=== PATIENT | female | born 1975 | race Caucasian/White ===

== ENCOUNTER 2018-05-12 12:22 | Day surgery (SDC) | payer MEDICAID ==
[~2018-05-12] VITALS: Ht 160 cm; Wt 83.5 kg
[~2018-05-12 12:22] MED LIST: ACHD5005 PO; ACYC800T; ACYC800T57; ALBU17AE23 IH; ALPR.25T PO; ALPR.5T; ALPR.5T PO; ALPR1T PO; AMIT25TA9 PO; AMX500CRX PO; ARPZ10T PO; CPR500T PO; DIAZ2TAB2 PO; DIAZ5TAB3 PO; DOXE10CA PO; Depakote; ERGO400C PO; ESCI20TA2 PO; HYDR-34 PO; HYDR1TAB PO; Haldol; LIPA1CAP21 PO; METH4TAB PO; METO-354 PO; METR500T PO; NAPR550T PO; ONDA-42 PO; ONDAN4ODT PO; OXYC-12 PO; PNT40TEC PO; PRD1T PO; PRD20T PO; PRM25T PO; RABE20TA; RABE20TA PO; VALA500T4 PO; Valtrex
[2018-05-12] MEDS ORDERED: LACTATED RINGERS 1,000 ML IV STA (12:25)
--- OUTSIDE RECORDS SUMMARY | 2018-05-12 12:25 | XMS REPORT | Summary of Care ---
Author Author Saadia Sandy, Lev Organization Unknown Address Unknown Phone Unavailable Care Team Providers Care Parts And Service Manager Name Role Phone Lev Zee M.D. Unavailable Unavailable Major Troncoso M.D. Unavailable Unavailable Maryse Burroughs PP Unavailable Unavailable Unavailable Functional Status Functional Status Health Issues* Name Dates Details Functional status health issues are not documented Status: Cognitive Status Health Issues* Name Dates Details Cognitive status health issues are not documented Status: Problems Name Dates Details Anxiety (300.00, F41.9) Status: Active Generalized pain (780.96, R52) Status: Active Chronic pancreatitis (577.1, K86.1) Status: Active Polyarthritis (716.50, M13.0) Status: Active Pain of left foot (729.5, M79.672) Status: Active Seasonal allergies (477.9, J30.2) Status: Active URI, acute (465.9, J06.9) Status: Active Cervical herniated disc (722.0, M50.20) Status: Active Lumbar herniated disc (722.10, M51.26) Status: Active Left rotator cuff tear (840.4, M75.102) Status: Active Medications Name Dates Details Voltaren 1 % Transdermal Gel APPLY 4 GRAMS TO AFFECTED AREA FOUR TIMES DAILY Quantity: 500 Lev Zee M.D.* Started 30-Oct-2012 ActiveMiraLax Oral Powder 17 grams po daily * Refills: 0 Ascencion Troncoso M.D.* Started 13-Nov-2012 ActiveAbilify 10 MG Oral Tablet TAKE 1 TABLET DAILY. * Quantity: 30 Refills: 0 Lev Zee M.D.* Started 13-Nov-2012 ActiveALPRAZolam 0.5 MG Oral Tablet TAKE 1 TABLET EVERY 8 HOURS NEEDED. * Quantity: 90 Refills: 0 Lev Zee M.D.* Started 05-Feb-2013 ActiveEscitalopram Oxalate 10 MG Oral Tablet TAKE 1 TABLET DAILY. * Quantity: 30 Refills: 3 Lev Zee M.D.* Started 05-Feb-2013 ActiveOxycodone-Acetaminophen 10-325 MG Oral Tablet TAKE 1 EVERY 4 HOURS NEEDED. *MAX 6 PER DAY*MAY FILL ON OR AFTER 02/15/15* * Quantity: 180 Refills: 0 Lev Zee M.D.* Started ActiveProtonix 20 MG Oral Tablet Delayed Release TAKE 1 TABLET TWICE DAILY. * Refills: 0 * Started 24-Nov-2013 Active Allergies and Adverse Reactions Name Dates Details BusPIRone HCl TABS Status: Active Prazosin HCl CAPS Status: Active tramadol Status: Active ZyPREXA TABS Status: Active Procedures Procedure Dates Details History of Inj Of Subst Other Than Anes/Contrast/Neurol Solns Cervical Procedures not documented Immunization Name Dates Details Influenza Administered on:22-Jun-2014 Social History Name Dates Details Smoking Status* Smoker. current status unknown Vital Signs Date Test Result Details 13-Jan-2015 10:04 BP Systolic 104 mm[Hg] Status: BP Diastolic 60 mm[Hg] Status: Heart Rate 69 /min Status: Respiration Rate 20 /min Status: Weight 179.125 lb Status: Height 63 in Status: O2 SAT 98 % Status: Body Mass Index Calculated 31.73 kg/m2 Status: Body Surface Area Calculated 1.85 m2 Status: Results Date Description Value Details Results not documented Plan of Care Planned Observations* Name Dates Details Planned Goals not documented Goal Planned Encounters* Appointment; Provider: Lev Zee On 13:45 Instructions * Instructions not documented Encounters Appointment; Lev Zee Encounter Diagnosis: Problem not documented On 13-Jan-2015 10:00 Appointment; Lev Zee Encounter Diagnosis: Problem not documented On 18-Nov-2014 14:30 Appointment; Lev Zee Encounter Diagnosis: Problem not documented On 23-Sep-2014 14:30 Appointment; Lev Zee Encounter Diagnosis: Problem not documented On 23-Jul-2014 14:00 Appointment; Lev Zee Encounter Diagnosis: Problem not documented On 28-May-2014 15:30 Appointment; Lev Zee Encounter Diagnosis: Problem not documented On 15:15 Appointment; Lev Zee Encounter Diagnosis: Problem not documented On 10:30 Appointment; Lev Zee Encounter Diagnosis: Problem not documented On 18-Jan-2014 10:30 Appointment; Lev Zee Encounter Diagnosis: Problem not documented On 24-Nov-2013 11:15 Appointment; Lev Zee Encounter Diagnosis: Problem not documented On 05-Oct-2013 13:15 Appointment; Lev Zee Encounter Diagnosis: Problem not documented On 04-Aug-2013 13:15 Appointment; Lev Zee Encounter Diagnosis: Problem not documented On 02-Jun-2013 13:15 Appointment; Lev Zee Encounter Diagnosis: Problem not documented On 13:30 Appointment; Lev Zee Encounter Diagnosis: Problem not documented On 05-Feb-2013 10:45
--- OUTSIDE RECORDS SUMMARY | 2018-05-12 12:25 | XMS REPORT | Summary of Care ---
Author Author Saadia Sandy, Lev Organization Unknown Address Unknown Phone Unavailable Care Team Providers Care Marine Superintendent Name Role Phone Lev Zee M.D. Unavailable [...] 6 PER DAY*MAY FILL ON OR AFTER 04/14/15* * Quantity: 180 Refills: 0 Lev Zee [...] unknown Vital Signs Date Test Result Details 13:35 BP Systolic 102 mm[Hg] Status: BP Diastolic 62 mm[Hg] Status: Heart Rate 75 /min Status: Respiration Rate 20 /min Status: Weight 175 lb Status: Height 63 in Status: O2 SAT 97 % Status: Body Mass Index Calculated 31 kg/m2 Status: Body Surface Area Calculated 1.83 m2 Status: Results Date Description Value Details Results not documented Plan of Care Planned Observations* Name Dates Details Planned Goals not documented Goal Planned Encounters* Appointment; Provider: Lev Zee On 09-May-2015 15:00 * Appointment; Provider: Schedule Radiology On 01-Feb-2015 14:30 Instructions * Instructions not documented Encounters Appointment; Lev Zee Encounter Diagnosis: Problem not documented On 13:45 Appointment; Lev Zee Encounter Diagnosis: Problem not [...]
--- OUTSIDE RECORDS SUMMARY | 2018-05-12 12:25 | XMS REPORT | Summary of Care ---
Author Author Saadia Sandy, Lev Organization Unknown Address Unknown Phone Unavailable Care Team Providers Care House Player Name Role Phone Lev Zee M.D. Unavailable Unavailable Major Troncoso M.D. Unavailable Unavailable Maryse Burroughs Unavailable Unavailable Unavailable Unavailable Functional Status Name Dates Details Functional status health issues are not documented Status: Name Dates Details Cognitive status health issues are not documented Status: Problems Name Dates Details Anxiety (300.00, F41.9) Status: Active Generalized pain (780.96, R52) Status: Active Chronic pancreatitis (577.1, K86.1) Status: Active Polyarthritis (716.50, M13.0) Status: Active Pain of left foot (729.5, M79.672) Status: Active Seasonal allergies (477.9, J30.2) Status: Active High risk medication use (V58.69, Z79.899) Status: Active Pain management (V58.89, R52) Status: Active Cervical herniated disc (722.0, M50.20) Status: Active Lumbar herniated disc (722.10, M51.26) Status: Active Left rotator cuff tear (840.4, M75.102) Status: Active Tobacco abuse (305.1, Z72.0) Status: Active Medications Name Dates Details Voltaren 1 % Transdermal Gel APPLY 4 GRAMS TO AFFECTED AREA FOUR TIMES DAILY Quantity: 1 Lev Zee M.D. * Start 30-Oct-2012 Active 100 GM Tube (5 Tubes) MiraLax Oral Powder 17 grams po daily * Refills: 0 Ascencion Troncoso M.D. * Start 13-Nov-2012 Active Abilify 10 MG Oral Tablet TAKE 1 TABLET DAILY. * Quantity: 30 Refills: 0 Lev Zee M.D. * Start 13-Nov-2012 Active ALPRAZolam 0.5 MG Oral Tablet TAKE 1 TABLET EVERY 8 HOURS NEEDED. * Quantity: 90 Refills: 0 Lev Zee M.D. * Start 05-Feb-2013 Active Escitalopram Oxalate 10 MG Oral Tablet TAKE 1 TABLET DAILY. * Quantity: 30 Refills: 3 Lev Zee M.D. * Start 05-Feb-2013 Active Oxycodone-Acetaminophen 10-325 MG Oral Tablet TAKE 1 EVERY 4 HOURS NEEDED. *MAX 6 PER DAY*MAY FILL ON OR AFTER 06/22/16* * Quantity: 180 Refills: 0 Lev Zee M.D. * Start Active Protonix 20 MG Oral Tablet Delayed Release TAKE 1 TABLET TWICE DAILY. * Refills: 0 * Start 24-Nov-2013 Active Evzio 0.4 MG/0.4ML Injection Solution Auto-injector INJECT 0.4MG SC/IM Q 2-3MIN NEEDED PER OVERDOSE * Quantity: 1 Refills: 0 Lev Zee M.D. * Start 05-Jul-2015 Active 0.4 ML Package (2 Packages) Lyrica 75 MG Oral Capsule 1 tablet three times daily * Refills: 0 * Start 17-Jan-2016 Active SUMAtriptan Succinate 50 MG Oral Tablet TAKE 1 TABLET FOR MIGRAINE RELIEF. MAY REPEAT EVERY 2 HOURS. MAX 200MG/DAY. * Refills: 0 * Start Active Allergies and Adverse Reactions Name Dates Details BusPIRone HCl TABS (Allergy) Status: Active gabapentin (Allergy) Status: Active Prazosin HCl CAPS (Allergy) Status: Active tramadol (Allergy) Status: Active ZyPREXA TABS (Allergy) Status: Active Procedures Procedure Dates Details History of Inj Of Subst Other Than Anes/Contrast/Neurol Solns Cervical Drug Screen Pain Management 8400 Ordered: 17-May-2016 Immunization Name Dates Details Influenza on: 22-Jun-2014 Fluzone Quadrivalent 0.5 ML Intramuscular Suspension Prefilled Syringe Lot #: [id number] on: 05-Jul-2015 Social History Name Dates Details - Status: Name Dates Details Smoker. current status unknown Vital Signs Date Test Result Details 17-May-2016 14:54 BP Systolic 96 mm[Hg] Status: Comments: Location: ; Position: BP Diastolic 58 mm[Hg] Status: Comments: Location: ; Position: Heart Rate 67 /min Status: Comments: Location: ; Physical Findings 20 Status: Comments: Respiration Height 63 in Status: Weight 178.125 lb Status: Physical Findings 97 Status: Comments: O2 Saturation Body Mass Index Calculated 31.55 kg/m2 Status: Body Surface Area Calculated 1.84 m2 Status: Results Date Description Value Details Results not documented Plan of Care Name Dates Details Planned Observations Planned Goals not documented Planned Encounters Appointment; Provider: Lev Zee M.D. On 19-Jul-2016 11:30 Interventions Provided Medication Changes* Oxycodone-Acetaminophen 10-325 MG Oral Tablet - Renew with Changes Labs/Procedures/Imaging* Drug Screen Pain Management 8400; To be Done: 17 May 2016 Instructions Name Dates Details Instructions not documented Encounters Appointment; Lev Zee M.D. Encounter Diagnosis: Problem not documented On 15:15 Appointment; Lev Zee M.D. Encounter Diagnosis: Problem not documented On 17-Jan-2016 15:15 Appointment; Lev Zee M.D. Encounter Diagnosis: Problem not documented On 17-Nov-2015 14:00 Appointment; Lev Zee M.D. Encounter Diagnosis: Problem not documented On 30-Sep-2015 14:15 Appointment; Lev Zee M.D. Encounter Diagnosis: Problem not documented On 02-Aug-2015 15:30 Appointment; Lev Zee M.D. Encounter Diagnosis: Problem not documented On 05-Jul-2015 10:15 Appointment; Lev Zee M.D. Encounter Diagnosis: Problem not documented On 09-May-2015 15:00 Appointment; Lev Zee M.D. Encounter Diagnosis: Problem not documented On 13:45 Appointment; Lev Zee M.D. Encounter Diagnosis: Problem not documented On 13-Jan-2015 10:00 Appointment; Lev Zee M.D. Encounter Diagnosis: Problem not documented On 18-Nov-2014 14:30 Appointment; Lev Zee M.D. Encounter Diagnosis: Problem not documented On 23-Sep-2014 14:30 Appointment; Lev Zee M.D. Encounter Diagnosis: Problem not documented On 23-Jul-2014 14:00 Appointment; Lev Zee M.D. Encounter Diagnosis: Problem not documented On 28-May-2014 15:30
--- OUTSIDE RECORDS SUMMARY | 2018-05-12 12:25 | XMS REPORT | Summary of Care ---
Author Author Saadia Sandy, Lev Organization Unknown Address Unknown Phone Unavailable Care Team Providers Care Computer Typesetter Keyliner Name Role Phone Lev Zee M.D. Unavailable [...]
--- OUTSIDE RECORDS SUMMARY | 2018-05-12 12:25 | XMS REPORT | Summary of Care ---
Author Author Saadia Sandy, Lev Kovacs Unknown Address Unknown Phone Unavailable Care Team Providers Care Proposal Editor Name Role Phone Lev Zee M.D. Unavailable [...] Active URI, acute (465.9, J06.9) Status: Active High risk medication use (V58.69, Z79.899) Status: Active Left rotator cuff tear (840.4, M75.102) Status: Active Lumbar herniated disc (722.10, M51.26) Status: Active Cervical herniated disc (722.0, M50.20) Status: Active Medications Name Dates Details Voltaren [...] 6 PER DAY*MAY FILL ON OR AFTER 11/03/15* * Quantity: 180 Refills: 0 Lev Zee M.D.* Started ActiveProtonix 20 MG Oral Tablet Delayed Release TAKE 1 TABLET TWICE DAILY. * Refills: 0 * Started 24-Nov-2013 ActiveEvzio 0.4 MG/0.4ML Injection Solution Auto-injector INJECT 0.4MG SC/IM Q 2-3MIN NEEDED PER OVERDOSE * Quantity: 1 Refills: 0 Lev Zee M.D.* Started 05-Jul-2015 Active0.4 ML Package (2 Packages) Meloxicam 15 MG Oral Tablet TAKE 1 TABLET DAILY WITH FOOD. * Refills: 0 * Started 02-Aug-2015 Active Allergies and Adverse Reactions Name Dates Details BusPIRone HCl TABS Status: Active Prazosin HCl CAPS Status: Active tramadol Status: Active ZyPREXA TABS Status: Active Procedures Procedure Dates Details History of Inj Of Subst Other Than Anes/Contrast/Neurol Solns Cervical HASC Cervical Epidural 34247 Ordered:30-Sep-2015 Immunization Name Dates Details Influenza Administered on:22-Jun-2014 Fluzone Quadrivalent 0.5 ML Intramuscular Suspension Prefilled Syringe Lot #: [id number] Administered on:05-Jul-2015 Social History Name Dates Details Smoking Status* Smoker. current status unknown Vital Signs Date Test Result Details 30-Sep-2015 13:30 BP Systolic 100 mm[Hg] Status: BP Diastolic 68 mm[Hg] Status: Heart Rate 77 /min Status: Respiration Rate 20 /min Status: Height 63 in Status: Weight 170.5 lb Status: O2 SAT 97 % Status: Body Mass Index Calculated 30.2 kg/m2 Status: Body Surface Area Calculated 1.81 m2 Status: Results Date Description Value Details Results not documented Plan of Care Planned Observations* Name Dates Details Planned Goals not documented Goal Planned Encounters* Appointment; Provider: Lev Zee On 17-Nov-2015 14:00 * Appointment; Provider: Schedule Radiology On 14:00 * Appointment; Provider: Schedule Radiology On 14:00 * Appointment; Provider: Schedule Radiology On 01-Feb-2015 14:30 Instructions * Instructions not documented Encounters Appointment; Lev Zee Encounter Diagnosis: Problem not documented On 02-Aug-2015 15:30 Appointment; Lev Zee Encounter Diagnosis: Problem not documented On 05-Jul-2015 10:15 Appointment; Lev Zee Encounter Diagnosis: Problem not documented On 09-May-2015 15:00 Appointment; Lev Zee Encounter Diagnosis: Problem not [...]
--- OUTSIDE RECORDS SUMMARY | 2018-05-12 12:26 | XMS REPORT | Summary of Care ---
Author Author Saadia Sandy, [employer] [facility] Unknown Address Unknown Phone Unavailable Care Team Providers Care Hat Parts Cutter Machine Name Role Phone Maryse Burroughs Unavailable Unavailable Unavailable Unavailable Functional Status Functional Status Health Issues* Name Dates Details No known functional status health issues Status: Cognitive Status Health Issues* Name Dates Details No known cognitive status health issues Status: Problems Name Dates Details Lower back pain (724.2, M54.5) Status: Active Anxiety (300.00, F41.9) Status: Active Generalized pain (780.96, R52) Status: Active Chronic pancreatitis (577.1, K86.1) Status: Active Cervicalgia (723.1, M54.2) Status: Active Polyarthritis (716.50, M13.0) Status: Active Pain of left foot (729.5, M79.672) Status: Active Cervical herniated disc (722.0, M50.20) Status: Active Lumbar herniated disc (722.10, M51.26) Status: Active Seasonal allergies (477.9, J30.2) Status: Active Medications Name Dates Details Voltaren 1 % Transdermal Gel APPLY 4 GRAMS TO AFFECTED AREA FOUR TIMES DAILY Quantity: 500 GM * Started 30-Oct-2012 ActiveMiraLax Oral Powder 17 grams po daily * Refills: 0 * Started 13-Nov-2012 ActiveAbilify 10 MG Oral Tablet TAKE 1 TABLET DAILY. * Quantity: 30 Tablet Refills: 0 * Started 13-Nov-2012 ActiveALPRAZolam 0.5 MG Oral Tablet TAKE 1 TABLET EVERY 8 HOURS NEEDED. * Quantity: 90 Tablet Refills: 0 * Started 05-Feb-2013 ActiveEscitalopram Oxalate 10 MG Oral Tablet TAKE 1 TABLET DAILY. * Quantity: 30 Tablet Refills: 3 * Started 05-Feb-2013 ActiveOxycodone-Acetaminophen 10-325 MG Oral Tablet TAKE 1 EVERY 4 HOURS NEEDED. *MAX 6 PER DAY*MAY FILL ON OR AFTER 06/28/14* * Quantity: 180 Tablet Refills: 0 * Started ActiveProtonix 20 MG Oral Tablet Delayed Release TAKE 1 TABLET TWICE DAILY. * Refills: 0 * Started 24-Nov-2013 Active Allergies and Adverse Reactions Name Dates Details BusPIRone HCl TABS Status: Active ZyPREXA TABS Status: Active Prazosin HCl CAPS Status: Active Past Medical History Name Dates Details Inj Of Subst Other Than Anes/Contrast/Neurol Solns Cervical Status: Resolved Procedures Procedure Dates Details Surgical history not documented Procedures not documented Immunization Name Dates Details Immunizations not documented Social History Name Dates Details Current smoker (305.1, Z72.0) Smoking Status* Smoker. current status unknown Vital Signs Date Test Result Details No Known Vitals to report Results Date Description Value Details Results not documented Plan of Care Instructions* Instructions not documented Planned Observations* Name Dates Details Planned Goals not documented Goal Planned Encounters* Appointment; Provider: Lev Zee On 23-Jul-2014 14:00 Instructions * No Known Instructions Encounters Appointment; Lev Zee Encounter Diagnosis: Problem [...] Diagnosis: Problem not documented On 05-Feb-2013 10:45 Appointment; Lev Zee Encounter Diagnosis: Problem not documented On 11-Dec-2012 10:45 Appointment; Lev Zee Encounter Diagnosis: Problem not documented On 13-Nov-2012 09:15 Appointment; Zee, [place] Encounter Diagnosis: Problem not documented On 30-Oct-2012 11:00
--- OUTSIDE RECORDS SUMMARY | 2018-05-12 12:26 | XMS REPORT | Summary of Care ---
Author Author Lev Zee M.D. Unknown Address Unknown Phone Unavailable Care Team Providers Care Bulb Filler Name Role Phone Lev Zee M.D. Unavailable [...] risk medication use (V58.69, Z79.899) Status: Active Lumbar herniated disc (722.10, M51.26) Status: Active Cervical herniated disc (722.0, M50.20) Status: Active Left rotator cuff tear (840.4, M75.102) Status: Active Tobacco abuse (305.1, Z72.0) Status: Active Medications Name Dates Details Voltaren 1 % Transdermal Gel APPLY 4 GRAMS TO AFFECTED AREA FOUR TIMES DAILY Quantity: 1 Lev Zee M.D.* Started 30-Oct-2012 [id number] GM Tube (5 Tubes) MiraLax Oral Powder [...] 6 PER DAY*MAY FILL ON OR AFTER 02/27/16* * Quantity: 180 Refills: 0 Lev Zee M.D.* Started ActiveProtonix 20 MG Oral Tablet Delayed Release TAKE 1 TABLET TWICE DAILY. * Refills: 0 * Started 24-Nov-2013 ActiveEvzio 0.4 MG/0.4ML Injection Solution Auto-injector INJECT 0.4MG SC/IM Q 2-3MIN NEEDED PER OVERDOSE * Quantity: 1 Refills: 0 Lev Zee M.D.* Started 05-Jul-2015 Active0.4 ML Package (2 Packages) Lyrica 75 MG Oral Capsule 1 tablet three times daily * Refills: 0 * Started 17-Jan-2016 ActiveFiorinal 50-325-40 MG Oral Capsule TAKE 1 TO 2 CAPSULES EVERY 4 TO 6 HOURS NEEDED FOR PAIN. * Refills: 0 * Started 17-Jan-2016 Active Allergies and Adverse Reactions Name Dates Details BusPIRone HCl TABS Status: Active gabapentin Status: Active Prazosin HCl CAPS Status: Active tramadol Status: Active ZyPREXA TABS Status: Active Procedures Procedure Dates Details History of Inj Of Subst Other Than Anes/Contrast/Neurol Solns Cervical Procedures not documented Immunization Name Dates Details Influenza Administered on:22-Jun-2014 Fluzone Quadrivalent 0.5 ML Intramuscular Suspension Prefilled Syringe Lot #: [id number] Administered on:05-Jul-2015 Social History Name Dates Details Smoking Status* Smoker. current status unknown Vital Signs Date Test Result Details 17-Jan-2016 14:58 BP Systolic 100 mm[Hg] Status: BP Diastolic 56 mm[Hg] Status: Heart Rate 73 /min Status: Respiration Rate 20 /min Status: Height 63 in Status: Weight 172.25 lb Status: O2 SAT 96 % Status: Body Mass Index Calculated 30.51 kg/m2 Status: Body Surface Area Calculated 1.81 m2 Status: Results Date Description Value Details Results not documented Plan of Care Planned Observations* Name Dates Details Planned Goals not documented Goal Planned Encounters* Appointment; Provider: Schedule Radiology On 14:00 * Appointment; Provider: Schedule Radiology On 14:00 * Appointment; Provider: Schedule Radiology On 01-Feb-2015 14:30 Instructions * Instructions not documented Encounters Appointment; Lev Zee Encounter Diagnosis: Problem not documented On 17-Jan-2016 15:15 Appointment; Lev Zee Encounter Diagnosis: Problem not documented On 17-Nov-2015 14:00 Appointment; Lev Zee Encounter Diagnosis: Problem not documented On 30-Sep-2015 14:15 Appointment; Lev Zee Encounter Diagnosis: Problem not [...]
--- OUTSIDE RECORDS SUMMARY | 2018-05-12 12:26 | XMS REPORT | Summary of Care ---
Author Author Saadia Sandy, Lev Kovacs Unknown Address Unknown Phone Unavailable Care Team Providers Care Pig Lead Melter Helper Name Role Phone Lev Zee M.D. Unavailable [...] Active URI, acute (465.9, J06.9) Status: Active Left rotator cuff tear (840.4, M75.102) Status: Active Lumbar herniated disc (722.10, M51.26) Status: Active Cervical herniated disc (722.0, M50.20) Status: Active High risk medication use (V58.69, Z79.899) Status: Active Medications Name Dates Details Voltaren [...] 6 PER DAY*MAY FILL ON OR AFTER 07/10/15* * Quantity: 180 Refills: 0 Lev Zee M.D.* Started ActiveProtonix 20 MG Oral Tablet Delayed Release TAKE 1 TABLET TWICE DAILY. * Refills: 0 * Started 24-Nov-2013 ActiveEvzio 0.4 MG/0.4ML Injection Solution Auto-injector INJECT 0.4MG SC/IM Q 2-3MIN NEEDED PER OVERDOSE * Quantity: 1 Refills: 0 Lev Zee M.D.* Started 05-Jul-2015 Active0.4 ML Package (2 Packages) Allergies and Adverse Reactions Name Dates Details BusPIRone HCl TABS Status: Active Prazosin HCl CAPS Status: Active tramadol Status: Active ZyPREXA TABS Status: Active Procedures Procedure Dates Details History of Inj Of Subst Other Than Anes/Contrast/Neurol Solns Cervical Procedures not documented Immunization Name Dates Details Influenza Administered on:22-Jun-2014 Fluzone Quadrivalent 0.5 ML Intramuscular Suspension Prefilled Syringe Lot #: [id number] Administered on:05-Jul-2015 Social History Name Dates Details Smoking Status* Smoker. current status unknown Vital Signs Date Test Result Details 05-Jul-2015 10:45 BP Systolic 102 mm[Hg] Status: BP Diastolic 64 mm[Hg] Status: Heart Rate 71 /min Status: Respiration Rate 20 /min Status: Height 63 in Status: Weight 174.375 lb Status: O2 SAT 97 % Status: Body Mass Index Calculated 30.89 kg/m2 Status: Body Surface Area Calculated 1.82 m2 Status: Results Date Description Value Details [...]
--- OUTSIDE RECORDS SUMMARY | 2018-05-12 12:26 | XMS REPORT | Summary of Care ---
Author Author Saadia Sandy, Lev Organization Unknown Address Unknown Phone Unavailable Care Team Providers Care Communications Equipment Installer Name Role Phone Lev Zee M.D. Unavailable Unavailable Major Troncoso M.D. Unavailable Unavailable Maryse Burroughs PP Unavailable Unavailable Unavailable Functional Status Functional Status Health Issues* Name Dates Details Functional status health issues are not documented Status: Cognitive Status Health Issues* Name Dates Details Cognitive status health issues are not documented Status: Problems Name Dates Details Anxiety (300.00, F41.1) Status: Active Generalized pain (780.96, R52) Status: [...] unknown Vital Signs Date Test Result Details 09-May-2015 14:31 BP Systolic 94 mm[Hg] Status: BP Diastolic 66 mm[Hg] Status: Heart Rate 62 /min Status: Respiration Rate 20 /min Status: Height 63 in Status: Weight 174.125 lb Status: O2 SAT 95 % Status: Body Mass Index Calculated 30.85 kg/m2 Status: Body Surface Area Calculated 1.82 [...] Problem not documented On 24-Nov-2013 11:15 Appointment; eLv Zee Encounter Diagnosis: Problem not documented On 05-Oct-2013 13:15 Appointment; Lev Zee Encounter Diagnosis: Problem not documented On 04-Aug-2013 13:15 Appointment; Lev Zee Encounter Diagnosis: Problem not documented On 02-Jun-2013 13:15
--- OUTSIDE RECORDS SUMMARY | 2018-05-12 12:26 | XMS REPORT | Summary of Care ---
Author Author Saadia Sandy, Lev Kovacs Unknown Address Unknown Phone Unavailable Care Team Providers Care Wood Stock Blank Handler Name Role Phone Lev Zee M.D. Unavailable [...] 6 PER DAY*MAY FILL ON OR AFTER 09/06/15* * Quantity: 180 Refills: 0 Lev Zee [...] Than Anes/Contrast/Neurol Solns Cervical HASC Cervical Epidural 91459 Ordered:02-Aug-2015 Immunization Name Dates Details Influenza Administered on:22-Jun-2014 Fluzone Quadrivalent 0.5 ML Intramuscular Suspension Prefilled Syringe Lot #: [id number] Administered on:05-Jul-2015 Social History Name Dates Details Smoking Status* Smoker. current status unknown Vital Signs Date Test Result Details 02-Aug-2015 15:31 BP Systolic 120 mm[Hg] Status: BP Diastolic 70 mm[Hg] Status: Heart Rate 77 /min Status: Respiration Rate 20 /min Status: Height 63 in Status: Weight 173.5 lb Status: O2 SAT 97 % Status: Body Mass Index Calculated 30.73 kg/m2 Status: Body Surface Area Calculated 1.82 m2 Status: 05-Jul-2015 10:45 BP Systolic 102 mm[Hg] Status: BP Diastolic 64 mm[Hg] Status: Heart Rate 71 /min Status: Respiration Rate 20 /min Status: Height 63 in Status: Weight 174.375 lb Status: O2 SAT 97 % Status: Body Mass Index Calculated 30.89 kg/m2 Status: Body Surface Area Calculated 1.82 m2 Status: Results Date Description Value Details 07-Jul-2015 12:21 Drug Screen PM, Meperidine [id number] Comments: [facility] performed at: [email or web address] [facility], [address] [place] [address], [address], [place], [address], Manager Legal: Veronica Watkins Ph.D.[facility] Collection Date/Time: [id number] Results Received Date/Time: Reported Date/Time: [id number] performed at: [facility], [address] [place] [address], [address], [place], [address], Manager Legal: Veronica Watkins Ph.D.[facility] Collection Date/Time: [id number] Results Received Date/Time: Reported Date/Time: Meperidine NEGATIVE ng/mL (Better) Range: <100 Comments: [AP]----- Normeperidine NEGATIVE ng/mL (Better) Range: <100 Comments: [AP]----- 12:21 Drug Screen PM, Tramadol [id number] Comments: [facility] performed at: [facility], [address] [place] [address], [address], [place], [address], Manager Legal: Veronica Watkins Ph.D.[facility] Collection Date/Time: [id number] Results Received Date/Time : Reported Date/Time: [id number] performed at: [facility], [address] [place] [address], [address], [place], [address], Manager Legal: Veronica Watkins Ph.D.[facility] Collection Date/Time: [id number] Results Received Date/Time : Reported Date/Time: Desmethyltramadol NEGATIVE ng/mL (Better) Range: <100 Comments: [AP]----- Tramadol NEGATIVE ng/mL (Better) Range: <100 Comments: [AP]----- 08-Jul-2015 08:07 Drug Screen PM, Fentanyl [id number] Comments: [facility] performed at: [facility], [address] [place] [address], [address], [place], [address] [place] [address], Manager Legal: Veronica Watkins Ph.D.[facility] Collection Date/Time: [id number] Results Received Date/Time: [id number] Reported Date/Time: [id number] performed at: [facility], [address] [place] [address], [address], [place], [address], Manager Legal: Veronica Watkins Ph.D.[facility] Collection Date/Time: [id number] Results Received Date/Time: [id number] Reported Date/Time: [id number] performed at: [facility], [address] [place] [address], [address], [place], [address], Manager Legal: Veronica Watkins Ph.D.[facility] Collection Date/Time: [id number] Results Received Date/Time: [id number] Reported Date/Time: [id number] performed at: [facility], [address] [place] [address], [address], [place], [address], Manager Legal: Veronica Watkins Ph.D.[facility] Collection Date/Time: [id number] Results Received Date/Time: Reported Date/Time: Fentanyl NEGATIVE ng/mL (Better) Range: <0.5 Comments: [AP]----- Norfentanyl NEGATIVE ng/mL (Better) Range: <0.5 Comments: [AP]----- 08:07 Drug Screen PM, Alcohol Metabolites [id number] Comments: [facility] performed at: [facility], [address] [place] [address], [address], [place], [address], Manager Legal: Veronica Watkins Ph.D.[facility] Collection Date/Time: [id number] Results Received Date/Time: Reported Date/Time: [id number] performed at: [facility], [address] [place] [address], [address], [place], [address], Manager Legal: Veronica Watkins Ph.D.[facility] Collection Date/Time: [id number] Results Received Date/Time: [id number] Reported Date/Time: [id number] performed at: [facility], [address] [place] [address], [address], [place], [address], Manager Legal: Veronica Watkins Ph.D.[facility] Collection Date/Time: [id number] Results Received Date/Time: [id number] Reported Date/Time: [id number] performed at: [facility], [address] [place] [address], [address], [place], [address], Manager Legal: Veronica Watkins Ph.D.[facility] Collection Date/Time: [id number] Results Received Date/Time: [id number] Reported Date/Time: Alcohol Metabolites NEGATIVE ng/mL (Better) Range: <500 Comments: [AP]----- Please note: SEE NOTE (Better) Comments: * These results are for medical treatment only Analysis was performed as non-forensic testing *For assistance with interpreting these drug results,please contact a [facility] ToxicologySpecialist: [phone] ( ),M-F, 8am-6pm EST.[AP]----- 09-Jul-2015 10:33 Drug Screen PM Profile 4 [id number] Comments: [facility] performed at: [facility], [address] [place] [address], [address], [place], [address], Manager Legal: Veronica Watkins Ph.D.[facility] Collection Date/Time: [id number] Results Received Date/Time: [id number] Reported Date/Time: [id number] performed at: [facility], [address] [place] [address], [address], [place], [address] [place] [address], Manager Legal: Veronica Watkins Ph.D.[facility] Collection Date/Time: [id number] Results Received Date/Time: [id number] Reported Date/Time: [id number] performed at: [facility], [address] [place] [address], [address], [place], [address] [place] [address], Manager Legal: Veronica Watkins Ph.D.[facility] Collection Date/Time: [id number] Results Received Date/Time: [id number] Reported Date/Time: [id number] performed at: , [facility], [address] [place] [address], [address], [place], [address] [place] [address], Manager Legal: Veronica Watkins Ph.D.[facility] Collection Date/Time: [id number] Results Received Date/Time: [id number] Reported Date/Time: [id number] performed at: [facility], [address] [place] [address], [address], [place], [address] [place] [address], Manager Legal: Veronica Watkins Ph.D.[facility] Collection Date/Time: [id number] Results Received Date/Time: [id number] Reported Date/Time: [id number] Management Profile 1 w/ Confirmation, Urine Drug 1 PercocetPain Management Profile 1 w/ Confirmation, Urine Drug 2 No Answer GivenPain Management Profile 1 w/ Confirmation, Urine Drug 3 No Answer GivenPain Management Profile 1 w/ Confirmation, Urine Drug 4 No Answer GivenPain Management Profile 1 w/ Confirmation, Urine Drug 5 No Answer Given Prescribed Drug 1 Percocet(TM) (Better) Comments: [AP]----- Creatinine 63.1 mg/dL (Better) Range: > or=20.0 Comments: [AP]----- pH 6.75 (Better) Range: 4.5 - 9.0 Comments: [AP]----- Oxidant NEGATIVE mcg/mL (Better) Range: <200 Comments: [AP]----- Amphetamines NEGATIVE ng/mL (Better) Range: <500 Comments: [AP]----- medMATCH Amphetamines CONSISTENT (Better) Comments: [AP]----- Barbiturates NEGATIVE ng/mL (Better) Range: <300 Comments: [AP]----- medMATCH Barbiturates CONSISTENT (Better) Comments: [AP]----- Benzodiazepines POSITIVE ng/mL (Abnormal) Range: <100 Comments: [AP]----- Alphahydroxyalprazolam 152 ng/mL (Above high threshold) Range: <25 Comments: [AP]----- medMATCH aOH alprazolam INCONSISTENT (Better) Comments: [AP]----- Alphahydroxymidazolam NEGATIVE ng/mL (Better) Range: <50 Comments: [AP]----- medMATCH aOH midazolam CONSISTENT (Better) Comments: [AP]----- Alphahydroxytriazolam NEGATIVE ng/mL (Better) Range: <50 Comments: [AP]----- medMATCH aOH triazolam CONSISTENT (Better) Comments: [AP]----- Aminoclonazepam NEGATIVE ng/mL (Better) Range: <25 Comments: [AP]----- medMATCH Aminoclonazepam CONSISTENT (Better) Comments: [AP]----- Hydroxyethylflurazepam NEGATIVE ng/mL (Better) Range: <50 Comments: [AP]----- medMATCH OH,Et flurazepam CONSISTENT (Better) Comments: [AP]----- Lorazepam NEGATIVE ng/mL (Better) Range: <50 Comments: [AP]----- medMATCH Lorazepam CONSISTENT (Better) Comments: [AP]----- Nordiazepam NEGATIVE ng/mL (Better) Range: <50 Comments: [AP]----- medMATCH Nordiazepam CONSISTENT (Better) Comments: [AP]----- Oxazepam NEGATIVE ng/mL (Better) Range: <50 Comments: [AP]----- medMATCH Oxazepam CONSISTENT (Better) Comments: [AP]----- Temazepam NEGATIVE ng/mL (Better) Range: <50 Comments: [AP]----- medMATCH Temazepam CONSISTENT (Better) Comments: [AP]----- Cocaine Metabolite NEGATIVE ng/mL (Better) Range: <150 Comments: [AP]----- medMATCH Cocaine Metab CONSISTENT (Better) Comments: [AP]----- Methadone NEGATIVE ng/mL (Better) Range: <100 Comments: [AP]----- medMATCH Methadone CONSISTENT (Better) Comments: [AP]----- Opiates NEGATIVE CONFIRMED ng/mL (Better) Range: <100 Comments: [AP]----- Codeine NEGATIVE ng/mL (Better) Range: <50 Comments: [AP]----- medMATCH Codeine CONSISTENT (Better) Comments: [AP]----- Hydrocodone NEGATIVE ng/mL (Better) Range: <50 Comments: [AP]----- medMATCH Hydrocodone CONSISTENT (Better) Comments: [AP]----- Hydromorphone NEGATIVE ng/mL (Better) Range: <50 Comments: [AP]----- medMATCH Hydromorphone CONSISTENT (Better) Comments: [AP]----- Morphine NEGATIVE ng/mL (Better) Range: <50 Comments: [AP]----- medMATCH Morphine CONSISTENT (Better) Comments: [AP]----- Norhydrocodone NEGATIVE ng/mL (Better) Range: <50 Comments: [AP]----- medMATCH Norhydrocodone CONSISTENT (Better) Comments: [AP]----- Oxycodone POSITIVE ng/mL (Abnormal) Range: <100 Comments: [AP]----- Noroxycodone 5545 ng/mL (Above high threshold) Range: <50 Comments: [AP]----- medMATCH Noroxycodone CONSISTENT (Better) Comments: Noroxycodone is a metabolite of Oxycodone.[AP]----- Oxycodone 4910 ng/mL (Above high threshold) Range: <50 Comments: [AP]----- medMATCH Oxycodone CONSISTENT (Better) Comments: [AP]----- Oxymorphone 2128 ng/mL (Above high threshold) Range: <50 Comments: [AP]----- medMATCH Oxymorphone CONSISTENT (Better) Comments: Oxymorphone is a metabolite of oxycodone as well asa prescribed drug.[AP]----- Phencyclidine NEGATIVE ng/mL (Better) Range: <25 Comments: [AP]----- medMATCH Phencyclidine CONSISTENT (Better) Comments: [AP]----- COMMENT SEE NOTE (Better) Comments: medMATCH comments are: - present when drug test results may be the result of metabolism of one or more drugs or when results are inconsistent with prescribed medication(s) listed. - may be blank when drug results are consistent with prescribed medication(s) listed.[AP]----- Plan of Care Planned Observations* Name Dates [...]
--- OUTSIDE RECORDS SUMMARY | 2018-05-12 12:27 | XMS REPORT | Summary of Care ---
Author Author Saadia Sandy, Lev Kovacs Unknown Address Unknown Phone Unavailable Care Team Providers Care Mapping Supervisor Name Role Phone Lev Zee M.D. Unavailable [...] ML Intramuscular Suspension Prefilled Syringe Lot #: [id number] Administered on:05-Jul-2015 Social History Name Dates Details Smoking Status* Smoker. current status unknown Vital Signs Date Test Result Details 17-Nov-2015 14:14 BP Systolic 88 mm[Hg] Status: BP Diastolic 52 mm[Hg] Status: Heart Rate 74 /min Status: Respiration Rate 20 /min Status: Height 63 in Status: Weight 172.5 lb Status: O2 SAT 96 % Status: Body Mass Index Calculated 30.56 kg/m2 Status: Body Surface Area Calculated 1.82 [...]
--- OUTSIDE RECORDS SUMMARY | 2018-05-12 12:27 | XMS REPORT | Summary of Care ---
Author Author Lev Zee M.D. Unknown Address Unknown Phone Unavailable Care Team Providers Care Lapidarist Name Role Phone Lev Zee M.D. Unavailable [...] Active Seasonal allergies (477.9, J30.2) Status: Active Lumbar herniated disc (722.10, M51.26) Status: Active Cervical herniated disc (722.0, M50.20) Status: Active URI, acute (465.9, J06.9) Status: Active Medications Name Dates Details Voltaren 1 % Transdermal Gel APPLY 4 GRAMS TO AFFECTED AREA FOUR TIMES DAILY Quantity: 500 Lev Zee M.D.* Started 30-Oct-2012 ActiveMiraLax Oral Powder 17 grams po daily * Refills: 0 Ascencion Troncoso M.D.* Started 13-Nov-2012 ActiveOxycodone-Acetaminophen 10-325 MG Oral Tablet TAKE 1 EVERY 4 HOURS NEEDED. *MAX 6 PER DAY*MAY FILL ON OR AFTER 10/22/14* * Quantity: 180 Refills: 0 Lev Zee M.D.* Started ActiveProtonix 20 MG Oral Tablet Delayed Release TAKE 1 TABLET TWICE DAILY. * Refills: 0 * Started 24-Nov-2013 ActiveEscitalopram Oxalate 10 MG Oral Tablet TAKE 1 TABLET DAILY. * Quantity: 30 Refills: 3 Lev Zee M.D.* Started 05-Feb-2013 ActiveALPRAZolam 0.5 MG Oral Tablet TAKE 1 TABLET EVERY 8 HOURS NEEDED. * Quantity: 90 Refills: 0 Lev Zee M.D.* Started 05-Feb-2013 ActiveAbilify 10 MG Oral Tablet TAKE 1 TABLET DAILY. * Quantity: 30 Refills: 0 Lev Zee M.D.* Started 13-Nov-2012 Active Allergies and Adverse Reactions Name Dates Details BusPIRone HCl TABS Status: Active Prazosin HCl CAPS Status: Active ZyPREXA TABS Status: Active Procedures Procedure Dates Details History of Inj Of Subst Other Than Anes/Contrast/Neurol Solns Cervical EPIDURAL INJECTION Ordered:23-Sep-2014 Immunization Name Dates Details Influenza Administered on:22-Jun-2014 Social History Name Dates Details Smoking Status* Smoker. current status unknown Vital Signs Date Test Result Details 23-Sep-2014 14:54 BP Systolic 110 mm[Hg] Status: BP Diastolic 58 mm[Hg] Status: Heart Rate 82 /min Status: Respiration Rate 20 /min Status: Weight 180.5 lb Status: Height 63 in Status: O2 SAT 94 % Status: Body Mass Index Calculated 31.97 kg/m2 Status: Body Surface Area Calculated 1.85 m2 Status: Results Date Description Value Details Results not documented Plan of Care Planned Observations* Name Dates Details Planned Goals not documented Goal Planned Encounters* Appointment; Provider: Lev Zee On 18-Nov-2014 14:30 Instructions * Instructions not documented Encounters [...] Problem not documented On 13-Nov-2012 09:15 Appointment; Lev Zee Encounter Diagnosis: Problem not documented On 30-Oct-2012 11:00
--- OUTSIDE RECORDS SUMMARY | 2018-05-12 12:27 | XMS REPORT | Summary of Care ---
Author Author Saadia Sandy, Lev Organization Unknown Address Unknown Phone Unavailable Care Team Providers Care Explosive Operator Grenade Name Role Phone Lve Zee M.D. Unavailable Unavailable Major Troncoso M.D. [...] risk medication use (V58.69, Z79.899) Status: Active Cervical herniated disc (722.0, M50.20) Status: Active Lumbar herniated disc (722.10, M51.26) Status: Active Left rotator cuff tear (840.4, M75.102) Status: Active Tobacco abuse (305.1, Z72.0) Status: Active Medications Name Dates Details Voltaren 1 % Transdermal Gel APPLY 4 GRAMS TO AFFECTED AREA FOUR TIMES DAILY Quantity: 1 Lev Zee M.D.* Started 30-Oct-2012 [id number] GM Tube (5 Tubes) MiraLax Oral Powder [...] 6 PER DAY*MAY FILL ON OR AFTER 04/25/16* * Quantity: 180 Refills: 0 Lev Zee [...] daily * Refills: 0 * Started 17-Jan-2016 ActiveSUMAtriptan Succinate 50 MG Oral Tablet TAKE 1 TABLET FOR MIGRAINE RELIEF. MAY REPEAT EVERY 2 HOURS. MAX 200MG/DAY. * Refills: 0 * Started Active Allergies and Adverse Reactions Name Dates Details BusPIRone HCl TABS Status: Active gabapentin Status: Active Prazosin HCl CAPS Status: Active tramadol Status: Active ZyPREXA TABS Status: Active Procedures Procedure Dates Details History of Inj Of Subst Other Than Anes/Contrast/Neurol Solns Cervical HASC Cervical Epidural 02362 Ordered: Immunization Name Dates Details Influenza Administered on:22-Jun-2014 Fluzone Quadrivalent 0.5 ML Intramuscular Suspension Prefilled Syringe Lot #: [id number] Administered on:05-Jul-2015 Social History Name Dates Details Smoking Status* Smoker. current status unknown Vital Signs Date Test Result Details 15:20 Height 63 in Status: Weight 173.5 lb Status: O2 SAT 96 % Status: Body Mass Index Calculated 30.73 kg/m2 Status: Body Surface Area Calculated 1.82 m2 Status: BP Systolic 98 mm[Hg] Status: BP Diastolic 60 mm[Hg] Status: Heart Rate 70 /min Status: Respiration Rate 20 /min Status: Results Date Description Value Details Results not documented Plan of Care Planned Observations* Name Dates Details Planned Goals not documented Goal Planned Encounters* Appointment; Provider: Lev Zee On 17-May-2016 15:00 * Appointment; Provider: Schedule [facility]iology On 14:00 [...]
--- OUTSIDE RECORDS SUMMARY | 2018-05-12 12:27 | XMS REPORT | Summary of Care ---
Author Author Saadia Sandy, Lev Organization Unknown Address Unknown Phone Unavailable Care Team Providers Care Customer Facilities Supervisor Name Role Phone Lev Zee M.D. [...] Active Pain management (V58.89, R52) Status: Active Left rotator cuff tear (840.4, M75.102) Status: Active Cervical herniated disc (722.0, M50.20) Status: Active Lumbar herniated disc (722.10, M51.26) Status: Active Tobacco abuse (305.1, Z72.0) Status: [...] 6 PER DAY*MAY FILL ON OR AFTER 08/19/16* * Quantity: 180 Refills: 0 Lev Zee [...] 200MG/DAY. * Refills: 0 * Start Active Estradiol 0.1 MG/24HR Transdermal Patch Twice Weekly APPLY 1 PATCH TWICE WEEKLY DIRECTED. * Refills: 0 * Start 19-Jul-2016 Active Allergies and Adverse Reactions Name Dates Details BusPIRone HCl TABS (Allergy) Status: Active gabapentin (Allergy) Status: Active Prazosin HCl CAPS (Allergy) Status: Active tramadol (Allergy) Status: Active ZyPREXA TABS (Allergy) Status: Active Procedures Procedure Dates Details History of Inj Of Subst Other Than Anes/Contrast/Neurol Solns Cervical Procedures not documented Immunization Name Dates Details Influenza on: 22-Jun-2014 Fluzone Quadrivalent 0.5 ML Intramuscular Suspension Prefilled Syringe Lot #: [id number] on: 05-Jul-2015 Social History Name Dates Details - Status: Name Dates Details Smoker. current status unknown Vital Signs Date Test Result Details 19-Jul-2016 11:12 BP Systolic 94 mm[Hg] Status: Comments: Location: ; Position: BP Diastolic 60 mm[Hg] Status: Comments: Location: ; Position: Heart Rate 82 /min Status: Comments: Location: ; Physical Findings 20 Status: Comments: Respiration Height 63 in Status: Weight 177.375 lb Status: Physical Findings 97 Status: Comments: O2 Saturation Body Mass Index Calculated 31.42 kg/m2 Status: Body Surface Area Calculated 1.84 m2 Status: Results Date Description Value Details Results not documented Plan of Care Name Dates Details Planned Observations Planned Goals not documented Interventions Provided Medication Changes* Oxycodone-Acetaminophen 10-325 MG Oral Tablet - Renew with Changes Instructions Name Dates Details Instructions not documented Encounters Appointment; Lev Zee M.D. Encounter Diagnosis: Problem not documented On 17-May-2016 15:00 Appointment; Lev Zee M.D. Encounter Diagnosis: [...]
--- OUTSIDE RECORDS SUMMARY | 2018-05-12 12:27 | XMS REPORT ---
Author Author SANJUANA GARNER [facility] Address Unknown Phone Unavailable Care Team Providers Care Packing Supervisor Name Role Phone Dr. POLINA BRANHAM PCP Unavailable Allergies Allergy Description Allergy Type No known allergies - Procedures Procedure Type Procedure Description Date Physicians No codified procedures found for this patient. Results No Procedures Performed Observation Test Name Observation Test Result Observation Test Units Observation Test Date Observation Test Time No result observations. Results Transcriptions Result Description Result Date Result Time MRI L-SPINE W/O CONTRAST 10/29/12 13:03 History of Immunizations Immunization Date no immunization entries Plan of Care Item Text No plan of care items. Procedure Date/Time/Initials Critical? Status No plan of care procedures. Medication List Medication Dose Units Frequency Start Date/Time Status none Problem List Problem Entered Date Resolved Date No known problems
--- OUTSIDE RECORDS SUMMARY | 2018-05-12 12:27 | XMS REPORT | Summary of Care ---
Author Author Saadia Sandy, Lev Organization Unknown Address Unknown Phone Unavailable Care Team Providers Care Clay Artisan Name Role Phone Lev Zee M.D. Unavailable [...] Active URI, acute (465.9, J06.9) Status: Active Lumbar herniated disc (722.10, M51.26) [...] unknown Vital Signs Date Test Result Details 18-Nov-2014 14:48 BP Systolic 102 mm[Hg] Status: BP Diastolic 56 mm[Hg] Status: Heart Rate 62 /min Status: Respiration Rate 20 /min Status: Weight 180.125 lb Status: Height 63 in Status: O2 SAT 98 % Status: Body Mass Index Calculated 31.91 kg/m2 Status: Body Surface Area Calculated 1.85 m2 Status: Results Date Description Value Details Results not documented Plan of Care Planned Observations* Name Dates Details Planned Goals not documented Goal Instructions * Instructions not documented Encounters Appointment; [...]
--- OUTSIDE RECORDS SUMMARY | 2018-05-12 12:28 | XMS REPORT | Continuity of Care Document ---
Author Author [facility] Address Unknown Phone Unavailable Allergies Active Description Code Type Severity Reaction Onset Reported/Identified Relationship to Patient Clinical Status Yes BUSPIRONE [id number] Drug Allergy Unknown N/A Yes DOXEPIN [id number] Drug Allergy Unknown N/A Yes GABAPENTIN [id number] Drug Allergy Unknown N/A Yes MINIPRESS [id number] Drug Allergy Unknown N/A Yes PRAZOSIN [id number] Drug Allergy Unknown N/A Yes TRAMADOL [id number] Drug Allergy Unknown N/A Yes BuSpar [id number] N/A N/A Yes Doxepin [id number] N/A N/A Yes Minipress [id number] N/A N/A Yes Prazosin [id number] N/A N/A Yes Tramadol [id number] N/A N/A Yes NKANo Known Allergies NKA Miscellaneous Allergy Unknown N/A 02/21/2006 Yes BuSpar Drug Allergy 10/14/2008 Yes buspirone [id number] Drug Allergy Unknown N/A 02/03/2009 Yes codeine Drug Allergy 02/25/2009 Yes tramadol [id number] Drug Allergy Mild N/A 04/18/2009 Yes hyoscyamine Drug Allergy 12/14/2009 Yes traMADOL Drug Allergy 03/05/2011 Yes Zithromax Drug Allergy 06/12/2011 Yes Minipress ZZ Drug Allergy N/A HIVES 12/09/2012 Yes No Known Drug Allergies Drug Allergy N/A N/A 05/07/2013 Yes BuSpar ZZ Drug Allergy Severe Other - tremors/seizures 11/23/2014 Yes doxepin ZZ Drug Allergy Severe Other 11/23/2014 Yes traMADol ZZ Drug Allergy Moderate to severe Other - hives 11/23/2014 Yes prazosin ZZ Drug Allergy Moderate N/A 08/23/2015 Yes Gabapentin ZZ Drug Allergy Moderate N/A 07/24/2016 Medications Medication Packaging Start Date Stop Date Route Dosage Sig Oxycodone-Acetaminophen 10-325 MG Oral Tablet Tablet 04/02/2013 Tablet 180 TAKE 1 EVERY 4 HOURS NEEDED. *MAX 6 PER DAY*MAY FILL ON OR AFTER 08/19/16* XANAX ORAL 01/10/2015 30 3 times a day PERCOCET ORAL 01/10/2015 01/17/2015 40 1 TAB Q4H OR 2 TABS Q6H XANAX 02/03/2016 two pantoprazole 40 mg tablet,delayed release 06/27/2016 As Directed oxycodone-acetaminophen 10 mg-325 mg tablet 06/27/2016 As Directed ondansetron 4 mg disintegrating tablet 06/27/2016 As Directed None 06/27/2016 Lyrica 75 mg capsule 06/27/2016 As Directed escitalopram 20 mg tablet 2015 As Directed aripiprazole 15 mg tablet 2015 As Directed SALINE FLUSH 10ML SYRINGE 2015 IVP 1 SALINE FLUSH 10ML SYRINGE 2015 IVP 1 OXYCODONE/APAP(PERCOCET) 5/325 TAB 07/09/2016 PO 2 OXYCODONE(ROXICODONE) 5 MG TAB PO 2 ONDANSETRON ODT (ZOFRAN) 4 MG TAB 07/09/2016 PO 1 DIPHENHYDRAMINE(BENADRYL) 50MG/ML VIAL 07/09/2016 IVP 1 SENNOSIDES/DOCUSATE(SENOKOT-S) TAB 07/09/2016 PO 2 DIPHENHYDRAMINE(BENADRYL) 25MG TAB 07/09/2016 PO 1 SIMETHICONE(MYLANTA GAS) 80 MG TAB 07/09/2016 PO 2 METOCLOPRAMIDE(REGLAN) 10 MG/2 ML VIAL 07/09/2016 IVP 1 ONDANSETRON (ZOFRAN) 2MG/ML 2 ML VIAL 07/09/2016 IVP 1 PROMETHAZINE (PHENERGAN) 25MG/1ML VIAL 07/09/2016 IM 1 DICLOFENAC (DYLOJECT) 37.5MG/ML VIAL 07/09/2016 07/10/2016 IVP 1 ALPRAZOLAM (XANAX) 0.5 MG TAB PO 1 ESCITALOPRAM(LEXAPRO) 10 MG TAB 07/09/2016 PO 2 SUMATRIPTAN(IMITREX) 25 MG TAB PO 2 PANTOPRAZOLE(PROTONIX) 40 MG TAB 07/09/2016 PO 1 ARIPIPRAZOLE (ABILIFY) 15MG TAB 07/09/2016 07/09/2016 PO 1 ALBUTEROL(VENTOLIN) HFA 8GM INHALER 07/09/2016 INH 1 PREGABALIN(LYRICA) 75 MG CAP PO 1 NICOTINE(NICODERM) 14 MG PATCH PATCH 1 PATCH REMOVAL 07/09/2016 TOP 1 ARIPIPRAZOLE(ABILIFY) 10 MG TAB 07/09/2016 07/10/2016 PO 2 ARIPIPRAZOLE (ABILIFY) 15MG TAB 07/10/2016 PO 1 Estradiol 0.1 MG/24HR Transdermal Patch Twice Weekly Patch Twice Weekly 07/19/2016 Patch Twice Weekly APPLY 1 PATCH TWICE WEEKLY DIRECTED. Problems Date Dx Coded Attending Type Code Diagnosis Diagnosed By Lev Zee F41.9 Anxiety Lev Zee Working K86.1 Chronic pancreatitis Lev Zee M13.0 Polyarthritis Lev Zee R52 Generalized pain Lev Zee Z79.899 High risk medication use 08/10/2008 KESHIA HAHN DO 535.50 GASTRITIS UNSPEC 08/10/2008 KESHIA HAHN DO 789.00 abdominal pain 08/10/2008 KESHIA HAHN DO V58.69 MEDICATION HIGH RISK 08/10/2008 KESHIA HAHN DO 535.50 GASTRITIS UNSPEC 08/10/2008 KESHIA HHAN DO 789.00 abdominal pain 08/10/2008 KESHIA HAHN DO V58.69 MEDICATION HIGH RISK 10/05/2008 KESHIA HAHN DO 300.01 AN PANIC DIS W/O AGORA 10/05/2008 KESHIA HAHN DO 300.01 AN PANIC DIS W/O AGORA 10/14/2008 KESHIA HAHN DO 530.81 GERD 10/14/2008 KESHIA HAHN DO 530.81 GERD 11/02/2008 WERDER DO, KESHIA F 300.02 GENERALIZED ANXIETY DISORDER 11/02/2008 KESHIA HAHN DO F 300.21 AN PANIC DIS W AGORA 11/02/2008 KESHIA HAHN DO F 307.47 SI DYSSOMNIA NOS 11/02/2008 KESIHA HAHN DO F 316 PF PSYCHIC FACTORS MED COND 11/02/2008 KESHIA HAHN DO F 300.02 GENERALIZED ANXIETY DISORDER 11/02/2008 KESHIA HAHN DO F 300.21 AN PANIC DIS W AGORA 11/02/2008 KESHIA HAHN DO F 307.47 SI DYSSOMNIA NOS 11/02/2008 KESHIA HAHN DO F 316 PF PSYCHIC FACTORS MED COND 01/27/2009 KESHIA HAHN DO F 528.9 DISEASES OF THE ORAL SOFT TISSUES (EXCEPT GINGIVA, TONGUE) 01/27/2009 KESHIA HAHN DO F 616.0 CERVICITIS 01/27/2009 KESHIA HAHN DO F 625.9 FEMALE PELVIC PAIN 01/27/2009 KESHIA HAHN DO F V69.2 sexually active, frequently with new partners 01/27/2009 KESHIA HAHN DO F 528.9 DISEASES OF THE ORAL SOFT TISSUES (EXCEPT GINGIVA, TONGUE) 01/27/2009 KESHIA HAHN DO F 616.0 CERVICITIS 01/27/2009 KESHIA HAHN DO F 625.9 FEMALE PELVIC PAIN 01/27/2009 KESHIA HAHN DO F V69.2 sexually active, frequently with new partners 02/25/2009 KESHIA HAHN DO F 034.0 STREPTOCOCCAL SORE THROAT 02/25/2009 KESHIA HAHN DO F 034.0 STREPTOCOCCAL SORE THROAT 04/04/2009 KESHIA HAHN DO F V25.49 SURVEILLANCE OF OTHER CONTRACEPTIVE METHOD 04/04/2009 KESHIA HAHN DO F V25.49 SURVEILLANCE OF OTHER CONTRACEPTIVE METHOD 06/14/2009 KESHIA HAHN DO 054.10 HERPES SIMPLEX TYPE II 06/14/2009 KESHIA HAHN DO 617.9 ENDOMETRIOSIS 06/14/2009 KESHIA HAHN DO V72.31 Pelvic Exam (internal) 06/14/2009 KESHIA HAHN DO 054.10 HERPES SIMPLEX TYPE II 06/14/2009 KESHIA HAHN DO 617.9 ENDOMETRIOSIS 06/14/2009 KESHIA HAHN DO V72.31 Pelvic Exam (internal) 07/25/2009 KESHAI HAHN DO 558.9 Acute Colitis 07/25/2009 KESHIA HAHN DO 558.9 Acute Colitis 08/05/2009 KESHIA HAHN DO 293.9 UNSPECIFIED TRANSIENT MENTAL DISORDER IN CONDITIONS CLASSIFIED ELSEWHERE 08/05/2009 KESHIA HAHN DO 300.9 UNSPECIFIED NONPSYCHOTIC MENTAL DISORDER 08/05/2009 KESHIA HAHN DO 293.9 UNSPECIFIED TRANSIENT MENTAL DISORDER IN CONDITIONS CLASSIFIED ELSEWHERE 08/05/2009 KESHIA HAHN DO 300.9 UNSPECIFIED NONPSYCHOTIC MENTAL DISORDER 02/07/2010 KESHIA HAHN DO 311 MO DEPRESS NOS 02/07/2010 KESHIA HAHN DO 311 MO DEPRESS NOS 04/10/2010 KESHIA HAHN DO 577.1 CHRONIC PANCREATITIS 04/10/2010 KESHIA HAHN DO 577.1 CHRONIC PANCREATITIS 04/17/2010 KESHIA HAHN DO 300.00 AN ANXIETY UNSPEC 04/17/2010 KESHIA HAHN DO 300.00 AN ANXIETY UNSPEC 12/18/2010 KESHIA HAHN DO F 786.2 COUGH 12/18/2010 KESHIA HAHN DO 790.4 ABNORMAL LIVER FUNCTION TEST 12/18/2010 KESHIA HAHN DO F 786.2 COUGH 12/18/2010 KESHIA HAHN DO 790.4 ABNORMAL LIVER FUNCTION TEST 02/14/2011 KESHIA HAHN DO 616.10 VAGINITIS VULVOVAGINITIS UNSPECIFIED 02/14/2011 KESHIA HAHN DO 790.6 ABNORMAL LFT (LIVER FUNCTION TEST) 02/14/2011 KESHIA HAHN DO V74.5 STD SCREEN 02/14/2011 KESHIA HAHN DO 616.10 VAGINITIS VULVOVAGINITIS UNSPECIFIED 02/14/2011 KESHIA HAHN DO 790.6 ABNORMAL LFT (LIVER FUNCTION TEST) 02/14/2011 KESHIA HAHN DO V74.5 STD SCREEN 06/12/2011 KESHIA HAHN DO 368.9 UNSPECIFIED VISUAL DISTURBANCE 06/12/2011 KESHIA HAHN DO 719.43 PAIN IN JOINT INVOLVING FOREARM 06/12/2011 KESHIA HAHN DO F 723.1 CERVICALGIA 06/12/2011 KSEHIA HAHN DO F 368.9 UNSPECIFIED VISUAL DISTURBANCE 06/12/2011 KESHIA HAHN DO 719.43 PAIN IN JOINT INVOLVING FOREARM 06/12/2011 KESHIA HAHN DO 723.1 CERVICALGIA 06/13/2011 KESHIA HAHN DO 268.9 VITAMIN D DEFICIENCY 06/13/2011 KESHIA HAHN DO 268.9 VITAMIN D DEFICIENCY 08/28/2011 KESHIA HAHN DO F 788.1 DYSURIA 08/28/2011 KESHIA HAHN DO F 788.1 DYSURIA 10/17/2011 KESHIA HAHN DO 611.72 BREAST LUMP OR MASS 10/17/2011 KESHIA HAHN DO 625.0 DYSPAREUNIA 10/17/2011 KESHIA HAHN DO V72.31 COLLECT ON DELIVERY CLERK EXAM, ROUTINE 10/17/2011 KESHIA HAHN DO 611.72 BREAST LUMP OR MASS 10/17/2011 KESHIA HAHN DO 625.0 DYSPAREUNIA 10/17/2011 KESHIA HAHN DO V72.31 COLLECT ON DELIVERY CLERK EXAM, ROUTINE 11/20/2011 KESHIA HAHN DO 995.3 ALLERGY UNSPECIFIED NOT ELSEWHERE CLASSIFIED 11/20/2011 KESHIA HAHN DO 995.3 ALLERGY UNSPECIFIED NOT ELSEWHERE CLASSIFIED 12/28/2011 KESHIA HAHN DO 787.01 NAUSEA WITH VOMITING 12/28/2011 KESHIA HAHN DO 789.09 ABDOMINAL PAIN OTHER SPECIFIED SITE 12/28/2011 KESHIA HAHN DO 787.01 NAUSEA WITH VOMITING 12/28/2011 KESHIA HAHN DO 789.09 ABDOMINAL PAIN OTHER SPECIFIED SITE 03/18/2012 KESHIA HAHN DO 296.40 MO BIPOLAR MANIC UNSPECIFIED 03/18/2012 KESHIA HAHN DO 305.00 ALCOHOL ABUSE UNSPEC 03/18/2012 KESHIA HAHN DO 305.20 CANNABIS ABUSE 03/18/2012 KESHIA HAHN DO 296.40 MO BIPOLAR MANIC UNSPECIFIED 03/18/2012 KESHIA HAHN DO 305.00 ALCOHOL ABUSE UNSPEC 03/18/2012 WERDER DO, KESHIA F 305.20 CANNABIS ABUSE 04/23/2012 KESHIA HAHN DO F 719.40 PAIN IN JOINT SITE UNSPECIFIED 04/23/2012 KESHIA HAHN DO F 719.40 PAIN IN JOINT SITE UNSPECIFIED 05/24/2012 KESHIA HAHN DO F 296.60 MO BIPOLAR I MIXED UNSPECIFIED 05/24/2012 KESHIA HAHN DO F 296.60 MO BIPOLAR I MIXED UNSPECIFIED 06/20/2012 KESHIA HAHN DO F 296.00 BIPOLAR I DISORDER SINGLE MANIC EPISODE UNSPECIFIED 06/20/2012 KESHIA HAHN DO F 296.00 BIPOLAR I DISORDER SINGLE MANIC EPISODE UNSPECIFIED 04/15/2013 Kenny Jason MD Final 536.8 STOMACH FUNCT DISORD NEC 04/15/2013 Kenny Jason MD Final 564.00 CONSTIPATION NOS 04/15/2013 Kenny Jason MD Admitting 787.01 NAUSEA W VOMITING 04/15/2013 Kenny Jason MD Admitting 789.00 ABDOMINAL PAIN-SITE NOS 04/15/2013 Kenny Jason MD Admitting 789.00 ABDOMINAL PAIN-SITE NOS 05/07/2013 Kenny Jasno MD Final 211.3 BENIGN LG INTEST NEOPL 05/07/2013 Kenny Jason MD Final 530.81 ESOPHAGEAL REFLUX 05/07/2013 Kenny Jason MD Final 787.3 FLATUL/ERUCT GAS PAIN 05/07/2013 Kenny Jason MD Final 787.99 OTH GI SYSTEM SYMPTOMS 05/07/2013 Kenny Jason MD Final 789.03 RLQ ABDOMINAL PAIN 05/22/2013 Admitting 577.1 CHRONIC PANCREATITIS 08/09/2013 Lev Zee Working F41.9 Anxiety 08/09/2013 Lev Zee Working K86.1 Chronic pancreatitis 08/09/2013 Lev Zee Working M13.0 Polyarthritis 08/09/2013 Lev Zee Working R52 Generalized pain 08/09/2013 Lev Zee Working F41.9 Anxiety 08/09/2013 Lev Zee Working K86.1 Chronic pancreatitis 08/09/2013 Lev Zee Working M13.0 Polyarthritis 08/09/2013 Zee, [facility] Working R52 Generalized pain 08/09/2013 Zee, [facility] Working F41.9 Anxiety 08/09/2013 Zee, [facility] Working K86.1 Chronic pancreatitis 08/09/2013 Zee, [facility] Working M13.0 Polyarthritis 08/09/2013 Zee, [facility] Working R52 Generalized pain 08/09/2013 Zee, [facility] Working F41.9 Anxiety 08/09/2013 Zee, [facility] Working K86.1 Chronic pancreatitis 08/09/2013 Zee, [facility] Working M13.0 Polyarthritis 08/09/2013 Zee, [facility] Working R52 Generalized pain 08/09/2013 Zee, [facility] Working F41.9 Anxiety 08/09/2013 Zee, [facility] Working K86.1 Chronic pancreatitis 08/09/2013 Zee, [facility] Working M13.0 Polyarthritis 08/09/2013 Zee, [facility] Working R52 Generalized pain 08/09/2013 Zee, [facility] Working F41.9 Anxiety 08/09/[address] [facility] Working K86.1 Chronic pancreatitis 08/09/2013 Zee, [facility] Working M13.0 Polyarthritis 08/09/[address] [facility] Working R52 Generalized pain 04/02/[address] [facility] Working M79.672 Pain of left foot 04/02/2014 Zee, [facility] Working M79.672 [facility] Zee, [facility] Working M79.672 Pain of left foot Zee, [facility] 04/02/2014 Zee, [facility] Working M79.672 Pain of left foot Zee, [facility] 04/02/2014 Zee, [facility] Working M79.672 Pain of left foot Zee, [facility] 04/02/2014 Zee, [facility] Working M79.672 Pain of left foot [facility], [facility] 04/02/[facility] Zee, [facility] Working M79.672 Pain of left foot Zee, [facility] 05/28/2014 Zee, [employer] Working J30.2 Seasonal allergies 05/28/2014 Zee, [facility] Working J30.2 Seasonal allergies Zee, uan 05/28/2014 [facility] Seasonal allergies Zee, [facility] 05/28/2014 Zee, beba Working J30.2 Seasonal allergies Zee, uan 05/28/2014 [facility], [facility] J[facility] Seasonal allergies Zee, [facility] 05/28/2014 [facility], [facility] J30.2 Seasonal allergies Zee, [facility] 05/28/2014 Zee, [facility] Working J30.2 Seasonal allergies Zee, uan 09/23/2014 Zee, [employer] Working J06.9 URI, acute 09/23/2014 [facility], [facility] J[facility].9 URI, acute Zee, uan 09/23/2014 [facility], [facility] J06.9 URI, acute Zee, [facility] 09/23/2014 [facility], [facility] J06.9 URI, acute Zee, oluan 06/14/2015 LUCRECIA TAPIA APRN W 296.51 Bipolar I Disorder, Most Recent Episode Depressed, Mild 06/14/2015 MELLY TAPIA APRNINDA W 309.81 Posttraumatic Stress Disorder 07/05/2015 Zee, [employer] Working Z79.899 High risk medication use Zee, oluan 07/05/2015 Zee, [employer] Working Z79.899 High risk medication use Zee, oluan 07/05/2015 Zee, [employer] Working Z79.899 High risk medication use Zee, oluan 07/05/2015 Zee, [employer] Working Z79.899 High risk medication use Zee, oluan 07/05/2015 Zee, [employer] Working Z79.899 High risk medication use Zee, oluan 07/05/2015 Zee, [employer] Working Z79.899 High risk medication use Zee, [facility] 08/02/2015 Zee, [facility] Working M50.20 Cervical herniated disc 08/02/2015 Zee, [facility] Working M51.26 Lumbar herniated disc 08/02/2015 Zee, [facility] Working M75.102 Left rotator cuff tear 09/30/2015 Zee, [facility] Working M50.20 Cervical herniated disc Zee, [facility] 09/30/2015 Zee, [facility] Working M51.26 Lumbar herniated disc Zee, [facility] 09/30/2015 Zee, [facility] Working M75.102 Left rotator cuff tear Zee, [facility] 11/17/2015 Zee, [facility] Working M50.20 Cervical herniated disc Zee, [facility] 11/17/2015 Zee, [facility] Working M51.26 Lumbar herniated disc Zee, [facility] 11/17/2015 Zee, [facility] Working M75.102 Left rotator cuff tear Zee, [facility] 01/17/2016 Zee, [facility] Working M50.20 Cervical herniated disc Zee, [facility] 01/17/2016 Zee, [facility] Working M51.26 Lumbar herniated disc Zee, [facility] 01/17/2016 Zee, [facility] Working M75.102 Left rotator cuff tear Zee, [facility] 01/17/2016 Zee, [facility] Working Z72.0 Tobacco abuse Zee, [facility] 03/26/2016 Zee, [facility] Working M50.20 Cervical herniated disc Zee, [facility] 03/26/2016 Zee, [facility] Working M51.26 Lumbar herniated disc Zee, [facility] 03/26/2016 Zee, [facility] Working M75.102 Left rotator cuff tear Zee, [facility] 03/26/2016 Zee, [facility] Working Z72.0 Tobacco abuse Zee, [facility] 05/17/2016 Zee, [facility] Working M50.20 Cervical herniated disc Zee, [facility] 05/17/2016 Lev Zee Working M51.26 Lumbar herniated disc Saadia, [facility] 05/17/2016 Betito Zeebeba Working M75.102 Left rotator cuff tear [facility] 05/17/2016 Betito Zeebeba Working R52 Pain management Saadia, [facility] 05/17/2016 Betito Zeebeba Working Z72.0 Tobacco abuse Saadia, [facility] 05/17/2016 Betito Zeebeba Working M75.102 Left rotator cuff tear Saadia, [facility] 05/17/2016 Lev Zee Working R52 Pain management Betito Zeebeba 07/10/2016 FRAZIER, JOSEFA S E78.00 Pure hypercholesterolemia, unspecified 07/10/2016 FRAZIER, JOSEFA S F17.210 Nicotine dependence, cigarettes, uncomplicated 07/10/2016 FRAZIER, JOSEFA S F31.9 Bipolar disorder, unspecified 07/10/2016 FRAZIER, JOSEFA S F41.9 Anxiety disorder, unspecified 07/10/2016 FRAZIER, JOSEFA S F43.10 Post-traumatic stress disorder, unspecified 07/10/2016 FRAZIER, JOSEFA S G25.81 Restless legs syndrome 07/10/2016 FRAZIER, JOSEFA S G47.00 Insomnia, unspecified 07/10/2016 FRAZIER, JOSEFA S H91.90 Unspecified hearing loss, unspecified ear 07/10/2016 FRAZIER, JOSEFA S I10 Essential (primary) hypertension 07/10/2016 FRAZIER, JOSEFA S J43.9 Emphysema, unspecified 07/10/2016 FRAZIER, JOSEFA S K21.9 Gastro-esophageal reflux disease without esophagitis 07/10/2016 FRAZIER, JOSEFA S K66.0 Peritoneal adhesions (postprocedural) (postinfection) 07/10/2016 FRAZIER, JOSEFA S M79.7 Fibromyalgia 07/10/2016 FRAZIER, JOSEFA S N39.46 Mixed incontinence 07/10/2016 FRAZIER, JOSEFA P N83.201 Unspecified ovarian cyst, right side 07/10/2016 FRAZIER, JOSEFA S N83.202 Unspecified ovarian cyst, left side 07/10/2016 KAROL FRAZIERIS E S Z53.31 Laparoscopic surgical procedure converted to open procedure 07/10/2016 KAROL FRAZIERIS E S 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 07/10/2016 KAROL FRAZIERIS E S Z86.010 Personal history of colonic polyps 07/10/2016 KAROL FRAZIERIS E S Z86.19 Personal history of other infectious and parasitic diseases 07/10/2016 KAROL FRAZIERIS E S Z88.5 Allergy status to narcotic agent status 07/10/2016 FRAZIER, JOSEFA S Z88.8 Allergy status to other drugs, medicaments and biological substances status 07/10/2016 KAROL FRAZIERIS E S Z90.710 Acquired absence of both cervix and uterus 07/10/2016 KAROL FRAZIERIS E S Z98.51 Tubal ligation status 07/10/2016 KAROL FRAZIERIS E S Z98.890 Other specified postprocedural states 07/19/2016 Lev Zee Working M50.20 Cervical herniated disc Lev Zee 07/19/2016 Lev Zee Working M51.26 Lumbar herniated disc Lev Zee 07/19/2016 Lev Zee Working Z72.0 Tobacco abuse Lev Zee 01/31/2017 JYOTI FRAZIER P N95.1 Menopausal and female climacteric states 01/31/2017 KAROL FRAZIERIS E S R10.2 Pelvic and perineal pain Procedures Code Description Performed By Performed On 45.13 OTHER ENDOSCOPY OF INTEST Kenny Jason MD 10/27/2012 45.16 ESOPHAGOGASTRODUODENOSCOPY [ EGD] W/CLOSED BIOPSY Kenny Jason MD 2012 88.74 DX ULTRASOUND-DIGESTIVE Kenny Jason MD 10/27/2012 [id number] LESION REMOVAL COLONOSCOPY Kenny Jason MD 05/07/2013 [id number] Release Peritoneum, Open Approach 07/09/2016 [id number] Resection of Bilateral Ovaries, Open Approach 07/09/2016 [id number] Resection of Bilateral Fallopian Tubes, Open Approach 07/09/2016 Results Test Result Range CHEM 14 COMPREHENSIVE METABOLIC PANEL - 07/10/16 05:06 CHEM 14 COMPREHENSIVE METABOLIC PANEL LAB SODIUM 136 mmol/L 137 - 145 POTASSIUM 4.4 mmol/L 3.4 - 5.3 CHLORIDE 99 mmol/L 98 - 107 CO2 29.0 mmol/L 22.0 - 30.0 CALCIUM 9.4 mg/dl 8.4 - 10.3 GLUCOSE 132 mg/dl 65 - 110 ALBUMIN 3.3 g/dl 3.3 - 5.0 ALK PHOS 50 IU/L 32 - 91 ALT/SGPT 13 U/L 9 - 72 AST/SGOT 18 U/L 5 - 40 BUN 6 mg/dl 7 - 18 CREATININE 0.7 mg/dl 0.7 - 1.2 BUN/CREAT 8.45 RATIO T BILIRUBIN 0.70 mg/dl 0.20 - 1.30 TOTAL PROTEIN 5.80 g/dl 5.49 - 7.83 AGE 40 yrs GFR NonAA 100 GFR AA 120 CBC W Auto Diff Bld - 07/10/16 05:06 CBC WITH DIFFERENTIAL LAB WBC 14.3 th/ul 4.3 - 11.0 RBC 4.65 mil/ul 4.20 - 5.40 HEMOGLOBIN 14.3 g/dl 12.0 - 16.0 HEMATOCRIT 42.1 % 38.0 - 47.0 MCV 91 fL 82 - 100 MCH 30.8 pg 26.0 - 33.0 MCHC 34.0 g/dl 31.0 - 36.0 RDW 14.3 % 11.5 - 14.[address] 367 th/ul 150 - 375 PLATELET EST NORMAL NEUTROPHILS 11.6 th/ul 1.4 - 6.5 LYMPHOCYTES 1.6 th/ul 1.0 - 4.0 MONOCYTES 1.0 th/ul 0.0 - 0.7 EOSINOPHILS 0.0 th/ul 0.0 - 0.7 BASOPHILS 0.1 th/ul 0.0 - 0.2 MANUAL DIFF SEE BELOW NEUT MANUAL 75 % 50 - 70 BANDS MANUAL 0 % 2 - 6 LYMS MANUAL 16 % 20 - 40 MONOS MANUAL 8 % 2 - 12 EOS MANUAL 1 % 1 - 3 BASO MANUAL 0 % 0 - 1 METAS MANUAL 0 % MYELOS MANUAL 0 % BLASTS MANUAL 0 % ATYP LYMPHS 0 % PROLYMPH MANUAL 0 0 - 0 TOTAL DIFF CELLS 100 100 - 100 RBC MORPH NORMAL Pathology studies - 10/25/16 07:31 PATHOLOGY ORDER LAB FastTSH - 01/31/17 10:10 FastTSH 0.91 uIU/ml 0.34 - 5.60 TESTOSTERONE - 01/31/17 10:10 Testosterone, Serum <3 ng/dL 8-48 PROGESTERONE - 01/31/17 10:10 Progesterone <0.1 ng/mL ESTRADIOL - 01/31/17 10:10 Estradiol 50.8 pg/mL LH AND FSH PANEL - 01/31/17 10:10 LH 23.3 mIU/mL FSH 15.3 mIU/mL WET PREP - 01/31/17 10:11 WET PREP LAB PDM - PAIN MGMT (PROFILE 3 WITH CONFIRMATION) - 03/26/18 09:53 Prescribed Drug 1 Lyrica(TM) NRG Creatinine 183.6 mg/dL > or=20.0 pH 6.27 4.5 - 9.0 Oxidant NEGATIVE mcg/mL <200 Amphetamines NEGATIVE ng/mL <500 medMATCH Amphetamines CONSISTENT NRG Benzodiazepines POSITIVE ng/mL <100 Marijuana Metabolite POSITIVE ng/mL <20 Cocaine Metabolite NEGATIVE ng/mL <150 medMATCH Cocaine Metab CONSISTENT NRG Opiates NEGATIVE ng/mL <100 medMATCH Opiates CONSISTENT NRG Oxycodone NEGATIVE ng/mL <100 medMATCH Oxycodone CONSISTENT NRG COMMENT NRG Alphahydroxyalprazolam 84 ng/mL <25 medMATCH aOH alprazolam CONSISTENT NRG Alphahydroxymidazolam NEGATIVE ng/mL <50 medMATCH aOH midazolam CONSISTENT NRG Alphahydroxytriazolam NEGATIVE ng/mL <50 medMATCH aOH triazolam CONSISTENT NRG Aminoclonazepam NEGATIVE ng/mL <25 medMATCH Aminoclonazepam CONSISTENT NRG Hydroxyethylflurazepam NEGATIVE ng/mL <50 medMATCH OH,Et flurazepam CONSISTENT NRG Lorazepam NEGATIVE ng/mL <50 medMATCH Lorazepam CONSISTENT NRG Nordiazepam NEGATIVE ng/mL <50 medMATCH Nordiazepam CONSISTENT NRG Oxazepam NEGATIVE ng/mL <50 medMATCH Oxazepam CONSISTENT NRG Temazepam NEGATIVE ng/mL <50 [facility]MATCH Temazepam CONSISTENT NRG Prescribed Drug 2 Xanax(TM) NRG Marijuana Metabolite 352 ng/mL <5 medMATCH Marijuana Metab INCONSISTENT NRG Encounters ACCT No. Visit Date/Time Discharge Status Pt. Type Provider Facility Loc./Unit Complaint [id number] 08/11/2012 00:00:00 08/11/2012 23:59:59 [place] [id number] 06/20/2012 10:24:00 06/20/2012 23:59:59 CLS Outpatient KESHIA HAHN DO [id number] 09/18/2012 00:00:00 09/18/2012 23:59:59 CLS Outpatient REGINAJARON DALE LUCRECIA [id number] 03/27/2018 16:00:00 03/27/2018 23:59:59 CLS Outpatient CORTEZ DIAZ [facility] [id number] 03/26/2018 08:40:00 Document Registration [id number] 01/31/2017 09:53:00 01/31/2017 23:59:59 CLS Outpatient JYOTI FRAZIER [id number] 07/09/2016 14:57:00 07/10/2016 15:00:00 DIS Inpatient FRAZIERJYOTI SHAY [facility] [id number] 02/06/2016 11:53:11 Document Registration [id number] 06/27/2016 00:00:00 06/27/2016 23:59:59 CLS Outpatient Rusty Peng [facility] O [id number] 10/27/2012 09:13:00 10/27/2012 11:29:00 DIS Outpatient Kenny Jason MD [facility] [id number] 05/07/2013 07:02:00 05/07/2013 23:59:59 CLS Outpatient Kenny Jason MD [facility] [id number] 04/15/2013 08:57:00 04/15/2013 23:59:59 CLS Outpatient Kenny Jason MD [facility] [id number] 05/22/2013 10:30:00 Document Registration [id number] 01/31/2017 09:53:00 Document Registration [id number] 07/09/2016 14:57:00 Document Registration [id number] 08/05/2015 15:55:52 08/05/2015 23:59:59 CLS Outpatient [facility] 1 [id number] 09/11/2016 12:53:57 ACT Outpatient [facility] 1 [id number] 05/19/2016 00:01:21 ACT Outpatient [facility] 1 [id number] 05/18/2016 15:02:05 Document Registration [id number] 03/27/2016 18:41:20 ACT Outpatient [facility] 1 [id number] 01/18/2016 21:28:19 ACT Outpatient [facility] 1 [id number] 11/21/2015 07:53:33 ACT Outpatient [facility] 1 [id number] 10/02/2015 06:58:51 ACT Outpatient [facility] 1 [id number] 05/06/2018 16:18:00 05/06/2018 23:59:59 CLS Preadmit ROSEMARY C[place] [facility] RAD ABDOMINAL PAIN [id number] 09/06/2013 06:30:00 09/07/2013 12:13:00 DIS Inpatient
--- OUTSIDE RECORDS SUMMARY | 2018-05-12 12:28 | XMS REPORT | Summary of Care ---
Author Author Saadia Sandy, Lev Organization Unknown Address Unknown Phone Unavailable Care Team Providers Care Flexographic Press Set Up Operator Name Role Phone Lev Zee M.D. Unavailable [...] DAILY. * Refills: 0 * Started 24-Nov-2013 ActiveZithromax Z-Burt 250 MG Oral Tablet TAKE 2 TABLETS ON DAY 1 THEN TAKE 1 TABLET A DAY FOR 4 DAYS. * Quantity: 1 Refills: 0 Lev Zee M.D.* Started 23-Sep-2014 Ended 28-Sep-2014 Active6 Tablet Disp Pack PredniSONE 20 MG Oral Tablet TAKE 1 TABLET DAILY DIRECTED. * Quantity: 5 Refills: 0 Lev Zee M.D.* Started 23-Sep-2014 Ended 28-Sep-2014 Active Allergies and Adverse Reactions Name Dates [...]
[2018-05-12] MEDS ORDERED: HURRICAINE EXT TUBE (BENZOCAINE) XX PRN (12:30)
[2018-05-12] MEDS ORDERED: LACTATED RINGERS 1,000 ML IV ONE (12:31)
[2018-05-12 12:45] VITALS: BP 109/55
[2018-05-12] MEDS ORDERED: ACYC200C PO (13:08)
[2018-05-12] MEDS ORDERED: PREG100C PO (13:08)
[2018-05-12] MEDS ORDERED: PANT40TA3 PO (13:08)
[2018-05-12] MEDS ORDERED: DICL100G18 TP (13:08)
[2018-05-12] MEDS ORDERED: MIDAZOLAM 2 MG/2 ML (VERSED) VIAL ONE (13:44)
[2018-05-12] MEDS ORDERED: proPOfol 200 MG/20 ML (DIPRIVAN) VIAL IV ONE (13:44)
[2018-05-12] MEDS ORDERED: LIDOCAINE PF 2% 5 ML (XYLOCAINE) VIAL ONE (13:44)
[2018-05-12] MEDS ORDERED: HURRICAINE EXT TUBE (BENZOCAINE) ONE (14:18)
--- NOTE | 2018-05-12 14:18 | Anesthesia-General Post-Op ---
MAC Patient Condition Mental Status/LOC: Same as Preop Cardiovascular: Satisfactory Nausea/Vomiting: Absent Respiratory: Satisfactory Pain: Controlled Complications: Absent Post Op Complications Complications None Follow Up Care/Instructions Patient Instructions None needed. Anesthesiology Discharge Order Discharge Order Patient is doing well, no complaints, stable vital signs, no apparent adverse anesthesia problems. No complications reported per nursing. HEVER NEW CRNA May 12, 2018 14:18
[2018-05-12 14:30] VITALS: BP 101/49
[2018-05-12 15:05] VITALS: BP 107/54
[2018-05-12 15:24] VITALS: BP 107/54
--- NOTE | 2018-05-12 22:41 | OPERATIVE REPORT ---
DATE OF SERVICE: PREOPERATIVE DIAGNOSIS: Hematemesis. POSTOPERATIVE DIAGNOSES: 1. Hematemesis. 2. Gastritis. 3. Hiatal hernia. PROCEDURE: EGD with biopsy. SURGEON: Arnol Harvey DO. MODEL DRESSER: None. ANESTHESIA: IV sedation by BOAT TESTER. SPECIMENS: One antrum biopsy and one biopsy of the body of stomach and one GE junction biopsy. BLOOD LOSS: Scant. FLUIDS: Per anesthesia. POSTOPERATIVE CONDITION: Stable. INDICATION FOR PROCEDURE: The patient is a 42-year-old female who states she did have vomiting up some blood and needed a workup. FINDINGS: The patient had some gastritis, did not really have any duodenitis, but the whole stomach was inflamed and then she had a hiatal hernia with questionable creeping up of the Z line. PROCEDURE NOTE: After informed consent was obtained, the patient was brought to the endoscopy suite, placed in the left lateral decubitus position. She was administered IV sedation by the BOAT TESTER who then monitored her vitals the entire time, heart rate, blood pressure and pulse ox, and the scope was inserted down the mouth into the esophagus and down into the stomach. Immediately upon entering the stomach, we noted a lot of inflammation, erythema all the way through the entire stomach, pushed into the first portion of the duodenum, looked basically clean, did not see any ulcers and did not see any ulcers in the stomach, pulled back into the antrum, took a biopsy of the antrum and then pulled back into the body of the stomach, which was also erythematous, did another biopsy here and retroflexed, saw small hiatal hernia, pulled back into the esophagus at the GE junction and took a biopsy here, looked at the rest of the esophagus, looked good, took pictures and then pulled the scope out. The patient tolerated the procedure and she was recovered in endoscopy suite. Job ID: [id number] DocumentID: [id number] Dictated Date: 05/12/2018 14:09:36 Emergency Worker Date: 05/12/2018 22:40:25 Dictated By: ARNOL HARVEY DO
[2018-06-12] MEDS ORDERED: ACHD5005 PO (11:46)
== END 2018-05-12 15:15 | disposition home or self-care (01) ==
LOC: ENDO 12:22
PROVIDERS: ATTEND Surgery
DX: K29.50 Unspecified chronic gastritis without bleeding (principal); K31.9 Disease of stomach and duodenum, unspecified; K44.9 Diaphragmatic hernia without obstruction or gangrene; K92.0 Hematemesis; J44.9 Chronic obstructive pulmonary disease, unspecified; K21.9 Gastro-esophageal reflux disease without esophagitis; F41.9 Anxiety disorder, unspecified; F32.9 Major depressive disorder, single episode, unspecified; F17.210 Nicotine dependence, cigarettes, uncomplicated; Z79.899 Other long term (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 therapy
CPT/HCPCS: 88305; 88342

== ENCOUNTER → 2018-05-23 | Outpatient (CLI) | payer MEDICAID ==
[~2018-05-23] MED LIST changes: +ACYC200C PO; +ARIP20TA9 PO; +CATHETER FLUSH 10 ML SYR IV PRN; +CETI10TA17 PO; +DICL100G18 TP; +ESCI10TA55 PO; +ESCI20TA45 PO; +ESTR-44 TD; +HYDR-3924 PO; +ONDA4TAB11 PO; +PANT40TA3 PO; +PREG100C PO; +TR025C15 TP
--- NOTE | 2018-05-23 12:43 | Diagnostic Imaging Report ---
INDICATION: Abdominal pain. FINDINGS: The patient was administered 5.02 mCi of Tc 99m Choletec and sequential imaging was performed over the right upper abdomen. There is progressive, homogeneous accumulation of radiotracer within the liver parenchyma. There is filling of the bile ducts and subsequent filling of the gallbladder. There is progressive clearance of activity from the liver parenchyma and accumulation of radiotracer within loops of small bowel. The patient was then administered a fatty meal, utilizing 8 ounces of Ensure. The gallbladder ejection fraction was calculated to be approximately 92%. (Normal values post fatty meal stimulation are 33% or greater.) IMPRESSION: 1. Hepatobiliary scan demonstrates a patent biliary tree. 2. Normal gallbladder ejection fraction of approximately 92%. Dictated by: Dictated on workstation # [id number]
== END ==
LOC: CARD 09:56
PROVIDERS: ATTEND Surgery
DX: R10.9 Unspecified abdominal pain (principal)
CPT/HCPCS: 78227

== ENCOUNTER 2018-06-09 09:11 | Outpatient (CLI) | payer MEDICAID ==
[~2018-06-09] VITALS: Ht 160 cm; Wt 83.5 kg
[~2018-06-09 09:11] MED LIST changes: -ARIP20TA9 PO; -CATHETER FLUSH 10 ML SYR IV PRN; -CETI10TA17 PO; -ESCI10TA55 PO; -ESCI20TA45 PO; -ESTR-44 TD; -HYDR-3924 PO; -ONDA4TAB11 PO; -TR025C15 TP
[2018-06-09] MEDS ORDERED: ESTR-44 TD (10:33)
[2018-06-09] MEDS ORDERED: ESCI20TA45 PO (10:33)
[2018-06-09] MEDS ORDERED: ARIP20TA9 PO (10:33)
[2018-06-09] MEDS ORDERED: VALA500T4 PO (10:33)
[2018-06-09] MEDS ORDERED: HYDR-3924 PO (10:33)
[2018-06-09] MEDS ORDERED: ESCI10TA55 PO (10:33)
== END 2018-06-09 12:04 | disposition home or self-care (01) ==
LOC: PREOP 09:11
PROVIDERS: ATTEND Surgery
DX: Z01.818 Encounter for other preprocedural examination (principal)

== ENCOUNTER 2018-06-12 09:22 | Day surgery (SDC) | payer MEDICARE, MEDICAID ==
[~2018-06-12] VITALS: Ht 160 cm; Wt 83.5 kg
[~2018-06-12 09:22] MED LIST changes: +ARIP20TA9 PO; +ESCI10TA55 PO; +ESCI20TA45 PO; +ESTR-44 TD; +HYDR-3924 PO
--- OUTSIDE RECORDS SUMMARY | 2018-06-12 09:26 | XMS REPORT ---
Author Author MARJORIE BALDWIN [facility] Address [address] [place] [address] Care Team Providers Care Claim Clerk Name Role Phone MARJORIE BALDWIN Unavailable PROBLEMS Type Condition ICD9-CM Code RCZ73-IL Code Onset Dates Condition Status SNOMED Code Problem Bipolar I disorder, most recent episode (or current) mixed, unspecified 296.60 Active 38015519 Problem Fibromyalgia M79.7 Active 770679675 Problem Genital warts A63.0 Active 557964943 Problem Gastroesophageal reflux disease without esophagitis K21.9 Active 047209052 Problem History of bipolar disorder Z86.59 Active 407641651 Problem Panic disorder F41.0 Active 591290868 Problem Bipolar disorder, current episode depressed, severe, without psychotic features F31.4 Active 853279428 ALLERGIES No Information ENCOUNTERS Encounter Location Date Diagnosis [place] [id number] [place] [address]65- [address]46 Jun, [place] [address] [address] 14 May, 2018 Fibromyalgia M79.7 [facility] [id number] [place] [address] 69836- 0710 May, [place] [id number] [place] [address] 54980- 3277 Apr, Panic disorder F41.0 ; Gastroesophageal reflux disease without esophagitis K21.9 ; Genital warts A63.0 and Fibromyalgia M79.7 [facility] [id number] [place] [address] 27506- 5751 Apr, Panic disorder F41.0 and Bipolar disorder, current episode depressed, severe, without psychotic features F31.4 [place] [id number] [place] [address] 20431- 9978 19 Mar, 2018 History of bipolar disorder Z86.59 and History of fibromyalgia Z87.39 [facility] [id number] [place] [address] 28080- 5338 13 Mar, 2018 History of bipolar disorder Z86.59 and History of fibromyalgia Z87.39 [facility] [id number] [place] [address] 47146- 7177 12 Mar, 2018 Panic disorder F41.0 and Bipolar disorder, current episode depressed, severe, without psychotic features F31.4 [facility] [id number] [place] [address] 71263- 7185 Mar, History of bipolar disorder Z86.59 ; History of fibromyalgia Z87.39 ; Gastroesophageal reflux disease without esophagitis K21.9 and Long-term use of high-risk medication Z79.899 [place] [id number] [place] [address] 68361- 2480 14 Dec, 2014 [facility] [id number] [place] [address] 77717- 7052 Dec, [facility] [id number] [place] [address] 94681- 7102 Nov, [facility] [id number] [place] [address] 39547- 8610 Oct, [facility] [id number] [place] [address] 08593- 9232 Sep, [facility] [id number] [place] [address] 35567- 1428 Aug, [facility] [id number] [place] [address] 844067- 1724 Aug, [facility] [id number] [place] [address] 749771- 9661 Aug, [facility] [id number] [place] [address] 16103- 1054 Jul, [facility] [place] [facility] [address] [id number] [place] [address] 8425 Jul, [facility] [place] [facility] [address] [id number] [place] [address]- 1214 Jul, [facility] [place] [facility] [address] [id number] [place] [address]- 4975 Jul, [facility] [place] [facility] [address] [id number] [place] [address]- 5949 Jun, [facility] [place] [facility] [address] [id number] [place] [address]- 2484 Jun, [facility] [place] [facility] [address] [id number] [place] 37[address] Jun, [facility] [place] [facility] [address] [id number] [place] [address]- 7759 Jun, [facility] [place] [facility] [address] [id number] [place] [address]- 9014 Jun, [facility] [place] [facility] [address] [id number] [place] [address]- 6612 Jun, [facility] [place] [facility] [address] [id number] [place] [address]- 7009 Jun, [facility] [place] [facility] [address] [id number] [place] [address]- 8864 05 Jun, 2012 [facility] [place] [facility] [address] [id number] [place] [address]- 1364 26 May, 2012 [facility] [place] [facility] [address] [id number] [place] [address]12 25 Sep2011 [facility] [place] [facility] [address] [id number] [place]- 1586 24 Sep2011 [facility] [place] [facility] [address] [id number] [place] [address]- 9344 11 Sep2011 [facility] [place] [facility] [address] [id number] [place] [address]- 3195 08 May, 2012 [facility] [place] [facility] [address] [id number] [place] [address]- 1247 May, 2011 [facility] [place] [facility] [address] [id number] [place] [address]- 5823 May, [facility] [place] [facility] [address] [id number] [place] [address]- 2704 May, [facility] [place] [facility] [address] [id number] [place] [address]- 6675 May, [facility] [place] [facility] [address] [id number] [place] [address]- 9663 Apr, [facility] [place] [facility] [address] [id number] [place] [address]- 4140 Apr, [facility] [place] [facility] [address] [id number] [place] [address]- 1783 Apr, [facility] [place] [facility] [address] [id number] [place] [address]- 7669 Apr, [facility] [place] [facility] [address] [id number] [place] [address]- 8343 Apr, [facility] [place] [facility] [address] [id number] [place] [address]- 4319 Apr, [facility] [place] [facility] [address] [id number] [place] [address]- 4434 Apr, [facility] [place] [facility] [address] [id number], [place] [address]- 2924 Apr, [facility] [place] [facility] [address] [id number] [place] [address]- 1556 Apr, [facility] [place] [facility] [address] [id number] [place] [address]- 2126 Mar, [facility] [place] [facility] [address] [id number] [place] [address]- 2520 Mar, [facility] [place] [facility] [address] [id number] [place] [address]- 2512 Mar, [facility] [place] [facility] [address] [id number] [place] [address]- 3138 Mar, [facility] [place] [facility] [address] [id number] [place] [address]- 9436 Mar, [facility] [place] [facility] [address] [id number] [place] [address]- 6386 Mar, [facility] [place] [facility] [address] [id number] [place] [address]- 3576 Mar, [facility] [place] [facility] [address] [id number] [place] [address]- 2371 Mar, [facility] [place] [facility] [address] [id number] [place] [address]- 6753 Feb, [facility] [place] [facility] [address] [id number] [place] [address]- 7918 Feb, [facility] [place] [facility] [address] [id number] [place] [address]- 2601 Feb, [facility] [place] [facility] [address] [id number] [place] [address]- 3951 Feb, [facility] [place] [facility] [address] [id number] [place] [address]- 6806 Feb, [facility] [place] [facility] [address] [id number] [place] [address]- 3563 Feb, [facility] [place] [facility] [address] [id number] [place] [address]- 5560 January, [facility] [place] [facility] [address] [id number] [place] [address]- 0507 January, [facility] [place] [facility] [address] [id number] [place] [address]- 9899 Dec, [facility] [place] [facility] [address] [id number] [place] [address]- 7199 Dec, [facility] [place] [facility] [address] [id number] [place] [address]- 4855 20 Dec, 2011 [facility] [place] [facility] [address] [id number] [place] [address]- 9836 19 Dec, 2011 [facility] [place] [facility] [address] [id number] [place] [address]- 8116 17 Dec, 2011 [facility] [place] [facility] [address] [id number] [place] [address]- 6775 13 Dec, 2011 [facility] [address] [id number] [place] [address]- 6822 12 Dec, 2011 [facility] [place] [facility] [address] [id number] [place] [address]- 4552 Dec, [facility] [place] [facility] [address] [id number] [place] [address]- 4255 Nov, [facility] [place] [facility] [address] [id number] [place] [address]- 7315 15 Nov, 2011 [facility] [place] [facility] [address] [id number] [place] [address]- 8941 Nov, [facility] [place] [facility] [address] [id number] [place] [address]- 0409 Nov, [facility] [place] [facility] [address] [id number] [place] [address]- 5000 05 Nov, 2011 [facility] [place] [facility] [address] [id number] [place] [address]- 3324 Nov, [facility] [place] [facility] [address] [id number] [place] [address]- 9876 28 Oct, 2011 [facility] [place] [facility] [address] [id number] [place] [address]- 8304 27 Oct, 2011 [facility] [place] [facility] [address] [id number] [place] [address]- 2135 06 Oct, 2011 [facility] [place] [facility] [address] [id number], [place] [address]- 8102 Oct, [facility] [address] [id number] [place] [address]- 0596 Oct, [facility] [place] [facility] [address] [id number] [place] [address]- 5546 Oct, [facility] [address] [id number] [place] [address]- 3868 Sep, [facility] [place] [facility] [address] [id number] [place] [address]- 2679 Aug, [facility] [address] [id number] [place] 9555 Aug, [facility] [place] [facility] [address] [id number] [place] [address]- 4593 Aug, [facility] [address] [facility] [id number] [place] [address]- 4335 Aug, [facility] [place] [facility] [address] [facility] [id number] [place] [address]- 9583 Aug, [facility] [address] [facility] [id number] [place] [address]- 2396 Aug, [facility] [place] [facility] [address] [facility] [id number] [place] [address]- 7644 Aug, [facility] [place] [facility] [address] [facility] [id number] [place] [address]- 4078 Jul, [facility] [place] [facility] [address] [id number], [place] [address]- 3742 Jun, [facility] [place] [facility] [address] [id number] [place] [address]- 4234 Jun, [facility] [place] [facility] [address] [facility] [id number] [place] [address]- 1768 Jun, [facility] [place] [facility] [address] [facility] [id number], [place] [address]- 2141 Mar, [facility] [place] [facility] [address] [address]- 4323 Feb, [facility] [address] [address]- 1382 Aug, [facility] [address] [address]- 4577 Aug, [facility] [address] [address]- 3612 Jul, [facility] [address] [place] [address]- 2160 Aug, [facility] [id number] [place] [address] 95617- 7403 Jul, [facility] [id number] [address]- 3953 Jul, [facility] [id number] [address]- 3528 Jul, [facility] [address] [place] [address]- 4209 Jun, [facility] [address], [place] [address]- 2954 Jun, [facility] [address], [place] [address]- 5422 Feb, [facility] [address], [place] [address]- 9883 January, IMMUNIZATIONS No Known Immunizations SOCIAL HISTORY Never Assessed REASON FOR VISIT f/u PLAN OF CARE Activity Details Follow Up 4 Weeks Reason: F/U VITAL SIGNS MEDICATIONS Unknown Medications RESULTS No Results PROCEDURES Procedure Date Ordered Result Body Site [facility] VISIT MENTAL HEALTH ESTAB PT May 02, 2018 Psychotherapy, patient &/family, 45 minutes, established patient May 02, 2018 INSTRUCTIONS MEDICATIONS ADMINISTERED No Known Medications MEDICAL (GENERAL) HISTORY Type Description Date Medical History tore left tendon in shoulder Medical History bipolar Medical History night terrors Medical History chronic panic attacks Medical History chronic anxiety Medical History ovarian cysts Medical History buldging discs in neck/herniated L4 and L5 Medical History fibromyalgia Medical History Bipolar I disorder, single manic episode, unspecified Medical History Nondependent alcohol abuse, unspecified drunkenness Medical History Nondependent cannabis abuse, unspecified Medical History Lump or mass in breast Surgical History tonsillectomy Surgical History csection x 2 Surgical History tubal ligation Surgical History total hysterectomy Surgical History colon, stomach, lg and small intestine, ovary, and tube reconstruction surgery Surgical History reconstruction surgery on right hand Surgical History upper and lower scopes Hospitalization History surgeries Hospitalization History pneumonia
--- OUTSIDE RECORDS SUMMARY | 2018-06-12 09:26 | XMS REPORT ---
Author Author CORTEZ DIAZ [facility] Address [address] [place] [address] Care Team Providers Care Key Account Director Name Role Phone ALEC DIAZTA Unavailable PROBLEMS Type Condition ICD9-CM Code QCK71-VV Code Onset Dates Condition Status SNOMED Code Problem Bipolar I disorder, most recent episode (or current) mixed, unspecified 296.60 Active 71664402 Problem Fibromyalgia M79.7 Active 360589891 Problem Genital warts A63.0 Active 744222479 Problem Gastroesophageal reflux disease without esophagitis K21.9 Active 532180292 Problem History of bipolar disorder Z86.59 Active 702237193 Problem Panic disorder F41.0 Active 609308187 Problem Bipolar disorder, current episode depressed, severe, without psychotic features F31.4 Active 707249059 ALLERGIES Substance Reaction Event Type Date Status Tramadol HCl hives Drug Allergy Apr, Active Prazosin HCl hives Drug Allergy Apr, Active Minipress hives Drug Allergy Apr, Active Gabapentin hives Drug Allergy Apr, Active Doxepin HCl hives Drug Allergy Apr, Active BuSpar hives Drug Allergy Apr, Active ENCOUNTERS Encounter Location Date Diagnosis [place] [id number] [address] Jun, [facility] [id number] [place] [address]- [address]561 14 May, [address] [facility] [address] [place] [address]- 2661 05 May, 2018 [facility] [address] [place] [address]292- 2767 Apr, Panic disorder F41.0 ; Gastroesophageal reflux disease without esophagitis K21.9 ; Genital warts A63.[address] [facility] [address] [address] 17 Apr, 2018 Panic disorder F41.0 and Bipolar disorder, current episode depressed, severe, without psychotic features F31.4 [facility] [address] [address] 19 Mar, 2018 History of bipolar disorder Z86.59 and History of fibromyalgia Z87.39 [facility] [id number] [place] [address]889- 8421 Mar, History of bipolar disorder Z86.59 and History of fibromyalgia Z87.39 [place] [facility] [id number] [place] [address]96- 9595 12 Mar, 2018 Panic disorder F41.0 and Bipolar disorder, current episode depressed, severe, without psychotic features F31.4 [place] [facility] [id number] [place] [address] 64258- 4615 11 Mar, 2018 History of bipolar disorder Z86.59 ; History of fibromyalgia Z87.39 ; Gastroesophageal reflux disease without esophagitis K21.9 and Long-term use of high-risk medication Z79.899 [facility] [address] [place] [address]- 1555 Dec, [facility] [address] [address] Dec, [facility] [address] [place] [address]- 6831 Nov, [facility] [address] [address] Oct, [facility] [id number] [place] [address] 595072- 8199 Sep, [facility] [address] [address] Aug, [facility] [id number] [place] [address] 780583- 2879 Aug, [facility] [place] [facility] [address] [id number] [place] [address] 9699 14 Aug, 2012 [facility] [place] [facility] [address] [id number] [place] [address] 6741 Jul, [facility] [place] [facility] [address] [id number] [place] [address]- 8751 Jul, [facility] [place] [facility] [address] [id number] [place] [address]- 3932 Jul, [facility] [place] [facility] [address] [id number] [place] [address] 6721 Jul, [facility] [place] [facility] [address] [id number] [place] [address] Jun, [facility] [place] [facility] [address] [id number] [place] [address] Jun, [facility] [place] [facility] [address] [id number] [place] [address]- 8372 Jun, [facility] [place] [facility] [address] [id number] [place] [address]- 2406 Jun, [facility] [place] [facility] [address] [id number] [address] Jun, [facility] [place] [facility] [address] [facility] [id number] [address]- [address] Jun, [facility] [place] [facility] [address] [id number] [address] 8762 Jun, [facility] [place] [facility] [address] [id number] [address] 12[address] Jun, [facility] [place] [facility] [address] [id number] [address] 6059 May, [facility] [place] [facility] [address] [id number] [address] 3182 May, [facility] [place] [facility] [address] [id number], [place] [address] 9795 24 May, 2011 [facility] [place] [facility] [address] [id number] [place] [address]- 5106 11 Sep, 2011 [facility] [place] [facility] [address] [id number] [place] [address]- 2776 08 May, 2011 [facility] [place] [facility] [address] [id number] [place] [address]- 9586 07 Sep, 2011 [facility] [place] [facility] [address] [id number] [place] [address]- 7395 05 Sep, 2011 [facility] [place] [facility] [address] [id number] [place] [address]- 4139 05 Sep, 2011 [facility] [place] [facility] [address] [id number] [place] [address]- 3311 04 May, 2011 [facility] [place] [facility] [address] [id number] [place] [address]- 9577 Apr, [facility] [place] [facility] [address] [id number] [place] [address]- 0734 Apr, [facility] [place] [facility] [address] [id number] [place] [address]- 5927 Apr, [facility] [place] [facility] [address] [id number] [place] [address]- 7636 Apr, [facility] [place] [facility] [address] [id number] [place] [address]- 9359 Apr, [facility] [place] [facility] [address] [id number] [place] [address]- 8997 Apr, [facility] [place] [facility] [address] [id number] [place] [address]- 5854 Apr, [facility] [place] [facility] [address] [id number] [place] [address]- 4014 Apr, [facility] [place] [facility] [address] [id number] [place] [address]- 1891 Apr, [facility] [place] [facility] [address] [id number] [place] [address]- 3871 Mar, [facility] [place] [facility] [address] [id number] [place] [address]- 5515 Mar, [facility] [place] [facility] [address] [id number] [place] [address]- 2996 Mar, [facility] [place] [facility] [address] [id number] [place] [address]- 3154 Mar, [facility] [place] [facility] [address] [id number] [place] [address]- 5284 Mar, [facility] [place] [facility] [address] [id number] [place] [address]- 5624 Mar, [facility] [place] [facility] [address] [id number] [place] [address]- 5908 Mar, [facility] [place] [facility] [address] [id number] [place] [address]- 7876 Mar, [facility] [place] [facility] [address] [id number] [place] [address]- 0012 Feb, [facility] [place] [facility] [address] [id number] [place] [address]- 0332 Feb, [facility] [place] [facility] [address] [id number] [place] [address]- 7922 Feb, [facility] [place] [facility] [address] [id number] [place] [address]- 1087 Feb, [facility] [place] [facility] [address] [id number] [place] [address]- 6013 Feb, [facility] [place] [facility] [address] [id number] [place] [address]- 3381 Feb, [facility] [place] [facility] [address] [id number] [place] [address]- 3080 January, [facility] [place] [facility] [address] [id number] [place] [address]- 3669 January, [facility] [address] [id number] [place] [address]- 7339 30 Dec, 2011 [facility] [place] [facility] [address] [id number] [place] [address]- 4637 24 Dec, 2011 [facility] [place] [facility] [address] [id number] [place] [address]- 0072 20 Dec, 2011 [facility] [place] [facility] [address] [id number] [place] [address]- 0670 19 Dec, 2011 [facility] [place] [facility] [address] [id number] [place] [address]- 4745 17 Dec, 2011 [facility] [place] [facility] [address] [id number] [place] [address]- 4561 13 Dec, 2011 [facility] [place] [facility] [address] [id number] [place] [address]- 9852 12 Dec, 2011 [facility] [place] [facility] [address] [id number] [place] [address]- 3001 Dec, [facility] [place] [facility] [address] [id number] [place] [address]- 3511 Nov, [facility] [place] [facility] [address] [id number] [place] [address]- 7925 15 Nov, 2011 [facility] [place] [facility] [address] [id number] [place] [address]- 8852 Nov, [facility] [place] [facility] [address] [id number] [address]- 4738 06 Nov, 2011 [facility] [place] [facility] [address] [id number] [place] [address]- 9344 05 Nov, 2011 [facility] [place] [facility] [address] [id number] [place] [address]- 7415 02 Nov, 2011 [facility] [place] [facility] [address] [id number] [place] [address]- 0471 28 Oct, 2011 [facility] [place] [facility] [address] [id number] [place] [address]- 2158 27 Oct, 2011 [facility] [address] [id number] [place] [address]- 4056 Oct, 2011 [facility] [place] [facility] [address] [id number] [place] [address] 2546 Oct, 2011 [facility] [address] [id number] [place] [address]- 7376 Oct, [facility] [address] [id number] [place] [address] 2543 Oct, [facility] [address] [id number] [place] [address]- 9550 Sep, [facility] [address] [facility] [id number] [place] [address] Aug, [facility] [address] [facility] [id number] [place] [address]- 0526 Aug, [facility] [address] [facility] [id number] [place] [address]- 7195 Aug, [facility] [id number] [place] [address]- 4661 Aug, [facility] [address] [facility] [id number] [place] [address]- 3516 15 Aug, 2011 [facility] [address] [facility] [id number] [place] [address] 2546 Aug, [facility] [place] [facility] [address] [id number] [place] [address] 2546 Aug, [facility] [place] [facility] [address] [facility] [id number] [place] [address]- 7026 Jul, [facility] [place] [facility] [address] [facility] [id number] [place] [address]- 2786 Jun, [facility] [place] [facility] [address] [facility] [id number] [place] [address]- 3409 Jun, [facility] [address] [facility] [id number] [address]- 8246 Jun, [facility] [address] [facility] [id number] [address]- 0197 Mar, [facility] [address] [facility] [id number] [address]- 0293 Feb, [facility] [address] [facility] [id number] [address] 1466 Aug, [facility] [address] [facility] [id number][place] [address] Aug, [facility] [address] [facility] [id number], [place] [address]- 6916 Jul, [facility] [address] [facility] [id number][place] [address]- 6692 Aug, [facility] [address] [facility] [id number] [address]- 7960 Jul, [facility] [address] [facility] [id number] [address]- 3866 Jul, [facility] [address] [facility] [id number][place] [address]- 5836 Jul, [facility] [address] [facility] [id number][place] [address]- 8366 Jun, [facility] [address] [facility] [id number][place] [address]- 6116 Jun, [facility] [address] [facility] [id number][place] [address]- 3369 Feb, [facility] [address] [facility] [id number][place] [address]- 0026 January, IMMUNIZATIONS No Known Immunizations SOCIAL HISTORY Never Assessed REASON FOR VISIT Gerd/Anxiety/Chronic Pain., Pt states that she is here for her acid reflux, anxiety, and pain that has stemmed over the past 20 years., Requesting medication refill on Lyrica and states that her Dr. Hoskins from [facility] told her to see about getting something for anxiety. PLAN OF CARE Activity Details Follow Up 3 Months or as indicated by labs Reason:chronic pain VITAL SIGNS Height 63 in 2018-05-06 Weight 177.1 lbs 2018-05-06 Temperature 98.2 degrees Fahrenheit 2018-05-06 Heart Rate 75 bpm 2018-05-06 Respiratory Rate 20 2018-05-06 BMI 31.37 kg/m2 2018-05-06 Blood pressure systolic 110 mmHg 2018-05-06 Blood pressure diastolic 70 mmHg 2018-05-06 MEDICATIONS Medication Instructions Dosage Frequency Start Date End Date Duration Status Voltaren 1 % Active Lexapro 10 mg Orally Once a day 1 tablet 24h 30 Active Lexapro 20 mg Orally Once a day 1 tablet 24h 30 Active Abilify 20 mg Orally Once a day 1 tablet 24h 30 Active HydrOXYzine HCl 50 mg Orally every 8 hrs 1 tablet as needed 8h Apr, 30 days Active Protonix 40 mg Orally Once a day 1 tablet 24h 30 Active Valtrex 500 mg Orally Once a day 1 Tablet by Oral route 1 time per day for 5 days 24h Mar, Jul, 30 days Active Lyrica 150 MG Orally Three times a day 1 capsule 8h 28 days Active Estradiol 0.1 MG/24HR Transdermal Two times a Week 1 application to skin 4 weeks Active Zofran 4 MG 1 tablet as needed Active RESULTS Name Result Date Reference Range H PYLORI (IN HOUSE) 2018-05-06 H. PYLORI Negative Control + Lot # [id number] Exp date 09/2018 PROCEDURES Procedure Date Ordered Result Body Site IMMUNOASSAY,INFECTIOUS AGENT May 06, 2018 [facility] VISIT ESTABLISHED PATIENT May 06, 2018 INSTRUCTIONS MEDICATIONS ADMINISTERED No Known Medications [...]
--- OUTSIDE RECORDS SUMMARY | 2018-06-12 09:27 | XMS REPORT ---
Author Author CORTEZ DIAZ [facility] Address [address] [place] [address] Care Team Providers Care Cloud Architect Name Role Phone ALEC DIAZTA Unavailable PROBLEMS Type Condition ICD9-CM Code QHG01-FK Code Onset Dates Condition Status SNOMED Code Problem Bipolar I disorder, most recent episode (or current) mixed, unspecified 296.60 Active 95063262 Problem Fibromyalgia M79.7 Active 537191298 Problem Genital warts A63.0 Active 199075180 Problem Gastroesophageal reflux disease without esophagitis K21.9 Active 861284111 Problem History of bipolar disorder Z86.59 Active 245057800 Problem Panic disorder F41.0 Active 205979709 Problem Bipolar disorder, current episode depressed, severe, without psychotic features F31.4 Active 118614615 ALLERGIES No Information ENCOUNTERS Encounter Location Date Diagnosis [facility], [place] [id number] [place] [address] 30575- 6263 May, [place] [id number] [place] [address] 59905- 2863 May, [place] [id number] [place] [address] 28266- 1995 Apr, Panic disorder F41.0 ; Gastroesophageal reflux disease without esophagitis K21.9 ; Genital warts A63.0 and Fibromyalgia M79.7 [facility], [place] [id number] [place] [address] 08201- 9355 Apr, Panic disorder F41.0 and Bipolar disorder, current episode depressed, severe, without psychotic features F31.4 [facility], [place] [id number] [place] [address] 01678- 4107 Mar, History of bipolar disorder Z86.59 and History of fibromyalgia Z87.39 [place] [id number] [address] 4445 13 Mar, 2018 History of bipolar disorder Z86.59 and History of fibromyalgia Z87.39 [facility], [place] [id number] [place] [address] 43236- 5274 12 Mar, 2018 Panic disorder F41.0 and Bipolar disorder, current episode depressed, severe, without psychotic features F31.4 [facility], [place] [id number] [place] [address] 19500- 9519 11 Mar, 2018 History of bipolar disorder Z86.59 ; History of fibromyalgia Z87.39 ; Gastroesophageal reflux disease without esophagitis K21.9 and Long-term use of high-risk medication Z79.899 [facility], [place] [id number] [place] [address] 35909- 2957 14 Dec, 2014 [facility], [place] [id number] [place] [address] 51195- 5069 Dec, [facility], [place] [id number] [place] [address] 24837- 5164 Nov, [facility], [place] [id number] [place] [address] 17913- 8886 Oct, [facility], [place] [id number] [place] [address] 64514- 0823 Sep, [facility], [place] [address] [address]- 8138 Aug, [facility], [place] [id number] [place] [address] 147416- 6901 Aug, [facility], [place] [address] [address]- 3225 Aug, [facility], [place] [id number] [place] [address] 197307- 8554 Jul, [facility], [place] [address] 5194 Jul, [facility], [place] [id number] [place] [address]- 7068 12 Jul, 2012 [facility] [place] [facility] [address] [id number] [place] [address]- 0599 Jul, [facility] [place] [facility] [address] [id number] [place] [address]- 6248 Jun, [facility] [place] [facility] [address] [id number] [place] 4786 Jun, [facility] [place] [facility] [address] [id number] [place] [address]- 5261 Jun, [facility] [place] [facility] [address] [id number] [place] 6800 18 Jun, 2012 [facility] [place] [facility] [address] [id number] [place] [address]- 4184 Jun, [facility] [place] [facility] [address] [facility] [id number] [place] [address]- 2163 Jun, [facility] [place] [facility] [address] [id number] [place] [address]- 7609 08 Jun, 2012 [facility] [place] [facility] [address] [facility] [id number] [place] [address]- 4555 05 Jun, 2012 [facility] [place] [facility] [address] [facility] [id number] [place] [address]- 7256 26 Sep, 2011 [facility] [place] [facility] [address] [id number] [place] [address]- 3036 25 Sep, 2011 [facility] [place] [facility] [address] [id number] [place] [address]- 2542 24 Sep, 2011 [facility] [place] [facility] [address] [id number] [place] [address]- 0209 11 Sep, 2011 [facility] [place] [facility] [address] [facility] [id number] [place] [address]- 1056 08 Sep, 2011 [facility] [place] [facility] [address] [facility] [id number] [address]- 2564 07 Sep, 2011 [facility] [place] [facility] [address] [id number] [place] [address]- 8785 May, 2011 [facility] [place] [facility] [address] [id number] [place] [address]- 9098 May, [facility] [place] [facility] [address] [id number] [place] [address]- 7721 May, [facility] [place] [facility] [address] [id number] [place] [address]- 8952 Apr, [facility] [place] [facility] [address] [id number] [place] [address]- 4377 Apr, [facility] [place] [facility] [address] [id number] [place] [address]- 0406 Apr, [facility] [place] [facility] [address] [id number] [place] [address]- 7126 Apr, [facility] [place] [facility] [address] [id number] [place] [address]- 9465 Apr, [facility] [place] [facility] [address] [id number] [place] [address]- 6219 Apr, [facility] [place] [facility] [address] [id number] [place] [address]- 7708 Apr, [facility] [place] [facility] [address] [id number] [place] [address]- 4398 Apr, [facility] [place] [facility] [address] [id number] [place] [address]- 7919 Apr, [facility] [place] [facility] [address] [id number] [place] [address]- 9907 Mar, [facility] [place] [facility] [address] [id number] [place] [address]- 2227 Mar, [facility] [place] [facility] [address] [id number] [place] [address]- 3379 Mar, [facility] [place] [facility] [address] [id number] [place] [address]- 3124 Mar, [facility] [place] [facility] [address] [id number] [place] [address]- 7053 Mar, [facility] [place] [facility] [address] [id number] [place] [address]- 1626 Mar, [facility] [place] [facility] [address] [id number] [place] [address]- 7996 Mar, [facility] [place] [facility] [address] [id number] [place] [address]- 6095 Mar, [facility] [place] [facility] [address] [id number] [place] [address]- 0395 Feb, [facility] [place] [facility] [address] [id number] [place] [address]- 7930 Feb, [facility] [place] [facility] [address] [id number] [place] [address]- 7598 Feb, [facility] [place] [facility] [address] [id number] [place] [address]- 1464 Feb, [facility] [place] [facility] [address] [id number] [place] [address]- 7518 Feb, [facility] [place] [facility] [address] [id number] [place] [address]- 9865 Feb, [facility] [place] [facility] [address] [id number] [place] [address]- 7581 January, [facility] [place] [facility] [address] [id number] [place] [address]- 1000 January, [facility] [place] [facility] [address] [id number] [place] [address]- 0635 30 Dec, 2011 [facility] [place] [facility] [address] [id number] [place] [address]- 0691 24 Dec, 2011 [facility] [place] [facility] [address] [id number] [place] [address]- 2661 Dec, [facility] [place] [facility] [address] [id number] [place] [address]- 2383 19 Dec, 2011 [facility] [address] [id number] [place] [address]- 8050 17 Dec, 2011 [facility] [place] [facility] [address] [id number] [place] [address]- 8876 13 Dec, 2011 [facility] [address] [id number] [place] [address]- 6526 12 Dec, 2011 [facility] [place] [facility] [address] [id number] [place] [address]- 7460 12 Dec, 2011 [facility] [address] [id number] [place] [address]- 0578 28 Nov, 2011 [facility] [place] [facility] [address] [id number] [place] [address]- 8796 15 Nov, 2011 [facility] [place] [facility] [address] [id number] [place] [address]- 2114 07 Nov, 2011 [facility] [address] [id number] [place] [address]- 3345 06 Nov, 2011 [facility] [place] [facility] [address] [id number] [place] [address]- 6308 05 Nov, 2011 [facility] [address] [id number] [place] [address]- 0923 02 Nov, 2011 [facility] [place] [facility] [address] [id number] [place] [address]- 5509 28 Oct, 2011 [facility] [place] [facility] [address] [id number] [place] [address]- 5421 27 Oct, 2011 [facility] [place] [facility] [address] [id number] [place] [address]- 3366 06 Oct, 2011 [facility] [place] [facility] [address] [id number] [place] [address]- 2546 03 Oct, 2011 [facility] [place] [facility] [address] [id number] [place] [address]- 6574 Oct, [facility] [place] [facility] [address] [id number] [place] [address]- 4662 Oct, [facility] [place] [facility] [address] [id number] [place] [address]- 6276 Sep, [facility] [place] [facility] [address] [facility] [id number] [place] [address]- 3978 Aug, [facility] [place] [facility] [address] [id number] [place] [address]- 0053 Aug, [facility] [place] [facility] [address] [id number] [place] 3686 Aug, [facility] [place] [facility] [address] [facility] [id number] [place] [address]- 3901 Aug, [facility] [place] [facility] [address] [facility] [id number] [place] [address]- 9573 Aug, [facility] [place] [facility] [address] [id number] [place] [address]- 2868 Aug, [facility] [place] [facility] [address] [id number] [place] [address]- 1586 Aug, [facility] [place] [facility] [address] [facility] [id number] [place] [address]- 0556 Jul, [facility] [place] [facility] [address] [id number] [address]- 6173 Jun, [facility] [place] [facility] [address] [id number] [address]- 9253 Jun, [facility] [place] [facility] [address] [id number] [place] [address]- 2983 Jun, [facility] [place] [facility] [address] [facility] [id number] [address]- 1475 Mar, [facility] [place] [facility] [address] [facility] [id number], [place] [address]- 2967 Feb, [facility] [place] [facility] [address] [address]- 9501 Aug, [facility] [place] [address] [address]- 8670 Aug, [facility] [place] [address] [address]- 4359 Jul, [facility] [place] [address] [address]- 1769 Aug, [facility] [place] [address] [address]- 0301 Jul, [facility] [place] [id number] [place] [address] 97193- 5431 Jul, [facility] [place] [address] [address]- 1526 Jul, [facility] [place] [id number] [place] [address] 69255- 7946 Jun, [facility] [place] [address] [address]- 1932 Jun, [facility] [place] [address] [address]- 7284 Feb, [facility] [place] [address] [address]- 2696 January, IMMUNIZATIONS No Known Immunizations SOCIAL HISTORY Never Assessed REASON FOR VISIT Medication refill request PLAN OF CARE VITAL SIGNS MEDICATIONS Medication Instructions Dosage Frequency Start Date End Date Duration Status Alprazolam 0.5 MG Orally Twice a day 1 tablet 12h 28 days Active Lyrica 150 MG Orally Three times a day 1 capsule 8h 28 days Active RESULTS No Results PROCEDURES No Known procedures INSTRUCTIONS MEDICATIONS ADMINISTERED No Known Medications MEDICAL [...]
--- OUTSIDE RECORDS SUMMARY | 2018-06-12 09:27 | XMS REPORT ---
Author Author CORTEZ DIAZ [facility] Address [address] [place] [address] Care Team Providers Care Publicity Writer Name Role Phone ALEC DIAZTA Unavailable PROBLEMS Type Condition ICD9-CM Code XQA56-FZ Code Onset Dates Condition Status SNOMED Code Problem Bipolar I disorder, most recent episode (or current) mixed, unspecified 296.60 Active 37329714 Problem Fibromyalgia M79.7 Active 449675667 Problem Genital warts A63.0 Active 746643317 Problem Gastroesophageal reflux disease without esophagitis K21.9 Active 019699810 Problem History of bipolar disorder Z86.59 Active 144929680 Problem Panic disorder F41.0 Active 340070484 Problem Bipolar disorder, current episode depressed, severe, without psychotic features F31.4 Active [id number] ALLERGIES No Information ENCOUNTERS Encounter Location Date Diagnosis [facility] [id number] [place] [address] 29422- 7079 May, [place] [id number] [place] [address] 15026- 5139 May, [place] [id number] [place] [address] 13169- 8405 Apr, Panic disorder F41.0 ; Gastroesophageal reflux disease without esophagitis K21.9 ; Genital warts A63.0 and Fibromyalgia M79.7 [facility] [id number] [place] [address] 42194- 2981 Apr, Panic disorder F41.0 and Bipolar disorder, current episode depressed, severe, without psychotic features F31.4 [facility] [id number] [place] [address] 20125- 7626 Mar, History of bipolar disorder Z86.59 and History of fibromyalgia Z87.39 [place] [id number] [address] 1321 13 Mar, 2018 History of bipolar disorder Z86.59 and History of fibromyalgia Z87.39 [facility] [id number] [place] [address] 56712- 5538 12 Mar, 2018 Panic disorder F41.0 and Bipolar disorder, current episode depressed, severe, without psychotic features F31.4 [facility] [id number] [place] [address] 70472- 7294 11 Mar, 2018 History of bipolar disorder Z86.59 ; History of fibromyalgia Z87.39 ; Gastroesophageal reflux disease without esophagitis K21.9 and Long-term use of high-risk medication Z79.899 [facility] [id number] [place] [address] 30055- 4322 14 Dec, 2014 [facility] [id number] [place] [address] 34596- 5137 Dec, [facility] [id number] [place] [address] 34730- 6078 Nov, [facility] [id number] [place] [address] 66553- 6154 Oct, [facility] [id number] [place] [address] 12547- 7957 Sep, [facility] [address] [address] 0166 Aug, [facility] [id number] [place] [address] 030930- 8191 Aug, [facility] [address] [address]- 9325 Aug, [facility] [id number] [place] [address] 542745- 4650 Jul, [facility] [address] 9228 Jul, [facility] [id number] [place] [address]- 9192 12 Jul, 2012 [facility] [place] [facility] [address] [id number] [place] [address]- 8909 Jul, [facility] [place] [facility] [address] [id number] [place] [address]- 3628 Jun, [facility] [place] [facility] [address] [id number] [place] [address] Jun, [facility] [place] [facility] [address] [id number] [place] [address]- 0723 Jun, [facility] [place] [facility] [address] [id number] [place] 6012 18 Jun, 2012 [facility] [place] [facility] [address] [id number] [place] [address]- 4404 Jun, [facility] [place] [facility] [address] [facility] [id number] [place] [address]- 6463 Jun, [facility] [place] [facility] [address] [id number] [place] [address]- 3378 08 Jun, 2012 [facility] [place] [facility] [address] [facility] [id number] [place] [address]- 0640 05 Jun, 2012 [facility] [place] [facility] [address] [facility] [id number] [place] [address]- 3962 26 Sep, 2011 [facility] [place] [facility] [address] [id number] [place] [address]- 3126 25 Sep, 2011 [facility] [place] [facility] [address] [id number] [place] [address]- 2541 24 Sep, 2011 [facility] [place] [facility] [address] [id number] [place] [address]- 2289 11 Sep, 2011 [facility] [place] [facility] [address] [facility] [id number] [place] [address]- 6708 08 Sep, 2011 [facility] [place] [facility] [address] [facility] [id number] [place] [address]- 7807 07 Sep, 2011 [facility] [place] [facility] [address] [id number] [place] [address]- 2379 May, 2011 [facility] [place] [facility] [address] [id number] [place] [address]- 0589 May, [facility] [place] [facility] [address] [id number] [place] [address]- 3336 May, [facility] [place] [facility] [address] [id number] [place] [address]- 9093 Apr, [facility] [place] [facility] [address] [id number] [place] [address]- 1720 Apr, [facility] [place] [facility] [address] [id number] [place] [address]- 8725 Apr, [facility] [place] [facility] [address] [id number] [place] [address]- 5605 Apr, [facility] [place] [facility] [address] [id number] [place] [address]- 7787 Apr, [facility] [place] [facility] [address] [id number] [place] [address]- 7984 Apr, [facility] [place] [facility] [address] [id number] [place] [address]- 0056 Apr, [facility] [place] [facility] [address] [id number] [place] [address]- 1986 Apr, [facility] [place] [facility] [address] [id number] [place] [address]- 6724 Apr, [facility] [place] [facility] [address] [id number] [place] [address]- 8619 Mar, [facility] [place] [facility] [address] [id number] [place] [address]- 4583 Mar, [facility] [place] [facility] [address] [id number] [place] [address]- 5387 Mar, [facility] [place] [facility] [address] [id number] [place] [address]- 2714 Mar, [facility] [place] [facility] [address] [id number] [place] [address]- 8053 Mar, [facility] [place] [facility] [address] [id number] [place] [address]- 1336 Mar, [facility] [place] [facility] [address] [id number] [place] [address]- 9856 Mar, [facility] [place] [facility] [address] [id number] [place] [address]- 3117 Mar, [facility] [place] [facility] [address] [id number] [place] [address]- 1999 Feb, [facility] [place] [facility] [address] [id number] [place] [address]- 9910 Feb, [facility] [place] [facility] [address] [id number] [place] [address]- 1210 Feb, [facility] [place] [facility] [address] [id number] [place] [address]- 4463 Feb, [facility] [place] [facility] [address] [id number] [place] [address]- 2573 Feb, [facility] [place] [facility] [address] [id number] [place] [address]- 1136 Feb, [facility] [place] [facility] [address] [id number] [place] [address]- 7026 January, [facility] [place] [facility] [address] [id number] [place] [address]- 9449 January, [facility] [place] [facility] [address] [id number] [place] [address]- 2565 30 Dec, 2011 [facility] [place] [facility] [address] [id number] [place] [address]- 8454 24 Dec, 2011 [facility] [place] [facility] [address] [id number] [place] [address]- 1866 Dec, [facility] [place] [facility] [address] [id number] [place] [address]- 2054 19 Dec, 2011 [facility] [address] [id number] [place] [address]- 7294 17 Dec, 2011 [facility] [place] [facility] [address] [id number] [place] [address]- 3796 13 Dec, 2011 [facility] [address] [id number] [place] [address]- 2026 12 Dec, 2011 [facility] [place] [facility] [address] [id number] [place] [address]- 5332 12 Dec, 2011 [facility] [address] [id number] [place] [address]- 2804 28 Nov, 2011 [facility] [place] [facility] [address] [id number] [place] [address]- 0766 15 Nov, 2011 [facility] [place] [facility] [address] [id number] [place] [address]- 6005 07 Nov, 2011 [facility] [address] [id number] [place] [address]- 4359 06 Nov, 2011 [facility] [place] [facility] [address] [id number] [place] [address]- 9404 05 Nov, 2011 [facility] [address] [id number] [place] [address]- 3179 02 Nov, 2011 [facility] [place] [facility] [address] [id number] [place] [address]- 8976 28 Oct, 2011 [facility] [place] [facility] [address] [id number] [place] [address]- 7045 27 Oct, 2011 [facility] [place] [facility] [address] [id number] [place] [address]- 7066 06 Oct, 2011 [facility] [place] [facility] [address] [id number] [place] [address]- 2546 03 Oct, 2011 [facility] [place] [facility] [address] [id number] [place] [address]- 6299 Oct, [facility] [place] [facility] [address] [id number] [place] [address]- 3231 Oct, [facility] [place] [facility] [address] [id number] [place] [address]- 5016 Sep, [facility] [place] [facility] [address] [facility] [id number] [place] [address]- 4651 Aug, [facility] [place] [facility] [address] [id number] [place] [address]- 5324 Aug, [facility] [place] [facility] [address] [id number] [place] [address]70 Aug, [facility] [place] [facility] [address] [facility] [id number] [place] [address]- 1947 Aug, [facility] [place] [facility] [address] [facility] [id number] [place] [address]- 4639 Aug, [facility] [place] [facility] [address] [id number] [place] [address]- 0960 Aug, [facility] [place] [facility] [address] [id number] [place] [address]- 8540 Aug, [facility] [place] [facility] [address] [facility] [id number] [place] [address]- 2161 Jul, [facility] [place] [facility] [address] [id number] [place] [address]- 0812 Jun, [facility] [place] [facility] [address] [id number] [place] [address]- 8752 Jun, [facility] [place] [facility] [address] [id number] [place] [address]- 6769 Jun, [facility] [place] [facility] [address] [facility] [id number] [place] [address]- 1044 Mar, [facility] [place] [facility] [address] [facility] [id number] [place] [address]- 9503 Feb, [facility] [place] [facility] [id number] [address]- 3343 Aug, [facility] [id number] [address]- 5216 Aug, [facility] [id number] [address]- 5422 Jul, [facility] [id number] [address]- 3532 Aug, [facility] [id number] [address]- 5131 Jul, [facility] [id number] [place] [address] 02610- 2373 Jul, [facility] [id number] [address]- 8776 Jul, [facility] [id number] [place] [address] 34396- 1417 Jun, [facility] [id number] [address]- 2355 Jun, [facility] [id number] [address]- 8862 Feb, [facility] [id number] [address]- 1526 January, IMMUNIZATIONS No Known Immunizations SOCIAL HISTORY Never Assessed REASON FOR VISIT Medication refill request PLAN OF CARE VITAL SIGNS MEDICATIONS Medication Instructions Dosage Frequency Start Date End Date Duration Status Alprazolam 0.5 MG Orally Twice a day 1 tablet 12h 14 days Active Estradiol 0.1 MG/24HR Transdermal Two times a Week 1 application to skin 4 weeks Active Lyrica 150 MG Orally Three times a day 1 capsule 8h 14 days Active RESULTS No Results PROCEDURES No [...]
--- OUTSIDE RECORDS SUMMARY | 2018-06-12 09:27 | XMS REPORT ---
Author Author CORTEZ DIAZ [facility] Address [address] [place] [address] Care Team Providers Care Car Dealer Name Role Phone ALEC DIAZTA Unavailable PROBLEMS Type Condition ICD9-CM Code GTP10-NT Code Onset Dates Condition Status SNOMED Code Problem Bipolar I disorder, most recent episode (or current) mixed, unspecified 296.60 Active 71218120 Problem Fibromyalgia M79.7 Active 256590528 Problem Genital warts A63.0 Active 657401343 Problem Gastroesophageal reflux disease without esophagitis K21.9 Active 812248619 Problem History of bipolar disorder Z86.59 Active 804035182 Problem Panic disorder F41.0 Active 438948137 Problem Bipolar disorder, current episode depressed, severe, without psychotic features F31.4 Active 968428664 ALLERGIES Substance Reaction Event Type Date Status Tramadol HCl hives Drug Allergy Mar, Active Prazosin HCl hives Drug Allergy Mar, Active Minipress hives Drug Allergy Mar, Active Gabapentin hives Drug Allergy Mar, Active Doxepin HCl hives Drug Allergy Mar, Active BuSpar hives Drug Allergy Mar, Active ENCOUNTERS Encounter Location Date Diagnosis [facility] [id number] [address] May, [facility] [id number] [address] May, [facility] [id number] [place] [address]- 5858 Apr, Panic disorder F41.0 ; Gastroesophageal reflux disease without esophagitis K21.9 ; Genital warts A63.0 and Fibromyalgia M79.7 [facility] [id number] [address] Apr, Panic disorder F41.0 and Bipolar disorder, current episode depressed, severe, without psychotic features F31.4 [facility] [address] [address] 19 Mar, 2018 History of bipolar disorder Z86.59 and History of fibromyalgia Z87.39 [facility] [id number] [place] [address] 54647- 4097 13 Mar, 2018 History of bipolar disorder Z86.59 and History of fibromyalgia Z87.39 [facility] [id number] [place] [address] 09173- 7169 12 Mar, 2018 Panic disorder F41.0 and Bipolar disorder, current episode depressed, severe, without psychotic features F31.4 [facility] [id number] [place] [address] 81[address]- 1815 11 Mar, 2018 History of bipolar disorder Z86.59 ; History of fibromyalgia Z87.39 ; Gastroesophageal reflux disease without esophagitis K21.9 and Long-term use of high-risk medication Z79.899 [facility] [id number] [place] [address] 90080- 7902 14 Dec, 2014 [facility] [id number] [place] [address] 92052- 0952 Dec, [facility] [id number] [place] [address] 98991- 4083 Nov, [facility] [id number] [place] [address]30- 8822 Oct, [facility] [id number] [address] Sep, [facility] [id number] [place] [address] 072940- 0685 Aug, [facility] [id number] [place] [address] 376378- 7559 Aug, [facility] [id number] [place] [address] 01809- 3618 Aug, [facility] [place] [facility] [address] [id number] [place] [address] 1197 Jul, [facility] [place] [facility] [address] [id number] [place] [address] 5298 Jul, [facility] [place] [facility] [address] [id number] [place] [address] 4564 Jul, [facility] [place] [facility] [address] [id number] [place] [address]- 2090 Jul, [facility] [place] [facility] [address] [id number] [place] [address]- 8324 Jun, [facility] [place] [facility] [address] [id number] [place] [address]- 9605 Jun, [facility] [place] [facility] [address] [id number] [place] [address]- 3967 Jun, [facility] [place] [facility] [address] [id number] [place] [address]- 3985 Jun, [facility] [place] [facility] [address] [id number] [place] [address]- 0627 Jun, [facility] [place] [facility] [address] [id number] [place] [address]- 8355 Jun, [facility] [place] [facility] [address] [id number] [place] [address]- 8576 Jun, [facility] [place] [facility] [address] [id number] [place] [address]- 3539 05 Jun, 2012 [facility] [place] [facility] [address] [id number] [place] [address]- 8316 26 May, 2012 [facility] [place] [facility] [address] [id number] [place] [address] 25 May, 2012 [facility] [place] [facility] [address] [id number] [place] [address] 24 Sep2011 [facility] [place] [facility] [address] [id number] [place] [address]- 3586 11 May, 2011 [facility] [place] [facility] [address] [id number] [place] [address]- 8858 08 May, 2011 [facility] [place] [facility] [address] [id number] [place] [address]- 4546 07 May, 2011 [facility] [place] [facility] [address] [id number] [place] [address]- 6776 05 May, 2011 [facility] [place] [facility] [address] [id number] [place] [address]- 9484 05 May, 2011 [facility] [place] [facility] [address] [id number] [place] [address]- 8283 May, [facility] [place] [facility] [address] [id number] [place] [address]- 9872 Apr, [facility] [place] [facility] [address] [id number] [place] [address]- 3745 Apr, [facility] [place] [facility] [address] [id number] [place] [address]- 9032 Apr, [facility] [place] [facility] [address] [id number] [place] [address]- 6595 Apr, [facility] [place] [facility] [address] [id number] [place] [address]- 9760 Apr, [facility] [place] [facility] [address] [id number] [place] [address]- 2212 Apr, [facility] [place] [facility] [address] [id number] [address]- 8720 Apr, [facility] [place] [facility] [address] [id number] [place] [address]- 9790 Apr, [facility] [place] [facility] [address] [id number] [place] [address]- 8321 Apr, [facility] [place] [facility] [address] [id number] [place] [address]- 2445 Mar, [facility] [place] [facility] [address] [id number] [place] [address]- 6855 Mar, [facility] [place] [facility] [address] [id number] [place] [address]- 3161 Mar, [facility] [place] [facility] [address] [id number] [place] [address]- 7486 Mar, [facility] [place] [facility] [address] [id number] [place] [address]- 3455 Mar, [facility] [place] [facility] [address] [id number] [place] [address]- 4183 Mar, [facility] [place] [facility] [address] [id number] [place] [address]- 7894 Mar, [facility] [place] [facility] [address] [id number] [place] [address]- 1773 Mar, [facility] [place] [facility] [address] [id number] [place] [address]- 9875 Feb, [facility] [place] [facility] [address] [id number] [place] [address]- 9179 Feb, [facility] [place] [facility] [address] [id number] [place] [address]- 2387 Feb, [facility] [place] [facility] [address] [id number] [place] [address]- 3987 Feb, [facility] [place] [facility] [address] [id number] [place] [address]- 4480 Feb, [facility] [place] [facility] [address] [id number] [place] [address]- 3782 Feb, [facility] [place] [facility] [address] [id number] [place] [address]- 8756 January, [facility] [place] [facility] [address] [id number] [place] [address]- 6275 January, [facility] [place] [facility] [address] [id number] [place] [address]- 7807 Dec, [facility] [place] [facility] [address] [id number] [place] [address]- 8169 24 Dec, 2011 [facility] [place] [facility] [address] [id number] [place] [address]- 2326 20 Dec, 2011 [facility] [place] [facility] [address] [id number] [place] [address]- 6699 19 Dec, 2011 [facility] [place] [facility] [address] [id number] [place] [address]- 3357 17 Dec, 2011 [facility] [address] [id number] [place] [address]- 8032 13 Dec, 2011 [facility] [place] [facility] [address] [id number] [place] [address]- 6029 12 Dec, 2011 [facility] [address] [id number] [place] [address]- 1391 Dec, [facility] [address] [id number] [place] [address]- 4221 28 Nov, 2011 [facility] [place] [facility] [address] [id number] [place] [address]- 5429 15 Nov, 2011 [facility] [place] [facility] [address] [id number] [place] [address]- 8418 07 Nov, 2011 [facility] [place] [facility] [address] [id number] [place] [address]- 4973 06 Nov, 2011 [facility] [place] [facility] [address] [id number] [place] [address]- 5927 05 Nov, 2011 [facility] [place] [facility] [address] [id number] [place] [address]- 0142 02 Nov, 2011 [facility] [place] [facility] [address] [id number] [place] [address]- 3694 28 Oct, 2011 [facility] [place] [facility] [address] [id number] [place] [address]- 1610 27 Oct, 2011 [facility] [place] [facility] [address] [id number] [place] [address]- 3114 Oct, [facility] [address] [id number] [place] [address]- 2966 Oct, [facility] [place] [facility] [address] [id number] [place] [address]- 3856 Oct, [facility] [address] [id number] [place] [address]- 1206 Oct, [facility] [place] [facility] [address] [id number] [place] [address]- 6462 Sep, [facility] [address] [id number] [place] [address]- 9805 Aug, [facility] [place] [facility] [address] [id number] [place] [address]- 2040 Aug, [facility] [address] [id number] [place] [address]- 2953 Aug, [facility] [place] [facility] [address] [id number] [place] [address]- 3099 Aug, [facility] [place] [facility] [address] [facility] [id number] [place] [address]- 0304 Aug, [facility] [place] [facility] [address] [facility] [id number] [place] [address]- 7661 Aug, [facility] [place] [facility] [address] [facility] [id number] [place] [address]- 5997 Aug, [facility] [place] [facility] [address] [id number] [address]- 3621 Jul, [facility] [place] [facility] [address] [id number] [place] [address]- 4232 Jun, [facility] [place] [facility] [address] [id number] [place] [address]- 7573 Jun, [facility] [place] [facility] [address] [id number] 6363 Jun, [facility] [address] [facility] [id number] [address]- 7381 Mar, [facility] [address] [address]- 8753 Feb, [facility] [address] [facility] [id number] [place] [address]- 8382 Aug, [facility] [address] [facility] [id number] [place] [address]- 3449 Aug, [facility] [address] [facility] [id number] [address]597 Jul, [facility] [address] [address]- 2087 Aug, [facility] [address] [address]- 5016 Jul, [facility] [address] [address]- 9758 Jul, [facility] [address] [address] Jul, [facility] [address] [address]- 3760 Jun, [facility] [address] [address]- 2202 Jun, [facility] [address] [address]- 2672 Feb, [facility] [id number] [address]- 1847 January, IMMUNIZATIONS No Known Immunizations SOCIAL HISTORY Never Assessed REASON FOR VISIT Establish Care, pt is here to get refill on medications-awoods PLAN OF CARE Activity Details Follow Up 4 Weeks Reason:anxiety/chronic pain VITAL SIGNS Height 63 in 2018-03-26 Weight 173 lbs 2018-03-26 Temperature 98.4 degrees Fahrenheit 2018-03-26 Heart Rate 75 bpm 2018-03-26 Respiratory Rate 20 2018-03-26 BMI 30.64 kg/m2 2018-03-26 Blood pressure systolic 100 mmHg 2018-03-26 Blood pressure diastolic 64 mmHg 2018-03-26 MEDICATIONS Medication Instructions Dosage Frequency Start Date End Date Duration Status Lexapro 10 mg Orally Once a day 1 tablet 24h 30 days Active Estradiol 0.1 MG/24HR Transdermal Two times a Week 1 application to skin Active Alprazolam 0.5 MG Orally Twice a day 1 tablet 12h 28 days Active Voltaren 1 % Active Protonix 40 mg Orally Once a day 1 tablet 24h 30 days Active Zofran 4 MG 1 tablet as needed Active Abilify 20 mg Orally Once a day 1 tablet 24h 30 days Active Lexapro 20 mg Orally Once a day 1 tablet 24h 30 days Active Lyrica 150 MG Orally Three times a day 1 capsule 8h 28 days Active Valtrex 500 mg 1 Tablet by Oral route 1 time per day for 5 days Mar Active RESULTS No Results PROCEDURES Procedure Date Ordered Result Body Site DRUG TEST PRSMV CHEM ANLYZR March 26, 2018 INSTRUCTIONS MEDICATIONS ADMINISTERED No Known Medications [...]
--- OUTSIDE RECORDS SUMMARY | 2018-06-12 09:27 | XMS REPORT ---
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 Name Role Phone MARJORIE BALDWIN Unavailable PROBLEMS Type Condition ICD9-CM Code RDB96-FQ Code Onset Dates Condition Status SNOMED Code Problem Bipolar I disorder, most recent episode (or current) mixed, unspecified 296.60 Active 34167716 Problem Fibromyalgia M79.7 Active 747834738 Problem Genital warts A63.0 Active 874753310 Problem Gastroesophageal reflux disease without esophagitis K21.9 Active 261284168 Problem History of bipolar disorder Z86.59 Active 505621387 Problem Panic disorder F41.0 Active 752072952 Problem Bipolar disorder, current episode depressed, severe, without psychotic features F31.4 Active 538653842 ALLERGIES No Information ENCOUNTERS Encounter Location Date Diagnosis [place] [id number] [place] [address]- [address]20 May, [place] [id number] [place] [address] 97672- 4708 May, [place] [id number] [place] [address]50- 7794 Apr, Panic disorder F41.0 ; Gastroesophageal reflux disease without esophagitis K21.9 ; Genital warts A63.0 and Fibromyalgia M79.7 [facility] [id number] [place] [address] 11707- 0711 Apr, Panic disorder F41.0 and Bipolar disorder, current episode depressed, severe, without psychotic features F31.4 [place] [id number] [place] [address] 47981- 5028 Mar, History of bipolar disorder Z86.59 and History of fibromyalgia Z87.39 [place] [address] [address] 13 Mar, 2018 History of bipolar disorder Z86.59 and History of fibromyalgia Z87.39 [facility] [id number] [place] [address] 40895- 7466 12 Mar, 2018 Panic disorder F41.0 and Bipolar disorder, current episode depressed, severe, without psychotic features F31.4 [facility] [id number] [place] [address] 70771- 9728 11 Mar, 2018 History of bipolar disorder Z86.59 ; History of fibromyalgia Z87.39 ; Gastroesophageal reflux disease without esophagitis K21.9 and Long-term use of high-risk medication Z79.899 [facility] [id number] [place] [address] 77368- 2611 14 Dec, 2014 [facility] [address] [address] Dec, [facility] [id number] [address] 8[address] Nov, [facility] [address] [address] Oct, [facility] [address] [place] [address] 5[address] Sep, [facility] [address] [address] 2861 Aug, [facility] [address] [address] Aug, [facility] [address] Aug, [facility] [address] [address] Jul, [facility] [address] [address] Jul, [facility] [id number] [place] [address] Jul, [facility] [address] [id number] [place] [address] 2923 Jul, [facility] [place] [facility] [address] [id number] [place] [address]- 1078 Jun, [facility] [address] [id number] [place] [address]- 6774 Jun, [facility] [place] [facility] [address] [id number] [place] [address]- 5338 Jun, [facility] [address] [id number] [place] [address]- 5311 18 Jun, 2012 [facility] [place] [facility] [address] [id number] [place] [address]- 9448 Jun, [facility] [place] [facility] [address] [facility] [id number] [place] [address]- 9005 Jun, [facility] [place] [facility] [address] [id number] [place] [address]- 4958 08 Jun, 2012 [facility] [place] [facility] [address] [facility] [id number] [place] [address]- 6500 05 Jun, 2012 [facility] [address] [facility] [id number] [place] [address]- 5879 26 May, 2012 [facility] [place] [facility] [address] [id number] [place] [address]- 4066 25 Sep, 2011 [facility] [place] [facility] [address] [id number] [place] [address]- 4646 24 Sep, 2011 [facility] [place] [facility] [address] [id number] [place] [address]- 3733 11 Sep, 2011 [facility] [place] [facility] [address] [facility] [id number] [place] [address]- 7766 08 Sep, 2011 [facility] [place] [facility] [address] [facility] [id number] [place] [address]- 6357 May, [facility] [place] [facility] [address] [id number] [place] [address]- 2783 05 May, 2012 [facility] [place] [facility] [address] [id number] [place] [address]- 2116 May, [facility] [place] [facility] [address] [id number] [place] [address]- 4706 May, [facility] [place] [facility] [address] [id number] [place] [address]- 2546 Apr, [facility] [place] [facility] [address] [id number] [place] [address]- 5031 Apr, [facility] [place] [facility] [address] [id number] [place] [address]- 1434 Apr, [facility] [place] [facility] [address] [id number] [place] [address]- 5556 Apr, [facility] [place] [facility] [address] [id number] [place] [address]- 4664 Apr, [facility] [place] [facility] [address] [id number] [place] [address]- 9778 Apr, [facility] [place] [facility] [address] [id number] [place] [address]- 4028 Apr, [facility] [place] [facility] [address] [id number] [place] [address]- 8974 Apr, [facility] [place] [facility] [address] [id number] [place] [address]- 0110 Apr, [facility] [place] [facility] [address] [id number] [place] [address]- 4991 Mar, [facility] [place] [facility] [address] [id number] [place] [address]- 4079 Mar, [facility] [place] [facility] [address] [id number] [place] [address]- 6306 Mar, [facility] [place] [facility] [address] [id number] [place] [address]- 8578 Mar, [facility] [place] [facility] [address] [id number] [place] [address]- 2259 Mar, [facility] [place] [facility] [address] [id number] [place] [address]- 8500 Mar, [facility] [place] [facility] [address] [id number] [place] [address]- 4873 Mar, [facility] [place] [facility] [address] [id number] [place] [address]- 9409 Mar, [facility] [place] [facility] [address] [id number] [place] [address]- 2721 Feb, [facility] [place] [facility] [address] [id number] [place] [address]- 9844 Feb, [facility] [place] [facility] [address] [id number] [place] [address]- 5692 Feb, [facility] [place] [facility] [address] [id number] [place] [address]- 8388 Feb, [facility] [place] [facility] [address] [id number] [place] [address]- 0843 Feb, [facility] [place] [facility] [address] [id number] [place] [address]- 1823 Feb, [facility] [place] [facility] [address] [id number] [place] [address]- 0923 January, [facility] [place] [facility] [address] [id number] [place] [address]- 7962 January, [facility] [place] [facility] [address] [id number] [place] [address]- 7667 30 Dec, 2011 [facility] [place] [facility] [address] [id number] [place] [address]- 7032 24 Dec, 2011 [facility] [place] [facility] [address] [id number] [place] [address]- 5684 Dec, [facility] [place] [facility] [address] [id number] [place] [address]- 1515 19 Dec, 2011 [facility] [place] [facility] [address] [id number] [place] [address]- 7506 17 Dec, 2011 [facility] [place] [facility] [address] [id number] [place] [address]- 7556 13 Dec, 2011 [facility] [place] [facility] [address] [id number] [place] [address]- 3629 12 Dec, 2011 [facility] [place] [facility] [address] [id number] [place] [address]- 1669 12 Dec, 2011 [facility] [place] [facility] [address] [id number] [place] [address]- 9358 28 Nov, 2011 [facility] [place] [facility] [address] [id number] [place] [address]- 0965 15 Nov, 2011 [facility] [place] [facility] [address] [id number] [place] [address]- 5937 07 Nov, 2011 [facility] [place] [facility] [address] [id number] [place] [address]- 9351 06 Nov, 2011 [facility] [place] [facility] [address] [id number] [place] [address]- 9347 05 Nov, 2011 [facility] [place] [facility] [address] [facility] [id number] [place] [address]- 2148 02 Nov, 2011 [facility] [place] [facility] [address] [id number] [place] [address]- 2796 28 Oct, 2011 [facility] [place] [facility] [address] [id number] [place] [address]- 7941 27 Oct, 2011 [facility] [place] [facility] [address] [id number] [place] [address]- 8514 06 Oct, 2011 [facility] [place] [facility] [address] [id number] [place] [address]- 8931 03 Oct, 2011 [facility] [place] [facility] [address] [id number], [place] [address]- 9116 Oct, [facility] [address] [id number] [place] [address]- 6765 Oct, [facility] [place] [facility] [address] [id number] [place] [address]- 7098 Sep, [facility] [address] [id number] [place] [address]- 9893 Aug, [facility] [place] [facility] [address] [id number] [place] [address]- 6163 Aug, [facility] [address] [id number] [place] [address]- 4354 Aug, [facility] [place] [facility] [address] [id number] [place] [address]- 0412 Aug, [facility] [address] [id number] [place] [address]- 0163 Aug, [facility] [place] [facility] [address] [id number] [place] [address]- 5679 Aug, [facility] [place] [facility] [address] [id number] [place] [address]- 5883 Aug, [facility] [place] [facility] [address] [id number] [place] [address]- 7047 Jul, [facility] [place] [facility] [address] [id number], [place] [address]- 2587 Jun, [facility] [place] [facility] [address] [id number], [place] [address]- 7959 Jun, [facility] [place] [facility] [address] [id number][place] [address] Jun, [facility] [place] [facility] [address] [id number] [address] Mar, [facility] [place] [facility] [address] [id number] [place] [address]- 3962 Feb, [facility] [place] [facility] [address] [facility] [id number], [place] [address]- 2929 Aug, [facility] [address] [facility] [id number], [place] [address]- 4372 Aug, [facility] [address] [facility] [id number], [place] [address]- 0822 Jul, [facility] [address] [facility] [id number], [place] [address]- 6036 Aug, [facility] [address] [facility] [id number], [place] [address]- 9675 Jul, [facility] [address] [place] [address]- 3305 Jul, [facility] [address] [facility] [id number], [place] [address]- 5590 Jul, [facility] [address], [place] [address]- 2452 Jun, [facility] [address], [place] [address]- 4521 Jun, [facility] [address], [place] [address]- 0135 Feb, [facility] [address], [place] [address]- 2002 January, IMMUNIZATIONS No Known Immunizations SOCIAL HISTORY Never Assessed REASON FOR VISIT intake PLAN OF CARE Activity Details Follow Up Next Available Reason: F/U VITAL SIGNS MEDICATIONS Medication Instructions Dosage Frequency Start Date End Date Duration Status Valtrex 500 mg 1 Tablet by Oral route 1 time per day for 5 days Mar Active Voltaren 1 % Active Estradiol 0.1 MG/24HR Transdermal Two times a Week 1 application to skin Active Protonix 40 mg Orally Once a day 1 tablet 24h 30 days Active Zofran 4 MG 1 tablet as needed Active Lexapro 10 mg Orally Once a day 1 tablet 24h 30 days Active Alprazolam 0.5 MG Orally Twice a day 1 tablet 12h 28 days Active Lexapro 20 mg Orally Once a day 1 tablet 24h 30 days Active Abilify 20 mg Orally Once a day 1 tablet 24h 30 days Active Lyrica 150 MG Orally Three times a day 1 capsule 8h 28 days Active RESULTS No Results PROCEDURES Procedure Date Ordered Result Body Site Psych diagnostic evaluation, established patient March 27, 2018 INSTRUCTIONS MEDICATIONS ADMINISTERED No Known Medications [...]
--- OUTSIDE RECORDS SUMMARY | 2018-06-12 09:31 | XMS REPORT | Continuity of Care Document ---
Author Author [facility] Address Unknown Phone Unavailable Allergies Active Description Code Type Severity Reaction Onset Reported/Identified Relationship to Patient Clinical Status Yes BUSPIRONE [id number] Drug Allergy Unknown N/A Yes DOXEPIN [id number] Drug Allergy Unknown N/A Yes GABAPENTIN [id number] Drug Allergy Unknown N/A Yes MINIPRESS [id number] Drug Allergy Unknown N/A Yes PRAZOSIN [id number] Drug Allergy Unknown N/A Yes TRAMADOL [id number] Drug Allergy Unknown N/A Yes BuSpar [id number] N/A N/A Yes Doxepin [id number] N/A N/A Yes Minipress [id number] N/A N/A Yes Prazosin [id number] N/A N/A Yes Tramadol [id number] N/A N/A Yes NKANo Known Allergies NKA Miscellaneous Allergy Unknown N/A 02/21/2006 Yes BuSpar Drug Allergy 10/14/2008 Yes buspirone [id number] Drug Allergy Unknown N/A 02/03/2009 Yes codeine Drug Allergy 02/25/2009 Yes tramadol [id number] Drug Allergy Mild N/A 04/18/2009 Yes hyoscyamine [...] Gabapentin ZZ Drug Allergy Moderate N/A 07/24/2016 Yes doxepin [id number] Drug Allergy Unknown N/A 06/09/2018 Yes gabapentin [id number] Drug Allergy Unknown N/A 06/09/2018 Yes prazosin [id number] Drug Allergy Unknown N/A 06/09/2018 Medications Medication Packaging Start Date Stop Date [...] Type Code Diagnosis Diagnosed By Lev Zee Working F41.9 Anxiety Lev Zee Working K86.1 Chronic pancreatitis Lev Zee M13.0 Polyarthritis Lev Zee Working R52 Generalized pain Lev Zee Working Z79.899 High risk medication use 08/10/2008 KESHIA HAHN DO 535.50 GASTRITIS UNSPEC 08/10/2008 KESHIA HAHN DO 789.00 abdominal pain 08/10/2008 KESHIA HAHN DO V58.69 MEDICATION HIGH RISK 08/10/2008 KESHIA HAHN DO 535.50 GASTRITIS UNSPEC 08/10/2008 KESHIA HAHN DO 789.00 abdominal pain 08/10/2008 KESHIA HAHN DO V58.69 MEDICATION HIGH RISK 10/05/2008 KESHIA HAHN DO 300.01 AN PANIC DIS W/O AGORA 10/05/2008 WERDER DO, KESHIA F 300.01 AN PANIC DIS W/O AGORA 10/14/2008 KESHIA HAHN DO F 530.81 GERD 10/14/2008 KESHIA HAHN DO F 530.81 GERD 11/02/2008 KESHIA HAHN DO F 300.02 GENERALIZED ANXIETY DISORDER 11/02/2008 KESHIA HAHN DO F 300.21 AN PANIC DIS W AGORA 11/02/2008 KESHIA HAHN DO F 307.47 SI DYSSOMNIA NOS 11/02/2008 KESHIA HAHN DO 316 PF PSYCHIC FACTORS MED COND 11/02/2008 KESHIA HAHN DO F 300.02 GENERALIZED ANXIETY DISORDER 11/02/2008 KESHIA HAHN DO F 300.21 AN PANIC DIS W AGORA 11/02/2008 KESHIA HAHN DO F 307.47 SI DYSSOMNIA NOS 11/02/2008 KESHIA HAHN DO 316 PF PSYCHIC FACTORS MED COND 01/27/2009 KESHIA HAHN DO 528.9 DISEASES OF THE ORAL SOFT TISSUES (EXCEPT GINGIVA, TONGUE) 01/27/2009 KSEHIA HAHN DO F 616.0 CERVICITIS 01/27/2009 KESHIA HAHN DO F 625.9 FEMALE PELVIC PAIN 01/27/2009 KESHIA HAHN DO F V69.2 sexually active, frequently with new partners 01/27/2009 KESHIA HAHN DO 528.9 DISEASES OF THE ORAL SOFT TISSUES (EXCEPT GINGIVA, TONGUE) 01/27/2009 KESHIA HAHN DO F 616.0 CERVICITIS 01/27/2009 KESHIA HAHN DO F 625.9 FEMALE PELVIC PAIN 01/27/2009 KESHIA HAHN DO F V69.2 sexually active, frequently with new partners 02/25/2009 KESHIA HAHN DO 034.0 STREPTOCOCCAL SORE THROAT 02/25/2009 KESHIA HAHN DO 034.0 STREPTOCOCCAL SORE THROAT 04/04/2009 KESHIA HAHN DO V25.49 SURVEILLANCE OF OTHER CONTRACEPTIVE METHOD 04/04/2009 KESHIA HAHN DO V25.49 SURVEILLANCE OF OTHER CONTRACEPTIVE METHOD 06/14/2009 KESHIA HAHN DO 054.10 HERPES SIMPLEX TYPE II 06/14/2009 KESHIA HAHN DO 617.9 ENDOMETRIOSIS 06/14/2009 KESHIA HAHN DO V72.31 Pelvic Exam (internal) 06/14/2009 KESHIA HAHN DO 054.10 HERPES SIMPLEX TYPE II 06/14/2009 KESHIA HAHN DO 617.9 ENDOMETRIOSIS 06/14/2009 KESHIA HAHN DO V72.31 Pelvic Exam (internal) 07/25/2009 KESHIA HAHN DO 558.9 Acute Colitis 07/25/2009 KESHIA [...] AN ANXIETY UNSPEC 12/18/2010 KESHIA HAHN DO 786.2 COUGH 12/18/2010 KESHIA HAHN DO 790.4 ABNORMAL LIVER FUNCTION TEST 12/18/2010 KESHIA HAHN DO 786.2 COUGH 12/18/2010 KESHIA HAHN DO 790.4 [...] UNSPECIFIED VISUAL DISTURBANCE 06/12/2011 KESHIA HAHN DO F 719.43 PAIN IN JOINT INVOLVING FOREARM 06/12/2011 KESHIA HAHN DO F 723.1 CERVICALGIA 06/12/2011 KESHIA HAHN DO F 368.9 UNSPECIFIED VISUAL DISTURBANCE 06/12/2011 KESHIA HAHN DO F 719.43 PAIN IN JOINT INVOLVING FOREARM 06/12/2011 KESHIA HAHN DO F 723.1 CERVICALGIA 06/13/2011 KESHIA HAHN DO F 268.9 VITAMIN D DEFICIENCY 06/13/2011 KESHIA HAHN DO F 268.9 VITAMIN D DEFICIENCY 08/28/2011 KESHIA HAHN DO F 788.1 DYSURIA 08/28/2011 KESHIA HAHN DO F 788.1 DYSURIA 10/17/2011 KESHIA HAHN DO F 611.72 BREAST LUMP OR MASS 10/17/2011 KESHIA HAHN DO F 625.0 DYSPAREUNIA 10/17/2011 KESHIA HAHN DO V72.31 DIRECTOR TELEMETRY EXAM, ROUTINE 10/17/2011 KESHIA HAHN DO 611.72 BREAST LUMP OR MASS 10/17/2011 KESHIA HAHN DO F 625.0 DYSPAREUNIA 10/17/2011 KESHIA HAHN DO V72.31 DIRECTOR TELEMETRY EXAM, ROUTINE 11/20/2011 KESHIA HAHN DO 995.3 ALLERGY UNSPECIFIED NOT ELSEWHERE CLASSIFIED 11/20/2011 KESHIA HAHN DO 995.3 ALLERGY UNSPECIFIED NOT ELSEWHERE CLASSIFIED 12/28/2011 KESHIA HAHN DO 787.01 NAUSEA WITH VOMITING 12/28/2011 KESHIA HAHN DO 789.09 ABDOMINAL PAIN OTHER SPECIFIED SITE 12/28/2011 KESHIA HAHN DO 787.01 NAUSEA WITH VOMITING 12/28/2011 KESHIA HAHN DO F 789.09 ABDOMINAL PAIN OTHER SPECIFIED SITE 03/18/2012 KESHIA HAHN DO 296.40 MO BIPOLAR MANIC UNSPECIFIED 03/18/2012 KESHIA HAHN DO 305.00 ALCOHOL ABUSE UNSPEC 03/18/2012 KESHIA HAHN DO F 305.20 CANNABIS ABUSE 03/18/2012 KESHIA HAHN DO F 296.40 MO BIPOLAR MANIC UNSPECIFIED 03/18/2012 SELMA BENNETT KESHIA F 305.00 ALCOHOL ABUSE UNSPEC 03/18/2012 SELMA BENNETT KESHIA F 305.20 CANNABIS ABUSE 04/23/2012 KESHIA HAHN DO F 719.40 PAIN IN JOINT SITE UNSPECIFIED 04/23/2012 SELMA BENNETT KESHIA F 719.40 PAIN IN JOINT SITE UNSPECIFIED 05/24/2012 SELMA BENNETT KESHIA F 296.60 MO BIPOLAR I MIXED UNSPECIFIED 05/24/2012 SELMA KESHIA F 296.60 MO BIPOLAR I MIXED UNSPECIFIED 06/20/2012 SELMA BENNETT KESHIA F 296.00 BIPOLAR I DISORDER SINGLE MANIC [...] Admitting 789.00 ABDOMINAL PAIN-SITE NOS 05/07/2013 Kenny Jason MD Final 211.3 BENIGN LG INTEST NEOPL [...] 08/09/2013 Lev Zee Working M13.0 Polyarthritis 08/09/2013 ZeeLev Working R52 Generalized pain 08/09/2013 ZeeLev Working F41.9 Anxiety 08/09/2013 ZeeLev breen Working K86.1 Chronic pancreatitis 08/09/2013 ZeeLev breen Working M13.0 Polyarthritis 08/09/2013 ZeeLev Working R52 Generalized pain 08/09/2013 ZeeLev Working F41.9 Anxiety 08/09/2013 ZeeLev breen Working K86.1 Chronic pancreatitis 08/09/2013 ZeeLev breen Working M13.0 Polyarthritis 08/09/2013 ZeeLev breen Working R52 Generalized pain 08/09/2013 ZeeLev breen Working F41.9 Anxiety 08/09/2013 ZeeLev dai Working K86.1 Chronic pancreatitis 08/09/2013 ZeeLev breen Working M13.0 Polyarthritis 08/09/2013 ZeeLev breen Working R52 Generalized pain 08/09/2013 ZeeLev breen Working F41.9 Anxiety 08/09/2013 ZeeLev dai Working K86.1 Chronic pancreatitis 08/09/2013 ZeeLev breen Working M13.0 Polyarthritis 08/09/2013 ZeeLev breen Working R52 Generalized pain 08/09/2013 ZeeLev breen Working F41.9 Anxiety 08/09/2013 ZeeLev breen Working K86.1 Chronic pancreatitis 08/09/2013 ZeeLev breen Working M13.0 Polyarthritis 08/09/2013 ZeeLev breen Working R52 Generalized pain 09/07/2013 KINGSLEY BHAT, BOZENA Mar Ot 276.8 HYPOPOTASSEMIA 09/07/2013 BOZENA WYNN MD Ot 300.9 UNSPECIFIED NONPSYCHOTIC MENTAL DISORDER 09/07/2013 KINGSLEY BHAT, BOZENA Mar Ot 338.29 OTHER CHRONIC PAIN 09/07/2013 BOZENA WYNN MD Ot 493.92 ASTHMA, UNSPECIFIED, W (ACUTE) EXACERBAT 09/07/2013 BOZENA WYNN MD Ot 722.52 LUMB/LUMBOSAC DISC DEGEN 09/07/2013 IKNGSLEY BHAT, BOZENA Mar Ot V04.81 ND FOR PROPHYLACTIC VACCIN AND INOCULATI 04/02/2014 ZeeLev Working M79.672 Pain of left foot 04/02/[address] [facility] [facility] Pain of left foot Zee, [facility] 04/02/[address] [facility] M79.672 Pain of left foot Zee, [facility] 04/02/2014 Zee, [facility] Working M79.672 Pain of left foot Zee, [facility] 04/02/2014 Zee, [facility] Working M79.672 Pain of left foot Zee, [facility] 04/02/2014 Zee [facility] Working M79.672 Pain of left foot Zee, [facility] 04/02/2014 Zee [facility] Working M79.672 Pain of left foot Zee, [facility] 05/28/2014 Zee, [facility] Working J30.2 Seasonal allergies 05/28/2014 Zee, [facility] Working J30.2 Seasonal allergies Zee, [facility] 05/28/2014 Zee, [facility] Working J30.2 Seasonal allergies Zee, [facility] 05/28/2014 Zee, [facility] Working J30.2 Seasonal allergies Zee, [facility] 05/28/2014 Zee, [facility] Working J30.2 Seasonal allergies Zee, [facility] 05/28/2014 Zee, [facility] Working J30.2 Seasonal allergies Zee, [facility] 05/28/2014 Zee, [facility] Working J30.2 Seasonal allergies [facility] 09/23/2014 Zee, [facility] Working J06.9 URI, acute 09/23/2014 Zee, [facility] Working J06.9 URI, acute Zee, uan 09/23/2014 Zee, [facility] Working J06.9 URI, acute Zee, [facility] 09/23/2014 Zee, [facility] Working J06.9 URI, acute Zee, [facility] 06/14/2015 LUCRECIA TAPIA APRN W 296.51 Bipolar I Disorder, Most Recent Episode Depressed, Mild 06/14/2015 LUCRECIA TAPIA APRN W 309.81 Posttraumatic Stress Disorder 07/05/2015 Zee, [facility] Working Z79.899 High risk medication use [facility] 07/05/2015 Zee, [facility] Working Z79.899 High risk medication use Zee, [facility] 07/05/2015 Zee, [facility] Working Z79.899 High risk medication use Zee, uan 07/05/2015 Zee, [facility] Working Z79.899 High risk medication use Zee, [facility] 07/05/2015 Zee, [facility] Working Z79.899 High risk medication use Zee, [facility] 07/05/2015 Zee, [facility] Working Z79.899 High risk medication use [facility] 08/02/2015 Zee, [facility] Working M50.20 Cervical herniated disc 08/02/2015 Zee, [facility] Working M51.26 Lumbar herniated disc 08/02/2015 Zee, [facility] Working M75.102 Left rotator cuff tear 09/30/2015 Zee, [facility] Working M50.20 Cervical herniated disc Zee, uan 09/30/2015 Zee, [facility] Working M51.26 Lumbar herniated disc Zee, [facility] 09/30/2015 Zee, [facility] Working M75.102 Left rotator cuff tear Zee, [facility] 11/17/2015 Zee, [facility] Working M50.20 Cervical herniated disc Zee, [facility] 11/17/2015 Zee, [facility] Working M51.26 Lumbar herniated disc Zee, [facility] 11/17/2015 Zee, [facility] Working M75.102 Left rotator cuff tear Zee, [facility] 01/17/2016 Zee, [facility] Working M50.20 Cervical herniated disc Zee, [facility] 01/17/2016 Zee, [facility] Working M51.26 Lumbar herniated disc Zee, [facility] 01/17/2016 Zee, [facility] Working M75.102 Left rotator cuff tear Zee, [facility] 01/17/2016 Zee, [facility] Working Z72.0 Tobacco abuse Zee, [facility] 03/26/2016 Zee, [facility] M50.20 Cervical herniated disc Zee, [facility] 03/26/2016 Zee, [facility] Working M51.26 Lumbar herniated disc Zee, [facility] 03/26/2016 Zee, [facility] Working M75.102 Left rotator cuff tear Zee, [facility] 03/26/2016 Zee, [facility] Working Z72.0 Tobacco abuse Zee, [facility] 05/17/2016 Zee, [facility] Working M50.20 Cervical herniated disc Zee, [facility] 05/17/2016 Zee, [facility] Working M51.26 Lumbar herniated disc Zee, [facility] 05/17/2016 Zee, [facility] Working M75.102 Left rotator cuff tear Zee, [facility] 05/17/2016 Zee, [facility] Working R52 Pain management Zee, [facility] 05/17/2016 Zee, [facility] Working Z72.0 Tobacco abuse Zee, [facility] 05/17/2016 Zee, [facility] Working M75.102 Left rotator cuff tear Zee, [facility] 05/17/2016 Zee, [facility] R52 Pain management Zee, [facility] 07/10/2016 FRAZIER, JOSEFA S E78.00 Pure hypercholesterolemia, [...] N83.202 Unspecified ovarian cyst, left side 07/10/2016 FRAZIER, JOSEFA S Z53.31 Laparoscopic surgical procedure converted to open procedure 07/10/2016 FRAZIER, JOSEFA S Z79.899 Other watermelon inspector (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 therapy 07/10/2016 FRAZIER, JOSEFA S Z86.010 Personal history of colonic polyps 07/10/2016 FRAZIER, JOSEFA S Z86.19 Personal history of other infectious and parasitic diseases 07/10/2016 FRAZIER, JOSEFA S Z88.5 Allergy status to narcotic agent status 07/10/2016 FRAZIER, JOSEFA S Z88.8 Allergy status to other drugs, medicaments and biological substances status 07/10/2016 FRAZIER, JOSEFA S Z90.710 Acquired absence of both cervix and uterus 07/10/2016 FRAZIER, JOSEFA S Z98.51 Tubal ligation status 07/10/2016 FRAZIER, JOSEFA S Z98.890 Other specified postprocedural states 07/19/2016 Lev Zee Working M50.20 Cervical herniated disc Lev Zee 07/19/2016 Lev Zee Working M51.26 Lumbar herniated disc Lev Zee 07/19/2016 Lev Zee Working Z72.0 Tobacco abuse Lev Zee 01/31/2017 JYOTI FRAZIER N95.1 Menopausal and female climacteric states 01/31/2017 JYOTI FRAZIER R10.2 Pelvic and perineal pain 05/09/2018 ROSEMARY CARRERA DO B Ot Z01.818 ENCOUNTER FOR OTHER PREPROCEDURAL EXAMIN 05/12/2018 ROSEMARY CARRERA DO B Ot Z01.818 ENCOUNTER FOR OTHER PREPROCEDURAL EXAMIN 05/12/2018 DARION CARRERA DOIC B Ot F17.210 NICOTINE DEPENDENCE, CIGARETTES, UNCOMPL 05/12/2018 DARION CARRERA DOIC B Ot F32.9 MAJOR DEPRESSIVE DISORDER, SINGLE EPISOD 05/12/2018 ROSEMARY CARRERA DO B Ot F41.9 ANXIETY DISORDER, UNSPECIFIED 05/12/2018 ROSEMARY CARRERA DO B Ot J44.9 CHRONIC OBSTRUCTIVE PULMONARY DISEASE, U 05/12/2018 ROSEMARY CARRERA DO B Ot K21.9 GASTRO-ESOPHAGEAL REFLUX DISEASE WITHOUT 05/12/2018 DARION CARRERA DOIC B Ot K29.50 UNSPECIFIED CHRONIC GASTRITIS WITHOUT BL 05/12/2018 DARION CARRERA DOIC B Ot K31.9 DISEASE OF STOMACH AND DUODENUM, UNSPECI 05/12/2018 DARION CARRERA DOIC B Ot K44.9 DIAPHRAGMATIC HERNIA WITHOUT OBSTRUCTION 05/12/2018 DARION CARRERA DOIC B Ot K92.0 HEMATEMESIS 05/12/2018 DARION CARRERA DOIC B Ot Z79.899 OTHER DIAMOND DIE POLISHER (CURRENT) DRUG THERAPY 05/13/2018 DARION CARRERA DOIC B Ot R10.9 UNSPECIFIED ABDOMINAL PAIN 05/13/2018 DARION CARRERA DOIC B Ot R16.0 HEPATOMEGALY, NOT ELSEWHERE CLASSIFIED 05/20/2018 ROSEMARY CARRERA DO B Ot F17.210 NICOTINE DEPENDENCE, CIGARETTES, UNCOMPL 05/20/2018 ROSEMARY CARRERA DO B Ot F32.9 MAJOR DEPRESSIVE DISORDER, SINGLE EPISOD 05/20/2018 DARION CARRERA DOIC B Ot F41.9 ANXIETY DISORDER, UNSPECIFIED 05/20/2018 DARION CARRERA DOIC B Ot J44.9 CHRONIC OBSTRUCTIVE PULMONARY DISEASE, U 05/20/2018 ROSEMARY CARRERA DO B Ot K21.9 GASTRO-ESOPHAGEAL REFLUX DISEASE WITHOUT 05/20/2018 ROSEMARY CARRERA DO Ot K29.50 UNSPECIFIED CHRONIC GASTRITIS WITHOUT BL 05/20/2018 ROSEMARY CARRERA DO B Ot K31.9 DISEASE OF STOMACH AND DUODENUM, UNSPECI 05/20/2018 DARION CARRERA DOIC B Ot K44.9 DIAPHRAGMATIC HERNIA WITHOUT OBSTRUCTION 05/20/2018 DARION CARRERA DOIC B Ot K92.0 HEMATEMESIS 05/20/2018 ROSEMARY CARRERA DO B Ot Z79.899 OTHER DIAMOND DIE POLISHER (CURRENT) DRUG THERAPY 05/26/2018 DARION CARRERA DOIC B Ot R10.9 UNSPECIFIED ABDOMINAL PAIN 05/26/2018 ROSEMARY CARRERA DO B Ot R16.0 HEPATOMEGALY, NOT ELSEWHERE CLASSIFIED 05/26/2018 ROSEMARY CARRERA DO B Ot R10.9 UNSPECIFIED ABDOMINAL PAIN 06/06/2018 DARION CARRERA DOIC B Ot R10.9 UNSPECIFIED ABDOMINAL PAIN Procedures Code Description Performed By Performed On 45.13 OTHER ENDOSCOPY OF SM INTEST Eren BHAT, Kenny Parsons 10/27/2012 45.16 ESOPHAGOGASTRODUODENOSCOPY [ EGD] W/CLOSED BIOPSY Kenny Jason MD 2012 88.74 DX ULTRASOUND-DIGESTIVE Kenny Jason MD 10/27/2012 [id number] LESION REMOVAL COLONOSCOPY Eren BHAT, Kenny Parsons 05/07/2013 [id number] Release Peritoneum, Open Approach 07/09/2016 [id number] Resection of Bilateral Ovaries, Open Approach 07/09/2016 [id number] Resection of Bilateral Fallopian Tubes, Open Approach [...] 100 RBC MORPH NORMAL Pathology studies - 07/10/16 07:31 PATHOLOGY ORDER LAB [facility] - 01/31/17 [...] Status Pt. Type Provider Facility Loc./Unit Complaint [id number] 08/11/2012 00:00:00 08/11/2012 23:59:59 [facility] [place] [id number] 06/20/2012 10:24:00 06/20/2012 23:59:59 CLS Outpatient KESHIA HAHN DO [id number] 09/18/2012 00:00:00 09/18/2012 23:59:59 CLS Outpatient LUCRECIA TAPIA APRN [id number] 03/27/2018 16:00:00 03/27/2018 23:59:59 CLS Outpatient CORTEZ DIAZ [facility] [id number] 03/26/2018 08:40:00 Document Registration [id number] 01/31/2017 09:53:00 01/31/2017 23:59:59 CLS Outpatient JYOTI FRAZIER [id number] 07/09/2016 14:57:00 07/10/2016 15:00:00 DIS Inpatient JYOTI FRAZIER [facility] 010 [id number] 02/06/2016 11:53:11 Document Registration [id number] 06/27/2016 00:00:00 06/27/2016 23:59:59 CLS Outpatient Rusty Peng [facility] [id number] 10/27/2012 09:13:00 10/27/2012 11:29:00 DIS Outpatient Eren BHAT, [facility] [id number] 05/07/2013 07:02:00 05/07/2013 23:59:59 CLS Outpatient Kenny Jason MD [facility] [id number] 04/15/2013 08:57:00 04/15/2013 23:59:59 CLS Outpatient Kenny Jason MD [facility] [id number] 05/22/2013 10:30:00 Document Registration [id number] 01/31/2017 09:53:00 Document Registration [id number] 07/09/2016 14:57:00 Document Registration [id number] 08/05/2015 15:55:52 08/05/2015 23:59:59 CLS Outpatient [facility] 1 [id number] 09/11/2016 12:53:57 ACT Outpatient [facility] 1 [id number] 05/19/2016 00:01:21 ACT Outpatient [facility] 1 [id number] 05/18/2016 15:02:05 Document Registration [id number] 03/27/2016 18:41:20 ACT Outpatient [facility] 1 [id number] 01/18/2016 21:28:19 ACT Outpatient [facility] 1 [id number] 11/21/2015 07:53:33 ACT Outpatient [facility] 1 [id number] 10/02/2015 06:58:51 ACT Outpatient [facility] 1 [id number] 06/09/2018 09:11:00 06/09/2018 12:04:00 DIS Outpatient ROSEMARY CARRERA DO [facility] PREOP LAPAROSCOPIC CHOLANGIOGRAM [id number] 05/23/2018 09:56:00 05/23/2018 23:59:59 CLS Outpatient ROSEMARY CARRERA DO [facility] CARD ABD PAIN [id number] 05/12/2018 07:05:00 05/12/2018 23:59:59 CLS Outpatient ROSEMARY CARRERA DO [facility] RAD ABDOMINAL PAIN [id number] 05/12/2018 12:22:00 05/12/2018 15:15:00 DIS Outpatient ROSEMARY CARRERA DO [facility] ENDO HEMATEMESIS [id number] 05/08/2018 09:49:00 05/08/2018 23:59:59 CLS Outpatient ROSEMARY CARRERA DO [facility] PREOP EGD [id number] 09/06/2013 06:30:00 09/07/2013 12:13:00 DIS Inpatient BOZENA WYNN MD [facility] 4TH ACUTE BRONCHITIS WITH HYPOXIA [id number] 06/12/2018 11:35:00 PEN Preadmit ROSEMARY CARRERA DO [facility] SDC BILIARY DYSKINESIA
[2018-06-12] MEDS ORDERED: LIDOCAINE/EPI 1%-1:200,000 (XYLOCAINE) 10 ML VIAL ONE (09:56)
[2018-06-12] MEDS ORDERED: ceFAZolin 2 GM IV Premixed 50 ML IV ONE (10:00)
[2018-06-12] MEDS: LACTATED RINGERS 1,000 ML IV PRN ×2 (10:14→12:50)
[2018-06-12 10:26] LABS: BASOPHILS % (AUTO) 1 % (0-10); EOSINOPHILS # (AUTO) 0.1 10^3/uL (0.0-0.3); EOSINOPHILS % (AUTO) 2 % (0-10); HEMATOCRIT 46 % (35-52); HEMOGLOBIN 15.9 G/DL (11.5-16.0); LYMPHOCYTES # (AUTO) 3.2 X 10^3 (1.0-4.0); LYMPHOCYTES % (AUTO) 39 % (12-44); MEAN CORPUSCULAR HEMOGLOBIN 32 PG (25-34); MEAN CORPUSCULAR HGB CONC 34 G/DL (32-36); MEAN CORPUSCULAR VOLUME 92 FL (80-99); MEAN PLATELET VOLUME 10.3 FL (7.4-10.4); MONOCYTES # (AUTO) 0.5 X 10^3 (0.0-1.0); MONOCYTES % (AUTO) 6 % (0-12); NEUTROPHILS # (AUTO) 4.3 X 10^3 (1.8-7.8); NEUTROPHILS % (AUTO) 53 % (42-75); PLATELET COUNT 372 10^3/uL (130-400); RED BLOOD COUNT 5.05 10^6/uL (4.35-5.85); RED CELL DISTRIBUTION WIDTH 14.1 % (10.0-14.5); WHITE BLOOD COUNT 8.2 10^3/uL (4.3-11.0)
--- NOTE | 2018-06-12 10:39 | Progress Note-Pre Operative ---
Pre-Operative Progress Note H&P Reviewed The H&P was reviewed, patient examined and no changes noted. Time Seen by Provider: 10:35 Date H&P Reviewed: Jun 12, 2018 Time H&P Reviewed: 10:36 Pre-Operative Diagnosis: Biliary Dyskinesia ROSEMARY CARRERA DO Jun 12, 2018 10:39
[2018-06-12] MEDS ORDERED: MIDAZOLAM 2 MG/2 ML (VERSED) VIAL ONE (10:41)
[2018-06-12] MEDS ORDERED: fentaNYL INJECTION 100 MCG/2 ML AMP ONE ×2 (10:43→11:36)
[2018-06-12] MEDS ORDERED: SEVOFLURANE (ULTANE) 15 ML INHAL SOLN ONE ×3 (10:58→11:43)
[2018-06-12 11:16] VITALS: BP 102/68
[2018-06-12 11:18] LABS: BILIRUBIN,URINE NEGATIVE (NEGATIVE); CLARITY,URINE SLIGHTLY CLOUDY; COLOR,URINE YELLOW; GLUCOSE, URINE (UA) NEGATIVE (NEGATIVE); KETONES,URINE NEGATIVE (NEGATIVE); LEUKOCYTE ESTERASE ,URINE 1+ (NEGATIVE); NITRITE,URINE NEGATIVE (NEGATIVE); PH,URINE 7 (5-9); PROTEIN,URINE 1+ (NEGATIVE); UROBILINOGEN,URINE NORMAL (NORMAL)
[2018-06-12 11:31] LABS: BACTERIA,URINE MODERATE /HPF; RBC,URINE RARE /HPF; WBC,URINE 50-100 /HPF
[2018-06-12] MEDS ORDERED: ROCURONIUM 10 MG/ML 5 ML SYRINGE IV ONE (11:39)
[2018-06-12] MEDS ORDERED: DEXAMETHASONE 10 MG/ML (DECADRON) 1 ML VIAL ONE (11:39)
[2018-06-12] MEDS ORDERED: ONDANSETRON 4 MG/2 ML (SDV) Z0FRAN ONE (11:39)
[2018-06-12] MEDS ORDERED: LIDOCAINE PF 2% 2 ML (XYLOCAINE) VIAL ONE (11:39)
[2018-06-12] MEDS ORDERED: GLYCOPYRROLATE 0.2 MG/ML (ROBINUL) 2 ML VIAL ONE (11:40)
[2018-06-12] MEDS ORDERED: NEOSTIGMINE 1 MG/ML 5 ML SYRINGE ONE (11:40)
--- NOTE | 2018-06-12 11:45 | Progress Note-Post Operative ---
Post-Operative Progess Note Surgeon (s)/Research Director (s) Surgeon ROSEMARY CARRERA DO Research Director: Tristen Pre-Operative Diagnosis Biliary Dyskinesia Post-Operative Diagnosis Same + Adhesions Procedure & Operative Findings Date of Procedure 06/12/18 Procedure Performed/Findings Lap Amanda with IOC Anesthesia Type GET Estimated Blood Loss Estimated blood loss (mL): scant Specimens/Packing Specimens Removed GB and contents ROSEMARY CARRERA DO Jun 12, 2018 11:45
[2018-06-12] MEDS ORDERED: ACHD5005 PO (11:46)
--- NOTE | 2018-06-12 11:48 | Discharge Inst-Surgical ---
Discharge Inst-Surgical Depart Medication/Instructions New, Converted or Re-Newed RX: RX Given to Pt/Family Patient Instructions Follow up Appt: Make appointment for 1 week. Instructions: No lifting greater than 30 pounds. No strenuous activity. May shower in 24 hours, no tub bath or soaking. Use incentive spirometer at home as directed. No Smoking Skin/Wound Care: May remove bandages in am. You need to leave the Dermabond on over incision it will fall off on its own. Symptoms to Report: Appetite Changes, Extremity Discoloration, Numbness/Tingling, Swelling Increased , Bleeding Excessive, Eyesight Changes, Pain Increased, Urine Color Change, Constipation(Persistent), Fever over 101 degree F, Pain/Pressure in chest, Urinating Difficulty, Cough Up/Vomit Blood, Heart Beat Irreg/Pounding, Pain/ Pressure in jaw, Vaginal Bleeding Increase, Cramps in feet or legs, Lightheadedness, Pain/Pressure in shoulder, Diarrhea(Persistent), Memory Changes Suddenly, Questions/Concerns, Weight gain consecutive days, Dizziness/ Fainting, Nausea/Vomiting, Shortness of Breath, Weight gain over 2 pounds If questions or concerns contact your physician Or seek help at emergency department. Activity Activity as Tolerated: Yes Activity Instructions: Avoid Stress to Incision Driving Instructions: No Driving/Refer to Diet Discharge Diet: Avoid Fatty Foods, Low Fat/Low Cholesterol Diet After 24 Hours: Clear Liquid if Nauseous If Any Problems/Questions/Issu: Contact Your Physician, Go to Emergency Room Skin/Wound Care Infection Signs and Symptoms: Increased Redness, Foul Odor of Wound, Increased Drainage, Skin Itchy or Has a Rash, Increased Swelling, Temperature Above 101 F Wound Care Comment: Heating pad to neck or shoulder for pain tonight Stitches/[place]/Dermabond Dis: Dermabond Ice Pack: Ice On and Off Site (as needed if it helps pain) ROSEMARY CARRERA DO Jun 12, 2018 11:48
[2018-06-12] MEDS ORDERED: MEPERIDINE (DEMEROL) INJ 50 MG/ML IVP ONE (12:15)
[2018-06-12] MEDS ORDERED: fentaNYL INJECTION 100 MCG/2 ML AMP IVP ONE (12:15)
[2018-06-12] MEDS ORDERED: ONDANSETRON 4 MG/2 ML (SDV) Z0FRAN IVP PRN (12:15)
[2018-06-12] MEDS ORDERED: HYDROmorphone 2 MG/ML VIAL (DILAUDID) IV ONE (12:15)
--- NOTE | 2018-06-12 13:04 | Anesthesia-General Post-Op ---
General Patient Condition Mental Status/LOC: Same as Preop Cardiovascular: Satisfactory Nausea/Vomiting: Absent Respiratory: Satisfactory Pain: Controlled Complications: Absent Post Op Complications Complications None Follow Up Care/Instructions Patient Instructions None needed. Anesthesia/Patient Condition Patient Condition Patient is doing well, no complaints, stable vital signs, no apparent adverse anesthesia problems. No complications reported per nursing. GOLDEN HIGHTOWER CRNA Jun 12, 2018 13:04
[2018-06-12 13:15] VITALS: BP 100/80
[2018-06-12 13:45] VITALS: BP 111/57
[2018-06-12] MEDS ORDERED: HYDROcodone/APAP 5 MG/325 MG (LORTAB) TAB PO ONE (13:45)
--- NOTE | 2018-06-12 14:09 | OPERATIVE REPORT ---
DATE OF SERVICE: PREOPERATIVE DIAGNOSIS: Biliary dyskinesia. POSTOPERATIVE DIAGNOSES: 1. Biliary dyskinesia. 2. Adhesions. PROCEDURE: Laparoscopic cholecystectomy, intraoperative cholangiogram. SURGEON: Rosemary Harvey DO. BREAK UP WORKER: Dionicio Ramon DO. ANESTHESIA: General endotracheal tube. SPECIMEN: Gallbladder and contents. BLOOD LOSS: Scant. FLUIDS: Per anesthesia. POSTOPERATIVE CONDITION: Stable. INDICATION FOR PROCEDURE: The patient is a 42-year-old female who has continued to have right upper quadrant pain and a HIDA scan, which showed biliary dyskinesia. FINDINGS: The patient had some adhesions from previous C-sections and hysterectomy. No real adhesions. On the gallbladder, there was an adhesion seen on the liver from some omentum. Cholangiogram showed no stones in the duct, but we did saw a large dilated common duct. PROCEDURE NOTE: After informed consent was obtained, the patient was brought to the operating room, placed on the table in supine position. She was sterilely prepped and draped in normal fashion. Local lidocaine was used to infiltrate the skin above the umbilicus and made incision with #11 blade, carried down through the skin into the subcutaneous tissue and then deepened down through subcutaneous tissue with Bovie electrocautery down to the fascia. Fascia incised with Bovie electrocautery, bluntly entered the abdomen, swept a finger around, placed 0 Vicryl [id number] suture, and then placed 11 mm trocar port under direct visualization. Created pneumoperitoneum and placed three more ports in normal fashion using local lidocaine, 11 blade for stab incision and Versed system, all done under direct visualization, one in the subxiphoid and two in the right upper quadrant. The patient then placed in reverse Trendelenburg and rotated left, able to grasp the gallbladder at the fundus and taken in superior direction and rest down to Vickie's pouch and pulled in the inferolateral direction, started dissecting out the cystic duct and cystic artery. Actually, encountered the cystic artery first, able to get around it, placed a clip distally, one proximally and cut with Metzenbaum scissors to move it; otherwise, we could get to the cystic duct, then started dissecting out cystic duct. It appeared very large, able to get around, placed a clip and then cut care home through Metzenbaum scissors. Placed a cholangiogram catheter, shot a cholangiogram. Good spillage down the cystic duct into the common bile duct and then up into common hepatic and down into the common bile duct into the small intestine. No stones seen. Removed the cholangiogram catheter, placed two clips proximally on the cystic duct and cut the cystic duct with Metzenbaum scissors. Removed the gallbladder from bed of liver with L-hook cautery. Once this was completely removed, placed a bag around the abdomen, placed the gallbladder in the bag and then removed this through a supraumbilical incision. Placed the port back in the abdomen, copiously irrigated with normal saline, suctioned this out, looked around. Took a picture of the adhesions from her previous surgeries. No other obvious pathology. The patient was placed supine and then removed all ports under direct visualization and allowed pneumoperitoneum to escape, closed supraumbilical incision, closed the fascia with 0 Vicryl suture previously placed. Copiously irrigated all incisions with saline, closed the three small 5 mm incisions with a single interrupted 4-0 undyed Monocryl subcuticular stitch. Area was then cleaned and dried and Dermabond used to close the incisions. The patient then transferred to recovery room in stable condition. Sponge, instrument and needle count correct at the end of the case. Dr. Ramon assisted in this case helping to make incisions, close incisions, hold the anatomy and identify anatomy. Job ID: [id number] DocumentID: [id number] Dictated Date: 06/12/2018 12:06:45 Shot Core Drill Operator Date: 06/12/2018 14:09:19 Dictated By: ROSEMARY HARVEY DO [email or web address]
[2018-06-12 14:15] VITALS: BP 114/64
[2018-06-12 14:20] VITALS: BP 114/64
--- NOTE | 2018-06-12 18:03 | Diagnostic Imaging Report ---
EXAM: Fluoroscopy INDICATION: Laparoscopic cholecystectomy FINDINGS: Fluoroscopic assistance was provided for Dr. Harvey during his laparoscopic operative cholangiogram procedure. 12 seconds of fluoroscopy time was utilized. 65 images were received from the OR. There has been opacification of the common bile duct via a cystic duct catheter. The common bile duct is perhaps slightly dilated. There is no definite defect within the duct to suggest a retained calculus but the distalmost portion of the duct is partially obscured by one of the instruments. There is contrast extending into the small bowel. IMPRESSION: Fluoroscopic assistance was provided for Dr. Harvey. Dictated by: Dictated on workstation # [id number]
== END 2018-06-12 14:20 | disposition home or self-care (01) ==
LOC: SDC 09:22
PROVIDERS: ATTEND Surgery
DX: K81.1 Chronic cholecystitis (principal); K83.8 Other specified diseases of biliary tract; J44.9 Chronic obstructive pulmonary disease, unspecified; D64.9 Anemia, unspecified; K21.9 Gastro-esophageal reflux disease without esophagitis; F17.210 Nicotine dependence, cigarettes, uncomplicated; R82.99 Other abnormal findings in urine; Z79.899 Other long term (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 therapy
CPT/HCPCS: 36415; 81000; 85025; 87077; 87081; 87088

== ENCOUNTER 2018-06-15 10:14 | Emergency (ER) | payer MEDICARE, MEDICAID ==
[~2018-06-15] VITALS: Ht 162.6 cm; Wt 72.6 kg
--- OUTSIDE RECORDS SUMMARY | 2018-06-15 10:23 | XMS REPORT | Continuity of Care Document ---
Author Author [facility] Address Unknown Phone Unavailable Allergies Active Description Code Type Severity Reaction Onset Reported/Identified Relationship to Patient Clinical Status Yes BUSPIRONE 01494518 Drug Allergy Unknown N/A Yes DOXEPIN 89769380 Drug Allergy Unknown N/A Yes GABAPENTIN 33157687 Drug Allergy Unknown N/A Yes MINIPRESS 00433869 Drug Allergy Unknown N/A Yes PRAZOSIN 06118839 Drug Allergy Unknown N/A Yes TRAMADOL 25744052 Drug Allergy Unknown N/A Yes BuSpar 885715808 N/A N/A Yes Doxepin 041406881 N/A N/A Yes Minipress 382016593 N/A N/A Yes Prazosin 899562293 N/A N/A Yes Tramadol 352638574 N/A N/A Yes NKANo Known Allergies NKA Miscellaneous Allergy Unknown N/A 02/21/2006 Yes BuSpar Drug Allergy 10/14/2008 Yes buspirone [id number] Drug Allergy Unknown N/A 02/03/2009 Yes codeine Drug Allergy 02/25/2009 Yes tramadol [id number] Drug Allergy Mild N/A 04/18/2009 Yes hyoscyamine [...] Drug Allergy Moderate N/A 07/24/2016 Yes doxepin [id number] Drug Allergy Unknown N/A 06/09/2018 Yes gabapentin [id number] Drug Allergy Unknown N/A 06/09/2018 Yes prazosin [id number] Drug Allergy Unknown N/A 06/09/2018 Medications Medication [...] MD Ot 722.52 LUMB/LUMBOSAC DISC DEGEN 09/07/2013 KINGSLEY BHAT, BOZENA Mar Ot V04.81 ND FOR PROPHYLACTIC VACCIN AND INOCULATI 04/02/2014 [employer] Working M79.672 Pain of left foot 04/02/2014 [facility] Pain of left foot Zee, [facility] 04/02/2014 [facility] M79.672 Pain of left foot Zee, [facility] 04/02/2014 Zee, [facility] Working M79.672 Pain of left foot Zee, [facility] 04/02/2014 Zee, [facility] Working M79.672 Pain of left foot Zee, [facility] 04/02/2014 Zee [facility] Working M79.672 Pain of left foot Eze, [facility] 04/02/2014 Zee [facility] Working M79.672 Pain of left foot Zee, [facility] 05/28/2014 Zee, [facility] Working J30.2 Seasonal allergies 05/28/2014 Zee, [facility] Working J30.2 Seasonal allergies Zee, [facility] 05/28/2014 Zee, [facility] Working J30.2 Seasonal allergies Zee, [facility] 05/28/2014 Zee, [facility] Working J30.2 Seasonal allergies Zee, [facility] 05/28/2014 Zee, [facility] Working J30.2 Seasonal allergies Zee, [facility] 05/28/2014 Zee, [facility] Working J30.2 Seasonal allergies Zee, [facility] 05/28/2014 Zee, [facility] Working J30.2 Seasonal allergies [facility], [facility] 09/23/2014 Zee, [facility] Working J06.9 URI, acute 09/23/2014 Zee, [facility] Working J06.9 URI, acute Zee, uan 09/23/2014 Zee, [facility] Working J06.9 URI, acute Zee, [facility] 09/23/2014 Zee, [facility] Working J06.9 URI, acute Zee, [facility] 06/14/2015 LUCRECIA TAPIA APRN W 296.51 Bipolar I Disorder, Most Recent Episode Depressed, Mild 06/14/2015 LUCRECIA TAPIA APRN W 309.81 Posttraumatic Stress Disorder 07/05/2015 Zee, [facility] Working Z79.899 High risk medication use [facility], [facility] 07/05/2015 Zee, [facility] Working Z79.899 High risk medication use Zee, [facility] 07/05/2015 Zee, [facility] Working Z79.899 High risk medication use Zee, uan 07/05/2015 Zee, [facility] Working Z79.899 High risk medication use Zee, [facility] 07/05/2015 Zee, [facility] Working Z79.899 High risk medication use Zee, [facility] 07/05/2015 Zee, [facility] Working Z79.899 High risk medication use Zee, [facility] 08/02/2015 Zee, [facility] Working M50.20 Cervical herniated disc 08/02/2015 Zee, [facility] Working M51.26 Lumbar herniated disc 08/02/2015 Zee, [facility] Working M75.102 Left rotator cuff tear 09/30/2015 Zee, [facility] Working M50.20 Cervical herniated disc Zee, uan 09/30/2015 Zee, [facility] Working M51.26 Lumbar herniated disc Zee, [facility] 09/30/2015 Zee, [facility] Working M75.102 Left rotator cuff tear Zee, [facility] 11/17/2015 Zee, [facility] Working M50.20 Cervical herniated disc Zee, [facility] 11/17/2015 Zee, [facility] Working M51.26 Lumbar herniated disc Zee, [facility] 11/17/2015 Zee, [facility] Working M75.102 Left rotator cuff tear Zee, [facility] 01/17/2016 Zee, [facility] Working M50.20 Cervical herniated disc Zee, [facility] 01/17/2016 Zee, [facility] Working M51.26 Lumbar herniated disc Zee, [facility] 01/17/2016 Zee, [facility] Working M75.102 Left rotator cuff tear Zee, [facility] 01/17/2016 Zee, [facility] Working Z72.0 Tobacco abuse Zee, [facility] 03/26/2016 Zee, [facility] M50.20 Cervical herniated disc Zee, [facility] 03/26/2016 Zee, [facility] Working M51.26 Lumbar herniated disc Zee, [facility] 03/26/2016 Zee, [facility] Working M75.102 Left rotator cuff tear Zee, [facility] 03/26/2016 Zee, [facility] Working Z72.0 Tobacco abuse Zee, [facility] 05/17/2016 Zee, [facility] Working M50.20 Cervical herniated disc Zee, [facility] 05/17/2016 Zee, [facility] Working M51.26 Lumbar herniated disc Zee, [facility] 05/17/2016 Zee, [facility] Working M75.102 Left rotator cuff tear Zee, [facility] 05/17/2016 Zee, [facility] Working R52 Pain management Zee, [facility] 05/17/2016 Zee, [facility] Working Z72.0 Tobacco abuse Zee, [facility] 05/17/2016 Zee, [facility] Working M75.102 Left rotator cuff tear Zee, [facility] 05/17/2016 Zee, [facility] R52 Pain management Zee, [facility] 07/10/2016 FRAZIER, JOSEFA S E78.00 [...] procedure 07/10/2016 FRAZIER, JOSEFA S Z79.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 07/10/2016 FRAZIER, JOSEFA S [...] DARION CARRERA DOIC B Ot Z79.899 OTHER 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 (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) DRUG THERAPY 05/13/2018 DARION CARRERA DOIC [...] ROSEMARY CARRERA DO B Ot Z79.899 OTHER 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 OPERATOR (CURRENT) DRUG THERAPY 05/26/2018 DARION CARRERA DOIC [...] 88.74 DX ULTRASOUND-DIGESTIVE Kenny Jason MD 10/27/2012 34000 LESION REMOVAL COLONOSCOPY Eren BHAT, Kenny Parsons 05/07/2013 [id number] Release Peritoneum, Open Approach 07/09/2016 [id number] Resection of Bilateral Ovaries, Open Approach 07/09/2016 [id number] Resection of Bilateral Fallopian Tubes, Open Approach [...] ng/mL <5 medMATCH Marijuana Metab INCONSISTENT NRG Complete urinalysis with reflex to culture - 06/12/18 09:50 Urine color determination YELLOW NRG Urine clarity determination SLIGHTLY CLOUDY NRG Urine pH measurement by test strip 7 5-9 Specific gravity of urine by test strip 1.005 1.016- 1.022 Urine protein assay by test strip, semi-quantitative 1+ NEGATIVE Urine glucose detection by automated test strip NEGATIVE NEGATIVE Erythrocytes detection in urine sediment by light microscopy NEGATIVE NEGATIVE Urine ketones detection by automated test strip NEGATIVE NEGATIVE Urine nitrite detection by test strip NEGATIVE NEGATIVE Urine total bilirubin detection by test strip NEGATIVE NEGATIVE Urine urobilinogen measurement by automated test strip (mass/volume) NORMAL NORMAL Urine leukocyte esterase detection by dipstick 1+ NEGATIVE Automated urine sediment erythrocyte count by microscopy (number/high power field) RARE NRG Automated urine sediment leukocyte count by microscopy (number/high power field ) [HPF] NRG Bacteria detection in urine sediment by light microscopy MODERATE NRG Squamous epithelial cells detection in urine sediment by light microscopy 5-10 NRG Crystals detection in urine sediment by light microscopy NONE NRG Casts detection in urine sediment by light microscopy NONE NRG Mucus detection in urine sediment by light microscopy SMALL NRG Complete urinalysis with reflex to culture YES NRG Renal epithelial cells detection in urine sediment by light microscopy NONE NRG Bacterial urine culture - 06/12/18 09:50 Bacterial urine culture [id number] NRG COLONY COUNT >100,000/ML NRG FTX;REPORTABLE REPORTED 06-13-2018, 1705 NRG Methicillin resistant Staphylococcus aureus (MRSA) screening culture - 10:00 Methicillin resistant Staphylococcus aureus (MRSA) screening culture NEG NRG Complete blood count (CBC) with automated white blood cell (WBC) differential - 06/12/18 10:15 Blood leukocytes automated count (number/volume) 8.2 10*3/uL 4.3-11.0 Blood erythrocytes automated count (number/volume) 5.05 10*6/uL 4.35-5.85 Venous blood hemoglobin measurement (mass/volume) 15.9 g/dL 11.5-16.0 Blood hematocrit (volume fraction) 46 % 35-52 Automated erythrocyte mean corpuscular volume 92 [foz_us] 80-99 Automated erythrocyte mean corpuscular hemoglobin (mass per erythrocyte) 32 pg 25-34 Automated erythrocyte mean corpuscular hemoglobin concentration measurement ( mass/volume) 34 g/dL 32-36 Automated erythrocyte distribution width ratio 14.1 % 10.0-14.5 Automated blood platelet count (count/volume) 372 10*3/uL 130-400 Automated blood platelet mean volume measurement 10.3 [foz_us] 7.4-10.4 Automated blood neutrophils/100 leukocytes 53 % 42-75 Automated blood lymphocytes/100 leukocytes 39 % 12-44 Blood monocytes/100 leukocytes 6 % 0-12 Automated blood eosinophils/100 leukocytes 2 % 0-10 Automated blood basophils/100 leukocytes 1 % 0-10 Blood neutrophils automated count (number/volume) 4.3 10*3 1.8-7.8 Blood lymphocytes automated count (number/volume) 3.2 10*3 1.0-4.0 Blood monocytes automated count (number/volume) 0.5 10*3 0.0-1.0 Automated eosinophil count 0.1 10*3/uL 0.0-0.3 Automated blood basophil count (count/volume) 0.0 10*3/uL 0.0-0.1 Encounters ACCT No. Visit Date/Time Discharge Status Pt. Type Provider Facility Loc./Unit Complaint [id number] 08/11/2012 00:00:00 08/11/2012 23:59:59 CLS Outpatient SELMA DO KESHIA Mar [id number] 06/20/2012 10:24:00 06/20/2012 23:59:59 CLS Outpatient SELMA KESHIA [id number] 09/18/2012 00:00:00 09/18/2012 23:59:59 CLS Outpatient REGINAJARON DALEKRISTANA [id number] 03/27/2018 16:00:00 03/27/2018 23:59:59 CLS Outpatient ALEC DIAZWIN Garcia [facility] [id number] 03/26/2018 08:40:00 Document Registration [id number] 01/31/2017 09:53:00 01/31/2017 23:59:59 CLS Outpatient JYOTI FRAZIER [id number] 07/09/2016 14:57:00 07/10/2016 15:00:00 DIS Inpatient JYOTI FRAZIER [facility] [id number] 02/06/2016 11:53:11 Document Registration [id number] 06/27/2016 00:00:00 06/27/2016 23:59:59 CLS Outpatient Rusty Peng [facility] Optometry O [id number] 10/27/2012 09:13:00 10/27/2012 11:29:00 DIS Outpatient Eren BHAT, Kenny Parsons [facility] W.END [id number] 05/07/2013 07:02:00 05/07/2013 23:59:59 CLS Outpatient Kenny Jason MD [facility] [id number] 04/15/2013 08:57:00 04/15/2013 23:59:59 CLS Outpatient Kenny Jason MD [facility] [id number] 05/22/2013 10:30:00 Document Registration [id number] 01/31/2017 09:53:00 Document Registration [id number] 07/09/2016 14:57:00 Document Registration [id number] 08/05/2015 15:55:52 08/05/2015 23:59:59 CLS Outpatient [facility] 1 [id number] 09/11/2016 12:53:57 ACT Outpatient [facility] 1 [id number] 05/19/2016 00:01:21 ACT Outpatient [facility] 1 [id number] 05/18/2016 15:02:05 Document Registration [id number] 03/27/2016 18:41:20 ACT Outpatient [facility] 1 [id number] 01/18/2016 21:28:19 ACT Outpatient [facility] 1 [id number] 11/21/2015 07:53:33 ACT Outpatient [facility] 1 [id number] 10/02/2015 06:58:51 ACT Outpatient [facility] 1 [id number] 06/09/2018 09:11:00 06/09/2018 12:04:00 DIS Outpatient ROSEMARY CARRERA DO [facility] PREOP LAPAROSCOPIC CHOLANGIOGRAM [id number] 05/23/2018 09:56:00 05/23/2018 23:59:59 CLS Outpatient ROSEMARY CARRERA DO [facility] CARD ABD PAIN [id number] 05/12/2018 07:05:00 05/12/2018 23:59:59 CLS Outpatient ROSEMARY CARRERA DO [facility] RAD ABDOMINAL PAIN [id number] 05/12/2018 12:22:00 05/12/2018 15:15:00 DIS Outpatient ROSEMARY CARRERA DO [facility] ENDO HEMATEMESIS [id number] 05/08/2018 09:49:00 05/08/2018 23:59:59 CLS Outpatient ROSEMARY CARRERA DO [facility] PREOP EGD [id number] 09/06/2013 06:30:00 09/07/2013 12:13:00 DIS Inpatient KINGSLEY BHAT, BOZENA Mar [facility] 4TH ACUTE BRONCHITIS WITH HYPOXIA [id number] 06/12/2018 11:35:00 PEN Preadmit ROSEMARY CARRERA DO [facility] BILIARY DYSKINESIA
--- NOTE | 2018-06-15 10:38 | ED Integumentary General ---
General Chief Complaint: Skin/Wound Problems Stated Complaint: POST OP/REDNESS AT INCISION SITE Source: patient, other Exam Limitations: no limitations History of Present Illness Date Seen by Provider: Jun 15, 2018 Time Seen by Provider: 10:27 Initial Comments The patient resents to the ER by private conveyance with her significant other a chief complaint that she had a gallbladder surgery by Dr. Harvey on , 3 days ago now and started having some red irritation around the site of the glue at that time. She believes she's having allergic reaction to the blue. Hydrocortisone cream on it did not really help much with the itching. She's having no fevers chills but she is having a little nausea still. She did not get sent home with antinausea medicine. She is not vomiting and has not had any diarrhea. Allergies and Home Medications Allergies Coded Allergies: hydralazine (Verified Allergy, Severe, ANAPHYLAXIS, 06/12/18) tramadol (Unverified Allergy, Mild, 04/18/09) buspirone (Unverified Allergy, Unknown, 02/03/09) doxepin (Verified Allergy, Unknown, 06/09/18) gabapentin (Verified Allergy, Unknown, 06/09/18) hydroxyzine (Unverified Allergy, Unknown, 06/12/18) THIS ALLERGY ADDED PER ANESTHESIA. prazosin (Verified Allergy, Unknown, 06/09/18) Home Medications Aripiprazole 20 Mg Tablet, 20 MG PO DAILY, (Reported) Escitalopram Oxalate 20 Mg Tablet, 20 MG PO HS, (Reported) take with 10mg tab Escitalopram Oxalate 10 Mg Tablet, 10 MG PO HS, (Reported) take with 20mg tab Estradiol 1 Each Patch.tdsw, 1 EACH TD Twice Weekly, (Reported) Hydrocodone Bit/Acetaminophen 1 Tab Tab, 1 TAB PO Q6H PRN for PAIN-MODERATE Prescribed by: ROSEMARY HARVEY on 06/12/18 1146 Pantoprazole Sodium 40 Mg Tablet.dr, 40 MG PO DAILY, (Reported) Pregabalin 100 Mg Capsule, 100 MG PO TID, (Reported) Valacyclovir HCl 500 Mg Tablet, 500 MG PO DAILY, (Reported) Patient Home Medication List Home Medication List Reviewed: Yes Review of Systems Review of Systems Constitutional: No chills, No fever, No malaise EENTM: No ear discharge, No hearing loss, No ear pain Respiratory: No cough, No short of breath Cardiovascular: No chest pain, No edema Gastrointestinal: No abdominal pain, No constipation, No diarrhea Genitourinary: No dysuria, No hematuria Skin: rash (erythematous, blanching, few papillae) Past Saiokdu-Qwffdn-Mjxged Hx Patient Social History Alcohol Use: Denies Use Recreational Drug Use: No Smoking Status: Current Everyday Smoker Type Used: Cigarettes Recent Foreign Travel: No Contact w/Someone Who Travel: No Recent Hopitalizations: No Physical Abuse: No Sexual Abuse: No Mistreated: No Fear: No Immunizations Up To Date Tetanus Booster (TDap): Less than 5yrs PED Vaccines UTD: No Date of Pneumonia Vaccine: Aug 18, 2012 Seasonal Allergies Seasonal Allergies: No Past Medical History Surgeries: Yes (c/s x2, R hand reconstruction sx, ) Hysterectomy, Oophorectomy, Tonsillectomy Respiratory: Yes Chronic Bronchitis, Emphysema Cardiac: No Neurological: No Reproductive Disorders: No Female Reproductive Disorders: Endometriosis Sexually Transmitted Disease: Yes (GENITAL HERPES) Genitourinary: No Gastrointestinal: Yes Gastroesophageal Reflux, Pancreatitis, Gall Bladder Disease, Irritable Bowel Musculoskeletal: Yes (hernatied disc and bulging disk in back) Degenerate Disk Disease, Chronic Back Pain Endocrine: No Hearing Impairment: Denies Cancer: Yes (hpv) Ovarian What Type of Treatment Did You: Surgical Intervention Psychosocial: Yes Sleep Difficulties, Anxiety, Bipolar, Violent Behavior, Depression Integumentary: No (multiple tatoos, states gets hives when nervous) Blood Disorders: Yes (anemia) Family Medical History Alcoholism 03 FATHER 03 MOTHER 09 BROTHER 09 BROTHER 09 BROTHER 09 SISTER Cancer 03 MOTHER Chest pain 03 MOTHER Congenital heart disease 03 MOTHER Congestive heart failure 03 MOTHER Family history: Allergy 03 FATHER 03 MOTHER 09 BROTHER Family history: Alzheimer's disease 03 FATHER Family history: Arthritis 03 FATHER 03 MOTHER Family history: Asthma 03 MOTHER 09 SISTER Family history: Cardiovascular disease 03 MOTHER Family history: Coronary thrombosis 03 MOTHER Family history: Gastrointestinal disease 03 MOTHER Family history: Osteoporosis 03 MOTHER Headache 03 FATHER 03 MOTHER Heart disease 03 MOTHER History of - anemia 03 MOTHER History of - respiratory disease 09 SISTER Hypercholesterolemia 03 FATHER Myocardial infarction 03 MOTHER Parkinson's disease 03 MOTHER Psychotic disorder 03 FATHER 03 MOTHER Seizure disorder 09 SISTER Stroke 03 MOTHER No Family History of: Aphasia Cancer of colon Cataract Cystic fibrosis Dementia Dysphagia Family history: Diabetes mellitus Hearing loss History of drug abuse Infertile Kidney disease Malignant neoplasm of lung No Pertinent Family Hx Physical Exam Vital Signs Capillary Refill : General Appearance: WD/WN, no apparent distress HEENT: PERRL/EOMI, pharynx normal Respiratory: no respiratory distress, no accessory muscle use Gastrointestinal: non tender, soft Skin: rash (mild erythematous rash with papilla, pruritus but no excoriation or breakdown. Dry.) Progress/Results/Core Measures Results/Orders My Orders Orders - SAVANNAH NOBLE Ondansetron Oral Dissolve Tab (Zofran (06/15/18 10:45) Progress Progress Note : Time: 10:38 Progress Note Topical triamcinolone twice a day, Zyrtec or Claritin and Benadryl for breakthrough itching. Consults : Consulting Physician: ROSEMARY HARVEY DO Consults Notes He agrees with topical steroids, Claritin and he is willing to see the patient in the clinic tomorrow if need be. Departure Impression Primary Impression: Pruritic dermatitis Additional Impressions: Status post laparoscopic cholecystectomy Nausea Disposition: HOME, SELF-CARE Condition: Improved Departure-Patient Inst. Decision time for Depature: 10:40 Referrals: [facility] (PCP) Primary Care Physician CHERELLE TRAN (Family) Primary Care Physician ROSEMARY HARVEY DO Patient Instructions: Dermatitis Add. Discharge Instructions: Keep the skin clean and dry with regular soap and water. You can use the steroid cream twice a day and take Zyrtec or Claritin one tablet daily for the itching. If you have breakthrough itching you can use Benadryl every 6 hours as needed. If you have nausea you can use the Zofran 1 tablet dissolved in the mouth every 6 hours as needed. If you would like to follow up with your surgeon tomorrow in the clinic just call in the morning. Otherwise keep your follow-up appointment on . Return to the ER promptly if you begin to have fevers, worsening pain, intractable nausea vomiting or other worrisome symptoms. All discharge instructions reviewed with patient and/or family. Voiced understanding. Scripts Ondansetron (Ondansetron Odt) 4 Mg Tab.rapdis 4 MG PO Q6H PRN for NAUSEA/VOMITING, #8 TAB 0 Refills Prov: SAVANNAH NOBLE 06/15/18 Triamcinolone Acet (Triamcinolone Acetonide 0.025%) 15 Gm Cr 1 GM TP BID PRN PRN for ITCHING for 7 Days, #1 TUBE 0 Refills Prov: SAVANNAH NOBLE 06/15/18 Copy Copies To 1: ROSEMARY HARVEY TITUS J Jun 15, 2018 10:38
[2018-06-15] MEDS ORDERED: ONDA4TAB11 PO (10:43)
[2018-06-15] MEDS ORDERED: TR025C15 TP (10:43)
[2018-06-15] MEDS ORDERED: ONDANSETRON 4 MG (ZOFRAN) ORAL DISSOLVE TAB PO ONE (10:45)
[2018-06-15 10:51] VITALS: BP 110/63
[2018-06-15] MEDS ORDERED: CETI10TA17 PO (10:57)
== END 2018-06-15 10:51 | disposition home or self-care (01) ==
LOC: EDUNIT# 10:14 → ER 10:15
DX: L29.9 Pruritus, unspecified (principal); R11.0 Nausea; J43.9 Emphysema, unspecified; D64.9 Anemia, unspecified; K21.9 Gastro-esophageal reflux disease without esophagitis; F41.9 Anxiety disorder, unspecified; F31.9 Bipolar disorder, unspecified; F17.210 Nicotine dependence, cigarettes, uncomplicated; Z85.43 Personal history of malignant neoplasm of ovary; Z82.49 Family history of ischemic heart disease and other diseases of the circulatory system; Z88.6 Allergy status to analgesic agent; Z90.710 Acquired absence of both cervix and uterus; Z90.49 Acquired absence of other specified parts of digestive tract; Z86.19 Personal history of other infectious and parasitic diseases; Z87.19 Personal history of other diseases of the digestive system; Z90.89 Acquired absence of other organs; Z88.8 Allergy status to other drugs, medicaments and biological substances
CPT/HCPCS: 99283

== ENCOUNTER 2018-09-02 16:26 | Emergency (ER) | payer MEDICARE, MEDICAID ==
[~2018-09-02] VITALS: Ht 157.5 cm; Wt 72.6 kg
[~2018-09-02 16:26] MED LIST changes: +CETI10TA17 PO; +ONDA4TAB11 PO; +TR025C15 TP
--- OUTSIDE RECORDS SUMMARY | 2018-09-02 16:31 | XMS REPORT ---
Author Author MARJORIE BALDWIN [facility] Address [address] [place] [address] Care Team Providers Care Telephone Surveyor Name Role Phone MARJORIE BALDWIN Unavailable PROBLEMS Type Condition ICD9-CM Code DZN10-EN Code Onset Dates Condition Status SNOMED Code Problem History of bipolar disorder Z86.59 Active 538144267 Problem Bipolar I disorder, most recent episode (or current) mixed, unspecified 296.60 Active 28077530 Problem Mild intermittent allergic asthma without complication J45.20 Active 052604602 Problem Genital warts A63.0 Active 418456434 Problem Bipolar disorder, current episode depressed, severe, without psychotic features F31.4 Active 429255688 Problem Gastroesophageal reflux disease without esophagitis K21.9 Active 381746116 Problem Fibromyalgia M79.7 Active 349845834 Problem Panic disorder F41.0 Active 727771865 ALLERGIES No Information ENCOUNTERS Encounter Location Date Diagnosis [place] [id number] [address] Sep, [facility] [place] [facility] [id number] [place] [address] Aug, Panic disorder F41.0 and Bipolar disorder, current episode depressed, severe, without psychotic features F31.4 [facility] [place] [facility] [id number] [place] [address]67- [address] Jul, Fibromyalgia M79.7 [facility] [place] [facility] [id number] [place] [address]- [address]29 Jun, Panic disorder F41.0 and Bipolar disorder, current episode depressed, severe, without psychotic features F31.4 [facility] [place] [facility] [id number] [place] [address]12- 9998 Jun, Fibromyalgia M79.7 [place] [address] [id number] [place] [address]- [address] Jun, [place] [address] [address] May, Mild intermittent allergic asthma without complication J45.20 [place] [address] [id number] [place] [address]753- 3705 14 May, 2018 Fibromyalgia M79.7 [place] [address] [address]- [address] 05 May, 2018 [place] [address] [id number] [place] [address]55- 3686 Apr, Panic disorder F41.0 ; Gastroesophageal reflux disease without esophagitis K21.9 ; Genital warts A63.0 and Fibromyalgia M79.7 [place] [address] [id number] [place] [address]57- 3013 Apr, Panic disorder F41.0 and Bipolar disorder, current episode depressed, severe, without psychotic features F31.4 [place] [address] [id number] [place] [address]3938- 7466 Mar, History of bipolar disorder Z86.59 and History of fibromyalgia Z87.39 [place] [address] [id number] [place] [address] 43[address]- 2799 Mar, History of bipolar disorder Z86.59 and History of fibromyalgia Z87.39 [place] [address] [id number] [place] [address] 5[address]15- 6188 Mar, Panic disorder F41.0 and Bipolar disorder, current episode depressed, severe, without psychotic features F31.4 [place] [address] [id number] [place] [address] 65358- 7958 Mar, History of bipolar disorder Z86.59 ; History of fibromyalgia Z87.39 ; Gastroesophageal reflux disease without esophagitis K21.9 and Long-term use of high-risk medication Z79.899 [place] [address] [id number] [place] [address] 66444- 2583 14 Dec, 2014 [facility] [place] [facility] [address] [id number] [place] [address] Dec, [facility] [place] [facility] [address] [id number] [place] [address]- 0362 Nov, [facility] [place] [facility] [address] [id number] [place] [address]- 4911 Oct, [facility] [place] [facility] [address] [id number] [place] [address]- 5345 Sep, [facility] [place] [facility] [address] [id number] [place] [address]- 6730 Aug, [facility] [place] [facility] [address] [id number] [place] [address]- 3998 Aug, [facility] [place] [facility] [address] [id number] [place] [address]- 3014 Aug, [facility] [place] [facility] [address] [id number] [place] [address]- 2863 Jul, [facility] [place] [facility] [address] [id number] [place] [address]- 5997 Jul, [facility] [place] [facility] [address] [facility] [id number] [place] [address]- 5364 Jul, [facility] [place] [facility] [address] [id number], [place] [address] Jul, [facility] [place] [facility] [address] [id number], [place] [address] 8[address] Jun, [facility] [place] [facility] [address] [id number] [place] [address]- 6368 Jun, [facility] [place] [facility] [address] [id number] [place] [address]- 0213 Jun, [facility] [place] [facility] [address] [id number] [place] [address]- 9266 Jun, [facility] [place] [facility] [address] [id number] [place] [address]- 8154 17 Jun, 2011 [facility] [place] [facility] [address] [id number] [place] [address]- 8016 17 Jun, 2012 [facility] [place] [facility] [address] [id number] [place] [address]- 7836 08 Jun, 2012 [facility] [place] [facility] [address] [id number] [place] [address]- 6805 05 Jun, 2011 [facility] [place] [facility] [address] [id number] [place] [address]- 3820 26 Sep, 2011 [facility] [place] [facility] [address] [id number] [place] [address]- 7346 25 Sep, 2011 [facility] [place] [facility] [address] [id number] [place] [address]- 2284 24 Sep, 2011 [facility] [place] [facility] [address] [id number] [place] [address]- 6156 11 Sep, 2011 [facility] [place] [facility] [address] [id number] [place] [address]- 5548 08 Sep, 2011 [facility] [place] [facility] [address] [id number] [place] [address]- 3908 07 Sep, 2011 [facility] [place] [facility] [address] [id number] [place] [address]- 5110 05 Sep, 2011 [facility] [place] [facility] [address] [id number] [place] [address] 2546 05 Sep, 2011 [facility] [place] [facility] [address] [id number] [place] [address] 2549 04 May, 2011 [facility] [place] [facility] [address] [id number] [place] [address]- 6216 29 Apr, 2012 [facility] [place] [facility] [address] [id number] [place] [address]- 2546 Apr, [facility] [place] [facility] [address] [id number] [place] [address]- 0434 Apr, [facility] [place] [facility] [address] [id number] [place] [address]- 8867 Apr, [facility] [place] [facility] [address] [id number] [place] [address]- 0915 Apr, [facility] [place] [facility] [address] [id number] [place] [address]- 1216 Apr, [facility] [place] [facility] [address] [id number] [place] [address]- 1531 Apr, [facility] [place] [facility] [address] [id number] [place] [address]- 8282 Apr, [facility] [place] [facility] [address] [id number] [place] [address]- 7191 Apr, [facility] [place] [facility] [address] [id number] [place] [address]- 0736 Mar, [facility] [place] [facility] [address] [id number] [place] [address]- 4561 Mar, [facility] [place] [facility] [address] [id number] [place] [address]- 5219 Mar, [facility] [place] [facility] [address] [id number] [place] [address]- 9413 Mar, [facility] [place] [facility] [address] [id number] [place] [address]- 0024 Mar, [facility] [place] [facility] [address] [id number] [place] [address]- 7985 Mar, [facility] [place] [facility] [address] [id number] [place] [address]- 9473 Mar, [facility] [place] [facility] [address] [id number] [place] [address]- 9828 Mar, [facility] [place] [facility] [address] [id number] [place] [address]- 3096 Feb, [facility] [place] [facility] [address] [id number] [place] [address]- 0868 27 Feb, 2012 [facility] [place] [facility] [address] [id number] [place] [address]- 6758 Feb, [facility] [place] [facility] [address] [id number] [place] [address]- 6606 Feb, [facility] [place] [facility] [address] [id number] [place] [address]- 5631 Feb, [facility] [place] [facility] [address] [id number] [place] [address]- 0086 Feb, [facility] [place] [facility] [address] [id number] [place] [address]- 6710 January, [facility] [place] [facility] [address] [id number] [place] [address]- 8860 January, [facility] [place] [facility] [address] [id number] [place] [address]- 6773 30 Dec, 2011 [facility] [place] [facility] [address] [id number] [place] [address]- 9297 24 Dec, 2011 [facility] [place] [facility] [address] [id number] [place] [address]- 4818 20 Dec, 2011 [facility] [place] [facility] [address] [id number] [place] [address]- 3033 19 Dec, 2011 [facility] [place] [facility] [address] [id number] [place] [address]- 5056 17 Dec, 2011 [facility] [place] [facility] [address] [id number] [place] [address]- 6521 13 Dec, 2011 [facility] [place] [facility] [address] [id number] [place] [address]- 2713 12 Dec, 2011 [facility] [place] [facility] [address] [id number] [place] [address]- 0444 12 Dec, 2011 [facility] [place] [facility] [address] [id number] [place] [address]- 6460 28 Nov, 2011 [facility] [place] [facility] [address] [id number] [place] [address]- 8325 15 Nov, 2011 [facility] [place] [facility] [address] [id number] [place] [address]- 0176 07 Nov, 2011 [facility] [place] [facility] [address] [id number] [place] [address] 2546 06 Nov, 2011 [facility] [place] [facility] [address] [id number] [place] [address]- 5611 05 Nov, 2011 [facility] [place] [facility] [address] [id number] [place] [address]- 8779 Nov, [facility] [place] [facility] [address] [id number] [place] [address]- 4259 Oct, [facility] [place] [facility] [address] [facility] [id number] [place] [address]- 8836 Oct, [facility] [place] [facility] [address] [id number] [place] [address]- 1573 Oct, [facility] [place] [facility] [address] [id number] [place] [address]- 9784 Oct, [facility] [place] [facility] [address] [facility] [id number] [place] [address]- 6474 Oct, [facility] [place] [facility] [address] [facility] [id number] [place] [address]- 3090 Oct, [facility] [place] [facility] [address] [id number] [place] [address]- 2425 Sep, [facility] [place] [facility] [address] [id number] [place] [address]- 3430 Aug, [facility] [place] [facility] [address] [id number] [place] [address]- 4566 Aug, [facility] [place] [facility] [address] [facility] [id number] [place] [address]- 9034 Aug, [facility] [place] [facility] [address] [facility] [id number][place] [address]- 2082 19 Aug, 2011 [facility] [place] [facility] [address] [id number] [place] [address]- 1575 15 Aug, 2011 [facility] [place] [facility] [address] [id number] [place] [address]- 5766 13 Aug, 2011 [facility] [place] [facility] [address] [id number] [place] [address] Aug, [facility] [place] [facility] [address] [id number] [place] [address]- 1689 Jul, [facility] [place] [facility] [address] [id number] [place] [address]- 7779 18 Jun, 2011 [facility] [place] [facility] [address] [id number] [place] [address]- 6146 18 Jun, 2011 [facility] [place] [facility] [address] [facility] [id number] [place] [address]- 1919 Jun, [facility] [place] [facility] [address] [id number] [place] [address]- 6969 Mar, [facility] [place] [facility] [address] [facility] [id number] [place] [address]- 0046 Feb, [facility] [place] [facility] [address] [facility] [id number] [place] [address]- 5333 Aug, [facility] [place] [facility] [address] [id number] [place] [address]- 9394 Aug, [facility] [place] [facility] [address] [id number], [place] [address]- 9256 Jul, [facility] [place] [facility] [address] [id number] [place] [address]- 1012 Aug, [facility] [place] [facility] [address] [facility] [id number] [place] [address]- 8113 24 Jul, 2009 [facility] [place] [facility] [address] [facility] [id number] [place] [address]- 9213 Jul, [facility] [place] [facility] [address] [facility] [id number] [place] [address]- 5416 Jul, [facility] [place] [facility] [address] [facility] [id number], [place] [address]- 5328 Jun, [facility] [place] [facility] [address] [facility] [id number], [place] [address]- 3426 Jun, [facility] [place] [facility] [address] [facility] [id number], [place] [address]- 1473 Feb, [facility] [place] [facility] [address] [facility] [id number], [place] [address]- [address]503 January, IMMUNIZATIONS No Known Immunizations SOCIAL HISTORY Never Assessed REASON FOR VISIT f/u PLAN OF CARE Activity Details Follow Up Next available Reason: F/U VITAL SIGNS MEDICATIONS Unknown Medications RESULTS No Results PROCEDURES Procedure Date Ordered Result Body Site [facility] VISIT MENTAL HEALTH ESTAB PT Aug 19, 2018 Psychotherapy, patient and family, 45 minutes, established patient Aug 19, 2018 INSTRUCTIONS MEDICATIONS ADMINISTERED No Known Medications [...]
--- OUTSIDE RECORDS SUMMARY | 2018-09-02 16:31 | XMS REPORT ---
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 Cream Machine Operator Name Role Phone ALEC DIAZTA Unavailable PROBLEMS Type Condition ICD9-CM Code [id number] Code Onset Dates Condition Status SNOMED Code Problem History of bipolar disorder Z86.59 Active 455818401 Problem Bipolar I disorder, most recent episode (or current) mixed, unspecified 296.60 Active 35777709 Problem Mild intermittent allergic asthma without complication J45.20 Active 844844697 Problem Genital warts A63.0 Active 344176277 Problem Bipolar disorder, current episode depressed, severe, without psychotic features F31.4 Active 823334308 Problem Gastroesophageal reflux disease without esophagitis K21.9 Active 472135130 Problem Fibromyalgia M79.7 Active 645148118 Problem Panic disorder F41.0 Active [id number] ALLERGIES No Information ENCOUNTERS Encounter Location Date Diagnosis [facility] [id number] [place] [address] 48194- 7923 Aug, [facility] [id number] [place] [address] 76923- 8451 Jul, Fibromyalgia M79.7 [facility] [id number] [place] [address] 45490- 4425 Jun, Panic disorder F41.0 and Bipolar disorder, current episode depressed, severe, without psychotic features F31.4 [facility] [id number] [place] [address] 53862- 7127 Jun, Fibromyalgia M79.7 [facility] [id number] [place] [address] 84450- 8182 Jun, [facility] [id number] [place] [address] 87784- 2960 May, Mild intermittent allergic asthma without complication J45.20 [facility] [id number] [place] [address] 58370- 7657 14 May, 2018 Fibromyalgia M79.7 [place] [address] [address]- 0729 05 May, 2018 [place] [address] 19107- 7155 Apr, Panic disorder F41.0 ; Gastroesophageal reflux disease without esophagitis K21.9 ; Genital warts A63.0 and Fibromyalgia M79.7 [place] [address] 7[address]12- 3588 Apr, Panic disorder F41.0 and Bipolar disorder, current episode depressed, severe, without psychotic features F31.4 [place] [address] 17498- 3366 Mar, History of bipolar disorder Z86.59 and History of fibromyalgia Z87.39 [address] [address] 30724- 9470 Mar, History of bipolar disorder Z86.59 and History of fibromyalgia Z87.39 [place] [address] 6[address]83- 0823 Mar, Panic disorder F41.0 and Bipolar disorder, current episode depressed, severe, without psychotic features F31.4 [place] [id number] [place] [address] 08902- 2214 Mar, History of bipolar disorder Z86.59 ; History of fibromyalgia Z87.39 ; Gastroesophageal reflux disease without esophagitis K21.9 and Long-term use of high-risk medication Z79.899 [place] [address] [address]18- 4185 Dec, [place] [address] 8[address]- 8145 Dec, [place] [address] [place] [address] 8758 Nov, [facility] [place] [facility] [address] [id number] [place] [address] 6769 Oct, [facility] [place] [facility] [address] [id number] [place] [address]- 2968 Sep, [facility] [place] [facility] [address] [id number] [place] [address]- 7986 Aug, [facility] [place] [facility] [address] [id number] [place] [address]- 9803 Aug, [facility] [place] [facility] [address] [id number] [place] [address]056 Aug, [facility] [place] [facility] [address] [id number] [place] [address]- 1188 Jul, [facility] [place] [facility] [address] [facility] [id number] [place] [address]- 3635 Jul, [facility] [place] [facility] [address] [id number] [place] [address]- 6805 Jul, [facility] [place] [facility] [address] [facility] [id number] [place] [address]- 9104 Jul, [facility] [place] [facility] [address] [facility] [id number] [place] [address]- 4660 Jun, [facility] [place] [facility] [address] [id number] [place] [address]- 3200 Jun, [facility] [place] [facility] [address] [id number] [address] 2896 Jun, [facility] [place] [facility] [address] [id number] [place] [address]- 9563 Jun, [facility] [place] [facility] [address] [facility] [id number] [place] 3643 Jun, [facility] [place] [facility] [address] [id number] [place] [address]- 5157 Jun, [facility] [place] [facility] [address] [id number] [place] [address]- 0185 08 Jun, 2012 [facility] [place] [facility] [address] [id number] [place] [address]- 6409 05 Jun, 2012 [facility] [place] [facility] [address] [id number] [place] [address]- 9760 26 May, 2011 [facility] [place] [facility] [address] [id number] [place] [address]- 5802 25 May, 2011 [facility] [place] [facility] [address] [id number] [place] [address]- 6885 24 May, 2011 [facility] [place] [facility] [address] [id number] [place] [address]- 4219 11 May, 2011 [facility] [place] [facility] [address] [id number] [place] [address]- 5652 08 May, 2011 [facility] [place] [facility] [address] [id number] [place] [address]- 9339 07 May, 2011 [facility] [place] [facility] [address] [id number] [place] [address]- 7122 05 May, 2011 [facility] [place] [facility] [address] [id number] [place] [address]- 8760 05 May, 2011 [facility] [place] [facility] [address] [id number] [place] [address]- 5570 04 May, 2012 [facility] [place] [facility] [address] [id number] [place] [address]- 2458 Apr, [facility] [place] [facility] [address] [id number] [place] [address]- 6562 Apr, [facility] [place] [facility] [address] [id number] [place] [address]- 7704 Apr, [facility] [place] [facility] [address] [id number] [place] [address]- 8150 Apr, [facility] [place] [facility] [address] [id number] [place] [address]- 3049 Apr, [facility] [place] [facility] [address] [id number] [place] [address]- 4118 Apr, [facility] [place] [facility] [address] [id number] [place] [address]- 5395 Apr, [facility] [place] [facility] [address] [id number] [place] [address]- 4257 Apr, [facility] [place] [facility] [address] [id number] [place] [address]- 3917 Apr, [facility] [place] [facility] [address] [id number] [place] [address]- 1039 Mar, [facility] [place] [facility] [address] [id number] [place] [address]- 4132 Mar, [facility] [place] [facility] [address] [id number] [place] [address]- 4942 Mar, [facility] [place] [facility] [address] [id number] [place] [address]- 8763 Mar, [facility] [place] [facility] [address] [id number] [place] [address]- 8458 Mar, [facility] [place] [facility] [address] [id number] [place] [address]- 0144 Mar, [facility] [place] [facility] [address] [id number] [place] [address]- 6397 Mar, [facility] [place] [facility] [address] [id number] [place] [address]- 0630 Mar, [facility] [place] [facility] [address] [id number] [place] [address]- 9650 Feb, [facility] [place] [facility] [address] [id number] [place] [address]- 8326 Feb, [facility] [place] [facility] [address] [id number] [place] [address]- 9004 Feb, [facility] [place] [facility] [address] [id number] [place] [address]- 1328 Feb, [facility] [address] [id number] [place] [address]- 4322 Feb, [facility] [address] [id number] [place] [address]- 2178 18 Feb, 2012 [facility] [address] [id number] [place] [address]- 7605 January, [facility] [address] [id number] [place] [address]- 9827 January, [facility] [address] [id number] [place] [address]- 2962 30 Dec, 2011 [facility] [address] [id number] [place] [address]- 1263 24 Dec, 2011 [facility] [address] [id number] [place] [address]- 1326 20 Dec, 2011 [facility] [address] [id number] [place] [address]- 0661 19 Dec, 2011 [facility] [address] [id number] [place] [address]- 1365 17 Dec, 2011 [facility] [address] [id number] [place] [address]- 3768 13 Dec, 2011 [facility] [address] [id number] [place] [address]- 5156 12 Dec, 2011 [facility] [address] [id number] [place] [address]- 3315 12 Dec, 2011 [facility] [place] [facility] [address] [id number] [place] [address]- 9989 28 Nov, 2011 [facility] [place] [facility] [address] [id number] [place] [address]- 7500 15 Nov, 2011 [facility] [address] [id number] [place] 6990 Nov, [facility] [address] [id number] [place] [address]- 6293 Nov, [facility] [place] [facility] [address] [id number] [place] [address]- 1316 Nov, [facility] [place] [facility] [address] [id number] [place] [address]- 7602 Nov, [facility] [place] [facility] [address] [id number] [place] [address]- 3026 Oct, [facility] [place] [facility] [address] [id number] [place] [address]- 3452 Oct, [facility] [place] [facility] [address] [id number] [place] [address]- 8763 Oct, [facility] [place] [facility] [address] [id number] [place] [address]- 3196 Oct, [facility] [place] [facility] [address] [id number] [place] [address]- 8582 Oct, [facility] [place] [facility] [address] [id number] [place] [address]- 2392 Oct, [facility] [place] [facility] [address] [id number] [place] [address]- 2224 Sep, [facility] [place] [facility] [address] [id number] [place] [address]- 8297 Aug, [facility] [place] [facility] [address] [id number] [place] [address]- 6695 Aug, [facility] [place] [facility] [address] [id number] [place] [address]- 8105 Aug, [facility] [place] [facility] [address] [id number] [place] [address]32 Aug, [facility] [place] [facility] [address] [id number] [place] 0226 Aug, [facility] [place] [facility] [address] [id number] [place] [address]- 4673 13 Aug, 2011 [facility] [address] [id number] [place] [address]- 1186 13 Aug, 2011 [facility] [place] [facility] [address] [id number] [place] [address]- 3756 Jul, [facility] [address] [id number] [place] [address]- 6256 Jun, [facility] [place] [facility] [address] [id number] [place] [address]- 2545 Jun, [facility] [address] [id number] [place] [address]- 2115 Jun, [facility] [address] [id number] [place] [address]- 5759 Mar, [facility] [address] [id number] [place] [address]- 2454 Feb, [facility] [address] [id number] [place] [address]- 6469 Aug, [facility] [address] [id number] [place] [address]- 5760 Aug, [facility] [address] [id number] [place] [address]- 9311 Jul, [facility] [address] [id number] [place] [address]- 6082 Aug, [facility] [address] [id number] [place] [address]- 8203 24 Jul, 2009 [facility] [place] [facility] [address] [id number] [place] [address]- 4792 09 Jul, 2009 [facility] [place] [facility] [address] [id number] [place] [address]- 3587 02 Jul, 2009 [facility] [place] [facility] [address] [id number] [place] [address]- 1416 Jun, [facility] [address] [facility] [id number] [place] [address]- 0156 Jun, [facility] [address] [facility] [id number] [address]- 2546 Feb, [facility] [address] [facility] [id number] [place] [address]- 3676 January, IMMUNIZATIONS No Known Immunizations SOCIAL HISTORY Never Assessed REASON FOR VISIT Controlled Med Refill PLAN OF CARE VITAL SIGNS MEDICATIONS Medication Instructions Dosage Frequency Start Date End Date Duration Status Lyrica 150 MG Orally Three times a day 1 capsule 8h 28 days Active Albuterol Sulfate 108 (90 Base) MCG/ACT Inhalation every 6 hrs 2 puffs as needed 6h Active Valtrex 500 mg Orally Once a day 1 Tablet by Oral route 1 time per day for 5 days 24h Mar, 30 days Active RESULTS No Results PROCEDURES No [...]
--- OUTSIDE RECORDS SUMMARY | 2018-09-02 16:32 | XMS REPORT ---
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 Boss Name Role Phone ALEC DIAZTA Unavailable PROBLEMS Type Condition ICD9-CM Code AWQ41-JS Code Onset Dates Condition Status SNOMED Code Problem History of bipolar disorder Z86.59 Active 402437616 Problem Bipolar I disorder, most recent episode (or current) mixed, unspecified 296.60 Active 80954596 Problem Mild intermittent allergic asthma without complication J45.20 Active 982147707 Problem Genital warts A63.0 Active 296715335 Problem Bipolar disorder, current episode depressed, severe, without psychotic features F31.4 Active 031991181 Problem Gastroesophageal reflux disease without esophagitis K21.9 Active 063206211 Problem Fibromyalgia M79.7 Active 407312171 Problem Panic disorder F41.0 Active 595668407 ALLERGIES No Information ENCOUNTERS Encounter Location Date Diagnosis [facility] [id number] [place] [address] 22285- 9847 24 Jun, 2018 [facility] [id number] [place] [address] 27271- 0007 Jun, Fibromyalgia M79.7 [facility] [id number] [place] [address] 08951- 7346 Jun, [facility] [id number] [place] [address] 16927- 5542 27 May, 2018 Mild intermittent allergic asthma without complication J45.20 [facility] [id number] [place] [address] 31861- 5744 14 May, 2018 Fibromyalgia M79.7 [facility] [id number] [place] [address] 11203- 8551 05 May, 2018 [facility] [address] [place] [address] 9661 Apr, Panic disorder F41.0 ; Gastroesophageal reflux disease without esophagitis K21.9 ; Genital warts A63.0 and Fibromyalgia M79.7 [facility] [id number] [place] [address] 35669- 0956 Apr, Panic disorder F41.0 and Bipolar disorder, current episode depressed, severe, without psychotic features F31.4 [facility] [id number] [place] [address] 22045- 0291 Mar, History of bipolar disorder Z86.59 and History of fibromyalgia Z87.39 [facility] [id number] [place] [address] 34268- 4338 Mar, History of bipolar disorder Z86.59 and History of fibromyalgia Z87.39 [facility] [id number] [place] [address] 48483- 0081 Mar, Panic disorder F41.0 and Bipolar disorder, current episode depressed, severe, without psychotic features F31.4 [place] [id number] [place] [address] 38299- 7866 Mar, History of bipolar disorder Z86.59 ; History of fibromyalgia Z87.39 ; Gastroesophageal reflux disease without esophagitis K21.9 and Long-term use of high-risk medication Z79.899 [place] [address] [address] Dec, [facility] [id number] [place] [address] 81732- 5604 Dec, [place] [address] [place] [address] 75878- 9230 Nov, [facility] [id number] [place] [address] 11602- 9964 Oct, [place] [address] [address] Sep, [place] [address] [place] [address] 9452 17 Aug, 2012 [facility] [place] [facility] [address] [id number] [place] [address]- 5903 17 Aug, 2012 [facility] [place] [facility] [address] [id number] [place] [address]- 8559 14 Aug, 2012 [facility] [place] [facility] [address] [id number] [place] [address]- 4432 Jul, [facility] [place] [facility] [address] [id number] [place] [address]- 5706 Jul, [facility] [place] [facility] [address] [id number] [place] [address]- 0391 Jul, [facility] [place] [facility] [address] [id number] [place] [address]- 0983 Jul, [facility] [place] [facility] [address] [facility] [id number] [place] [address]- 3884 Jun, [facility] [place] [facility] [address] [id number] [place] [address]- 6802 Jun, [facility] [place] [facility] [address] [facility] [id number] [place] [address]- 6249 Jun, [facility] [place] [facility] [address] [facility] [facility] [id number] [place] [address]- 4838 Jun, [facility] [place] [facility] [address] [id number] [place] [address]- 7332 Jun, [facility] [place] [facility] [address] [id number] [place] [address]- 3779 Jun, [facility] [place] [facility] [address] [id number] [place] [address]- 1253 Jun, [facility] [place] [facility] [address] [facility] [facility] [id number] [place] [address]- 2546 Jun, [facility] [place] [facility] [address] [id number] [place] [address]70 May, [facility] [place] [facility] [address] [id number] [place] [address]- 3001 25 May, 2011 [facility] [place] [facility] [address] [id number] [place] [address]- 2211 24 May, 2011 [facility] [place] [facility] [address] [id number] [place] [address]- 8650 11 May, 2011 [facility] [place] [facility] [address] [id number] [place] [address]- 1325 08 Sep, 2011 [facility] [place] [facility] [address] [id number] [place] [address]- 8484 07 Sep, 2011 [facility] [place] [facility] [address] [id number] [place] [address]- 3292 05 May, 2011 [facility] [place] [facility] [address] [id number] [place] [address]- 8494 05 May, 2011 [facility] [place] [facility] [address] [id number] [place] [address]- 9581 04 May, 2011 [facility] [place] [facility] [address] [id number] [place] [address]- 0052 Apr, [facility] [place] [facility] [address] [id number] [place] [address]- 7187 Apr, [facility] [place] [facility] [address] [id number] [place] [address]- 3854 Apr, [facility] [place] [facility] [address] [id number] [place] [address]- 3943 Apr, [facility] [place] [facility] [address] [id number] [place] [address]- 8640 Apr, [facility] [place] [facility] [address] [id number] [place] [address]- 5858 Apr, [facility] [place] [facility] [address] [id number] [place] [address]- 9765 Apr, [facility] [place] [facility] [address] [id number] [address]- 6674 Apr, [facility] [place] [facility] [address] [id number] [place] [address]- 8816 Apr, [facility] [place] [facility] [address] [id number] [place] [address]- 2239 Mar, [facility] [place] [facility] [address] [id number] [place] [address]- 7679 Mar, [facility] [place] [facility] [address] [id number] [place] [address]- 4838 Mar, [facility] [place] [facility] [address] [id number] [place] [address]- 3673 Mar, [facility] [place] [facility] [address] [id number] [place] [address]- 1008 Mar, [facility] [place] [facility] [address] [id number] [place] [address]- 0575 Mar, [facility] [place] [facility] [address] [id number] [place] [address]- 9685 Mar, [facility] [place] [facility] [address] [id number] [place] [address]- 5257 Mar, [facility] [place] [facility] [address] [id number] [place] [address]- 4676 Feb, [facility] [place] [facility] [address] [id number] [place] [address]- 2890 Feb, [facility] [place] [facility] [address] [id number] [place] [address]- 1766 Feb, [facility] [place] [facility] [address] [id number] [place] [address]- 1333 Feb, [facility] [place] [facility] [address] [id number] [place] [address]- 6263 Feb, [facility] [place] [facility] [address] [id number] [place] [address]- 0774 Feb, [facility] [place] [facility] [address] [id number] [place] [address]- 2509 January, [facility] [place] [facility] [address] [id number] [place] [address]- 8448 January, [facility] [place] [facility] [address] [id number] [place] [address]- 7276 30 Dec, 2011 [facility] [place] [facility] [address] [id number] [place] [address]- 0191 24 Dec, 2011 [facility] [place] [facility] [address] [id number] [place] [address]- 3458 20 Dec, 2011 [facility] [place] [facility] [address] [id number] [place] [address]- 1410 19 Dec, 2011 [facility] [place] [facility] [address] [id number] [place] [address]- 7149 17 Dec, 2011 [facility] [place] [facility] [address] [id number] [place] [address]- 1564 13 Dec, 2011 [facility] [place] [facility] [address] [id number] [place] [address]- 2651 Dec, [facility] [place] [facility] [address] [id number] [place] [address]- 5148 Dec, [facility] [place] [facility] [address] [id number] [place] [address]- 6546 28 Nov, 2011 [facility] [place] [facility] [address] [id number] [place] [address]- 8475 15 Nov, 2011 [facility] [place] [facility] [address] [id number] [place] [address]- 7865 07 Nov, 2011 [facility] [place] [facility] [address] [id number] [place] [address]- 8530 06 Nov, 2011 [facility] [place] [facility] [address] [id number] [place] [address]- 6136 05 Nov, 2011 [facility] [place] [facility] [address] [id number] [place] [address]- 1169 Nov, [facility] [address] [id number] [place] [address]- 2111 Oct, [facility] [place] [facility] [address] [id number] [place] 1486 Oct, [facility] [place] [facility] [address] [facility] [id number] [place] [address] 2546 Oct, [facility] [place] [facility] [address] [id number] [place] [address]- 4166 Oct, [facility] [place] [facility] [address] [id number] [place] [address]- 1046 Oct, [facility] [place] [facility] [address] [facility] [id number] [place] 9073 Oct, [facility] [id number] [place] [address]- 7001 Sep, [facility] [place] [facility] [address] [facility] [id number] [place] [address]- 5346 Aug, [facility] [place] [facility] [address] [id number] [place] [address]- 4849 Aug, [facility] [place] [facility] [address] [facility] [id number] [place] [address]- 4678 Aug, [facility] [place] [facility] [address] [id number] [place] [address] 2546 Aug, [facility] [place] [facility] [address] [facility] [id number] [place] [address]- 2546 15 Aug, 2011 [facility] [place] [facility] [address] [facility] [id number] [place] [address] 2546 13 Aug, 2011 [facility] [place] [facility] [address] [facility] [id number] [place] [address]- 2545 Aug, [facility] [place] [facility] [address] [facility] [id number] [place] [address]- 2546 Jul, [facility] [place] [facility] [address] [id number] [place] [address]- 6038 18 Jun, 2011 [facility] [place] [facility] [address] [id number] [place] [address]- 8043 Jun, [facility] [place] [facility] [address] [id number] [place] [address]- 9346 Jun, [facility] [place] [facility] [address] [id number] [place] [address]- 8418 Mar, [facility] [place] [facility] [address] [id number] [place] [address]- 2833 Feb, [facility] [place] [facility] [address] [id number] [place] [address]- 9337 Aug, [facility] [place] [facility] [address] [id number] [place] [address] Aug, [facility] [place] [facility] [address] [id number] [place] [address]- 9561 Jul, [facility] [place] [facility] [address] [id number] [place] [address]- 2641 Aug, [facility] [place] [facility] [address] [id number] [place] [address]- 5632 Jul, [facility] [place] [facility] [address] [id number] [place] [address]- 4411 Jul, [facility] [place] [facility] [address] [id number] [place] [address]- 1807 Jul, [facility] [place] [facility] [address] [id number] [place] [address]- 7682 Jun, [facility] [place] [facility] [address] [id number] [place] [address]- 4206 Jun, [facility] [place] [facility] [address] [id number] [place] [address]- 2546 Feb, [facility] [place] [facility] [address] [id number] [place] [address]- 4069 January, IMMUNIZATIONS No Known Immunizations SOCIAL HISTORY Never Assessed REASON FOR VISIT Refill request PLAN OF CARE VITAL SIGNS MEDICATIONS Medication Instructions Dosage Frequency Start Date End Date Duration Status Voltaren 1 % Transdermal 4 times a day 4 grams to affected joints (ankles, knees, hips) 6h Jun, Active Lyrica 150 MG Orally Three times a day 1 capsule 8h 28 days Active Voltaren 1 % Transdermal 4 times a day pea size amount 6h Active Estradiol 0.1 MG/24HR Transdermal Two times a Week 1 application to skin 4 weeks Active Estradiol 0.1 MG/24HR Transdermal Two times a Week 1 patch to skin Jun 30 day(s) Active RESULTS No Results PROCEDURES No Known [...]
--- OUTSIDE RECORDS SUMMARY | 2018-09-02 16:32 | XMS REPORT ---
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 Name Role Phone MARJORIE BALDWIN Unavailable PROBLEMS Type Condition ICD9-CM Code [id number] Code Onset Dates Condition Status SNOMED Code Problem History of bipolar disorder Z86.59 Active 330643864 Problem Bipolar I disorder, most recent episode (or current) mixed, unspecified 296.60 Active 26188009 Problem Mild intermittent allergic asthma without complication J45.20 Active 085721879 Problem Genital warts A63.0 Active 434285615 Problem Bipolar disorder, current episode depressed, severe, without psychotic features F31.4 Active 913615873 Problem Gastroesophageal reflux disease without esophagitis K21.9 Active 199796034 Problem Fibromyalgia M79.7 Active 720285779 Problem Panic disorder F41.0 Active 779045034 ALLERGIES No Information ENCOUNTERS Encounter Location Date Diagnosis [place] [id number] [address] Aug, [place] [address] [place] [id number] [place] [address]23- 3098 24 Jun, 2018 Panic disorder F41.0 and Bipolar disorder, current episode depressed, severe, without psychotic features F31.4 [facility] [address] [place] [id number] [place] [address] 99754- 7462 Jun, Fibromyalgia M79.7 [facility] [address] [place] [id number] [place] [address] 57280- 6974 Jun, [facility] [address] [place] [id number] [place] [address] 54106- 3543 27 May, 2018 Mild intermittent allergic asthma without complication J45.20 [facility] [address] [place] [id number] [place] [address] 44855- 0269 14 May, 2018 Fibromyalgia M79.7 [place] [address] [place] [id number] [place] [address] 10117- 8032 May, [place] [address] [place] [id number] [place] [address] 68252- 4096 Apr, Panic disorder F41.0 ; Gastroesophageal reflux disease without esophagitis K21.9 ; Genital warts A63.0 and Fibromyalgia M79.7 [place] [address] [place] [id number] [place] [address] 64702- 8894 Apr, Panic disorder F41.0 and Bipolar disorder, current episode depressed, severe, without psychotic features F31.4 [place] [address] [place] [id number] [place] [address] 38765- 2061 Mar, History of bipolar disorder Z86.59 and History of fibromyalgia Z87.39 [place] [address] [place] [id number] [place] [address] 90499- 4135 Mar, History of bipolar disorder Z86.59 and History of fibromyalgia Z87.39 [place] [address] [place] [id number] [place] [address] 45122- 5526 Mar, Panic disorder F41.0 and Bipolar disorder, current episode depressed, severe, without psychotic features F31.4 [place] [id number] [place] [address] 44419- 4597 Mar, History of bipolar disorder Z86.59 ; History of fibromyalgia Z87.39 ; Gastroesophageal reflux disease without esophagitis K21.9 and Long-term use of high-risk medication Z79.899 [place] [id number] [place] [address] 20692- 3901 Dec, [place] [address] [place] [id number] [place] [address] 99331- 2123 Dec, [place] [address] [place] [id number] [place] [address] 40975- 9790 Nov, [place] [address] [place] [address]- 8264 08 Oct, 2012 [facility] [place] [facility] [address] [id number] [place] [address]- 7341 Sep, [facility] [place] [facility] [address] [id number] [place] [address]- 8765 Aug, [facility] [place] [facility] [address] [id number] [place] [address]- 2021 Aug, [facility] [place] [facility] [address] [id number] [place] [address]- 8152 Aug, [facility] [place] [facility] [address] [id number] [place] [address]- 5565 Jul, [facility] [place] [facility] [address] [id number] [place] [address]- 7170 Jul, [facility] [place] [facility] [address] [id number] [place] [address]- 7886 Jul, [facility] [place] [facility] [address] [id number] [place] [address]- 9686 Jul, [facility] [place] [facility] [address] [id number] [place] [address]- 2664 Jun, [facility] [place] [facility] [address] [facility] [id number], [place] [address]- 4345 Jun, [facility] [place] [facility] [address] [id number] [place] [address]- 3014 Jun, [facility] [place] [facility] [address] [id number], [place] [address]- 0026 Jun, [facility] [place] [facility] [address] [id number], [place] [address]- 0353 Jun, [facility] [place] [facility] [address] [facility] [id number], [place] [address]- 6993 Jun, [facility] [place] [facility] [address] [facility] [id number], [place] [address]- 6568 Jun, [facility] [place] [facility] [address] [id number] [place] [address]- 0979 05 Jun, 2012 [facility] [place] [facility] [address] [id number] [place] [address]- 8276 26 Sep, 2011 [facility] [place] [facility] [address] [id number] [place] [address] 2546 25 Sep, 2011 [facility] [place] [facility] [address] [id number] [place] [address]- 4423 24 Sep, 2011 [facility] [place] [facility] [address] [id number] [place] [address]- 8053 11 Sep, 2011 [facility] [place] [facility] [address] [id number] [place] [address]- 6579 08 Sep, 2011 [facility] [place] [facility] [address] [id number] [place] [address]- 4615 07 May, 2011 [facility] [place] [facility] [address] [id number] [place] [address]- 8858 05 May, 2011 [facility] [place] [facility] [address] [id number] [place] [address]- 7482 05 May, 2011 [facility] [place] [facility] [address] [id number] [place] [address]- 7429 04 May, 2011 [facility] [place] [facility] [address] [id number] [place] [address]- 9626 29 Apr, 2012 [facility] [place] [facility] [address] [id number] [place] [address]- 7404 28 Apr, 2012 [facility] [place] [facility] [address] [id number] [place] [address]- 1845 Apr, [facility] [place] [facility] [address] [id number] [place] [address]- 5306 Apr, [facility] [place] [facility] [address] [id number] [place] [address]- 1029 Apr, [facility] [place] [facility] [address] [id number] [place] [address]- 9354 Apr, [facility] [place] [facility] [address] [id number] [place] [address]- 6622 Apr, [facility] [place] [facility] [address] [id number] [place] [address]- 5518 Apr, [facility] [place] [facility] [address] [id number] [place] [address]- 9626 Apr, [facility] [place] [facility] [address] [id number] [place] [address]- 3528 Mar, [facility] [place] [facility] [address] [id number] [place] [address]- 3983 Mar, [facility] [place] [facility] [address] [id number] [place] [address]- 7888 Mar, [facility] [place] [facility] [address] [id number] [place] [address]- 0897 Mar, [facility] [place] [facility] [address] [id number] [place] [address]- 5536 Mar, [facility] [place] [facility] [address] [id number] [place] [address]- 4911 Mar, [facility] [place] [facility] [address] [id number] [place] [address]- 2526 Mar, [facility] [place] [facility] [address] [id number] [place] [address]- 7354 Mar, [facility] [place] [facility] [address] [id number] [place] [address]- 6261 Feb, [facility] [place] [facility] [address] [id number] [place] [address]- 1605 Feb, [facility] [place] [facility] [address] [id number] [place] [address]- 3691 Feb, [facility] [place] [facility] [address] [id number] [place] [address]- 4635 Feb, [facility] [place] [facility] [address] [id number] [place] [address]- 8618 Feb, [facility] [address] [id number] [place] [address]- 7252 Feb, [facility] [address] [id number] [place] [address]- 1260 January, [facility] [address] [id number] [place] [address]- 9774 January, [facility] [address] [id number] [place] [address]- 4526 30 Dec, 2011 [facility] [address] [id number] [place] [address]- 6646 24 Dec, 2011 [facility] [address] [id number] [place] [address]- 9875 20 Dec, 2011 [facility] [address] [id number] [place] [address]- 6803 19 Dec, 2011 [facility] [address] [id number] [place] [address]- 6905 17 Dec, 2011 [facility] [address] [id number] [place] [address]- 6301 13 Dec, 2011 [facility] [address] [id number] [place] [address]- 9476 12 Dec, 2011 [facility] [address] [id number] [place] [address]- 5472 12 Dec, 2011 [facility] [address] [id number] [place] [address]- 3440 28 Nov, 2011 [facility] [address] [id number] [place] [address]- 6196 15 Nov, 2011 [facility] [address] [id number] [place] 7702 07 Nov, 2011 [facility] [address] [id number] [place] [address]- 9116 06 Nov, 2011 [facility] [place] [facility] [address] [id number] [place] [address]- 5746 05 Nov, 2011 [facility] [place] [facility] [address] [id number] [place] [address]- 2636 Nov, [facility] [place] [facility] [address] [id number] [place] [address]- 4076 Oct, [facility] [place] [facility] [address] [id number] [place] [address] 2546 Oct, [facility] [place] [facility] [address] [id number] [place] [address]- 2959 Oct, [facility] [place] [facility] [address] [id number] [place] [address]- 1223 Oct, [facility] [place] [facility] [address] [id number] [place] [address]- 0756 Oct, [facility] [place] [facility] [address] [id number] [place] [address]- 5787 Oct, [facility] [place] [facility] [address] [id number] [place] [address]- 0422 Sep, [facility] [place] [facility] [address] [id number] [place] [address]- 1215 Aug, [facility] [place] [facility] [address] [id number] [place] [address]- 2238 Aug, [facility] [place] [facility] [address] [id number] [place] [address] 2545 Aug, [facility] [place] [facility] [address] [id number] [place] [address]- 2544 19 Aug, 2011 [facility] [place] [facility] [address] [id number] [place] [address]- 3809 15 Aug, 2011 [facility] [place] [facility] [address] [facility] [id number] [place] 4598 13 Aug, 2011 [facility] [place] [facility] [address] [id number] [place] [address]- 0900 13 Aug, 2011 [facility] [place] [facility] [address] [id number] [place] [address]- 0138 Jul, [facility] [place] [facility] [address] [id number] [place] [address] 2546 Jun, [facility] [place] [facility] [address] [id number] [place] [address] 2546 Jun, [facility] [place] [facility] [address] [id number] [place] [address] 2544 Jun, [facility] [place] [facility] [address] [id number] [place] [address]- 3690 Mar, [facility] [place] [facility] [address] [id number] [place] [address]- 1810 Feb, [facility] [place] [facility] [address] [facility] [id number] [place] [address]- 1327 Aug, [facility] [place] [facility] [address] [id number] [place] [address]- 0357 Aug, [facility] [place] [facility] [address] [facility] [id number] [place] [address]- 3448 Jul, [facility] [place] [facility] [address] [facility] [id number] [place] [address]- 8210 Aug, [facility] [place] [facility] [address] [id number] [place] [address]- 8443 24 Jul, 2009 [facility] [place] [facility] [address] [facility] [id number] [place] [address]- 2541 09 Jul, 2009 [facility] [place] [facility] [address] [id number] [place] [address]- 1965 02 Jul, 2009 [facility] [place] [facility] [address] [facility] [id number] [place] [address]- 2544 20 Jun, 2009 [facility] [place] [facility] [address] [id number], [place] [address]- 5611 16 Jun, 2009 [facility] [address] [facility] [id number] [place] [address]- 9784 Feb, [facility] [address] [facility] [id number][place] [address]698 January, IMMUNIZATIONS No Known Immunizations SOCIAL HISTORY Never Assessed REASON FOR VISIT BH f/u PLAN OF CARE Activity Details Follow Up Next available Reason: F/U VITAL SIGNS MEDICATIONS Unknown Medications RESULTS No Results PROCEDURES Procedure Date Ordered Result Body Site [facility] VISIT MENTAL HEALTH ESTAB PT Jul 09, 2018 Psychotherapy, patient &/family, 45 minutes, established patient Jul 09, 2018 INSTRUCTIONS MEDICATIONS ADMINISTERED No Known Medications [...]
--- OUTSIDE RECORDS SUMMARY | 2018-09-02 16:32 | XMS REPORT ---
Author Author CORTEZ DIAZ [facility] Address [address] [place] [address] Care Team Providers Care Network Operations Technician Name Role Phone ALEC DIAZTA Unavailable PROBLEMS Type Condition ICD9-CM Code MOS32-YS Code Onset Dates Condition Status SNOMED Code Problem History of bipolar disorder Z86.59 Active 170533750 Problem Bipolar I disorder, most recent episode (or current) mixed, unspecified 296.60 Active 48987112 Problem Mild intermittent allergic asthma without complication J45.20 Active 903729720 Problem Genital warts A63.0 Active 260192779 Problem Bipolar disorder, current episode depressed, severe, without psychotic features F31.4 Active 356669072 Problem Gastroesophageal reflux disease without esophagitis K21.9 Active 218166939 Problem Fibromyalgia M79.7 Active 709136892 Problem Panic disorder F41.0 Active 239726487 ALLERGIES No Information ENCOUNTERS Encounter Location Date Diagnosis [facility] [id number] [place] [address] 90040- 5258 24 Jun, 2018 [facility] [id number] [place] [address] 61953- 6101 Jun, [facility] [id number] [place] [address] 39580- 8440 27 May, 2018 Mild intermittent allergic asthma without complication J45.20 [facility] [id number] [place] [address] 93174- 0235 14 May, [address] [facility] [id number] [place] [address] 46328- 0693 05 May, 2018 [facility] [id number] [place] [address] 47748- 9313 Apr, Panic disorder F41.0 ; Gastroesophageal reflux disease without esophagitis K21.9 ; Genital warts A63.[address] [facility] [address], [place] [address]348 17 Apr, 2018 Panic disorder F41.0 and Bipolar disorder, current episode depressed, severe, without psychotic features F31.4 [facility] [id number] [place] [address] 14542- 8143 19 Mar, 2018 History of bipolar disorder Z86.59 and History of fibromyalgia Z87.39 [place] [id number] [place] [address] 44963- 9203 13 Mar, 2018 History of bipolar disorder Z86.59 and History of fibromyalgia Z87.39 [place] [id number] [place] [address] 24614- 1436 12 Mar, 2018 Panic disorder F41.0 and Bipolar disorder, current episode depressed, severe, without psychotic features F31.4 [place] [id number] [place] [address] 03621- 0853 11 Mar, 2018 History of bipolar disorder Z86.59 ; History of fibromyalgia Z87.39 ; Gastroesophageal reflux disease without esophagitis K21.9 and Long-term use of high-risk medication Z79.899 [place] [id number] [place] [address] 65930- 4137 14 Dec, 2014 [place] [id number] [place] [address] 15875- 8541 Dec, [facility] [id number] [place] [address] 64846- 2675 Nov, [facility] [id number] [place] [address] 93708- 8347 Oct, [place] [id number] [place] [address] 13718- 7516 Sep, [facility] [id number] [place] [address] 37204- 2427 Aug, [place] [address] [place] [address]- 0981 17 Aug, 2012 [facility] [place] [facility] [address] [id number] [place] [address]- 0578 14 Aug, 2012 [facility] [place] [facility] [address] [id number] [place] [address]155 Jul, [facility] [place] [facility] [address] [id number] [place] [address]- 4577 Jul, [facility] [place] [facility] [address] [id number] [place] [address]- 1940 Jul, [facility] [place] [facility] [address] [id number] [place] 3557 Jul, [facility] [place] [facility] [address] [id number] [place] [address]- 3292 Jun, [facility] [place] [facility] [address] [id number] [place] [address]- 3177 Jun, [facility] [place] [facility] [address] [id number] [place] [address]- 4135 Jun, [facility] [place] [facility] [address] [id number] [place] [address]- 8732 18 Jun, 2012 [facility] [place] [facility] [address] [facility] [id number] [place] [address]- 1660 Jun, [facility] [place] [facility] [address] [id number] [place] [address]- 0504 17 Jun, 2012 [facility] [place] [facility] [address] [id number], [place] [address] 3945 Jun, [facility] [place] [facility] [address] [id number] [place] [address]- 2169 Jun, [facility] [place] [facility] [address] [facility] [id number] [place] 6721 May, [facility] [place] [facility] [address] [id number], [place] [address]- 6109 25 May, 2012 [facility] [place] [facility] [address] [id number] [place] [address]- 4150 24 Sep, 2011 [facility] [place] [facility] [address] [id number] [place] [address]- 1391 11 May, 2011 [facility] [place] [facility] [address] [id number] [place] [address]- 7351 08 May, 2011 [facility] [place] [facility] [address] [id number] [place] [address]- 9246 07 Sep, 2011 [facility] [place] [facility] [address] [id number] [place] [address]- 6926 05 Sep, 2011 [facility] [place] [facility] [address] [id number] [place] [address]- 4586 05 May, 2011 [facility] [place] [facility] [address] [id number] [place] [address]- 7252 04 May, 2011 [facility] [place] [facility] [address] [id number] [place] [address]- 2851 29 Apr, 2012 [facility] [place] [facility] [address] [id number] [place] [address]- 6900 Apr, [facility] [place] [facility] [address] [id number] [place] [address]- 8674 Apr, [facility] [place] [facility] [address] [id number] [place] [address]- 6098 Apr, [facility] [place] [facility] [address] [id number] [place] [address]- 4019 Apr, [facility] [place] [facility] [address] [id number] [place] [address]- 0697 Apr, [facility] [place] [facility] [address] [id number] [place] [address]- 8180 Apr, [facility] [place] [facility] [address] [id number] [place] [address]- 7603 Apr, [facility] [place] [facility] [address] [id number] [place] [address]- 1906 Apr, [facility] [place] [facility] [address] [id number] [place] [address]- 9815 Mar, [facility] [place] [facility] [address] [id number] [place] 4236 Mar, [facility] [place] [facility] [address] [id number] [place] [address]- 6981 Mar, [facility] [place] [facility] [address] [id number] [place] [address]- 0280 Mar, [facility] [place] [facility] [address] [id number] [place] [address]- 2140 Mar, [facility] [place] [facility] [address] [id number] [place] [address]- 3495 Mar, [facility] [place] [facility] [address] [id number] [place] [address]- 0040 Mar, [facility] [place] [facility] [address] [id number] [place] [address]- 8490 Mar, [facility] [place] [facility] [address] [id number] [place] [address]- 8157 Feb, [facility] [place] [facility] [address] [id number] [place] [address]- 0350 Feb, [facility] [place] [facility] [address] [id number] [place] [address]- 0879 Feb, [facility] [place] [facility] [address] [id number] [place] [address]- 8442 Feb, [facility] [place] [facility] [address] [id number] [place] [address]- 6798 Feb, [facility] [place] [facility] [address] [id number] [place] [address]- 5093 Feb, [facility] [place] [facility] [address] [id number] [place] [address]- 1523 January, [facility] [place] [facility] [address] [id number] [place] [address]- 8670 23 Jan, 2012 [facility] [address] [id number] [place] [address]- 3226 30 Dec, 2011 [facility] [address] [id number] [place] [address]- 7136 24 Dec, 2011 [facility] [address] [id number] [place] [address]- 4825 20 Dec, 2011 [facility] [address] [id number] [place] [address]- 1531 19 Dec, 2011 [facility] [address] [id number] [place] [address]- 7943 17 Dec, 2011 [facility] [address] [id number] [place] [address]- 4450 13 Dec, 2011 [facility] [address] [id number] [place] [address]- 0625 12 Dec, 2011 [facility] [address] [id number] [place] [address]- 6768 12 Dec, 2011 [facility] [address] [id number] [place] [address]- 6223 28 Nov, 2011 [facility] [address] [id number] [place] [address]- 2240 15 Nov, 2011 [facility] [address] [id number] [place] [address]- 4810 07 Nov, 2011 [facility] [address] [id number] [place] [address]- 7444 06 Nov, 2011 [facility] [address] [id number] [place] [address]- 5219 05 Nov, 2011 [facility] [address] [id number] [place] [address]- 2546 02 Nov, 2011 [facility] [address] [id number] [place] [address]- 0901 Oct, [facility] [place] [facility] [address] [id number] [place] [address]- 1226 Oct, [facility] [place] [facility] [address] [id number] [place] [address]- 8176 Oct, [facility] [place] [facility] [address] [id number] [place] [address]- 4596 Oct, [facility] [place] [facility] [address] [id number] [place] [address]- 3796 Oct, [facility] [place] [facility] [address] [id number] [place] [address]- 5746 Oct, [facility] [place] [facility] [address] [id number] [place] [address]- 2376 Sep, [facility] [place] [facility] [address] [id number] [place] [address]- 1878 Aug, [facility] [place] [facility] [address] [id number] [place] [address]- 9856 Aug, [facility] [place] [facility] [address] [id number] [place] [address]- 9706 Aug, [facility] [place] [facility] [address] [facility] [id number] [place] [address]- 0036 Aug, [facility] [place] [facility] [address] [id number] [place] [address]- 3806 15 Aug, 2011 [facility] [place] [facility] [address] [id number], [place] [address] 2546 Aug, [facility] [place] [facility] [address] [id number] [place] [address] 2546 Aug, [facility] [place] [facility] [address] [id number] [place] [address]- 9396 Jul, [facility] [place] [facility] [address] [id number] [place] [address]- 2446 18 Jun, 2011 [facility] [place] [facility] [address], [place] [address]- 2837 Jun, [facility] [address] [facility] [id number] [address] Jun, [facility] [address] [facility] [id number] [address] Mar, [facility] [address], [place] [address]- 0349 Feb, [facility] [address] [facility] [id number], [place] [address]- 7447 Aug, [facility] [address] [place] [address] 939707- [address] Aug, [facility] [id number] [address]- [address] Jul, [facility] [address], [place] [address]- 2427 Aug, [facility] [address], [place] [address]- 7205 Jul, [facility] [address], [place] [address]- 6560 Jul, [facility] [address]- [address] Jul, [facility] [address] [address] Jun, [facility] [id number] [address] Jun, [facility] [address], [place] [address]- 9179 Feb, [facility] [address] 4188 January, IMMUNIZATIONS No Known Immunizations SOCIAL HISTORY Never Assessed REASON FOR VISIT Refill request PLAN OF CARE VITAL SIGNS MEDICATIONS Medication Instructions Dosage Frequency Start Date End Date Duration Status Albuterol Sulfate 108 (90 Base) MCG/ACT Inhalation every 6 hrs 2 puffs as needed 6h Jun, Active RESULTS No Results PROCEDURES No Known [...]
--- OUTSIDE RECORDS SUMMARY | 2018-09-02 16:32 | XMS REPORT ---
Author Author ARASELI MONGE [facility] Address [address] [place] [address] Care Team Providers Care Cheese Pancake Roller Name Role Phone ARASELI MONGE Unavailable PROBLEMS Type Condition ICD9-CM Code INB54-EW Code Onset Dates Condition Status SNOMED Code Problem History of bipolar disorder Z86.59 Active 522282207 Problem Bipolar I disorder, most recent episode (or current) mixed, unspecified 296.60 Active 64253387 Problem Mild intermittent allergic asthma without complication J45.20 Active 867867430 Problem Genital warts A63.0 Active Problem Bipolar disorder, current episode depressed, severe, without psychotic features F31.4 Active 928508727 Problem Gastroesophageal reflux disease without esophagitis K21.9 Active 935348017 Problem Fibromyalgia M79.7 Active 462269460 Problem Panic disorder F41.0 Active [id number] ALLERGIES No Information ENCOUNTERS Encounter Location Date Diagnosis [place] [id number] [address] Jun, [place] [address] [place] [id number] [place] [address]- [address]646 Jun, [place] [address] [place] [id number] [place] [address] 845[address]- 2[address] 27 May, 2018 Mild intermittent allergic asthma without complication J45.20 [facility] [address] [id number] [place] [address] 22182- 0341 14 May, 2018 Fibromyalgia M79.7 [facility] [address] [place] [id number] [place] [address] 72797- 3539 05 May, 2018 [facility] [address] [id number] [place] [address] 83032- 9521 Apr, Panic disorder F41.0 ; Gastroesophageal reflux disease without esophagitis K21.9 ; Genital warts A63.0 and Fibromyalgia M79.7 [facility] [address] [address] 17 Apr, 2018 Panic disorder F41.0 and Bipolar disorder, current episode depressed, severe, without psychotic features F31.4 [place] [address] [place] [id number] [place] [address] 54782- 9962 19 Mar, 2018 History of bipolar disorder Z86.59 and History of fibromyalgia Z87.39 [place] [address] [place] [id number] [place] [address] 09177- 9567 Mar, History of bipolar disorder Z86.59 and History of fibromyalgia Z87.39 [place] [address] [place] [id number] [place] [address] 23357- 0767 Mar, Panic disorder F41.0 and Bipolar disorder, current episode depressed, severe, without psychotic features F31.4 [place] [address] [place] [id number] [place] [address] 16292- 5385 Mar, History of bipolar disorder Z86.59 ; History of fibromyalgia Z87.39 ; Gastroesophageal reflux disease without esophagitis K21.9 and Long-term use of high-risk medication Z79.899 [place] [address] [place] [id number] [place] [address] 94881- 3238 Dec, [place] [address] [address] 4[address] Dec, [place] [address] [place] [id number] [place] [address] 35422- 6353 Nov, [facility] [address] [place] [id number] [place] [address] 22612- 4311 Oct, [place] [address] [place] [id number] [place] [address] 51096- 1835 Sep, [facility] [address] [place] [id number] [address] 9435 Aug, [place] [address] [place] [id number] [place] [address]- 0986 17 Aug, 2012 [facility] [place] [facility] [address] [id number] [place] [address] 6389 Aug, [facility] [place] [facility] [address] [id number] [place] [address]- 4662 Jul, [facility] [place] [facility] [address] [id number] [place] [address]- 5240 Jul, [facility] [place] [facility] [address] [id number] [place] [address]- 1561 Jul, [facility] [place] [facility] [address] [id number] [place] [address] Jul, [facility] [place] [facility] [address] [id number] [place] [address]- 8121 Jun, [facility] [place] [facility] [address] [id number] [place] [address]- 2335 Jun, [facility] [place] [facility] [address] [id number] [place] [address]- 0816 Jun, [facility] [place] [facility] [address] [id number] [place] [address]- 4484 Jun, [facility] [place] [facility] [address] [facility] [id number] [place] [address]- 5550 Jun, [facility] [place] [facility] [address] [id number] [place] [address]- 8926 Jun, [facility] [place] [facility] [address] [facility] [id number] [place] 5626 Jun, [facility] [place] [facility] [address] [id number] [place] [address]- 6874 Jun, [facility] [place] [facility] [address] [facility] [id number] [place] [address]- 5690 May, [facility] [place] [facility] [address] [id number] [place] [address]- 7935 May, [facility] [place] [facility] [address] [id number] [place] [address]- 8731 24 May, 2011 [facility] [place] [facility] [address] [id number] [place] [address]- 7766 11 May, 2011 [facility] [place] [facility] [address] [id number] [place] [address]- 6072 08 May, 2011 [facility] [place] [facility] [address] [id number] [place] [address]- 2323 07 May, 2011 [facility] [place] [facility] [address] [id number] [place] [address]- 1688 05 Sep, 2011 [facility] [place] [facility] [address] [id number] [place] [address]- 5334 05 May, 2011 [facility] [place] [facility] [address] [id number] [place] [address]- 4079 04 May, 2011 [facility] [place] [facility] [address] [id number] [place] [address]- 9275 29 Apr, 2012 [facility] [place] [facility] [address] [id number] [place] [address]- 5032 Apr, [facility] [place] [facility] [address] [id number] [place] [address]- 7505 Apr, [facility] [place] [facility] [address] [id number] [place] [address]- 0715 Apr, [facility] [place] [facility] [address] [id number] [place] [address]- 6730 Apr, [facility] [place] [facility] [address] [id number] [place] [address]- 5610 Apr, [facility] [place] [facility] [address] [id number] [place] [address]- 2741 Apr, [facility] [place] [facility] [address] [id number] [place] [address]- 7967 Apr, [facility] [place] [facility] [address] [id number] [place] [address]- 4122 Apr, [facility] [place] [facility] [address] [id number] [place] [address]- 7724 Mar, [facility] [place] [facility] [address] [id number] [place] [address]- 4493 Mar, [facility] [place] [facility] [address] [id number] [place] [address]- 4434 Mar, [facility] [place] [facility] [address] [id number] [place] [address]- 3071 Mar, [facility] [place] [facility] [address] [id number] [place] [address]- 1960 Mar, [facility] [place] [facility] [address] [id number] [place] [address]- 4405 Mar, [facility] [place] [facility] [address] [id number] [place] [address]- 4203 Mar, [facility] [place] [facility] [address] [id number] [place] [address]- 3217 Mar, [facility] [place] [facility] [address] [id number] [place] [address]- 4428 Feb, [facility] [place] [facility] [address] [id number] [place] [address]- 8594 Feb, [facility] [place] [facility] [address] [id number] [place] [address]- 5725 Feb, [facility] [place] [facility] [address] [id number] [place] [address]- 9091 Feb, [facility] [place] [facility] [address] [id number] [place] [address]- 3039 Feb, [facility] [place] [facility] [address] [id number] [place] [address]- 1451 Feb, [facility] [place] [facility] [address] [id number] [place] [address]- 2411 January, [facility] [place] [facility] [address] [id number] [place] [address]- 9415 23 Jan, 2012 [facility] [address] [id number] [place] [address]- 8255 30 Dec, 2011 [facility] [place] [facility] [address] [id number] [place] [address]- 3316 24 Dec, 2011 [facility] [address] [id number] [place] [address]- 1726 20 Dec, 2011 [facility] [place] [facility] [address] [id number] [place] [address]- 0794 19 Dec, 2011 [facility] [address] [id number] [place] [address]- 2278 17 Dec, 2011 [facility] [address] [id number] [place] [address]- 2519 13 Dec, 2011 [facility] [address] [id number] [place] [address]- 7473 Dec, [facility] [address] [id number] [place] [address]- 5917 Dec, [facility] [place] [facility] [address] [id number] [place] [address]- 8577 28 Nov, 2011 [facility] [address] [id number] [place] [address]- 7842 15 Nov, 2011 [facility] [place] [facility] [address] [id number] [place] [address]- 0586 07 Nov, 2011 [facility] [place] [facility] [address] [id number] [place] [address]- 0266 06 Nov, 2011 [facility] [place] [facility] [address] [id number] [place] [address]- 6386 05 Nov, 2011 [facility] [place] [facility] [address] [id number] [place] [address]- 2546 Nov, [facility] [place] [facility] [address] [id number] [place] [address]- 1238 Oct, [facility] [place] [facility] [address] [id number] [place] [address]- 0977 Oct, [facility] [place] [facility] [address] [id number] [place] [address]- 1656 Oct, [facility] [place] [facility] [address] [id number] [place] [address]- 7576 Oct, [facility] [place] [facility] [address] [id number] [place] [address]- 1264 Oct, [facility] [place] [facility] [address] [id number] [place] [address]- 0524 Oct, [facility] [place] [facility] [address] [id number] [place] [address]- 2705 Sep, [facility] [place] [facility] [address] [id number] [place] [address]- 0057 Aug, [facility] [place] [facility] [address] [id number] [place] [address]- 7839 Aug, [facility] [place] [facility] [address] [id number] [place] [address]- 2458 Aug, [facility] [place] [facility] [address] [id number] [place] [address]- 3116 Aug, [facility] [place] [facility] [address] [id number] [place] [address]- 9920 15 Aug, 2011 [facility] [place] [facility] [address] [id number] [place] [address]- 3133 Aug, [facility] [place] [facility] [address] [id number] [place] [address] 2541 Aug, [facility] [place] [facility] [address] [id number] [place] [address]- 5967 Jul, [facility] [place] [facility] [address] [id number] [place] [address]- 2546 18 Jun, 2011 [facility] [place] [facility] [address], [place] [address]- 9681 Jun, [facility] [address], [place] [address]- 7358 Jun, [facility] [address] [address] 3329 Mar, [facility] [id number] [place] [address] 76850- 2413 Feb, [facility] [address] [address]- 9872 Aug, [facility] [id number] [place] [address] 269891- 5696 Aug, [facility] [address] [address]- 6591 Jul, [facility] [id number] [place] [address] 93831- 5908 Aug, [facility] [address], [place] [address]- 0686 Jul, [facility] [address] [address]- 4495 Jul, [facility] [address] [address]- 7125 Jul, [facility] [address] [place] [address]- 1303 Jun, [facility] [address] [address]- 1517 Jun, [facility] [address] [address]- 9741 Feb, [facility] [address] [address]31 January, IMMUNIZATIONS No Known Immunizations SOCIAL HISTORY Never Assessed REASON FOR VISIT ER visit PLAN OF CARE VITAL SIGNS MEDICATIONS Unknown Medications RESULTS No Results PROCEDURES No Known procedures [...]
--- OUTSIDE RECORDS SUMMARY | 2018-09-02 16:33 | XMS REPORT ---
Author Author CORTEZ DIAZ [facility] Address [address] [place] [address] Care Team Providers Care Clinical Nursing Intern Name Role Phone ALEC DIAZTA Unavailable PROBLEMS Type Condition ICD9-CM Code LTW17-EH Code Onset Dates Condition Status SNOMED Code Problem History of bipolar disorder Z86.59 Active 282756262 Problem Bipolar I disorder, most recent episode (or current) mixed, unspecified 296.60 Active 05190613 Problem Mild intermittent allergic asthma without complication J45.20 Active 749998832 Problem Genital warts A63.0 Active 569822878 Problem Bipolar disorder, current episode depressed, severe, without psychotic features F31.4 Active 499726170 Problem Gastroesophageal reflux disease without esophagitis K21.9 Active 759754965 Problem Fibromyalgia M79.7 Active 108473366 Problem Panic disorder F41.0 Active 456393099 ALLERGIES No Information ENCOUNTERS Encounter Location Date Diagnosis [facility] [id number] [place] [address] 30464- 6073 24 Jun, 2018 [facility] [id number] [place] [address] 29495- 1935 Jun, [facility] [id number] [place] [address] 50475- 7944 27 May, 2018 Mild intermittent allergic asthma without complication J45.20 [facility] [id number] [place] [address] 04028- 7436 14 May, 2018 Fibromyalgia M79.7 [facility] [id number] [place] [address] 09655- 5426 05 May, 2018 [facility] [id number] [place] [address] 27156- 9571 Apr, Panic disorder F41.0 ; Gastroesophageal reflux disease without esophagitis K21.9 ; Genital warts A63.0 and Fibromyalgia M79.7 [facility] [address], [place] [address] 1070 17 Apr, 2018 Panic disorder F41.0 and Bipolar disorder, current episode depressed, severe, without psychotic features F31.4 [facility] [id number] [place] [address] 79977- 0686 19 Mar, 2018 History of bipolar disorder Z86.59 and History of fibromyalgia Z87.39 [facility] [id number] [place] [address] 73463- 6740 13 Mar, 2018 History of bipolar disorder Z86.59 and History of fibromyalgia Z87.39 [facility] [id number] [place] [address] 84350- 0820 12 Mar, 2018 Panic disorder F41.0 and Bipolar disorder, current episode depressed, severe, without psychotic features F31.4 [facility] [id number] [place] [address] 05503- 5510 11 Mar, 2018 History of bipolar disorder Z86.59 ; History of fibromyalgia Z87.39 ; Gastroesophageal reflux disease without esophagitis K21.9 and Long-term use of high-risk medication Z79.899 [facility] [id number] [place] [address] 47242- 2979 14 Dec, 2014 [facility] [id number] [place] [address] 19827- 1820 Dec, [facility] [id number] [place] [address] 71460- 0941 Nov, [facility] [id number] [place] [address] 00370- 4664 Oct, [facility] [id number] [place] [address] 61759- 6431 Sep, [facility] [id number] [place] [address] 60690- 1009 Aug, [facility] [address] [place] [address]- 5305 17 Aug, 2012 [facility] [place] [facility] [address] [id number] [place] [address]- 3337 14 Aug, 2012 [facility] [place] [facility] [address] [id number] [place] [address] Jul, [facility] [place] [facility] [address] [id number] [place] [address]- 4355 Jul, [facility] [place] [facility] [address] [id number] [place] [address]- 1100 Jul, [facility] [place] [facility] [address] [id number] [place] 6996 Jul, [facility] [place] [facility] [address] [id number] [place] [address]- 7660 Jun, [facility] [place] [facility] [address] [id number] [place] [address]- 3785 Jun, [facility] [place] [facility] [address] [id number] [place] [address]- 1939 Jun, [facility] [place] [facility] [address] [id number] [place] [address]- 3856 18 Jun, 2012 [facility] [place] [facility] [address] [facility] [id number] [place] [address]- 3567 Jun, [facility] [place] [facility] [address] [id number] [place] [address]- 9193 17 Jun, 2012 [facility] [place] [facility] [address] [id number], [place] [address]- 0051 Jun, [facility] [place] [facility] [address] [id number] [place] [address]- 9776 Jun, [facility] [place] [facility] [address] [facility] [id number] [place] 6239 May, [facility] [place] [facility] [address] [id number], [place] [address] 2671 25 May, 2012 [facility] [place] [facility] [address] [id number] [place] [address]- 4450 24 Sep, 2011 [facility] [place] [facility] [address] [id number] [place] [address]- 3089 11 May, 2011 [facility] [place] [facility] [address] [id number] [place] [address]- 4526 08 May, 2011 [facility] [place] [facility] [address] [id number] [place] [address]- 4619 07 Sep, 2011 [facility] [place] [facility] [address] [id number] [place] [address]- 0457 05 Sep, 2011 [facility] [place] [facility] [address] [id number] [place] [address]- 1912 05 May, 2011 [facility] [place] [facility] [address] [id number] [place] [address]- 9509 04 May, 2011 [facility] [place] [facility] [address] [id number] [place] [address]- 3881 29 Apr, 2012 [facility] [place] [facility] [address] [id number] [place] [address]- 3808 Apr, [facility] [place] [facility] [address] [id number] [place] [address]- 0475 Apr, [facility] [place] [facility] [address] [id number] [place] [address]- 8707 Apr, [facility] [place] [facility] [address] [id number] [place] [address]- 4154 Apr, [facility] [place] [facility] [address] [id number] [place] [address]- 5629 Apr, [facility] [place] [facility] [address] [id number] [place] [address]- 5139 Apr, [facility] [place] [facility] [address] [id number] [place] [address]- 6294 Apr, [facility] [place] [facility] [address] [id number] [place] [address]- 8176 Apr, [facility] [place] [facility] [address] [id number] [place] [address]- 0632 Mar, [facility] [place] [facility] [address] [id number] [place] 5322 Mar, [facility] [place] [facility] [address] [id number] [place] [address]- 8137 Mar, [facility] [place] [facility] [address] [id number] [place] [address]- 2379 Mar, [facility] [place] [facility] [address] [id number] [place] [address]- 6582 Mar, [facility] [place] [facility] [address] [id number] [place] [address]- 1302 Mar, [facility] [place] [facility] [address] [id number] [place] [address]- 7157 Mar, [facility] [place] [facility] [address] [id number] [place] [address]- 7214 Mar, [facility] [place] [facility] [address] [id number] [place] [address]- 5895 Feb, [facility] [place] [facility] [address] [id number] [place] [address]- 3757 Feb, [facility] [place] [facility] [address] [id number] [place] [address]- 5073 Feb, [facility] [place] [facility] [address] [id number] [place] [address]- 9995 Feb, [facility] [place] [facility] [address] [id number] [place] [address]- 2520 Feb, [facility] [place] [facility] [address] [id number] [place] [address]- 6970 Feb, [facility] [place] [facility] [address] [id number] [place] [address]- 2176 January, [facility] [place] [facility] [address] [id number] [place] [address]- 7496 23 Jan, 2012 [facility] [address] [id number] [place] [address]- 9725 30 Dec, 2011 [facility] [address] [id number] [place] [address]- 1866 24 Dec, 2011 [facility] [address] [id number] [place] [address]- 5614 20 Dec, 2011 [facility] [address] [id number] [place] [address]- 9650 19 Dec, 2011 [facility] [address] [id number] [place] [address]- 1368 17 Dec, 2011 [facility] [address] [id number] [place] [address]- 9576 13 Dec, 2011 [facility] [address] [id number] [place] [address]- 4173 12 Dec, 2011 [facility] [address] [id number] [place] [address]- 9801 12 Dec, 2011 [facility] [address] [id number] [place] [address]- 0210 28 Nov, 2011 [facility] [address] [id number] [place] [address]- 9008 15 Nov, 2011 [facility] [address] [id number] [place] [address]- 7331 07 Nov, 2011 [facility] [address] [id number] [place] [address]- 3351 06 Nov, 2011 [facility] [address] [id number] [place] [address]- 1627 05 Nov, 2011 [facility] [address] [id number] [place] [address]- 2546 02 Nov, 2011 [facility] [address] [id number] [place] [address]- 7631 Oct, [facility] [place] [facility] [address] [id number] [place] [address]- 5866 Oct, [facility] [place] [facility] [address] [id number] [place] [address]- 9456 Oct, [facility] [place] [facility] [address] [id number] [place] [address]- 5796 Oct, [facility] [place] [facility] [address] [id number] [place] [address]- 8926 Oct, [facility] [place] [facility] [address] [id number] [place] [address]- 8346 Oct, [facility] [place] [facility] [address] [id number] [place] [address]- 3816 Sep, [facility] [place] [facility] [address] [id number] [place] [address]- 3696 Aug, [facility] [place] [facility] [address] [id number] [place] [address]- 4926 Aug, [facility] [place] [facility] [address] [id number] [place] [address]- 3316 Aug, [facility] [place] [facility] [address] [facility] [id number] [place] [address]- 2216 Aug, [facility] [place] [facility] [address] [id number] [place] [address]- 0676 15 Aug, 2011 [facility] [place] [facility] [address] [id number], [place] [address] 2546 Aug, [facility] [place] [facility] [address] [id number] [place] [address] 2546 Aug, [facility] [place] [facility] [address] [id number] [place] [address]- 6526 Jul, [facility] [place] [facility] [address] [id number] [place] [address]- 8066 18 Jun, 2011 [facility] [place] [facility] [id number] 9669 Jun, [facility] [address] [facility] [id number][place]- 2373 Jun, [facility] [address] [facility] [id number], [place] [address]- 4873 Mar, [facility] [address] [facility] [id number][place] 7280 Feb, [facility] [address] [facility] [id number], [place] [address]- 8580 Aug, [facility] [id number] 4802 Aug, [facility] [address] [facility] [id number], [place] [address]- 2620 Jul, [facility] [address], [place] [address]- 5207 Aug, [facility] [address], [place] [address]- 3366 Jul, [facility] [address] [place] [address]- 9592 Jul, [facility] [address], [place] [address]- 6209 Jul, [facility] [address], [place] [address]- 2450 Jun, [facility] [id number], [place] [address]- 0824 Jun, [facility] [id number] 2468 Feb, [facility] [address] [address]- 9377 January, IMMUNIZATIONS No Known Immunizations SOCIAL HISTORY Never Assessed REASON FOR VISIT Controlled Med Refill 06/03 PLAN OF CARE VITAL SIGNS MEDICATIONS Medication [...]
--- OUTSIDE RECORDS SUMMARY | 2018-09-02 16:33 | XMS REPORT ---
Author Author CORTEZ DIAZ [facility] Address [address] [place] [address] Care Team Providers Care Cloth Piecer Name Role Phone ALEC DIAZTA Unavailable PROBLEMS Type Condition ICD9-CM Code [id number] Code Onset Dates Condition Status SNOMED Code Problem History of bipolar disorder Z86.59 Active 502691996 Problem Bipolar I disorder, most recent episode (or current) mixed, unspecified 296.60 Active 48824586 Problem Mild intermittent allergic asthma without complication J45.20 Active 409737689 Problem Genital warts A63.0 Active 035619526 Problem Bipolar disorder, current episode depressed, severe, without psychotic features F31.4 Active 053006299 Problem Gastroesophageal reflux disease without esophagitis K21.9 Active 228843485 Problem Fibromyalgia M79.7 Active 025506119 Problem Panic disorder F41.0 Active 404929752 ALLERGIES No Information ENCOUNTERS Encounter Location Date Diagnosis [facility] [id number] [place] [address] 89889- 4931 24 Jun, 2018 [facility] [id number] [place] [address] 03861- 0040 Jun, [facility] [id number] [place] [address] 97318- 5133 27 May, 2018 Mild intermittent allergic asthma without complication J45.20 [facility] [id number] [place] [address] 74156- 6216 14 May, 2018 Fibromyalgia M79.7 [facility] [id number] [place] [address] 17751- 8309 05 May, 2018 [facility] [id number] [place] [address] 61514- 0650 Apr, Panic disorder F41.0 ; Gastroesophageal reflux disease without esophagitis K21.9 ; Genital warts A63.0 and Fibromyalgia M79.7 [facility] [address], [place] [address] 16[address] 17 Apr, 2018 Panic disorder F41.0 and Bipolar disorder, current episode depressed, severe, without psychotic features F31.4 [facility] [id number] [place] [address] 84934- 1181 19 Mar, 2018 History of bipolar disorder Z86.59 and History of fibromyalgia Z87.39 [facility] [id number] [place] [address] 27501- 4567 13 Mar, 2018 History of bipolar disorder Z86.59 and History of fibromyalgia Z87.39 [facility] [id number] [place] [address] 83448- 6398 12 Mar, 2018 Panic disorder F41.0 and Bipolar disorder, current episode depressed, severe, without psychotic features F31.4 [facility] [id number] [place] [address] 45202- 7816 11 Mar, 2018 History of bipolar disorder Z86.59 ; History of fibromyalgia Z87.39 ; Gastroesophageal reflux disease without esophagitis K21.9 and Long-term use of high-risk medication Z79.899 [facility] [id number] [place] [address] 20207- 8111 14 Dec, 2014 [facility] [id number] [place] [address] 31602- 2763 Dec, [facility] [id number] [place] [address] 05216- 7828 Nov, [facility] [id number] [place] [address] 60274- 6191 Oct, [facility] [id number] [place] [address] 38586- 7117 Sep, [facility] [id number] [place] [address] 94871- 5489 Aug, [facility] [address] [place] [address] 0844 17 Aug, 2012 [facility] [place] [facility] [address] [id number] [place] [address] 4924 14 Aug, 2012 [facility] [place] [facility] [address] [id number] [place] [address] Jul, [facility] [place] [facility] [address] [id number] [place] [address]- 5260 Jul, [facility] [place] [facility] [address] [id number] [place] [address]- 9101 Jul, [facility] [place] [facility] [address] [id number] [place] [address] Jul, [facility] [place] [facility] [address] [id number] [place] [address]- 7752 Jun, [facility] [place] [facility] [address] [id number] [place] [address]- 9472 Jun, [facility] [place] [facility] [address] [id number] [place] [address]- 4546 Jun, [facility] [place] [facility] [address] [id number] [place] [address]- 6073 18 Jun, 2012 [facility] [place] [facility] [address] [facility] [id number] [place] [address]- 0734 Jun, [facility] [place] [facility] [address] [id number] [place] [address]- 9792 17 Jun, 2012 [facility] [place] [facility] [address] [id number], [place] [address] 1702 Jun, [facility] [place] [facility] [address] [id number] [place] [address]- 4995 Jun, [facility] [place] [facility] [address] [facility] [id number] [place] 3512 May, [facility] [place] [facility] [address] [id number], [place] [address]- 2360 25 May, 2012 [facility] [place] [facility] [address] [id number] [place] [address]- 5637 24 Sep, 2011 [facility] [place] [facility] [address] [id number] [place] [address]- 9145 11 May, 2011 [facility] [place] [facility] [address] [id number] [place] [address]- 7266 08 May, 2011 [facility] [place] [facility] [address] [id number] [place] [address]- 6471 07 Sep, 2011 [facility] [place] [facility] [address] [id number] [place] [address]- 0352 05 Sep, 2011 [facility] [place] [facility] [address] [id number] [place] [address]- 3744 05 May, 2011 [facility] [place] [facility] [address] [id number] [place] [address]- 9636 04 May, 2011 [facility] [place] [facility] [address] [id number] [place] [address]- 5419 29 Apr, 2012 [facility] [place] [facility] [address] [id number] [place] [address]- 5850 Apr, [facility] [place] [facility] [address] [id number] [place] [address]- 1545 Apr, [facility] [place] [facility] [address] [id number] [place] [address]- 3068 Apr, [facility] [place] [facility] [address] [id number] [place] [address]- 6379 Apr, [facility] [place] [facility] [address] [id number] [place] [address]- 1535 Apr, [facility] [place] [facility] [address] [id number] [place] [address]- 0279 Apr, [facility] [place] [facility] [address] [id number] [place] [address]- 0232 Apr, [facility] [place] [facility] [address] [id number] [place] [address]- 9216 Apr, [facility] [place] [facility] [address] [id number] [place] [address]- 7661 Mar, [facility] [place] [facility] [address] [id number] [place] 8385 Mar, [facility] [place] [facility] [address] [id number] [place] [address]- 9090 Mar, [facility] [place] [facility] [address] [id number] [place] [address]- 5719 Mar, [facility] [place] [facility] [address] [id number] [place] [address]- 6639 Mar, [facility] [place] [facility] [address] [id number] [place] [address]- 2780 Mar, [facility] [place] [facility] [address] [id number] [place] [address]- 4533 Mar, [facility] [place] [facility] [address] [id number] [place] [address]- 8246 Mar, [facility] [place] [facility] [address] [id number] [place] [address]- 9979 Feb, [facility] [place] [facility] [address] [id number] [place] [address]- 2702 Feb, [facility] [place] [facility] [address] [id number] [place] [address]- 2662 Feb, [facility] [place] [facility] [address] [id number] [place] [address]- 8630 Feb, [facility] [place] [facility] [address] [id number] [place] [address]- 8963 Feb, [facility] [place] [facility] [address] [id number] [place] [address]- 0525 Feb, [facility] [place] [facility] [address] [id number] [place] [address]- 4689 January, [facility] [place] [facility] [address] [id number] [place] [address]- 8531 23 Jan, 2012 [facility] [address] [id number] [place] [address]- 7207 30 Dec, 2011 [facility] [address] [id number] [place] [address]- 6576 24 Dec, 2011 [facility] [address] [id number] [place] [address]- 5835 20 Dec, 2011 [facility] [address] [id number] [place] [address]- 5129 19 Dec, 2011 [facility] [address] [id number] [place] [address]- 1070 17 Dec, 2011 [facility] [address] [id number] [place] [address]- 1449 13 Dec, 2011 [facility] [address] [id number] [place] [address]- 2540 12 Dec, 2011 [facility] [address] [id number] [place] [address]- 1605 12 Dec, 2011 [facility] [address] [id number] [place] [address]- 7203 28 Nov, 2011 [facility] [address] [id number] [place] [address]- 5893 15 Nov, 2011 [facility] [address] [id number] [place] [address]- 0593 07 Nov, 2011 [facility] [address] [id number] [place] [address]- 2401 06 Nov, 2011 [facility] [address] [id number] [place] [address]- 0418 05 Nov, 2011 [facility] [address] [id number] [place] [address]- 2546 02 Nov, 2011 [facility] [address] [id number] [place] [address]- 5970 Oct, [facility] [place] [facility] [address] [id number] [place] [address]- 5306 Oct, [facility] [place] [facility] [address] [id number] [place] [address]- 5886 Oct, [facility] [place] [facility] [address] [id number] [place] [address]- 3556 Oct, [facility] [place] [facility] [address] [id number] [place] [address]- 8566 Oct, [facility] [place] [facility] [address] [id number] [place] [address]- 6086 Oct, [facility] [place] [facility] [address] [id number] [place] [address]- 9066 Sep, [facility] [place] [facility] [address] [id number] [place] [address]- 8559 Aug, [facility] [place] [facility] [address] [id number] [place] [address]- 1966 Aug, [facility] [place] [facility] [address] [id number] [place] [address]- 1986 Aug, [facility] [place] [facility] [address] [facility] [id number] [place] [address]- 5756 Aug, [facility] [place] [facility] [address] [id number] [place] [address]- 2346 15 Aug, 2011 [facility] [place] [facility] [address] [id number], [place] [address] 2546 Aug, [facility] [place] [facility] [address] [id number] [place] [address] 2546 Aug, [facility] [place] [facility] [address] [id number] [place] [address]- 3376 Jul, [facility] [place] [facility] [address] [id number] [place] [address]- 7446 18 Jun, 2011 [facility] [place] [facility] [address] [place] [address]- 8482 Jun, [facility] [address] 1330 Jun, [facility] [address] [address] 2401 Mar, [facility] [address] [place] [address]- 3910 Feb, [facility] [id number] [address]- 1633 Aug, [facility] [address] [place] [address] 077408- 2487 Aug, [facility] [address], [place] [address]- 6084 Jul, [facility] [address] 1118 Aug, [facility] [address] [place] [address]- 6320 Jul, [facility] [address] 1171 Jul, [facility] [address] 2034 Jul, [facility] [address] [place] [address]- 4865 Jun, [facility] [id number], [place] [address]- 1643 Jun, [facility] [address] 6341 Feb, [facility] [address] 7866 January, IMMUNIZATIONS No Known Immunizations SOCIAL HISTORY Never Assessed REASON FOR VISIT Eye Exam PLAN OF CARE VITAL SIGNS MEDICATIONS Unknown [...]
--- OUTSIDE RECORDS SUMMARY | 2018-09-02 16:37 | XMS REPORT | Continuity of Care Document ---
Author Author [facility] Address Unknown Phone Unavailable Allergies Active Description Code Type Severity Reaction Onset Reported/Identified Relationship to Patient Clinical Status Yes BUSPIRONE [id number] Drug Allergy Unknown N/A Yes DOXEPIN [id number] Drug Allergy Unknown N/A Yes GABAPENTIN [id number] Drug Allergy Unknown N/A Yes MINIPRESS [id number] Drug Allergy Unknown N/A Yes PRAZOSIN [id number] Drug Allergy Unknown N/A Yes TRAMADOL [id number] Drug Allergy Unknown N/A Yes BuSpar [id number] N/A N/A Yes Doxepin [id number] N/A N/A Yes Minipress [id number] N/A N/A Yes Prazosin [id number] N/A N/A Yes Tramadol [id number] N/A N/A Yes NKANo Known Allergies NKA Miscellaneous Allergy Unknown N/A 02/21/2006 Yes BuSpar Drug Allergy 10/14/2008 Yes buspirone [id number] Drug Allergy Unknown N/A 02/03/2009 Yes codeine Drug Allergy 02/25/2009 Yes tramadol [id number] Drug Allergy Mild N/A 04/18/2009 Yes hyoscyamine [...] Drug Allergy Moderate N/A 07/24/2016 Yes doxepin [id number] Drug Allergy Unknown N/A 06/09/2018 Yes gabapentin [id number] Drug Allergy Unknown N/A 06/09/2018 Yes prazosin [id number] Drug Allergy Unknown N/A 06/09/2018 Yes hydralazine [id number] Drug Allergy Severe ANAPHYLAXIS 06/12/2018 Yes hydroxyzine [id number] Drug Allergy Unknown N/A 06/12/2018 Medications Medication Packaging Start Date Stop Date [...] Zee Working K86.1 Chronic pancreatitis Lev Zee Working M13.0 Polyarthritis Lev Zee Working R52 Generalized pain Lev Zee Working Z79.899 High risk medication use 08/10/2008 KESHIA HAHN DO 535.50 GASTRITIS UNSPEC 08/10/2008 KESHIA HAHN DO 789.00 abdominal pain 08/10/2008 KESHIA HAHN DO8.69 MEDICATION HIGH RISK 08/10/2008 KESHIA HAHN DO 535.50 GASTRITIS UNSPEC 08/10/2008 KESHIA HAHN DO 789.00 abdominal pain 08/10/2008 KESHIA HAHN DO V58.69 MEDICATION HIGH RISK 10/05/2008 [facility] KESHIA BENNETT F 300.01 AN PANIC DIS W/O AGORA 10/05/2008 [facility] KESHIA BENNETT F 300.01 AN PANIC DIS W/O AGORA 10/14/2008 KESHIA HAHN DO F 530.81 GERD 10/14/2008 [facility] KESHIA BENNETT F 530.81 GERD 11/02/2008 [facility] KESHIA BENNETT F 300.02 GENERALIZED ANXIETY DISORDER 11/02/2008 [facility] 300.21 AN PANIC DIS W AGORA 11/02/2008 [facility] F 307.47 SI DYSSOMNIA NOS 11/02/2008 KESHIA HAHN DO F 316 PF PSYCHIC FACTORS MED COND 11/02/2008 [facility] KESHIA BENNETT F 300.02 GENERALIZED ANXIETY DISORDER 11/02/2008 [facility] KESHIA BENNETT F 300.21 AN PANIC DIS W AGORA 11/02/2008 [facility] 307.47 SI DYSSOMNIA NOS 11/02/2008 [facility] KESHIA BENNETT 316 PF PSYCHIC FACTORS MED COND 01/27/2009 KESHIA HAHN DO F 528.9 DISEASES OF THE ORAL SOFT TISSUES (EXCEPT GINGIVA, TONGUE) 01/27/2009 KESHIA HAHN DO F 616.0 CERVICITIS 01/27/2009 [facility] KESHIA BENNETT F 625.9 FEMALE PELVIC PAIN 01/27/2009 KESHIA [...] F 723.1 CERVICALGIA 06/13/2011 KESHIA HAHN DO 268.9 VITAMIN D DEFICIENCY 06/13/2011 KESHIA HAHN DO F 268.9 VITAMIN D DEFICIENCY 08/28/2011 KESHIA HAHN DO 788.1 DYSURIA 08/28/2011 KESHIA HAHN DO 788.1 DYSURIA 10/17/2011 KESHIA HAHN DO 611.72 BREAST LUMP OR MASS 10/17/2011 KESHIA HAHN DO 625.0 DYSPAREUNIA 10/17/2011 KESHIA HAHN DO V72.31 UPSETTER HELPER EXAM, ROUTINE 10/17/2011 KESHIA HAHN DO 611.72 BREAST LUMP OR MASS 10/17/2011 KESHIA HAHN DO 625.0 DYSPAREUNIA 10/17/2011 KESHIA HAHN DO V72.31 UPSETTER HELPER EXAM, ROUTINE 11/20/2011 KESHIA HAHN DO 995.3 ALLERGY UNSPECIFIED NOT ELSEWHERE CLASSIFIED 11/20/2011 KESHIA HAHN DO 995.3 ALLERGY UNSPECIFIED NOT ELSEWHERE CLASSIFIED 12/28/2011 KESHIA HAHN DO 787.01 NAUSEA WITH VOMITING 12/28/2011 KESHIA HAHN DO 789.09 ABDOMINAL PAIN OTHER SPECIFIED SITE 12/28/2011 KESHIA HAHN DO 787.01 NAUSEA WITH VOMITING 12/28/2011 KESHIA HAHN DO 789.09 ABDOMINAL PAIN OTHER SPECIFIED SITE 03/18/2012 KESHIA HAHN DO F 296.40 MO BIPOLAR MANIC UNSPECIFIED 03/18/2012 SELMA BENNETT KESHIA F 305.00 ALCOHOL ABUSE UNSPEC 03/18/2012 SELMA BENNETT KESHIA F 305.20 CANNABIS ABUSE 03/18/2012 SELMA KESHIA F 296.40 MO BIPOLAR MANIC UNSPECIFIED 03/18/2012 SELMA BENNETT KESHIA F 305.00 ALCOHOL ABUSE UNSPEC 03/18/2012 SELMA BENNETT KESHIA F 305.20 CANNABIS ABUSE 04/23/2012 SELMA BENNETT KESHIA F 719.40 PAIN IN JOINT SITE UNSPECIFIED 04/23/2012 SELMA BENNETT KESHIA F 719.40 PAIN IN JOINT SITE UNSPECIFIED 05/24/2012 SELMA BENNETT KESHIA F 296.60 MO BIPOLAR I MIXED UNSPECIFIED 05/24/2012 SELMA BENNETT KESHIA F 296.60 [...] Jason MD Final 530.81 ESOPHAGEAL REFLUX 05/07/2013 Kenyn Jason MD Final 787.3 FLATUL/ERUCT GAS PAIN 05/07/2013 Kenny Jason MD Final 787.99 OTH GI SYSTEM SYMPTOMS 05/07/2013 Kenny Jason MD Final 789.03 RLQ ABDOMINAL PAIN 05/22/2013 Admitting 577.1 CHRONIC PANCREATITIS 08/09/2013 Lev Zee Working F41.9 Anxiety 08/09/2013 ZeeLev breen Working K86.1 Chronic pancreatitis 08/09/2013 ZeeLev Working M13.0 Polyarthritis 08/09/2013 ZeeLev Working R52 Generalized pain 08/09/2013 ZeeLev Working F41.9 Anxiety 08/09/2013 ZeeLev Working K86.1 Chronic pancreatitis 08/09/2013 ZeeLev Working M13.0 Polyarthritis 08/09/2013 ZeeLev Working R52 Generalized pain 08/09/2013 ZeeLev Working F41.9 Anxiety 08/09/2013 Zee, Babeba Working K86.1 Chronic pancreatitis 08/09/2013 Zee, Babeba Working M13.0 Polyarthritis 08/09/2013 ZeeLev breen Working R52 Generalized pain 08/09/2013 ZeeLev breen Working F41.9 Anxiety 08/09/2013 ZeeBetito daibeba Working K86.1 Chronic pancreatitis 08/09/2013 ZeeLev Working M13.0 Polyarthritis 08/09/2013 ZeeLev Working R52 Generalized pain 08/09/2013 ZeeLev Working F41.9 Anxiety 08/09/2013 ZeeLev Working K86.1 Chronic pancreatitis 08/09/2013 ZeeLev breen Working M13.0 Polyarthritis 08/09/2013 ZeeLev breen Working R52 Generalized pain 08/09/2013 ZeeLev Working F41.9 Anxiety 08/09/2013 ZeeLev Working K86.1 Chronic pancreatitis 08/09/2013 ZeeLev Working M13.0 Polyarthritis 08/09/2013 ZeeLev Working R52 Generalized pain 09/07/2013 KINGSLEY BHAT, BOZENA Mar Ot 276.8 HYPOPOTASSEMIA 09/07/2013 KINGSLEY BHAT, BOZENA Mar Ot 300.9 UNSPECIFIED NONPSYCHOTIC MENTAL DISORDER 09/07/2013 KINGSLEY BHAT, BOZENA Mar Ot 338.29 OTHER CHRONIC PAIN 09/07/2013 KINGSLEY BHAT, BOZENA Mar Ot 493.92 ASTHMA, UNSPECIFIED, W (ACUTE) EXACERBAT 09/07/2013 KINGSLEY BHAT, BOZENA Mar Ot 722.52 LUMB/LUMBOSAC DISC DEGEN 09/07/2013 KINGSLEY BHAT, BOZENA Mar Ot V04.81 ND FOR PROPHYLACTIC VACCIN AND INOCULATI 04/02/2014 Lev Zee Working M79.672 Pain of left foot 04/02/2014 ZeeBetitobeba Working M79.672 Pain of left foot Zee, [facility] 04/02/2014 [facility] Pain of left foot Zee, [facility] 04/02/2014 [facility].672 Pain of left foot Zee, [facility] 04/02/2014 [facility] M79.672 Pain of left foot Zee, [facility] 04/02/2014 ZeeBetitobeba Working M79.672 Pain of left foot Zee, [facility] 04/02/2014 ZeeBetitobeba Working M79.672 Pain of left foot Zee, [facility] 05/28/2014 Zee [facility] Working J30.2 Seasonal allergies 05/28/2014 Zee, [facility] Working J30.2 Seasonal allergies Zee, [facility] 05/28/2014 Zee, [facility] Working J30.2 Seasonal allergies Zee, [facility] 05/28/2014 Zee, [facility] Working J30.2 [facility]al [facility] 05/28/2014 Zee, [facility] Working J30.2 Seasonal allergies Zee, [facility] 05/28/2014 Zee, [facility] Working J30.2 Seasonal allergies Zee, [facility] 05/28/2014 Zee, [facility] Working J30.2 Seasonal allergies [facility], [facility] 09/[facility]/2014 Zee, [facility] Working J06.9 URI, acute 09/23/2014 Zee, [facility] Working J06.9 URI, acute Zee, Baoluan 09/23/2014 Zee, [facility] Working J06.9 URI, acute Zee, [facility] 09/23/2014 Zee, [facility] Working J06.9 URI, acute Zee, oluan 06/14/2015 LUCRCEIA TAPIA APRN W 296.51 Bipolar I Disorder, Most Recent Episode Depressed, Mild 06/14/2015 LUCRECIA TAPIA APRN W 309.81 Posttraumatic Stress Disorder 07/05/2015 Zee, [facility] Working Z79.899 High risk medication use Zee, uan 07/05/2015 Zee, [facility] Working Z79.899 High risk medication use Zee, [facility] 07/05/2015 Zee, [facility] Working Z79.899 High risk medication use Zee, [facility] 07/05/2015 Zee, [facility] Working Z79.899 High risk medication use Zee, [facility] 07/05/2015 Zee, [facility] Working Z79.899 High risk medication use Zee, [facility] 07/05/2015 Zee, [facility] Working Z79.899 High risk medication use Zee, [facility] 08/02/2015 Zee, [facility] Working M50.20 Cervical herniated disc 08/02/2015 Zee, [facility] Working M51.26 Lumbar herniated disc 08/02/2015 Zee, [facility] Working M75.102 Left rotator cuff tear 09/30/2015 Zee, [facility] Working M50.20 Cervical herniated disc Zee, uan 09/30/2015 Zee, [facility] Working M51.26 Lumbar herniated disc Zee, [facility] 09/30/2015 Zee, [facility] Working M75.102 Left rotator cuff tear Zee, [facility] 11/17/2015 Zee, [facility] Working M50.20 Cervical herniated disc Zee, [facility] 11/17/2015 Zee, [facility] Working M51.26 Lumbar herniated disc Zee, [facility] 11/17/2015 Zee, [facility] Working M75.102 Left rotator cuff tear [facility], [facility] 01/17/2016 Zee, [facility] Working M50.20 Cervical herniated disc Zee, [facility] 01/17/2016 Zee, [facility] Working M51.26 Lumbar herniated disc Zee, [facility] 01/17/2016 Zee, [facility] Working M75.102 Left rotator cuff tear Zee, [facility] 01/17/2016 Zee, [facility] Working Z72.0 Tobacco abuse Zee, [facility] 03/26/2016 Zee, [facility] Working M50.20 Cervical herniated disc Zee, [facility] 03/26/2016 Zee, [facility] Working M51.26 Lumbar herniated disc Zee, [facility] 03/26/2016 Zee, [facility] Working M75.102 Left rotator cuff tear Zee, [facility] 03/26/2016 Zee, [facility] Working Z72.0 Tobacco abuse Zee, [facility] 05/17/2016 Zee, [facility] Working M50.20 Cervical herniated disc Zee, [facility] 05/17/2016 Zee, [facility] Working M51.26 Lumbar herniated disc Zee, [facility] 05/17/2016 Eze, [facility] Working M75.102 Left rotator cuff tear Zee, [facility] 05/17/2016 Zee, [facility] Working R52 Pain management Zee, [facility] 05/17/2016 Zee, [facility] Working Z72.0 Tobacco abuse Zee, [facility] 05/17/2016 Zee, [facility] Working M75.102 Left rotator cuff tear Zee, [facility] 05/17/2016 Zee, [facility] Working R52 Pain management Zee, [facility] 07/10/2016 FREDDIE JOSEFA S E78.00 Pure hypercholesterolemia, unspecified 07/10/2016 KAROL FRAZIERIS E S F17.210 Nicotine dependence, cigarettes, uncomplicated 07/10/2016 KAROL FRAZIERIS E S F31.9 Bipolar disorder, unspecified 07/10/2016 KAROL FRAZIERIS E S F41.9 Anxiety disorder, unspecified 07/10/2016 KAROL FRAZIERIS E S F43.10 Post-traumatic stress disorder, unspecified 07/10/2016 [...] procedure 07/10/2016 FRAZIER, JOSEFA S Z79.899 Other vermin exterminator (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 therapy 07/10/2016 FRAZIER, JOSEFA S [...] M50.20 Cervical herniated disc Lev Zee 07/19/2016 Betito Zeenaa Working M51.26 Lumbar herniated disc Lev Zee 07/19/2016 Saadia Betitoshivanibeba Working Z72.0 Tobacco abuse Lev Zee 01/31/2017 JYOTI FRAZIER N95.1 Menopausal and female climacteric states 01/31/2017 JYOTI FRAZIER S R10.2 Pelvic and perineal pain 05/09/2018 ROSEMARY CARRERA DO B Ot Z01.818 ENCOUNTER FOR OTHER PREPROCEDURAL EXAMIN 05/12/2018 ROSEMARY CARRERA DO B Ot Z01.818 ENCOUNTER FOR OTHER PREPROCEDURAL EXAMIN 05/12/2018 ROSEMARY CARRERA DO B Ot F17.210 NICOTINE DEPENDENCE, CIGARETTES, UNCOMPL 05/12/2018 ROSEMARY CARRERA DO B Ot F32.9 MAJOR DEPRESSIVE DISORDER, SINGLE EPISOD 05/12/2018 ROSEMARY CARRERA DO Ot F41.9 ANXIETY DISORDER, UNSPECIFIED 05/12/2018 ROSEMARY CARRERA DO Ot J44.9 CHRONIC OBSTRUCTIVE PULMONARY DISEASE, U 05/12/2018 ROSEMARY CARRERA DO B Ot K21.9 GASTRO-ESOPHAGEAL REFLUX DISEASE WITHOUT 05/12/2018 ROSEMARY CARRERA DO B Ot K29.50 UNSPECIFIED CHRONIC GASTRITIS WITHOUT BL 05/12/2018 ROSEMARY CARRERA DO B Ot K31.9 DISEASE OF STOMACH AND DUODENUM, UNSPECI 05/12/2018 ROSEMARY CARRERA DO B Ot K44.9 DIAPHRAGMATIC HERNIA WITHOUT OBSTRUCTION 05/12/2018 ROSEMARY CARRERA DO B Ot K92.0 HEMATEMESIS 05/12/2018 DARION CARRERA DOIC B Ot Z79.899 OTHER CURRICULUM AND INSTRUCTION DIRECTOR (CURRENT) DRUG THERAPY 05/13/2018 ROSEMARY CARRERA DO B Ot R10.9 UNSPECIFIED ABDOMINAL PAIN 05/13/2018 ROSEMARY CARRERA DO B Ot R16.0 HEPATOMEGALY, NOT ELSEWHERE CLASSIFIED 05/20/2018 ROSEMARY CARRERA DO B Ot F17.210 NICOTINE DEPENDENCE, CIGARETTES, UNCOMPL 05/20/2018 ROSEMARY CARRERA DO B Ot F32.9 MAJOR DEPRESSIVE DISORDER, SINGLE EPISOD 05/20/2018 ROSEMARY CARRERA DO B Ot F41.9 ANXIETY DISORDER, UNSPECIFIED 05/20/2018 DARION CARRERA DOIC B Ot J44.9 CHRONIC OBSTRUCTIVE PULMONARY DISEASE, U 05/20/2018 DARION CARRERA DOIC B Ot K21.9 GASTRO-ESOPHAGEAL REFLUX DISEASE WITHOUT 05/20/2018 DEBI BENNETT, ROSEMARY B Ot K29.50 UNSPECIFIED CHRONIC GASTRITIS WITHOUT BL 05/20/2018 DARION CARRERA DOIC B Ot K31.9 DISEASE OF STOMACH AND DUODENUM, UNSPECI 05/20/2018 DEBI BENNETT ROSEMARY B Ot K44.9 DIAPHRAGMATIC HERNIA WITHOUT OBSTRUCTION 05/20/2018 DEBI BENNETT, ROSEMARY B Ot K92.0 HEMATEMESIS 05/20/2018 DARION CARRERA DOIC B Ot Z79.899 OTHER SNF (CURRENT) DRUG THERAPY 05/26/2018 DEBI BENNETT ROSEMARY B Ot R10.9 UNSPECIFIED ABDOMINAL PAIN 05/26/2018 DEBI BENNETT, ROSEMARY B Ot R16.0 HEPATOMEGALY, NOT ELSEWHERE CLASSIFIED 05/26/2018 DEBI BENNETT ROSEMARY B Ot R10.9 UNSPECIFIED ABDOMINAL PAIN 06/06/2018 DEBI BENNETT ROSEMARY B Ot R10.9 UNSPECIFIED ABDOMINAL PAIN 06/09/2018 DEBI BENNETT, ROSEMARY B Ot Z01.818 ENCOUNTER FOR OTHER PREPROCEDURAL EXAMIN 06/10/2018 DEBI BENNETT, ROSEMARY B Ot Z01.818 ENCOUNTER FOR OTHER PREPROCEDURAL EXAMIN 06/12/2018 DARION CARRERA DOIC B Ot R10.9 UNSPECIFIED ABDOMINAL PAIN 06/12/2018 DARION CARRERA DOIC B Ot R16.0 HEPATOMEGALY, NOT ELSEWHERE CLASSIFIED 06/12/2018 DEBI BENNETT ROSEMARY B Ot Z01.818 ENCOUNTER FOR OTHER PREPROCEDURAL EXAMIN 06/12/2018 DARION CARRERA DOIC B Ot R10.9 UNSPECIFIED ABDOMINAL PAIN 06/12/2018 DEBI BENNETT ROSEMARY B Ot D64.9 ANEMIA, UNSPECIFIED 06/12/2018 DEBI BENNETT, ROSEMARY B Ot F17.210 NICOTINE DEPENDENCE, CIGARETTES, UNCOMPL 06/12/2018 DEBI BENNETT ROSEMARY B Ot J44.9 CHRONIC OBSTRUCTIVE PULMONARY DISEASE, U 06/12/2018 DEBI BENNETT ROSEMARY B Ot K21.9 GASTRO-ESOPHAGEAL REFLUX DISEASE WITHOUT 06/12/2018 DEBI BENNETT ROSEMARY B Ot K81.1 CHRONIC CHOLECYSTITIS 06/12/2018 DEBI ROSEMARY BENNETT Ot K83.8 OTHER SPECIFIED DISEASES OF BILIARY TRAC 06/12/2018 ROSEMARY CARRERA DO Ot R82.99 OTHER ABNORMAL FINDINGS IN URINE 06/12/2018 DEBI BENNETT ROSEMARY Joi Ot Z79.899 OTHER CURRICULUM AND INSTRUCTION DIRECTOR (CURRENT) DRUG THERAPY 06/15/2018 SAVANNAH NOBLE MD Ot D64.9 ANEMIA, UNSPECIFIED 06/15/2018 SAVANNAH NOBLE MD Ot F17.210 NICOTINE DEPENDENCE, CIGARETTES, UNCOMPL 06/15/2018 SAVANNAH NOBLE MD Ot F31.9 BIPOLAR DISORDER, UNSPECIFIED 06/15/2018 SAVANNAH NOBLE MD Ot F41.9 ANXIETY DISORDER, UNSPECIFIED 06/15/2018 SAVANNAH NOBLE MD Ot J43.9 EMPHYSEMA, UNSPECIFIED 06/15/2018 SAVANNAH NOBLE MD Ot K21.9 GASTRO-ESOPHAGEAL REFLUX DISEASE WITHOUT 06/15/2018 SAVANNAH NOBLE MD Ot L29.9 PRURITUS, UNSPECIFIED 06/15/2018 SAVANNAH NOBLE MD Ot R11.0 NAUSEA 06/15/2018 SAVANNAH NOBLE MD Ot R11.10 VOMITING, UNSPECIFIED 06/15/2018 SAVANNAH NOBLE MD Ot Z82.49 FAMILY HX OF ISCHEM HEART DIS AND OTH DI 06/15/2018 SAVANNAH NOBLE MD Ot Z85.43 PERSONAL HISTORY OF MALIGNANT NEOPLASM O 06/15/2018 SAVANNAH NOBLE MD Ot Z86.19 PERSONAL HISTORY OF OTHER INFECTIOUS AND 06/15/2018 SAVANNAH NOBLE MD Ot Z87.19 PERSONAL HISTORY OF OTHER DISEASES OF TH 06/15/2018 SAVANNAH NOBLE MD Ot Z88.6 ALLERGY STATUS TO ANALGESIC AGENT STATUS 06/15/2018 SAVANNAH NOBLE MD Ot Z88.8 ALLERGY STATUS TO OTH DRUG/MEDS/BIOL SUB 06/15/2018 SAVANNAH NBOLE MD Ot Z90.49 ACQUIRED ABSENCE OF OTHER SPECIFIED PART 06/15/2018 SAVANNAH NOBLE MD Ot Z90.710 ACQUIRED ABSENCE OF BOTH CERVIX AND UTER 06/15/2018 SAVANNAH NOBLE MD Ot Z90.89 ACQUIRED ABSENCE OF OTHER ORGANS 06/16/2018 DELMAN DO, ROSEMARY B Ot D64.9 ANEMIA, UNSPECIFIED 06/16/2018 DARION CARRERA DOIC B Ot F17.210 NICOTINE DEPENDENCE, CIGARETTES, UNCOMPL 06/16/2018 DARION CARRERA DOIC B Ot J44.9 CHRONIC OBSTRUCTIVE PULMONARY DISEASE, U 06/16/2018 DARION CARRERA DOIC B Ot K21.9 GASTRO-ESOPHAGEAL REFLUX DISEASE WITHOUT 06/16/2018 DARION CARRERA DOIC B Ot K81.1 CHRONIC CHOLECYSTITIS 06/16/2018 DEBI BENNETT ROSEMARY B Ot K83.8 OTHER SPECIFIED DISEASES OF BILIARY TRAC 06/16/2018 DARION CARRERA DOIC B Ot R82.99 OTHER ABNORMAL FINDINGS IN URINE 06/16/2018 DARION CARRERA DOIC Joi Ot Z79.899 OTHER CURRICULUM AND INSTRUCTION DIRECTOR (CURRENT) DRUG THERAPY 06/18/2018 SAVANNAH NOBLE MD Ot D64.9 ANEMIA, UNSPECIFIED 06/18/2018 SAVANNAH NOBLE MD Ot F17.210 NICOTINE DEPENDENCE, CIGARETTES, UNCOMPL 06/18/2018 SAVANNAH NOBLE MD Ot F31.9 BIPOLAR DISORDER, UNSPECIFIED 06/18/2018 SAVANNAH NOBLE MD Ot F41.9 ANXIETY DISORDER, UNSPECIFIED 06/18/2018 SAVANNAH NOBLE MD Ot J43.9 EMPHYSEMA, UNSPECIFIED 06/18/2018 SAVANNAH NOBLE MD Ot K21.9 GASTRO-ESOPHAGEAL REFLUX DISEASE WITHOUT 06/18/2018 SAVANNAH NOBLE MD Ot L29.9 PRURITUS, UNSPECIFIED 06/18/2018 SAVANNAH NOBLE MD Ot R11.0 NAUSEA 06/18/2018 SAVANNAH NOBLE MD Ot R11.10 VOMITING, UNSPECIFIED 06/18/2018 SAVANNAH NOBLE MD Ot Z82.49 FAMILY HX OF ISCHEM HEART DIS AND OTH DI 06/18/2018 SAVANNAH NOBLE MD Ot Z85.43 PERSONAL HISTORY OF MALIGNANT NEOPLASM O 06/18/2018 SAVANNAH NOBLE MD Ot Z86.19 PERSONAL HISTORY OF OTHER INFECTIOUS AND 06/18/2018 SAVANNAH NOBLE MD Ot Z87.19 PERSONAL HISTORY OF OTHER DISEASES OF TH 06/18/2018 SAVANNAH NOBLE MD Ot Z88.6 ALLERGY STATUS TO ANALGESIC AGENT STATUS 06/18/2018 SAVANNAH NOBLE MD Ot Z88.8 ALLERGY STATUS TO OT DRUG/MEDS/BIOL SUB 06/18/2018 SAVANNAH NOBLE MD Ot Z90.49 ACQUIRED ABSENCE OF OTHER SPECIFIED PART 06/18/2018 SAVANNAH NOBLE MD Ot Z90.710 ACQUIRED ABSENCE OF BOTH CERVIX AND UTER 06/18/2018 SAVANNAH NOBLE MD Ot Z90.89 ACQUIRED ABSENCE OF OTHER ORGANS 06/27/2018 GARYMARIO DO ROSEMARY B Ot D64.9 ANEMIA, UNSPECIFIED 06/27/2018 GARYMARIO DO ROSEMARY B Ot F17.210 NICOTINE DEPENDENCE, CIGARETTES, UNCOMPL 06/27/2018 GARYMARIO DO ROSEMARY B Ot J44.9 CHRONIC OBSTRUCTIVE PULMONARY DISEASE, U 06/27/2018 DEBI DO ROSEMARY B Ot K21.9 GASTRO-ESOPHAGEAL REFLUX DISEASE WITHOUT 06/27/2018 GARYMARIO DO ROSEMARY B Ot K81.1 CHRONIC CHOLECYSTITIS 06/27/2018 GARYMARIO DO ROSEMARY B Ot K83.8 OTHER SPECIFIED DISEASES OF BILIARY TRAC 06/27/2018 GARYMARIO DO ROSEMARY B Ot R82.99 OTHER ABNORMAL FINDINGS IN URINE 06/27/2018 GARYMARIO DO ROSEMARY B Ot Z79.899 OTHER SNF (CURRENT) DRUG THERAPY 07/03/2018 GARYMARIO DO ROSEMARY B Ot R10.9 UNSPECIFIED ABDOMINAL PAIN 08/04/2018 DEBI DO ROSEMARY B Ot R10.9 UNSPECIFIED ABDOMINAL PAIN 08/21/2018 DEBI DO ROSEMARY B Ot R10.9 UNSPECIFIED ABDOMINAL PAIN Procedures Code Description Performed By Performed On 45.13 OTHER ENDOSCOPY OF INTEST Kenny Jason MD 10/27/2012 45.16 ESOPHAGOGASTRODUODENOSCOPY [ EGD] W/CLOSED BIOPSY Kenny Jason MD 2012 88.74 DX ULTRASOUND-DIGESTIVE Kenny Jason MD 10/27/2012 41695 LESION REMOVAL COLONOSCOPY Kenny Jason MD 05/07/2013 [id number] Release Peritoneum, Open Approach 07/09/2016 [id number] Resection of Bilateral Ovaries, Open Approach 07/09/2016 [id number] Resection of Bilateral Fallopian Tubes, Open Approach [...] culture - 06/12/18 09:50 Bacterial urine culture [id number] NRG COLONY COUNT >100,000/ML NRG FTX;REPORTABLE FINAL REPORT 06/15/18 09:05 NRG Methicillin resistant Staphylococcus aureus (MRSA) screening [...] Status Pt. Type Provider Facility Loc./Unit Complaint [id number] 08/11/2012 00:00:00 08/11/2012 23:59:59 [place] [id number] 06/20/2012 10:24:00 06/20/2012 23:59:59 CLS Outpatient KESHIA HAHN DO [id number] 09/18/2012 00:00:00 09/18/2012 23:59:59 CLS Outpatient REGINA CHITO LUCRECIA [id number] 08/19/2018 10:00:00 08/19/2018 23:59:59 CLS Outpatient CORTEZ DIAZ [facility] [place] [id number] 03/26/2018 08:40:00 Document Registration [id number] 01/31/2017 09:53:00 01/31/2017 23:59:59 CLS Outpatient JYOTI FRAZIER [id number] 07/09/2016 14:57:00 07/10/2016 15:00:00 DIS Inpatient JYOTI FRAZIER [facility] [id number] 02/06/2016 11:53:11 Document Registration [id number] 06/27/2016 00:00:00 06/27/2016 23:59:59 CLS Outpatient Rusty Peng [facility] O [id number] 10/27/2012 09:13:00 10/27/2012 11:29:00 DIS Outpatient Kenny Jason MD [facility] W.END [id number] 05/07/2013 07:02:00 05/07/2013 23:59:59 CLS Outpatient Kenny Jason MD [facility] [id number] 04/15/2013 08:57:00 04/15/2013 23:59:59 CLS Outpatient Kenny Jason MD [facility] [id number] 05/22/2013 10:30:00 Document Registration [id number] 01/31/2017 09:53:00 Document Registration [id number] 07/09/2016 14:57:00 Document Registration [id number] 08/05/2015 15:55:52 08/05/2015 23:59:59 CLS Outpatient [facility] 1 [id number] 09/11/2016 12:53:57 ACT Outpatient [facility] 1 [id number] 05/19/2016 00:01:21 ACT Outpatient [facility] 1 [id number] 05/18/2016 15:02:05 Document Registration [id number] 03/27/2016 18:41:20 ACT Outpatient [facility] 1 [id number] 01/18/2016 21:28:19 ACT Outpatient [facility] 1 [id number] 11/21/2015 07:53:33 ACT Outpatient [facility] 1 [id number] 10/02/2015 06:58:51 ACT Outpatient [facility] 1 [id number] 06/15/2018 10:15:00 06/15/2018 10:51:00 DIS Emergency SAVANNAH NOBLE MD [facility] ER POST OP/REDNESS AT INCISION SITE [id number] 06/12/2018 09:22:00 06/12/2018 14:20:00 DIS Outpatient ROSEMARY CARRERA DO [facility] SDC BILIARY DYSKINESIA [id number] 06/09/2018 09:11:00 06/09/2018 12:04:00 DIS Outpatient ROSEMARY CARRERA DO [facility] PREOP LAPAROSCOPIC CHOLANGIOGRAM [id number] 05/23/2018 09:56:00 05/23/2018 23:59:59 CLS Outpatient ROSEMARY CARRERA DO [facility] CARD ABD PAIN [id number] 05/12/2018 07:05:00 05/12/2018 23:59:59 CLS Outpatient ROSEMARY CARRERA DO [facility] RAD ABDOMINAL PAIN [id number] 05/12/2018 12:22:00 05/12/2018 15:15:00 DIS Outpatient ROSEMARY CARRERA DO [facility] ENDO HEMATEMESIS [id number] 05/08/2018 09:49:00 05/08/2018 23:59:59 CLS Outpatient ROSEMARY CARRERA DO [facility] PREOP EGD [id number] 09/06/2013 06:30:00 09/07/2013 12:13:00 DIS Inpatient KINGSLEY BHAT, BOZENA Mar [facility] 4TH ACUTE BRONCHITIS WITH HYPOXIA
[2018-09-02 16:53] VITALS: BP 97/76
--- NOTE | 2018-09-02 17:05 | ED Abdominal Pain ---
General Chief Complaint: Abdominal/GI Problems Stated Complaint: ABD PAIN Nursing Triage Note: PT PRESENTS TO ER WITH COMPLAINT OF ABD PAIN FOR 2 DAYS. STATES SHE HAS HAD NAUSEA, VOMITING, AND DIARRHEA. Sepsis Screen: No Definite Risk Source of Information: Patient Exam Limitations: No Limitations History of Present Illness Date Seen by Provider: Sep 02, 2018 Time Seen by Provider: 17:04 Initial Comments To ER with sharp left upper quadrant abdominal pain for the past 2 days. She has had associated nausea vomiting and diarrhea. She does not have a gallbladder. She denies fevers or chills. Timing/Duration: 1-2 Days Severity/Quality: Sharp Location: [facility] Radiation: No Radiation Activities at Onset: None Associated Symptoms: Nausea/Vomiting Allergies and Home Medications Allergies Coded Allergies: hydralazine (Verified Allergy, Severe, ANAPHYLAXIS, 06/12/18) tramadol (Unverified Allergy, Mild, 04/18/09) buspirone (Unverified Allergy, Unknown, 02/03/09) doxepin (Verified Allergy, Unknown, 06/09/18) gabapentin (Verified Allergy, Unknown, 06/09/18) hydroxyzine (Unverified Allergy, Unknown, 06/12/18) THIS ALLERGY ADDED PER ANESTHESIA. prazosin (Verified Allergy, Unknown, 06/09/18) Home Medications Aripiprazole 20 Mg Tablet, 20 MG PO DAILY, (Reported) Cetirizine HCl 10 Mg Tablet, 10 MG PO DAILY PRN for ITCHING Prescribed by: SAVANNAH NOBLE on 06/15/18 1057 Escitalopram Oxalate 20 Mg Tablet, 20 MG PO HS, (Reported) take with 10mg tab Escitalopram Oxalate 10 Mg Tablet, 10 MG PO HS, (Reported) take with 20mg tab Estradiol 1 Each Patch.tdsw, 1 EACH TD Twice Weekly, (Reported) Hydrocodone Bit/Acetaminophen 1 Tab Tab, 1 TAB PO Q6H PRN for PAIN-MODERATE Prescribed by: ROSEMARY CARRERA on 06/12/18 1146 Ondansetron 4 Mg Tab.rapdis, 4 MG PO Q6H PRN for NAUSEA/VOMITING Prescribed by: SAVANNAH NOBLE on 06/15/18 1043 Pantoprazole Sodium 40 Mg Tablet.dr, 40 MG PO DAILY, (Reported) Pregabalin 100 Mg Capsule, 100 MG PO TID, (Reported) Triamcinolone Acet 15 Gm Cr, 1 GM TP BID PRN PRN for ITCHING Prescribed by: SAVANNAH NOBLE on 06/15/18 1043 Valacyclovir HCl 500 Mg Tablet, 500 MG PO DAILY, (Reported) Patient Home Medication List Home Medication List Reviewed: Yes Review of Systems Review of Systems Constitutional: see HPI EENTM: No Symptoms Reported Respiratory: No Symptoms Reported Cardiovascular: No Symptoms Reported Gastrointestinal: See HPI, Abdominal Pain, Diarrhea, Nausea, Vomiting Genitourinary: No Symptoms Reported Skin: no symptoms reported Psychiatric/Neurological: No Symptoms Reported Endocrine: No Symptoms Reported Hematologic/Lymphatic: No Symptoms Reported Past Bhxldfw-Hefhsq-Tuggog Hx Patient Social History Alcohol Use: Denies Use Recreational Drug Use: No Smoking Status: Current Everyday Smoker Type Used: Cigarettes Recent Foreign Travel: No Contact w/Someone Who Travel: No Recent Infectious Disease Expo: No Recent Hopitalizations: No Immunizations Up To Date Tetanus Booster (TDap): Less than 5yrs PED Vaccines UTD: No Date of Pneumonia Vaccine: Aug 18, 2012 Seasonal Allergies Seasonal Allergies: No Past Medical History Surgeries: Yes (c/s x2, R hand reconstruction sx, ) Hysterectomy, Oophorectomy, Tonsillectomy Respiratory: Yes Chronic Bronchitis, Emphysema Cardiac: No Neurological: No Reproductive Disorders: No Female Reproductive Disorders: Endometriosis Sexually Transmitted Disease: Yes (GENITAL HERPES) Genitourinary: No Gastrointestinal: Yes Gastroesophageal Reflux, Pancreatitis, Gall Bladder Disease, Irritable Bowel Musculoskeletal: Yes (hernatied disc and bulging disk in back) Degenerate Disk Disease, Chronic Back Pain Endocrine: No Hearing Impairment: Denies Cancer: Yes (hpv) Ovarian What Type of Treatment Did You: Surgical Intervention Psychosocial: Yes Sleep Difficulties, Anxiety, Bipolar, Violent Behavior, Depression Integumentary: No (multiple tatoos, states gets hives when nervous) Blood Disorders: Yes (anemia) Family Medical History Alcoholism 03 FATHER 03 MOTHER 09 BROTHER 09 BROTHER 09 BROTHER 09 SISTER Cancer 03 MOTHER Chest pain 03 MOTHER Congenital heart disease 03 MOTHER Congestive heart failure 03 MOTHER Family history: Allergy 03 FATHER 03 MOTHER 09 BROTHER Family history: Alzheimer's disease 03 FATHER Family history: Arthritis 03 FATHER 03 MOTHER Family history: Asthma 03 MOTHER 09 SISTER Family history: Cardiovascular disease 03 MOTHER Family history: Coronary thrombosis 03 MOTHER Family history: Gastrointestinal disease 03 MOTHER Family history: Osteoporosis 03 MOTHER Headache 03 FATHER 03 MOTHER Heart disease 03 MOTHER History of - anemia 03 MOTHER History of - respiratory disease 09 SISTER Hypercholesterolemia 03 FATHER Myocardial infarction 03 MOTHER Parkinson's disease 03 MOTHER Psychotic disorder 03 FATHER 03 MOTHER Seizure disorder 09 SISTER Stroke 03 MOTHER No Family History of: Aphasia Cancer of colon Cataract Cystic fibrosis Dementia Dysphagia Family history: Diabetes mellitus Hearing loss History of drug abuse Infertile Kidney disease Malignant neoplasm of lung No Pertinent Family Hx Physical Exam Vital Signs Vital Signs - First Documented 09/02/18 16:53 Temp 98.2 Pulse 78 Resp 18 B/P (MAP) 97/76 (83) Pulse Ox 98 O2 Delivery Room Air Capillary Refill : Less Than 3 Seconds Height/Weight/BMI Height: 5'2.00" Weight: 160lbs. 0.0oz. 72.434101ug; 32.6 BMI Method:Stated General Appearance: WD/WN, no apparent distress HEENT: PERRL/EOMI, normal ENT inspection Respiratory: no respiratory distress, no accessory muscle use Cardiovascular: regular rate, rhythm, no murmur Gastrointestinal: normal bowel sounds, non tender, soft Extremities: normal range of motion, non-tender Neurologic/Psychiatric: alert, normal mood/affect, oriented x 3 Progress/Results/Core Measures Results/Orders Lab Results Laboratory Tests Test 09/02/18 17:03 Range/Units Urine Color YELLOW Urine Clarity CLEAR Urine pH 8 5-9 Urine Specific [place] 1.020 1.016-1.022 Urine Protein 1+ H NEGATIVE Urine Glucose (UA) NEGATIVE NEGATIVE Urine Ketones 1+ H NEGATIVE Urine Nitrite NEGATIVE NEGATIVE Urine Bilirubin NEGATIVE NEGATIVE Urine Urobilinogen 1 NORMAL MG/DL Urine Leukocyte Esterase 2+ H NEGATIVE Urine RBC (Auto) 1+ H NEGATIVE Urine RBC 0-2 /HPF Urine WBC 0-2 /HPF Urine Squamous Epithelial Cells 5-10 /HPF Urine Crystals PRESENT H /LPF Urine Calcium Oxalate Crystals MODERATE H /LPF Urine Bacteria FEW H /HPF Urine Casts NONE /LPF Urine Mucus NEGATIVE /LPF Urine Culture Indicated YES My Orders Orders - SEBASTIÁN REYES APRN Cbc With Automated Diff (09/02/18 17:03) Comprehensive Metabolic Panel (09/02/18 17:03) Ua Culture If Indicated (09/02/18 17:03) Hcg,Qualitative Serum (09/02/18 17:03) Iv Heplock-Insert (Order) (09/02/18 17:03) Chest 1 View, Ap/Pa Only (09/02/18 17:03) Lipase (09/02/18 17:03) Ns Iv 1000 Ml (Sodium Chloride 0.9%) (09/02/18 17:15) Ondansetron Injection (Zofran Injectio (09/02/18 17:15) Lidocaine 2% Viscous 15 Ml (Xylocaine Vi (09/02/18 17:15) Antacid Suspension (Mylanta Suspension (09/02/18 17:15) Urine Culture (09/02/18 17:03) Medications Given in ED Current Medications Medications Dose Ordered Sig/Jona Route Start Time Stop Time Status Last Admin Dose Admin Al Hydrox/Mg Hydrox/Simethicone 30 ml ONCE ONCE PO 09/02/18 17:15 09/02/18 17:16 DC 09/02/18 17:28 30 ML Lidocaine HCl 10 ml ONCE ONCE PO 09/02/18 17:15 09/02/18 17:16 DC 09/02/18 17:28 10 ML Ondansetron HCl 4 mg ONCE ONCE IVP 09/02/18 17:15 09/02/18 17:16 DC 09/02/18 17:26 4 MG Vital Signs/I&O 09/02/18 16:53 Temp 98.2 Pulse 78 Resp 18 B/P (MAP) 97/76 (83) Pulse Ox 98 O2 Delivery Room Air Blood Pressure Mean: 83 Departure Communication (Admissions) 1736-patient left AGAINST MEDICAL ADVICE at this time stating that she had to go hand picker her son. Impression Primary Impression: Left against medical advice Disposition: 07 AGAINST MEDICAL ADVICE Condition: Against Medical Advice Departure-Patient Inst. Referrals: [facility] (PCP) Primary Care Physician CHERELLE TRAN (Family) Primary Care Physician SEBASTIÁN REYES APRN Sep 02, 2018 17:05
[2018-09-02 17:09] LABS: BILIRUBIN,URINE NEGATIVE (NEGATIVE); CLARITY,URINE CLEAR; GLUCOSE, URINE (UA) NEGATIVE (NEGATIVE); KETONES,URINE 1+ (NEGATIVE); LEUKOCYTE ESTERASE ,URINE 2+ (NEGATIVE); NITRITE,URINE NEGATIVE (NEGATIVE); PH,URINE 8 (5-9); PROTEIN,URINE 1+ (NEGATIVE); UROBILINOGEN,URINE 1 MG/DL (NORMAL)
[2018-09-02] MEDS ORDERED: ANTACID SUSP 30 ML UDC (MYLANTA) PO ONE (17:15)
[2018-09-02] MEDS ORDERED: NS IV 1000 ML 1,000 ML IV SCH (17:15)
[2018-09-02] MEDS ORDERED: LIDOCAINE 2% VISCOUS 15 ML UDC PO ONE (17:15)
[2018-09-02] MEDS ORDERED: ONDANSETRON 4 MG/2 ML (SDV) Z0FRAN IVP ONE (17:15)
[2018-09-02 17:21] LABS: COLOR,URINE YELLOW
[2018-09-02 17:22] LABS: BACTERIA,URINE FEW /HPF; RBC,URINE 0-2 /HPF; WBC,URINE 0-2 /HPF
[2018-09-02 17:24] LABS: CALCIUM OXALATE CRYSTALS,UR MODERATE /LPF
[2018-09-02 17:39] LABS: BASOPHILS # (AUTO) 0.1 10^3/uL (0.0-0.1); BASOPHILS % (AUTO) 1 % (0-10); EOSINOPHILS # (AUTO) 0.1 10^3/uL (0.0-0.3); EOSINOPHILS % (AUTO) 1 % (0-10); HEMATOCRIT 45 % (35-52); HEMOGLOBIN 15.9 G/DL (11.5-16.0); LYMPHOCYTES # (AUTO) 3.8 X 10^3 (1.0-4.0); LYMPHOCYTES % (AUTO) 29 % (12-44); MEAN CORPUSCULAR HEMOGLOBIN 32 PG (25-34); MEAN CORPUSCULAR HGB CONC 35 G/DL (32-36); MEAN CORPUSCULAR VOLUME 91 FL (80-99); MEAN PLATELET VOLUME 10.5 FL (7.4-10.4); MONOCYTES # (AUTO) 0.7 X 10^3 (0.0-1.0); MONOCYTES % (AUTO) 5 % (0-12); NEUTROPHILS # (AUTO) 8.2 X 10^3 (1.8-7.8); NEUTROPHILS % (AUTO) 64 % (42-75); PLATELET COUNT 362 10^3/uL (130-400); RED BLOOD COUNT 4.98 10^6/uL (4.35-5.85); WHITE BLOOD COUNT 12.9 10^3/uL (4.3-11.0)
[2018-09-02 17:56] LABS: ALANINE AMINOTRANSFERASE 49 U/L (0-55); ALBUMIN 4.2 GM/DL (3.2-4.5); ALKALINE PHOSPHATASE 89 U/L (40-136); BILIRUBIN,TOTAL 0.4 MG/DL (0.1-1.0); BUN/CREATININE RATIO 9; CALCIUM 9.8 MG/DL (8.5-10.1); CARBON DIOXIDE 22 MMOL/L (21-32); CHLORIDE 106 MMOL/L (98-107); CREATININE SERUM 0.74 MG/DL (0.60-1.30); GFR ESTIMATED > 60; GLUCOSE 92 MG/DL (70-105); LIPASE 29 U/L (8-78); POTASSIUM 4.8 MMOL/L (3.6-5.0); SODIUM 140 MMOL/L (135-145); TOTAL PROTEIN 7.6 GM/DL (6.4-8.2)
== END 2018-09-02 17:30 | disposition left against medical advice (07) ==
LOC: EDUNIT# 16:26 → ER 16:27
DX: R10.12 Left upper quadrant pain (principal); R11.2 Nausea with vomiting, unspecified; R19.7 Diarrhea, unspecified; J43.9 Emphysema, unspecified; K21.9 Gastro-esophageal reflux disease without esophagitis; F41.9 Anxiety disorder, unspecified; F31.9 Bipolar disorder, unspecified; F17.210 Nicotine dependence, cigarettes, uncomplicated; Z88.8 Allergy status to other drugs, medicaments and biological substances; Z82.49 Family history of ischemic heart disease and other diseases of the circulatory system; Z85.43 Personal history of malignant neoplasm of ovary; Z87.19 Personal history of other diseases of the digestive system; Z88.6 Allergy status to analgesic agent; Z90.710 Acquired absence of both cervix and uterus; Z90.89 Acquired absence of other organs; Z98.890 Other specified postprocedural states
CPT/HCPCS: 36415; 80053; 81000; 83690; 84703; 85025; 87088

== ENCOUNTER 2018-10-27 12:56 | Emergency (ER) | payer MEDICARE, MEDICAID ==
[~2018-10-27] VITALS: Ht 157.5 cm; Wt 72.6 kg
--- OUTSIDE RECORDS SUMMARY | 2018-10-27 13:06 | XMS REPORT | Continuity of Care Document ---
Author Author [facility] Address Unknown Phone Unavailable Allergies Active Description Code Type Severity Reaction Onset Reported/Identified Relationship to Patient Clinical Status Yes BUSPIRONE [id number] Drug Allergy Unknown N/A Yes DOXEPIN [id number] Drug Allergy Unknown N/A Yes GABAPENTIN [id number] Drug Allergy Unknown N/A Yes MINIPRESS [id number] Drug Allergy Unknown N/A Yes PRAZOSIN [id number] Drug Allergy Unknown N/A Yes TRAMADOL [id number] Drug Allergy Unknown N/A Yes BuSpar [id number] N/A N/A Yes Doxepin [id number] N/A N/A Yes Minipress [id number] N/A N/A Yes Prazosin [id number] N/A N/A Yes Tramadol [id number] N/A N/A Yes NKANo Known Allergies NKA Miscellaneous Allergy Unknown N/A 02/21/2006 Yes BuSpar Drug Allergy 10/14/2008 Yes buspirone [id number] Drug Allergy Unknown N/A 02/03/2009 Yes codeine Drug Allergy 02/25/2009 Yes tramadol [id number] Drug Allergy Mild N/A 04/18/2009 Yes hyoscyamine [...] Drug Allergy Moderate N/A 07/24/2016 Yes doxepin [id number] Drug Allergy Unknown N/A 06/09/2018 Yes gabapentin [id number] Drug Allergy Unknown N/A 06/09/2018 Yes prazosin [id number] Drug Allergy Unknown N/A 06/09/2018 Yes hydralazine [id number] Drug Allergy Severe ANAPHYLAXIS 06/12/2018 Yes hydroxyzine [id number] Drug Allergy Unknown N/A 06/12/2018 Medications Medication [...] HAHN DO V58.69 MEDICATION HIGH RISK 10/05/2008 [facility] KESHIA BENNETT F 300.01 AN PANIC DIS W/O AGORA 10/05/2008 [facility] KESHIA BENNETT F 300.01 AN PANIC DIS W/O AGORA 10/14/2008 KESHIA HAHN DO F 530.81 GERD 10/14/2008 [facility] KESHIA BENNETT F 530.81 GERD 11/02/2008 [facility] KESHIA BENNETT F 300.02 GENERALIZED ANXIETY DISORDER [facility] AN PANIC DIS W AGORA [facility]/02[facility] F 307.47 SI DYSSOMNIA NOS 11/02/2008 KESHIA HAHN DO F 316 PF PSYCHIC FACTORS MED COND 11/02/2008 [facility] KESHIA BENNETT F 300.02 GENERALIZED ANXIETY DISORDER 11/02/2008 [facility] KESHIA BENNETT F 300.21 AN PANIC DIS W AGORA 11/02/[facility] F 307.47 SI DYSSOMNIA NOS 11/02/2008 [facility] KESHIA BENNETT 316 PF PSYCHIC FACTORS MED COND 01/27/2009 KESHIA HAHN DO F 528.9 DISEASES OF THE ORAL SOFT TISSUES (EXCEPT GINGIVA, TONGUE) 01/27/2009 KESHIA HAHN DO F 616.0 CERVICITIS 01/27/2009 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672 Pain of left foot Zee, [facility] 04/02/2014 [facility]79.672 Pain of left foot Zee, [facility] 04/02/2014 [facility] M79.672 Pain of left foot Zee, [facility] 04/02/2014 [facility] M79.672 Pain of left foot Zee, [facility] 04/02/2014 ZeeBetitobeba Working M79.672 Pain of left foot Zee, [facility] 04/02/2014 ZeeBetitobeba Working M79.672 Pain of left foot Zee, [facility] 05/28/2014 Zee [facility] Working J30.2 Seasonal allergies 05/28/2014 Zee, [facility] Working J30.2 Seasonal allergies Zee, [facility] 05/28/2014 Zee, [facility] Working J30.2 Seasonal allergies Zee, [facility] 05/28/2014 Zee, [facility] Working J30.2 Seasonal allergies [facility], [facility] 05/28/2014 Zee, [facility] Working J30.2 Seasonal allergies Zee, [facility] 05/28/2014 Zee, [facility] Working J30.2 Seasonal allergies Zee, [facility] 05/28/2014 Zee, [facility] Working J30.2 Seasonal allergies [facility], [facility] 09/23/2014 Zee, [facility] Working J06.9 URI, acute 09/23/2014 Zee, [facility] Working J06.9 URI, acute Zee, [facility] 09/23/2014 Zee, [facility] Working J06.9 URI, acute Zee, [facility] 09/23/2014 Zee, [facility] Working J06.9 URI, acute Zee, oluan 06/14/2015 LUCRECIA TAPIA APRN W 296.51 Bipolar I Disorder, Most Recent Episode Depressed, Mild 06/14/2015 LUCRECIA TAPIA APRN W 309.81 Posttraumatic Stress Disorder 07/05/2015 Zee, [facility] Working Z79.899 High risk medication use Zee, uan 07/05/2015 Zee, [facility] Working Z79.899 High risk medication use Zee, [facility] 07/05/2015 Zee, [facility] Working Z79.899 High risk medication use Zee, [facility] 07/05/2015 Zee, [facility] Working Z79.899 High risk medication use Zee, [facility] 07/05/2015 Zee, [facility] Working Z79.899 High risk medication use Zee, [facility] 07/05/2015 Zee, [facility] Working Z79.899 High risk medication use Zee, [facility] 08/02/2015 Zee, [facility] Working M50.20 Cervical herniated disc 08/02/2015 Zee, [facility] Working M51.26 Lumbar herniated disc 08/02/2015 Zee, [facility] Working M75.102 Left rotator cuff tear 09/30/2015 Zee, [facility] Working M50.20 Cervical herniated disc Zee, uan 09/30/2015 Zee, [facility] Working M51.26 Lumbar herniated disc Zee, [facility] 09/30/2015 Zee, [facility] Working M75.102 Left rotator cuff tear Zee, [facility] 11/17/2015 Zee, [facility] Working M50.20 Cervical herniated disc Zee, [facility] 11/17/2015 Zee, [facility] Working M51.26 Lumbar herniated disc Zee, [facility] 11/17/2015 Zee, [facility] Working M75.102 Left rotator cuff tear [facility], [facility] 01/17/2016 Zee, [facility] Working M50.20 Cervical herniated disc Zee, [facility] 01/17/2016 Zee, [facility] Working M51.26 Lumbar herniated disc Zee, [facility] 01/17/2016 Zee, [facility] Working M75.102 Left rotator cuff tear Zee, [facility] 01/17/2016 Zee, [facility] Working Z72.0 Tobacco abuse Zee, [facility] 03/26/2016 Zee, [facility] Working M50.20 Cervical herniated disc Zee, [facility] 03/26/2016 Zee, [facility] Working M51.26 Lumbar herniated disc Zee, [facility] 03/26/2016 Zee, [facility] Working M75.102 Left rotator cuff tear Zee, [facility] 03/26/2016 Zee, [facility] Working Z72.0 Tobacco abuse Zee, [facility] 05/17/2016 Zee, [facility] Working M50.20 Cervical herniated disc Zee, [facility] 05/17/2016 Zee, [facility] Working M51.26 Lumbar herniated disc Zee, [facility] 05/17/2016 Zee, [facility] Working M75.102 Left rotator cuff tear Zee, [facility] 05/17/2016 Zee, [facility] Working R52 Pain management Zee, [facility] 05/17/2016 Zee, [facility] Working Z72.0 Tobacco abuse Zee, [facility] 05/17/2016 Zee, [facility] Working M75.102 Left rotator cuff tear Zee, [facility] 05/17/2016 Zee, [facility] Working R52 Pain management Zee, [facility] 07/10/2016 FREDDIE JOSEFA S E78.00 Pure hypercholesterolemia, [...] procedure 07/10/2016 FRAZIER, JOSEFA S Z79.899 Other terminal 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 (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 therapy 07/10/2016 FRAZIER, JOSEFA S [...] DARION CARRERA DOIC B Ot Z79.899 OTHER BUSINESS INFORMATION CONSULTANT (CURRENT) DRUG THERAPY 05/13/2018 ROSEMARY CARRERA DO [...] DARION CARRERA DOIC B Ot Z79.899 OTHER SHELTER (CURRENT) DRUG THERAPY 05/26/2018 DEBI BENNETT ROSEMARY [...] DEBI BENNETT ROSEMARY Joi Ot Z79.899 OTHER BUSINESS INFORMATION CONSULTANT (CURRENT) DRUG THERAPY 06/15/2018 SAVANNAH NOBLE MD [...] STATUS TO OTH DRUG/MEDS/BIOL SUB 06/15/2018 SAVANNAH NOBLE MD Ot Z90.49 ACQUIRED ABSENCE [...] DARION CARRERA DOIC Joi Ot Z79.899 OTHER BUSINESS INFORMATION CONSULTANT (CURRENT) DRUG THERAPY 06/18/2018 SAVANNAH NOBLE MD [...] Z88.8 ALLERGY STATUS TO OTH DRUG/MEDS/BIOL SUB 06/18/2018 SAVANNAH NOBLE MD Ot Z90.49 ACQUIRED ABSENCE OF OTHER SPECIFIED PART 06/18/2018 SAVANNAH NOBLE MD Ot Z90.710 ACQUIRED ABSENCE OF BOTH CERVIX AND UTER 06/18/2018 SAVANNAH NOBLE MD Ot Z90.89 ACQUIRED ABSENCE OF OTHER ORGANS 06/27/2018 DEBI DO, ROSEMARY B Ot D64.9 ANEMIA, UNSPECIFIED 06/27/2018 DELMARIO DO, ROSEMARY B Ot F17.210 NICOTINE DEPENDENCE, CIGARETTES, UNCOMPL 06/27/2018 DELMARIO DO, ROSEMARY B Ot J44.9 CHRONIC OBSTRUCTIVE PULMONARY DISEASE, U 06/27/2018 DELMARIO DO, ROSEMARY B Ot K21.9 GASTRO-ESOPHAGEAL REFLUX DISEASE WITHOUT 06/27/2018 DELMARIO DO, ROSEMARY B Ot K81.1 CHRONIC CHOLECYSTITIS 06/27/2018 DEBI DO ROSEMARY B Ot K83.8 OTHER SPECIFIED DISEASES OF BILIARY TRAC 06/27/2018 DEBI BENNETT, ROSEMARY B Ot R82.99 OTHER ABNORMAL FINDINGS IN URINE 06/27/2018 DEBI DO, ROSEMARY B Ot Z79.899 OTHER SHELTER (CURRENT) DRUG THERAPY 07/03/2018 DEBI BENNETT, ROSEMARY B Ot R10.9 UNSPECIFIED ABDOMINAL PAIN 08/04/2018 GARYMARIO DO, ROSEMARY B Ot R10.9 UNSPECIFIED ABDOMINAL PAIN 08/21/2018 GARYMARIO DO ROSEMARY B Ot R10.9 UNSPECIFIED ABDOMINAL PAIN 09/02/2018 SEBASTIÁN REYES APRN Ot F17.210 NICOTINE DEPENDENCE, CIGARETTES, UNCOMPL 09/02/2018 SEBASTIÁN REYES APRN Ot F31.9 BIPOLAR DISORDER, UNSPECIFIED 09/02/2018 SEBASTIÁN REYES APRN Ot F41.9 ANXIETY DISORDER, UNSPECIFIED 09/02/2018 SEBASTIÁN REYES APRN Ot J43.9 EMPHYSEMA, UNSPECIFIED 09/02/2018 SEBASTIÁN REYES APRN Ot K21.9 GASTRO-ESOPHAGEAL REFLUX DISEASE WITHOUT 09/02/2018 SEBASTIÁN REYES APRN Ot R10.12 LEFT UPPER QUADRANT PAIN 09/02/2018 SEBASTIÁN REYES APRN Ot R11.2 NAUSEA WITH VOMITING, UNSPECIFIED 09/02/2018 SEBASTIÁN REYES APRN Ot R19.7 DIARRHEA, UNSPECIFIED 09/02/2018 SEBASTIÁN REYES APRN Ot Z82.49 FAMILY HX OF ISCHEM HEART DIS AND OTH DI 09/02/2018 SEBASTIÁN REYES APRN Ot Z85.43 PERSONAL HISTORY OF MALIGNANT NEOPLASM O 09/02/2018 SEBASTIÁN REYES APRN Ot Z87.19 PERSONAL HISTORY OF OTHER DISEASES OF TH 09/02/2018 SEBASTIÁN REYES APRN Ot Z88.6 ALLERGY STATUS TO ANALGESIC AGENT STATUS 09/02/2018 SEBASTIÁN REYES APRN Ot Z88.8 ALLERGY STATUS TO OTH DRUG/MEDS/BIOL SUB 09/02/2018 SEBASTIÁN REYES APRN Ot Z90.710 ACQUIRED ABSENCE OF BOTH CERVIX AND UTER 09/02/2018 SEBASTIÁN REYES APRN Ot Z90.89 ACQUIRED ABSENCE OF OTHER ORGANS 09/02/2018 SEBASTIÁN REYES APRN Ot Z98.890 OTHER SPECIFIED POSTPROCEDURAL STATES 09/04/2018 SEBASTIÁN REYES APRN Ot F17.210 NICOTINE DEPENDENCE, CIGARETTES, UNCOMPL 09/04/2018 SEBASTIÁN REYES APRN Ot F31.9 BIPOLAR DISORDER, UNSPECIFIED 09/04/2018 SEBASTIÁN REYES APRN Ot F41.9 ANXIETY DISORDER, UNSPECIFIED 09/04/2018 SEBASTIÁN REYES APRN Ot J43.9 EMPHYSEMA, UNSPECIFIED 09/04/2018 SEBASTIÁN REYES APRN Ot K21.9 GASTRO-ESOPHAGEAL REFLUX DISEASE WITHOUT 09/04/2018 SEBASTIÁN REYES APRN Ot R10.12 LEFT UPPER QUADRANT PAIN 09/04/2018 SEBASTIÁN REYES APRN Ot R11.2 NAUSEA WITH VOMITING, UNSPECIFIED 09/04/2018 SEBASTIÁN REYES APRN Ot R19.7 DIARRHEA, UNSPECIFIED 09/04/2018 SEBASTIÁN REYES APRN Ot Z82.49 FAMILY HX OF ISCHEM HEART DIS AND OTH DI 09/04/2018 SEBASTIÁN REYES APRN Ot Z85.43 PERSONAL HISTORY OF MALIGNANT NEOPLASM O 09/04/2018 SEBASTIÁN REYES APRN Ot Z87.19 PERSONAL HISTORY OF OTHER DISEASES OF TH 09/04/2018 SEBASTIÁN REYES APRN Ot Z88.6 ALLERGY STATUS TO ANALGESIC AGENT STATUS 09/04/2018 SEBASTIÁN REYES APRN Ot Z88.8 ALLERGY STATUS TO OTH DRUG/MEDS/BIOL SUB 09/04/2018 SEBASTIÁN REYES CARPENTER'S ASSISTANT Ot Z90.710 ACQUIRED ABSENCE OF BOTH CERVIX AND UTER 09/04/2018 SEBASTIÁN REYES CARPENTER'S ASSISTANT Ot Z90.89 ACQUIRED ABSENCE OF OTHER ORGANS 09/04/2018 SEBASTIÁN REYES APRN Ot Z98.890 OTHER SPECIFIED POSTPROCEDURAL STATES 09/08/2018 SEBASTIÁN REYES APRN Ot F17.210 NICOTINE DEPENDENCE, CIGARETTES, UNCOMPL 09/08/2018 SEBASTIÁN REYES APRN Ot F31.9 BIPOLAR DISORDER, UNSPECIFIED 09/08/2018 SEBASTIÁN REYES APRN Ot F41.9 ANXIETY DISORDER, UNSPECIFIED 09/08/2018 SEBASTIÁN REYES APRN Ot J43.9 EMPHYSEMA, UNSPECIFIED 09/08/2018 SEBASTIÁN REYES APRN Ot K21.9 GASTRO-ESOPHAGEAL REFLUX DISEASE WITHOUT 09/08/2018 SEBASTIÁN REYES APRN Ot R10.12 LEFT UPPER QUADRANT PAIN 09/08/2018 SEBASTIÁN REYES APRN Ot R11.2 NAUSEA WITH VOMITING, UNSPECIFIED 09/08/2018 SEBASTIÁN REYES APRN Ot R19.7 DIARRHEA, UNSPECIFIED 09/08/2018 SEBASTIÁN REYES APRN Ot Z82.49 FAMILY HX OF ISCHEM HEART DIS AND OTH DI 09/08/2018 SEBASTIÁN REYES APRN Ot Z85.43 PERSONAL HISTORY OF MALIGNANT NEOPLASM O 09/08/2018 SEBASTIÁN REYES APRN Ot Z87.19 PERSONAL HISTORY OF OTHER DISEASES OF TH 09/08/2018 SEBATSIÁN REYES APRN Ot Z88.6 ALLERGY STATUS TO ANALGESIC AGENT STATUS 09/08/2018 SEBASTIÁN REYES APRN Ot Z88.8 ALLERGY STATUS TO OTH DRUG/MEDS/BIOL SUB 09/08/2018 SEBASTIÁN REYES APRN Ot Z90.710 ACQUIRED ABSENCE OF BOTH CERVIX AND UTER 09/08/2018 SEBASTIÁN REYES APRN Ot Z90.89 ACQUIRED ABSENCE OF OTHER ORGANS 09/08/2018 SEBASTIÁN REYES APRN Ot Z98.890 OTHER SPECIFIED POSTPROCEDURAL STATES 09/24/2018 DELMAN DO, ROSEMARY B Ot R10.9 UNSPECIFIED ABDOMINAL PAIN 09/24/2018 DELMAN DO, ROSEMARY B Ot R16.0 HEPATOMEGALY, NOT ELSEWHERE CLASSIFIED 09/24/2018 ROSEMARY CARRERA DO Ot R10.9 UNSPECIFIED ABDOMINAL PAIN 09/24/2018 ROSEMARY CARRERA DO Ot R16.0 HEPATOMEGALY, NOT ELSEWHERE CLASSIFIED Procedures Code Description Performed By Performed On 45.13 OTHER ENDOSCOPY OF SM INTEST Kenny Jason MD 10/27/2012 45.16 ESOPHAGOGASTRODUODENOSCOPY [ EGD] W/CLOSED BIOPSY Kenny Jason MD 2012 88.74 DX ULTRASOUND-DIGESTIVE Kenny Jason MD 10/27/2012 85078 LESION REMOVAL COLONOSCOPY Kenny Jason MD 05/07/2013 [id number] Release Peritoneum, Open Approach 07/09/2016 [id number] Resection of Bilateral Ovaries, Open Approach 07/09/2016 [id number] Resection of Bilateral Fallopian Tubes, Open Approach [...] culture - 06/12/18 09:50 Bacterial urine culture [id number] NRG COLONY COUNT >100,000/ML NRG FTX;REPORTABLE FINAL [...] blood basophil count (count/volume) 0.0 10*3/uL 0.0-0.1 Complete urinalysis with reflex to culture - 09/02/18 17:03 Urine color determination YELLOW NRG Urine clarity determination CLEAR NRG Urine pH measurement by test strip 8 5-9 Specific gravity of urine by test strip 1.020 1.016- 1.022 Urine protein assay by test strip, semi-quantitative 1+ NEGATIVE Urine glucose detection by automated test strip NEGATIVE NEGATIVE Erythrocytes detection in urine sediment by light microscopy 1+ NEGATIVE Urine ketones detection by automated test strip 1+ NEGATIVE Urine nitrite detection by test strip NEGATIVE NEGATIVE Urine total bilirubin detection by test strip NEGATIVE NEGATIVE Urine urobilinogen measurement by automated test strip (mass/volume) 1 mg/dL NORMAL Urine leukocyte esterase detection by dipstick 2+ NEGATIVE Automated urine sediment erythrocyte count by microscopy (number/high power field) [HPF] NRG Automated urine sediment leukocyte count by microscopy (number/high power field ) [HPF] NRG Bacteria detection in urine sediment by light microscopy FEW NRG Squamous epithelial cells detection in urine sediment by light microscopy 5-10 NRG Crystals detection in urine sediment by light microscopy PRESENT NRG Casts detection in urine sediment by light microscopy NONE NRG Mucus detection in urine sediment by light microscopy NEGATIVE NRG Complete urinalysis with reflex to culture YES NRG Calcium oxalate crystals detection in urine sediment by light microscopy MODERATE NRG Bacterial urine culture - 09/02/18 17:03 Bacterial urine culture SEE REPORT NRG COLONY COUNT . NRG Complete blood count (CBC) with automated white blood cell (WBC) differential - 09/02/18 17:20 Blood leukocytes automated count (number/volume) 12.9 10*3/uL 4.3-11.0 Blood erythrocytes automated count (number/volume) 4.98 10*6/uL 4.35-5.85 Venous blood hemoglobin measurement (mass/volume) 15.9 g/dL 11.5-16.0 Blood hematocrit (volume fraction) 45 % 35-52 Automated erythrocyte mean corpuscular volume 91 [foz_us] 80-99 Automated erythrocyte mean corpuscular hemoglobin (mass per erythrocyte) 32 pg 25-34 Automated erythrocyte mean corpuscular hemoglobin concentration measurement ( mass/volume) 35 g/dL 32-36 Automated erythrocyte distribution width ratio 14.0 % 10.0-14.5 Automated blood platelet count (count/volume) 362 10*3/uL 130-400 Automated blood platelet mean volume measurement 10.5 [foz_us] 7.4-10.4 Automated blood neutrophils/100 leukocytes 64 % 42-75 Automated blood lymphocytes/100 leukocytes 29 % 12-44 Blood monocytes/100 leukocytes 5 % 0-12 Automated blood eosinophils/100 leukocytes 1 % 0-10 Automated blood basophils/100 leukocytes 1 % 0-10 Blood neutrophils automated count (number/volume) 8.2 10*3 1.8-7.8 Blood lymphocytes automated count (number/volume) 3.8 10*3 1.0-4.0 Blood monocytes automated count (number/volume) 0.7 10*3 0.0-1.0 Automated eosinophil count 0.1 10*3/uL 0.0-0.3 Automated blood basophil count (count/volume) 0.1 10*3/uL 0.0-0.1 Serum or plasma choriogonadotropin ( test) detection - 09/02/18 17:20 Serum or plasma choriogonadotropin ( test) detection NEGATIVE NEGATIVE Comprehensive metabolic panel - 09/02/18 17:20 Serum or plasma sodium measurement (moles/volume) 140 mmol/L 135-145 Serum or plasma potassium measurement (moles/volume) 4.8 mmol/L 3.6-5.0 Serum or plasma chloride measurement (moles/volume) 106 mmol/L 98-107 Carbon dioxide 22 mmol/L 21-32 Serum or plasma anion gap determination (moles/volume) 12 mmol/L 5-14 Serum or plasma urea nitrogen measurement (mass/volume) 7 mg/dL 7-18 Serum or plasma creatinine measurement (mass/volume) 0.74 mg/dL 0.60-1.30 Serum or plasma urea nitrogen/creatinine mass ratio 9 NRG Serum or plasma creatinine measurement with calculation of estimated glomerular filtration rate > NRG Serum or plasma glucose measurement (mass/volume) 92 mg/dL 70-105 Serum or plasma calcium measurement (mass/volume) 9.8 mg/dL 8.5-10.1 Serum or plasma total bilirubin measurement (mass/volume) 0.4 mg/dL 0.1-1.0 Serum or plasma alkaline phosphatase measurement (enzymatic activity/volume) 89 U/L 40-136 Serum or plasma aspartate aminotransferase measurement (enzymatic activity/ volume) 37 U/L 5-34 Serum or plasma alanine aminotransferase measurement (enzymatic activity/volume ) 49 U/L 0-55 Serum or plasma protein measurement (mass/volume) 7.6 g/dL 6.4-8.2 Serum or plasma albumin measurement (mass/volume) 4.2 g/dL 3.2-4.5 CALCIUM CORRECTED 9.6 mg/dL 8.5-10.1 Lipase - 09/02/18 17:20 Lipase 29 U/L 8-78 Encounters ACCT No. Visit Date/Time Discharge Status Pt. Type Provider Facility Loc./Unit Complaint [id number] 08/11/2012 00:00:00 08/11/2012 23:59:59 [place] [id number] 06/20/2012 10:24:00 06/20/2012 23:59:59 CLS Outpatient KESHIA HAHN DO [id number] 09/18/2012 00:00:00 09/18/2012 23:59:59 CLS Outpatient LUCRECIA TAPIA APRN [id number] 08/19/2018 10:00:00 08/19/2018 23:59:59 CLS [address]TEZ DIAZ [facility] [id number] 03/26/2018 08:40:00 Document Registration [id number] 01/31/2017 09:53:00 01/31/2017 23:59:59 CLS Outpatient JYOTI FRAZIER [id number] 07/09/2016 14:57:00 07/10/2016 15:00:00 DIS Inpatient FRAZIERJYOTI SHAY [facility] [id number] 02/06/2016 11:53:11 Document Registration [id number] 06/27/2016 00:00:00 06/27/2016 23:59:59 CLS Outpatient Rusty Peng [facility] O [id number] 10/27/2012 09:13:00 10/27/2012 11:29:00 DIS Outpatient Kenny Jason MD [facility] W.END [id number] 05/07/2013 07:02:00 05/07/2013 23:59:59 CLS Outpatient Kenny Jason MD [facility] [id number] 04/15/2013 08:57:00 04/15/2013 23:59:59 CLS Outpatient Kenny Jason MD [facility] [id number] 05/22/2013 10:30:00 Document Registration [id number] 01/31/2017 09:53:00 Document Registration [id number] 07/09/2016 14:57:00 Document Registration [id number] 08/05/2015 15:55:52 08/05/2015 23:59:59 CLS Outpatient Lev Zee [place] [id number] 09/11/2016 12:53:57 ACT Outpatient [facility] [id number] 05/19/2016 00:01:21 ACT Outpatient [facility] 1 [id number] 05/18/2016 15:02:05 Document Registration [id number] 03/27/2016 18:41:20 ACT Outpatient [facility] 1 [id number] 01/18/2016 21:28:19 ACT Outpatient [facility] 1 [id number] 11/21/2015 07:53:33 ACT Outpatient [facility] 1 [id number] 10/02/2015 06:58:51 ACT Outpatient [facility] 1 [id number] 09/02/2018 16:27:00 09/02/2018 17:30:00 DIS Emergency SEBASTIÁN REYES APRN [facility] ER ABD PAIN [id number] 06/15/2018 10:15:00 06/15/2018 10:51:00 DIS Emergency SAVANNAH NOBLE MD [facility] ER POST OP/REDNESS AT INCISION SITE [id number] 06/12/2018 09:22:00 06/12/2018 14:20:00 DIS Outpatient ROSEMARY CARRERA DO [facility] SDC BILIARY DYSKINESIA [id number] 06/09/2018 09:11:00 06/09/2018 12:04:00 DIS Outpatient ROSEMARY CARRERA DO [facility] PREOP LAPAROSCOPIC CHOLANGIOGRAM [id number] 05/23/2018 09:56:00 05/23/2018 23:59:59 CLS Outpatient ROSEMARY CARRERA DO [facility] CARD ABD PAIN [id number] 05/12/2018 07:05:00 05/12/2018 23:59:59 CLS Outpatient ROSEMARY CARRERA DO [facility] RAD ABDOMINAL PAIN [id number] 05/12/2018 12:22:00 05/12/2018 15:15:00 DIS Outpatient ROSEMARY CARRERA DO [facility] ENDO HEMATEMESIS [id number] 05/08/2018 09:49:00 05/08/2018 23:59:59 CLS Outpatient ROSEMARY CARRERA DO [facility] PREOP EGD [id number] 09/06/2013 06:30:00 09/07/2013 12:13:00 DIS Inpatient KINGSLEY BHAT, BOZENA Mar [facility] 4TH ACUTE BRONCHITIS WITH HYPOXIA
[2018-10-27] MEDS ORDERED: SULF1TAB35 PO (13:14)
--- NOTE | 2018-10-27 13:14 | ED Integumentary General ---
General Chief Complaint: Skin/Wound Problems Stated Complaint: STAPH INFECTION Nursing Triage Note: PT STATES THAT SHE HAS "STAPH" ON HER EYES, EARS, BUTTOCKS, AND WHOLE BODY. PT STATES THIS STARTED 2 DAYS AGO. Source: patient Exam Limitations: no limitations History of Present Illness Date Seen by Provider: Oct 27, 2018 Time Seen by Provider: 13:12 Initial Comments To ER with reports of "staph" on her eyes ears buttocks fingers. She assures me that she's not used any methamphetamine for at least a month. Timing/Duration: other (present for 2-3 days) Severity: moderate Associated Symptoms: change in skin texture Allergies and Home Medications Allergies Coded Allergies: hydralazine (Verified Allergy, Severe, ANAPHYLAXIS, 10/27/18) tramadol (Unverified Allergy, Mild, 10/27/18) buspirone (Unverified Allergy, Unknown, 10/27/18) doxepin (Verified Allergy, Unknown, 10/27/18) gabapentin (Verified Allergy, Unknown, 10/27/18) hydroxyzine (Unverified Allergy, Unknown, 10/27/18) THIS ALLERGY ADDED PER ANESTHESIA. prazosin (Verified Allergy, Unknown, 10/27/18) Home Medications Aripiprazole 20 Mg Tablet, 20 MG PO DAILY, (Reported) Cetirizine HCl 10 Mg Tablet, 10 MG PO DAILY PRN for ITCHING Prescribed by: SAVANNAH NOBLE on 06/15/18 1057 Escitalopram Oxalate 20 Mg Tablet, 20 MG PO HS, (Reported) take with 10mg tab Escitalopram Oxalate 10 Mg Tablet, 10 MG PO HS, (Reported) take with 20mg tab Estradiol 1 Each Patch.tdsw, 1 EACH TD Twice Weekly, (Reported) Hydrocodone Bit/Acetaminophen 1 Tab Tab, 1 TAB PO Q6H PRN for PAIN-MODERATE Prescribed by: ROSEMARY CARRERA on 06/12/18 1146 Ondansetron 4 Mg Tab.rapdis, 4 MG PO Q6H PRN for NAUSEA/VOMITING Prescribed by: SAVANNAH NOBLE on 06/15/18 1043 Pantoprazole Sodium 40 Mg Tablet.dr, 40 MG PO DAILY, (Reported) Pregabalin 100 Mg Capsule, 100 MG PO TID, (Reported) Triamcinolone Acet 15 Gm Cr, 1 GM TP BID PRN PRN for ITCHING Prescribed by: SAVANNAH NOBLE on 06/15/18 1043 Valacyclovir HCl 500 Mg Tablet, 500 MG PO DAILY, (Reported) Patient Home Medication List Home Medication List Reviewed: Yes Review of Systems Review of Systems Constitutional: see HPI EENTM: see HPI Respiratory: no symptoms reported Cardiovascular: no symptoms reported Genitourinary: no symptoms reported Musculoskeletal: no symptoms reported Skin: see HPI Psychiatric/Neurological: No Symptoms Reported Endocrine: No Symptoms Reported Past Hvjwvza-Rmaptu-Xpfuba Hx Patient Social History Alcohol Use: Denies Use Recreational Drug Use: No Smoking Status: Current Everyday Smoker Type Used: Cigarettes Recent Foreign Travel: No Contact w/Someone Who Travel: No Recent Infectious Disease Expo: No Recent Hopitalizations: No Immunizations Up To Date Tetanus Booster (TDap): Less than 5yrs PED Vaccines UTD: No Date of Pneumonia Vaccine: Aug 18, 2012 Seasonal Allergies Seasonal Allergies: No Past Medical History Surgeries: Yes (c/s x2, R hand reconstruction sx, ) Hysterectomy, Oophorectomy, Tonsillectomy Respiratory: Yes Chronic Bronchitis, Emphysema Cardiac: No Neurological: No Reproductive Disorders: No Female Reproductive Disorders: Endometriosis Sexually Transmitted Disease: Yes (GENITAL HERPES) Genitourinary: No Gastrointestinal: Yes Gastroesophageal Reflux, Pancreatitis, Gall Bladder Disease, Irritable Bowel Musculoskeletal: Yes (hernatied disc and bulging disk in back) Degenerate Disk Disease, Chronic Back Pain Endocrine: No Hearing Impairment: Denies Cancer: Yes (hpv) Ovarian What Type of Treatment Did You: Surgical Intervention Psychosocial: Yes Sleep Difficulties, Anxiety, Bipolar, Violent Behavior, Depression Integumentary: No (multiple tatoos, states gets hives when nervous) Blood Disorders: Yes (anemia) Family Medical History Alcoholism 03 FATHER 03 MOTHER 09 BROTHER 09 BROTHER 09 BROTHER 09 SISTER Cancer 03 MOTHER Chest pain 03 MOTHER Congenital heart disease 03 MOTHER Congestive heart failure 03 MOTHER Family history: Allergy 03 FATHER 03 MOTHER 09 BROTHER Family history: Alzheimer's disease 03 FATHER Family history: Arthritis 03 FATHER 03 MOTHER Family history: Asthma 03 MOTHER 09 SISTER Family history: Cardiovascular disease 03 MOTHER Family history: Coronary thrombosis 03 MOTHER Family history: Gastrointestinal disease 03 MOTHER Family history: Osteoporosis 03 MOTHER Headache 03 FATHER 03 MOTHER Heart disease 03 MOTHER History of - anemia 03 MOTHER History of - respiratory disease 09 SISTER Hypercholesterolemia 03 FATHER Myocardial infarction 03 MOTHER Parkinson's disease 03 MOTHER Psychotic disorder 03 FATHER 03 MOTHER Seizure disorder 09 SISTER Stroke 03 MOTHER No Family History of: Aphasia Cancer of colon Cataract Cystic fibrosis Dementia Dysphagia Family history: Diabetes mellitus Hearing loss History of drug abuse Infertile Kidney disease Malignant neoplasm of lung No Pertinent Family Hx Physical Exam Vital Signs Vital Signs - First Documented 10/27/18 13:00 Temp 98.2 Pulse 103 Resp 16 B/P (MAP) 116/75 (89) Pulse Ox 97 Capillary Refill : Less Than 3 Seconds General Appearance: WD/WN, no apparent distress HEENT: PERRL/EOMI, normal ENT inspection Neck: non-tender, full range of motion Gastrointestinal: non tender, soft Neurologic/Psychiatric: alert, normal mood/affect, oriented x 3 Skin: normal color, warm/dry Skin Problem Location: other Skin Problem Character: other (multiple small less than 1 cm slightly erythematous ulcerated areas consistent with skin picking behavior with secondary infection. I discussed with her skin picking behavior associated with methamphetamine but she assures me that is not what this is. These lesions are seen on her face, hands and buttock. No drainable abscess. No cellulitis.) Progress/Results/Core Measures Results/Orders Vital Signs/I&O 10/27/18 13:00 Temp 98.2 Pulse 103 Resp 16 B/P (MAP) 116/75 (89) Pulse Ox 97 Blood Pressure Mean: 89 Departure Impression Primary Impression: Soft tissue infection Disposition: 01 HOME, SELF-CARE Condition: Stable Departure-Patient Inst. Decision time for Depature: 13:13 Referrals: [facility] (PCP) Primary Care Physician CHERELLE TRAN (Family) Primary Care Physician Patient Instructions: MRSA (DC) Add. Discharge Instructions: 1. Antibiotic as directed 2. Return to ER for any concerns. All discharge instructions reviewed with patient and/or family. Voiced understanding. Scripts Sulfamethoxazole/Trimethoprim (Bactrim Ds Tablet) 1 Each Tablet 1 EACH PO BID, #14 TAB Prov: SEBASTIÁN REYES APRN 10/27/18 SEBASTIÁN REYES APRN Oct 27, 2018 13:14
[2018-10-27 13:15] VITALS: BP 116/75
== END 2018-10-27 13:15 | disposition home or self-care (01) ==
LOC: EDUNIT# 12:56 → ER 12:57
DX: L08.9 Local infection of the skin and subcutaneous tissue, unspecified (principal); J43.9 Emphysema, unspecified; K21.9 Gastro-esophageal reflux disease without esophagitis; F41.9 Anxiety disorder, unspecified; F31.9 Bipolar disorder, unspecified; K58.9 Irritable bowel syndrome, unspecified; F17.210 Nicotine dependence, cigarettes, uncomplicated; Z87.19 Personal history of other diseases of the digestive system; Z90.710 Acquired absence of both cervix and uterus; Z82.49 Family history of ischemic heart disease and other diseases of the circulatory system; Z85.43 Personal history of malignant neoplasm of ovary; Z87.448 Personal history of other diseases of urinary system; Z86.19 Personal history of other infectious and parasitic diseases; Z90.89 Acquired absence of other organs; Z98.890 Other specified postprocedural states; Z88.6 Allergy status to analgesic agent; Z88.8 Allergy status to other drugs, medicaments and biological substances
CPT/HCPCS: 99282

== ENCOUNTER 2019-01-25 19:59 | Emergency (ER) | payer MEDICARE, MEDICAID ==
[~2019-01-25] VITALS: Ht 160 cm; Wt 68.0 kg
[~2019-01-25 19:59] MED LIST changes: +SULF1TAB35 PO
--- OUTSIDE RECORDS SUMMARY | 2019-01-25 20:06 | XMS REPORT ---
Author Author Migration, Doctor Organization [facility] Address Unknown Phone Unavailable Care Team Providers Care Secretary To The Vice President Name Role Phone Migration, Doctor Unavailable Unavailable PROBLEMS Type Condition ICD9-CM Code [id number] Code Onset Dates Condition Status SNOMED Code Problem Bipolar I disorder, most recent episode (or current) mixed, unspecified 296.60 Active 54592623 Problem History of bipolar disorder Z86.59 Active 776927593 Problem Genital warts A63.0 Active 651903232 Problem Mild intermittent allergic asthma without complication J45.20 Active 627438316 Problem Gastroesophageal reflux disease without esophagitis K21.9 Active 649190017 Problem Bipolar disorder, current episode depressed, severe, without psychotic features F31.4 Active 679804192 Problem Panic disorder F41.0 Active 990768887 Problem Fibromyalgia M79.7 Active 746780940 ALLERGIES No Information ENCOUNTERS Encounter Location Date Diagnosis [facility] [id number] [place] [address] 95249- 9187 January, [facility] [id number] [place] [address] 71357- 3006 January, [facility] [id number] [place] [address] 83642- 6402 Dec, [facility] [id number] [place] [address] 81987- 2929 Dec, [facility] [id number] [place] [address] 46193- 5405 Dec, [facility] [id number] [place] [address] 53243- 4874 Dec, Panic disorder F41.0 [facility] [id number] [place] [address] [id number] Nov, 2018 Dental examination Z01.20 and Caries K02.9 [facility] [id number] [place] [address] 14012- 1237 Nov, [facility] [id number] [place] [address] 21709- 4633 Nov, Panic disorder F41.0 [facility] [id number] [place] [address] 81313- 9404 Oct, [facility] [address] 41168- 7346 Oct, [facility] [id number] [place] [address] 62997- 6691 Oct, Panic disorder F41.0 [facility] [id number] [place] [address] 94795- 7339 Sep, Panic disorder F41.0 [facility] [id number] [place] [address] 53126- 0248 Aug, Panic disorder F41.0 and Bipolar disorder, current episode depressed, severe, without psychotic features F31.4 [facility] [id number] [place] [address] 27676- 9992 Jul, Fibromyalgia M79.7 [facility] [id number] [place] [address] 82239- 8711 Jun, Panic disorder F41.0 and Bipolar disorder, current episode depressed, severe, without psychotic features F31.4 [facility] [id number] [place] [address] 39040- 0795 Jun, Fibromyalgia M79.7 [facility] [id number] [place] [address] 18534- 5201 Jun, [facility] [id number] [place] [address] 05405- 0969 May, Mild intermittent allergic asthma without complication J45.20 [facility] [id number] [place] [address] 09835- 1788 14 May, 2018 Fibromyalgia M79.7 [id number] [place] [address] 70064- 3723 May, [facility] [id number] [place] [address] 72974- 8192 Apr, Panic disorder F41.0 ; Gastroesophageal reflux disease without esophagitis K21.9 ; Genital warts A63.0 and Fibromyalgia M79.7 [address] 78540- 0302 Apr, Panic disorder F41.0 and Bipolar disorder, current episode depressed, severe, without psychotic features F31.4 [address] 41686- 3098 Mar, History of bipolar disorder Z86.59 and History of fibromyalgia Z87.39 [facility] [facility] [id number] [place] [address] 76478- 7311 Mar, History of bipolar disorder Z86.59 and History of fibromyalgia Z87.39 [facility] [facility] [id number] [place] [address] 45208- 7080 Mar, Panic disorder F41.0 and Bipolar disorder, current episode depressed, severe, without psychotic features F31.4 [address] [place] [address] [place] [address] 88575- 1695 Mar, History of bipolar disorder Z86.59 ; History of fibromyalgia Z87.39 ; Gastroesophageal reflux disease without esophagitis K21.9 and Long-term use of high-risk medication Z79.899 [id number] [place] [address] 72816- 7409 Dec, [facility] [facility] [id number] [place] [address] 00980- 1865 Dec, [facility] [id number] [place] [address] 44009- 8523 Nov, [facility] [id number] [place] [address] 67930- 6493 Oct, [facility] [place] [facility] [address] [id number] [place] [address]- 1794 Sep, [facility] [place] [facility] [address] [id number] [place] [address] Aug, [facility] [place] [facility] [address] [id number] [place] [address]- 3380 Aug, [facility] [place] [facility] [address] [id number] [place] [address]- 9436 Aug, [facility] [place] [facility] [address] [id number] [place] [address]- 1588 Jul, [facility] [place] [facility] [address] [id number] [place] [address]- 3104 Jul, [facility] [place] [facility] [address] [facility] [id number] [place] [address]- 9535 Jul, [facility] [place] [facility] [address] [id number], [place] [address]- 4849 Jul, [facility] [place] [facility] [address] [facility] [id number] [place] [address]- 2465 Jun, [facility] [place] [facility] [address] [facility] [id number], [place] [address]- 5106 Jun, [facility] [place] [facility] [address] [facility] [id number], [place] [address]- 4852 Jun, [facility] [place] [facility] [address] [id number], [place] [address]- 0431 Jun, [facility] [place] [facility] [address] [id number], [place] [address]- 2855 Jun, [facility] [place] [facility] [address] [id number], [place] [address]- 0420 Jun, [facility] [place] [facility] [address] [facility] [id number], [place] [address]- 0336 Jun, [facility] [place] [facility] [address] [id number], [place] [address]- 9782 05 Jun, 2012 [facility] [place] [facility] [address] [id number] [place] [address]- 0082 26 Sep, 2011 [facility] [place] [facility] [address] [id number] [place] [address]- 3996 25 May, 2011 [facility] [place] [facility] [address] [id number] [place] [address]- 3146 24 Sep, 2011 [facility] [place] [facility] [address] [id number] [place] [address]- 7101 11 Sep, 2011 [facility] [place] [facility] [address] [id number] [place] [address]- 9297 08 May, 2011 [facility] [place] [facility] [address] [id number] [place] [address]- 1274 07 May, 2011 [facility] [place] [facility] [address] [id number] [place] [address]- 8695 05 May, 2011 [facility] [place] [facility] [address] [id number] [place] [address]- 7314 05 May, 2011 [facility] [place] [facility] [address] [id number] [place] [address]- 8817 04 May, 2011 [facility] [place] [facility] [address] [id number] [place] [address]- 4857 29 Apr, 2012 [facility] [place] [facility] [address] [id number] [place] [address]- 2955 28 Apr, 2012 [facility] [place] [facility] [address] [id number] [place] [address]- 9856 27 Apr, 2012 [facility] [place] [facility] [address] [id number] [place] [address]- 8288 22 Apr, 2012 [facility] [place] [facility] [address] [id number] [place] [address]- 7857 Apr, [facility] [place] [facility] [address] [id number] [place] [address]- 3214 08 Apr, 2012 [facility] [place] [facility] [address] [id number] [place] [address]- 7496 Apr, [facility] [place] [facility] [address] [id number] [facility] [address]- 1512 Apr, [facility] [place] [facility] [address] [id number] [place] [address]- 0706 Apr, [facility] [place] [facility] [address] [id number] [place] [address]- 0422 Mar, [facility] [place] [facility] [address] [id number] [place] [address]- 5502 Mar, [facility] [place] [facility] [address] [id number] [place] [address]- 0401 Mar, [facility] [place] [facility] [address] [id number] [place] [address]- 0757 Mar, [facility] [place] [facility] [address] [id number] [place] [address]- 6705 Mar, [facility] [place] [facility] [address] [id number] [place] [address]- 1847 Mar, [facility] [place] [facility] [address] [id number] [place] [address]- 2914 Mar, [facility] [place] [facility] [address] [id number] [place] [address]- 0322 Mar, [facility] [place] [facility] [address] [id number] [place] [address]- 4901 Feb, [facility] [place] [facility] [address] [id number] [place] [address]- 6784 Feb, [facility] [place] [facility] [address] [id number] [place] [address]- 7936 Feb, [facility] [place] [facility] [address] [id number] [place] [address]- 3371 Feb, [facility] [place] [facility] [address] [id number] [place] [address]- 1800 Feb, [facility] [place] [facility] [address] [id number] [place] [address]- 8544 Feb, [facility] [place] [facility] [address] [id number] [place] [address]- 6953 January, [facility] [place] [facility] [address] [id number] [place] [address]- 0784 January, [facility] [place] [facility] [address] [id number] [place] [address]- 7249 30 Dec, 2011 [facility] [place] [facility] [address] [id number] [place] [address]- 1272 24 Dec, 2011 [facility] [place] [facility] [address] [id number] [place] [address]- 6598 20 Dec, 2011 [facility] [place] [facility] [address] [id number] [place] [address]- 1111 Dec, [facility] [place] [facility] [address] [id number] [place] [address]- 5021 17 Dec, 2011 [facility] [place] [facility] [address] [id number] [place] [address]- 0788 13 Dec, 2011 [facility] [place] [facility] [address] [id number] [place] [address]- 9380 12 Dec, 2011 [facility] [place] [facility] [address] [id number] [place] [address]- 4969 Dec, [facility] [place] [facility] [address] [id number], [place] [address]- 0884 28 Nov, 2011 [facility] [place] [facility] [address] [id number] [place] [address]- 0629 15 Nov, 2011 [facility] [place] [facility] [address] [id number] [place] [address]- 2127 07 Nov, 2011 [facility] [place] [facility] [address] [id number] [place] [address]- 8271 06 Nov, 2011 [facility] [place] [facility] [address] [id number] [place] [address]- 5456 05 Nov, 2011 [facility] [address] [id number] [place] [address]- 8266 Nov, [facility] [place] [facility] [address] [id number] [place] [address] 2546 Oct, [facility] [place] [facility] [address] [id number] [place] [address] 2546 Oct, [facility] [place] [facility] [address] [id number] [place] [address]- 2546 Oct, [facility] [place] [facility] [address] [id number] [place] [address] 2546 Oct, [facility] [place] [facility] [address] [id number] [place] [address] 2546 Oct, [facility] [place] [facility] [address] [facility] [id number] [place] [address] 2546 Oct, [facility] [address] [id number] [place] [address] 2542 Sep, [facility] [place] [facility] [address] [facility] [id number] [place] [address]- 8626 Aug, [facility] [address] [facility] [id number] [place] [address] 2546 Aug, [facility] [place] [facility] [address] [id number] [place] [address] 2546 Aug, [facility] [place] [facility] [address] [id number] [place] [address] 2546 19 Aug, 2011 [facility] [place] [facility] [address] [id number] [place] [address] 2546 15 Aug, 2011 [facility] [place] [facility] [address] [facility] [id number] [place] [address] 2546 Aug, [facility] [place] [facility] [address] [facility] [id number] [place] [address]- 5451 Aug, [facility] [place] [facility] [address] [id number] [place] [address]- 7481 Jul, [facility] [place] [facility] [address] [id number] [place] [address]- 1756 Jun, [facility] [place] [facility] [address] [id number] [place] [address]- 5396 Jun, [facility] [place] [facility] [address] [id number] [place] [address]- 0935 Jun, [facility] [place] [facility] [address] [id number] [place] [address]- 5851 Mar, [facility] [place] [facility] [address] [id number] [place] [address]- 0660 Feb, [facility] [place] [facility] [address] [id number] [place] [address]- 2560 Aug, [facility] [place] [facility] [address] [id number] [place] [address]- 7213 Aug, [facility] [place] [facility] [address] [id number] [place] [address]- 3532 Jul, [facility] [place] [facility] [address] [id number] [place] [address]- 9403 Aug, [facility] [place] [facility] [address] [id number], [place] [address]- 8406 24 Jul, 2009 [facility] [place] [facility] [address] [id number], [place] [address]- 1589 09 Jul, 2009 [facility] [place] [facility] [address] [id number] [place] [address]- 1774 02 Jul, 2009 [facility] [place] [facility] [address] [id number] [place] [address]- 6751 20 Jun, 2009 [facility] [place] [facility] [address] [id number] [place] 0386 16 Jun, 2009 [facility] [place] [facility] [address] [id number] [place] [address]- 1750 Feb, [facility] [address] [facility] [id number] [place] [address]- 7806 January, IMMUNIZATIONS No Known Immunizations SOCIAL HISTORY Never Assessed REASON FOR VISIT [facility] [place]AN OF CARE VITAL SIGNS MEDICATIONS Unknown [...]
--- OUTSIDE RECORDS SUMMARY | 2019-01-25 20:06 | XMS REPORT ---
Author Author Migration, Doctor Organization [facility] Address Unknown Phone Unavailable Care Team Providers Care Night Club Manager Name Role Phone Migration, Doctor Unavailable Unavailable PROBLEMS Type Condition ICD9-CM Code [id number] Code Onset Dates Condition Status SNOMED Code Problem Bipolar I disorder, most recent episode (or current) mixed, unspecified 296.60 Active 48266377 Problem History of bipolar disorder Z86.59 Active 270838705 Problem Genital warts A63.0 Active 388196514 Problem Mild intermittent allergic asthma without complication J45.20 Active 835044012 Problem Gastroesophageal reflux disease without esophagitis K21.9 Active 508343125 Problem Bipolar disorder, current episode depressed, severe, without psychotic features F31.4 Active 794486176 Problem Panic disorder F41.0 Active 519050424 Problem Fibromyalgia M79.7 Active 746776255 ALLERGIES No Information ENCOUNTERS Encounter Location Date Diagnosis [facility] [id number] [place] [address] 50453- 2400 January, [facility] [id number] [place] [address] 85194- 2672 January, [facility] [id number] [place] [address] [id number] January, [facility] [id number] [place] [address] 32100- 8675 Dec, [facility] [id number] [place] [address] 81365- 4846 Dec, [facility] [address] 27304- 4348 Dec, [facility] [id number] [place] [address] 44272- 1410 Dec, Panic disorder F41.0 [facility] [address] [id number] Nov, Dental examination Z01.20 and Caries K02.9 [facility] [id number] [place] [address] 70792- 3534 Nov, [facility] [id number] [place] [address] 58450- 0993 Nov, Panic disorder F41.0 [facility] [id number] [place] [address] 55368- 4919 Oct, [facility] [id number] [place] [address] 21832- 8635 Oct, [facility] [id number] [place] [address] 07753- 2653 Oct, Panic disorder F41.0 [facility] [id number] [place] [address] 27281- 5692 Sep, Panic disorder F41.0 [facility] [id number] [place] [address] 92138- 5764 Aug, Panic disorder F41.0 and Bipolar disorder, current episode depressed, severe, without psychotic features F31.4 [facility] [id number] [place] [address] 42433- 2002 Jul, Fibromyalgia M79.7 [facility] [id number] [place] [address] 96466- 4137 Jun, Panic disorder F41.0 and Bipolar disorder, current episode depressed, severe, without psychotic features F31.4 [facility] [id number] [place] [address] 95732- 0548 Jun, Fibromyalgia M79.7 [facility] [id number] [place] [address] 32621- 9818 Jun, [facility] [id number] [place] [address] 96413- 3496 May, Mild intermittent allergic asthma without complication J45.20 [facility] [id number] [place] [address] 77359- 0458 14 May, 2018 Fibromyalgia M79.7 [facility] [id number] [place] [address] 97464- 8863 05 May, 2018 [facility] [id number] [place] [address] 68694- 3307 Apr, Panic disorder F41.0 ; Gastroesophageal reflux disease without esophagitis K21.9 ; Genital warts A63.0 and Fibromyalgia M79.7 [facility] [id number] [place] [address] 46806- 5854 Apr, Panic disorder F41.0 and Bipolar disorder, current episode depressed, severe, without psychotic features F31.4 [facility] [id number] [place] [address] 97841- 4094 Mar, History of bipolar disorder Z86.59 and History of fibromyalgia Z87.39 [facility] [id number] [place] [address] 68717- 2895 Mar, History of bipolar disorder Z86.59 and History of fibromyalgia Z87.39 [facility] [id number] [place] [address] 71018- 1910 Mar, Panic disorder F41.0 and Bipolar disorder, current episode depressed, severe, without psychotic features F31.4 [facility] [id number] [place] [address] 13628- 7357 Mar, History of bipolar disorder Z86.59 ; History of fibromyalgia Z87.39 ; Gastroesophageal reflux disease without esophagitis K21.9 and Long-term use of high-risk medication Z79.899 [facility] [id number] [place] [address] 56161- 4260 Dec, [facility] [id number] [place] [address] 04356- 4051 Dec, [facility] [id number] [place] [address] 26301- 3539 Nov, [facility] [address] [id number] [place] [address]- 2854 Oct, [facility] [place] [facility] [address] [id number] [place] [address]- 0246 Sep, [facility] [place] [facility] [address] [id number] [place] [address]- 9804 Aug, [facility] [place] [facility] [address] [id number] [place] [address]- 5101 Aug, [facility] [place] [facility] [address] [id number] [place] [address]- 4130 Aug, [facility] [place] [facility] [address] [id number] [place] [address]- 1379 Jul, [facility] [place] [facility] [address] [id number] [place] [address]- 3001 Jul, [facility] [place] [facility] [address] [id number] [place] [address]- 0397 Jul, [facility] [place] [facility] [address] [id number] [place] [address]- 6408 Jul, [facility] [place] [facility] [address] [id number] [place] [address]- 3858 Jun, [facility] [place] [facility] [address] [id number] [place] [address]- 2906 Jun, [facility] [place] [facility] [address] [id number] [address] 1721 Jun, [facility] [place] [facility] [address] [id number] [place] 3138 Jun, [facility] [place] [facility] [address] [id number] [place] [address]- 4446 Jun, [facility] [place] [facility] [address] [id number] [place] [address]- 6828 Jun, [facility] [place] [facility] [address] [id number] [address]- 5741 08 Jun, 2012 [facility] [place] [facility] [address] [id number] [place] [address]- 0849 05 Jun, 2012 [facility] [place] [facility] [address] [id number] [place] [address]- 9916 26 May, 2011 [facility] [place] [facility] [address] [id number] [place] [address]- 5996 25 May, 2011 [facility] [place] [facility] [address] [id number] [place] [address]- 0316 24 Sep, 2011 [facility] [place] [facility] [address] [id number] [place] [address]- 6908 11 May, 2011 [facility] [place] [facility] [address] [id number] [place] [address]- 8521 08 May, 2011 [facility] [place] [facility] [address] [id number] [place] [address]- 3877 07 May, 2011 [facility] [place] [facility] [address] [id number] [place] [address]- 5883 05 May, 2011 [facility] [place] [facility] [address] [id number] [place] [address]- 7637 05 May, 2011 [facility] [place] [facility] [address] [id number] [place] [address]- 9823 04 May, 2011 [facility] [place] [facility] [address] [id number] [place] [address]- 7374 Apr, [facility] [place] [facility] [address] [id number] [place] [address]- 4026 Apr, [facility] [place] [facility] [address] [id number] [place] [address]- 9224 Apr, [facility] [place] [facility] [address] [id number] [place] [address]- 5705 Apr, [facility] [place] [facility] [address] [id number] [place] [address]- 2838 Apr, [facility] [place] [facility] [address] [id number] [place] [address]- 1054 Apr, [facility] [place] [facility] [address] [id number] [place] [address]- 8598 Apr, [facility] [place] [facility] [address] [id number] [place] [address]- 9976 Apr, [facility] [place] [facility] [address] [id number] [place] [address]- 9172 Apr, [facility] [place] [facility] [address] [id number] [place] [address]- 5691 Mar, [facility] [place] [facility] [address] [id number] [place] [address]- 5123 Mar, [facility] [place] [facility] [address] [id number] [place] [address]- 6979 Mar, [facility] [place] [facility] [address] [id number] [place] [address]- 7420 Mar, [facility] [place] [facility] [address] [id number] [place] [address]- 0567 Mar, [facility] [place] [facility] [address] [id number] [place] [address]- 2640 Mar, [facility] [place] [facility] [address] [id number] [place] [address]- 3624 Mar, [facility] [place] [facility] [address] [id number] [place] [address]- 9190 Mar, [facility] [place] [facility] [address] [id number] [place] [address]- 3666 Feb, [facility] [place] [facility] [address] [id number] [place] [address]- 1167 Feb, [facility] [place] [facility] [address] [id number] [place] [address]- 6632 Feb, [facility] [place] [facility] [address] [id number] [place] [address]- 4116 Feb, [facility] [place] [facility] [address] [id number] [place] [address]- 6592 Feb, [facility] [place] [facility] [address] [id number] [place] [address]- 4021 Feb, [facility] [place] [facility] [address] [id number] [place] [address]- 2518 January, [facility] [place] [facility] [address] [id number] [place] [address]- 7908 January, [facility] [place] [facility] [address] [id number] [place] [address]- 8671 30 Dec, 2011 [facility] [place] [facility] [address] [id number] [place] [address]- 3496 24 Dec, 2011 [facility] [place] [facility] [address] [id number] [place] [address]- 4141 20 Dec, 2011 [facility] [place] [facility] [address] [id number] [place] [address]- 4586 19 Dec, 2011 [facility] [place] [facility] [address] [id number] [place] [address]- 0762 17 Dec, 2011 [facility] [place] [facility] [address] [id number] [place] [address]- 3343 13 Dec, 2011 [facility] [place] [facility] [address] [id number] [place] [address]- 9317 12 Dec, 2011 [facility] [place] [facility] [address] [id number] [place] [address]- 2492 12 Dec, 2011 [facility] [place] [facility] [address] [id number] [place] [address]- 4986 28 Nov, 2011 [facility] [place] [facility] [address] [id number] [place] [address]- 3074 15 Nov, 2011 [facility] [place] [facility] [address] [id number] [place] 4344 07 Nov, 2011 [facility] [place] [facility] [address] [id number] [place] [address]- 5779 06 Nov, 2011 [facility] [address] [id number] [place] [address]- 5416 Nov, [facility] [place] [facility] [address] [id number] [place] [address]- 9536 Nov, [facility] [address] [id number] [place] [address]- 2866 Oct, [facility] [place] [facility] [address] [id number] [place] [address]- 9188 Oct, [facility] [address] [id number] [place] [address]- 3986 Oct, [facility] [place] [facility] [address] [id number] [place] [address]- 3496 Oct, [facility] [address] [id number] [place] [address]- 1966 Oct, [facility] [address] [id number] [place] [address]- 8773 Oct, [facility] [address] [id number] [place] [address]- 1639 Sep, [facility] [address] [facility] [id number] [place] [address]- 7112 Aug, [facility] [place] [facility] [address] [id number] [place] [address] 2546 Aug, [facility] [place] [facility] [address] [id number] [place] [address] 2546 Aug, [facility] [place] [facility] [address] [id number] [place] [address] 2546 19 Aug, 2011 [facility] [place] [facility] [address] [id number] [place] [address] 2546 15 Aug, 2011 [facility] [place] [facility] [address] [facility] [id number] [place] [address]- 2152 13 Aug, 2011 [facility] [place] [facility] [address] [id number] [place] [address]- 9218 13 Aug, 2011 [facility] [place] [facility] [address] [id number] [place] [address]- 6156 Jul, [facility] [place] [facility] [address] [id number] [place] [address]- 5867 Jun, [facility] [place] [facility] [address] [id number] [place] [address]- 5196 Jun, [facility] [place] [facility] [address] [id number] [place] [address]- 1164 Jun, [facility] [place] [facility] [address] [id number] [place] [address]- 3793 Mar, [facility] [place] [facility] [address] [id number] [place] [address]- 0746 Feb, [facility] [place] [facility] [address] [id number], [place] [address]- 2716 Aug, [facility] [place] [facility] [address] [id number] [place] [address]- 6389 Aug, [facility] [place] [facility] [address] [facility] [id number], [place] [address]- 6648 Jul, [facility] [place] [facility] [address] [facility] [id number], [place] [address]- 1174 Aug, [facility] [place] [facility] [address] [id number], [place] [address]- 4578 Jul, [facility] [place] [facility] [address] [id number] [place] [address]- 9971 Jul, [facility] [place] [facility] [address] [id number], [place] [address]- 7626 Jul, [facility] [place] [facility] [address] [id number], [place] [address]- 4390 Jun, [facility] [place] [facility] [address] [id number], [place] [address]- 3086 Jun, [facility] [address] [facility] [id number] [place] [address]- 8284 Feb, [facility] [address] [facility] [id number], [place] [address]- 9549 January, IMMUNIZATIONS No Known Immunizations SOCIAL HISTORY Never Assessed REASON FOR VISIT EMR-[facility] [place] PLAN OF CARE VITAL SIGNS MEDICATIONS Unknown [...]
--- OUTSIDE RECORDS SUMMARY | 2019-01-25 20:06 | XMS REPORT ---
Author Author Migration, Doctor Organization [facility] Address Unknown Phone Unavailable Care Team Providers Care Head Of Operation And Logistics Name Role Phone Migration, Doctor Unavailable Unavailable PROBLEMS Type Condition ICD9-CM Code [id number] Code Onset Dates Condition Status SNOMED Code Problem Bipolar I disorder, most recent episode (or current) mixed, unspecified 296.60 Active 33205715 Problem History of bipolar disorder Z86.59 Active 000375600 Problem Genital warts A63.0 Active 337816681 Problem Mild intermittent allergic asthma without complication J45.20 Active 828463950 Problem Gastroesophageal reflux disease without esophagitis K21.9 Active 102274863 Problem Bipolar disorder, current episode depressed, severe, without psychotic features F31.4 Active 671378016 Problem Panic disorder F41.0 Active 656558353 Problem Fibromyalgia M79.7 Active [id number] ALLERGIES No Information ENCOUNTERS Encounter Location Date Diagnosis [facility] [id number] [place] [address] 31184- 3821 January, [facility] [id number] [place] [address] 07770- 0607 January, [facility] [id number] [place] [address] [id number] January, [facility] [id number] [place] [address] 57079- 3172 Dec, [facility] [id number] [place] [address] 07707- 2005 Dec, [facility] [address] [address]- 4240 Dec, [facility] [id number] [place] [address] 04086- 7214 Dec, Panic disorder F41.0 [facility] [address] [id number] Nov, Dental examination Z01.20 and Caries K02.9 [facility] [id number] [place] [address] 37512- 3406 Nov, [facility] [id number] [place] [address] 14020- 6666 Nov, Panic disorder F41.0 [facility] [id number] [place] [address] 19749- 1248 Oct, [facility] [id number] [place] [address] 20240- 1562 Oct, [facility] [id number] [place] [address] 83187- 4972 Oct, Panic disorder F41.0 [facility] [id number] [place] [address] 81100- 2006 Sep, Panic disorder F41.0 [facility] [id number] [place] [address] 10536- 6483 Aug, Panic disorder F41.0 and Bipolar disorder, current episode depressed, severe, without psychotic features F31.4 [facility] [id number] [place] [address] 28689- 3746 Jul, Fibromyalgia M79.7 [facility] [id number] [place] [address] 71267- 4509 Jun, Panic disorder F41.0 and Bipolar disorder, current episode depressed, severe, without psychotic features F31.4 [facility] [id number] [place] [address] 70295- 1669 Jun, Fibromyalgia M79.7 [facility] [id number] [place] [address] 35214- 6881 Jun, [facility] [id number] [place] [address] 27874- 0352 May, Mild intermittent allergic asthma without complication J45.20 [facility] [address] [place] [address] 54172- 5202 14 May, 2018 Fibromyalgia M79.7 [facility] [id number] [place] [address] 79118- 1424 05 May, 2018 [facility] [id number] [place] [address] 83583- 4995 Apr, Panic disorder F41.0 ; Gastroesophageal reflux disease without esophagitis K21.9 ; Genital warts A63.0 and Fibromyalgia M79.7 [facility] [id number] [place] [address] 40049- 0731 Apr, Panic disorder F41.0 and Bipolar disorder, current episode depressed, severe, without psychotic features F31.4 [facility] [id number] [place] [address] 07657- 9920 Mar, History of bipolar disorder Z86.59 and History of fibromyalgia Z87.39 [facility] [id number] [place] [address] 57299- 5765 Mar, History of bipolar disorder Z86.59 and History of fibromyalgia Z87.39 [facility] [id number] [place] [address] 42372- 3281 Mar, Panic disorder F41.0 and Bipolar disorder, current episode depressed, severe, without psychotic features F31.4 [facility] [id number] [place] [address] 76976- 0199 Mar, History of bipolar disorder Z86.59 ; History of fibromyalgia Z87.39 ; Gastroesophageal reflux disease without esophagitis K21.9 and Long-term use of high-risk medication Z79.899 [facility] [id number] [place] [address] 06712- 2733 Dec, [facility] [id number] [place] [address] 05483- 1560 Dec, [facility] [address] [place] [address] 41772- 8407 Nov, [facility] [address] [id number] [place] [address]- 5146 Oct, [facility] [place] [facility] [address] [id number] [place] [address]- 0528 Sep, [facility] [place] [facility] [address] [id number] [place] [address]- 8091 Aug, [facility] [place] [facility] [address] [id number] [place] [address]- 0152 Aug, [facility] [place] [facility] [address] [id number] [place] [address]- 8323 Aug, [facility] [place] [facility] [address] [id number] [place] [address]- 1062 Jul, [facility] [place] [facility] [address] [id number] [place] [address]- 6428 Jul, [facility] [place] [facility] [address] [id number] [place] [address]- 3550 Jul, [facility] [place] [facility] [address] [id number] [place] [address]- 9978 Jul, [facility] [place] [facility] [address] [id number] [place] [address]- 9358 Jun, [facility] [place] [facility] [address] [id number] [place] [address]- 4568 Jun, [facility] [place] [facility] [address] [id number] [address]- 7681 Jun, [facility] [place] [facility] [address] [id number] [place] 8387 Jun, [facility] [place] [facility] [address] [id number] [place] [address]- 6382 Jun, [facility] [place] [facility] [address] [id number] [place] [address]- 3997 Jun, [facility] [place] [facility] [address] [id number] [place] [address]- 0790 08 Jun, 2012 [facility] [place] [facility] [address] [id number] [place] [address]- 9942 05 Jun, 2012 [facility] [place] [facility] [address] [id number] [place] [address]- 6456 26 May, 2011 [facility] [place] [facility] [address] [id number] [place] [address]- 0216 25 May, 2011 [facility] [place] [facility] [address] [id number] [place] [address]- 8386 24 Sep, 2011 [facility] [place] [facility] [address] [id number] [place] [address]- 2725 11 May, 2011 [facility] [place] [facility] [address] [id number] [place] [address]- 2701 08 May, 2011 [facility] [place] [facility] [address] [id number] [place] [address]- 4124 07 May, 2011 [facility] [place] [facility] [address] [id number] [place] [address]- 5478 05 May, 2011 [facility] [place] [facility] [address] [id number] [place] [address]- 7497 05 May, 2011 [facility] [place] [facility] [address] [id number] [place] [address]- 6060 04 May, 2011 [facility] [place] [facility] [address] [id number] [place] [address]- 1255 Apr, [facility] [place] [facility] [address] [id number] [place] [address]- 7190 Apr, [facility] [place] [facility] [address] [id number] [place] [address]- 0132 Apr, [facility] [place] [facility] [address] [id number] [place] [address]- 4079 Apr, [facility] [place] [facility] [address] [id number] [place] [address]- 3147 Apr, [facility] [place] [facility] [address] [id number] [place] [address]- 8902 Apr, [facility] [place] [facility] [address] [id number] [place] [address]- 2111 Apr, [facility] [place] [facility] [address] [id number] [place] [address]- 5076 Apr, [facility] [place] [facility] [address] [id number] [place] [address]- 4778 Apr, [facility] [place] [facility] [address] [id number] [place] [address]- 6919 Mar, [facility] [place] [facility] [address] [id number] [place] [address]- 4620 Mar, [facility] [place] [facility] [address] [id number] [place] [address]- 7531 Mar, [facility] [place] [facility] [address] [id number] [place] [address]- 6260 Mar, [facility] [place] [facility] [address] [id number] [place] [address]- 0852 Mar, [facility] [place] [facility] [address] [id number] [place] [address]- 7829 Mar, [facility] [place] [facility] [address] [id number] [place] [address]- 6221 Mar, [facility] [place] [facility] [address] [id number] [place] [address]- 5064 Mar, [facility] [place] [facility] [address] [id number] [place] [address]- 6374 Feb, [facility] [place] [facility] [address] [id number] [place] [address]- 3753 Feb, [facility] [place] [facility] [address] [id number] [place] [address]- 4724 Feb, [facility] [place] [facility] [address] [id number] [place] [address]- 4178 Feb, [facility] [place] [facility] [address] [id number] [place] [address]- 1973 Feb, [facility] [place] [facility] [address] [id number] [place] [address]- 7178 Feb, [facility] [place] [facility] [address] [id number] [place] [address]- 2820 January, [facility] [place] [facility] [address] [id number] [place] [address]- 5323 January, [facility] [place] [facility] [address] [id number] [place] [address]- 3735 30 Dec, 2011 [facility] [place] [facility] [address] [id number] [place] [address]- 5660 24 Dec, 2011 [facility] [place] [facility] [address] [id number] [place] [address]- 8707 20 Dec, 2011 [facility] [place] [facility] [address] [id number] [place] [address]- 4834 19 Dec, 2011 [facility] [place] [facility] [address] [id number] [place] [address]- 3915 17 Dec, 2011 [facility] [place] [facility] [address] [id number] [place] [address]- 8910 13 Dec, 2011 [facility] [place] [facility] [address] [id number] [place] [address]- 9318 12 Dec, 2011 [facility] [place] [facility] [address] [id number] [place] [address]- 7869 12 Dec, 2011 [facility] [place] [facility] [address] [id number] [place] [address]- 0424 28 Nov, 2011 [facility] [place] [facility] [address] [id number] [place] [address]- 7498 15 Nov, 2011 [facility] [place] [facility] [address] [id number] [place] 5443 07 Nov, 2011 [facility] [place] [facility] [address] [id number] [place] [address]- 1686 06 Nov, 2011 [facility] [address] [id number] [place] [address]- 2566 Nov, [facility] [place] [facility] [address] [id number] [place] [address]- 8726 Nov, [facility] [address] [id number] [place] [address]- 0566 Oct, [facility] [place] [facility] [address] [id number] [place] [address]- 2677 Oct, [facility] [address] [id number] [place] [address]- 7176 Oct, [facility] [place] [facility] [address] [id number] [place] [address]- 5326 Oct, [facility] [address] [id number] [place] [address]- 5276 Oct, [facility] [address] [id number] [place] [address]- 4751 Oct, [facility] [address] [id number] [place] [address]- 2929 Sep, [facility] [address] [facility] [id number] [place] [address]- 1898 Aug, [facility] [place] [facility] [address] [id number] [place] [address] 2546 Aug, [facility] [place] [facility] [address] [id number] [place] [address] 2546 Aug, [facility] [place] [facility] [address] [id number] [place] [address] 2546 19 Aug, 2011 [facility] [place] [facility] [address] [id number] [place] [address] 2546 15 Aug, 2011 [facility] [place] [facility] [address] [facility] [id number] [place] [address]- 9375 13 Aug, 2011 [facility] [place] [facility] [address] [id number] [place] [address]- 8766 13 Aug, 2011 [facility] [place] [facility] [address] [id number] [place] [address]- 1667 Jul, [facility] [place] [facility] [address] [id number] [place] [address]- 0802 Jun, [facility] [place] [facility] [address] [id number] [place] [address]- 3796 Jun, [facility] [place] [facility] [address] [id number] [place] [address]- 1776 Jun, [facility] [place] [facility] [address] [id number] [place] [address]- 3301 Mar, [facility] [place] [facility] [address] [id number] [place] [address]- 1222 Feb, [facility] [place] [facility] [address] [id number] [place] [address]- 1265 Aug, [facility] [place] [facility] [address] [id number] [place] [address]- 1217 Aug, [facility] [place] [facility] [address] [facility] [id number] [place] [address]- 0530 Jul, [facility] [place] [facility] [address] [facility] [id number] [place] [address]- 6804 Aug, [facility] [place] [facility] [address] [id number] [place] [address]- 2050 Jul, [facility] [place] [facility] [address] [id number] [place] [address]- 0550 Jul, [facility] [place] [facility] [address] [id number] [place] [address]- 7236 Jul, [facility] [place] [facility] [address] [id number] [place] [address]- 0775 Jun, [facility] [place] [facility] [address] [id number] [place] [address]- 9626 Jun, [facility] [address] [facility] [id number] [place] [address]- 6047 Feb, [facility] [address] [facility] [id number] [place] [address]- 5038 January, IMMUNIZATIONS No Known Immunizations SOCIAL HISTORY Never Assessed REASON FOR VISIT EMR-[facility] PLAN OF CARE VITAL SIGNS MEDICATIONS Unknown [...]
--- OUTSIDE RECORDS SUMMARY | 2019-01-25 20:06 | XMS REPORT ---
Author Author Migration, Doctor Organization [facility] Address Unknown Phone Unavailable Care Team Providers Care Commission Agent Livestock Name Role Phone Migration, Doctor Unavailable Unavailable PROBLEMS Type Condition ICD9-CM Code YLM29-CL Code Onset Dates Condition Status SNOMED Code Problem Bipolar I disorder, most recent episode (or current) mixed, unspecified 296.60 Active 77888707 Problem History of bipolar disorder Z86.59 Active 221008090 Problem Genital warts A63.0 Active 137124122 Problem Mild intermittent allergic asthma without complication J45.20 Active 670172584 Problem Gastroesophageal reflux disease without esophagitis K21.9 Active 635773770 Problem Bipolar disorder, current episode depressed, severe, without psychotic features F31.4 Active 251477882 Problem Panic disorder F41.0 Active 593815296 Problem Fibromyalgia M79.7 Active [id number] ALLERGIES No Information ENCOUNTERS Encounter Location Date Diagnosis [facility] [place] [id number] [place] [address] 48418- 8711 January, [facility], [place] [id number] [place] [address] 05706- 6938 January, [facility] [id number] [place] [address] [id number] January, [facility], [place] [id number] [place] [address] 00022- 0770 Dec, [facility] [place] [id number] [place] [address] 64498- 7512 Dec, [facility], [place] [address] [address]- 2187 Dec, [facility] [place] [id number] [place] [address] 54671- 3318 Dec, Panic disorder F41.0 [facility] [address] [id number] Nov, Dental examination Z01.20 and Caries K02.9 [facility], [place] [id number] [place] [address] 68620- 1886 Nov, [facility] [place] [id number] [place] [address] 26887- 7998 Nov, Panic disorder F41.0 [facility] [place] [id number] [place] [address] 73299- 4382 Oct, [facility], [place] [id number] [place] [address] 00373- 2773 Oct, [facility] [place] [id number] [place] [address] 31922- 7312 Oct, Panic disorder F41.0 [facility], [place] [id number] [place] [address] 67679- 8534 Sep, Panic disorder F41.0 [facility], [place] [id number] [place] [address] 17575- 4862 Aug, Panic disorder F41.0 and Bipolar disorder, current episode depressed, severe, without psychotic features F31.4 [facility], [place] [id number] [place] [address] 53630- 2104 Jul, Fibromyalgia M79.7 [facility], [place] [address] [place] [address] 85154- 3202 Jun, Panic disorder F41.0 and Bipolar disorder, current episode depressed, severe, without psychotic features F31.4 [facility], [place] [address] [place] [address] 68317- 1929 Jun, Fibromyalgia M79.7 [facility], [place] [id number] [place] [address] 00044- 1047 Jun, [facility], [place] [address] [place] [address] 16571- 6870 May, Mild intermittent allergic asthma without complication J45.20 [facility], [place] [id number] [place] [address] 82564- 5612 14 May, 2018 Fibromyalgia M79.7 [place] [id number] [place] [address] 62803- 1865 05 May, 2018 [address] [place] [id number] [place] [address] 94392- 1981 Apr, Panic disorder F41.0 ; Gastroesophageal reflux disease without esophagitis K21.9 ; Genital warts A63.0 and Fibromyalgia M79.7 [id number] [place] [address] 08988- 3697 Apr, Panic disorder F41.0 and Bipolar disorder, current episode depressed, severe, without psychotic features F31.4 [place] [id number] [place] [address] 10234- 8341 Mar, History of bipolar disorder Z86.59 and History of fibromyalgia Z87.39 [place] [id number] [place] [address] 25181- 8393 Mar, History of bipolar disorder Z86.59 and History of fibromyalgia Z87.39 [place] [id number] [place] [address] 57035- 8169 Mar, Panic disorder F41.0 and Bipolar disorder, current episode depressed, severe, without psychotic features F31.4 [address] [address] [place] [address] 15920- 0090 Mar, History of bipolar disorder Z86.59 ; History of fibromyalgia Z87.39 ; Gastroesophageal reflux disease without esophagitis K21.9 and Long-term use of high-risk medication Z79.899 [address] [place] [address] 89949- 5300 Dec, [place] [id number] [place] [address] 57942- 8775 Dec, [address] [place] [place] [address] 66690- 3561 Nov, [facility] [address] [id number] [place] [address]- 7557 Oct, [facility] [place] [facility] [address] [id number] [place] [address]- 5418 Sep, [facility] [place] [facility] [address] [id number] [place] [address]- 4436 Aug, [facility] [place] [facility] [address] [id number] [place] [address]- 5860 Aug, [facility] [place] [facility] [address] [id number] [place] [address]- 9066 Aug, [facility] [place] [facility] [address] [id number] [place] [address]- 7770 Jul, [facility] [place] [facility] [address] [id number] [place] [address]- 5181 Jul, [facility] [place] [facility] [address] [id number] [place] [address]- 5221 Jul, [facility] [place] [facility] [address] [id number] [place] [address]- 9976 Jul, [facility] [place] [facility] [address] [id number] [place] [address]- 4825 Jun, [facility] [place] [facility] [address] [id number] [place] [address]- 5961 Jun, [facility] [place] [facility] [address] [id number], [place] [address]- 2692 Jun, [facility] [place] [facility] [address] [id number] [place] 3032 Jun, [facility] [place] [facility] [address] [id number] [place] [address]- 7399 Jun, [facility] [place] [facility] [address] [id number] [place] [address]- 1036 Jun, [facility] [place] [facility] [address] [id number], [place] [address]- 7395 08 Jun, 2012 [facility] [place] [facility] [address] [id number] [place] [address]- 2349 05 Jun, 2012 [facility] [place] [facility] [address] [id number] [place] [address]- 7946 26 May, 2011 [facility] [place] [facility] [address] [id number] [place] [address]- 8396 25 May, 2011 [facility] [place] [facility] [address] [id number] [place] [address]- 6630 24 Sep, 2011 [facility] [place] [facility] [address] [id number] [place] [address]- 3710 11 May, 2011 [facility] [place] [facility] [address] [id number] [place] [address]- 2290 08 May, 2011 [facility] [place] [facility] [address] [id number] [place] [address]- 9946 07 May, 2011 [facility] [place] [facility] [address] [id number] [place] [address]- 3609 05 May, 2011 [facility] [place] [facility] [address] [id number] [place] [address]- 0247 05 May, 2011 [facility] [place] [facility] [address] [id number] [place] [address]- 1488 04 May, 2011 [facility] [place] [facility] [address] [id number] [place] [address]- 5642 Apr, [facility] [place] [facility] [address] [id number] [place] [address]- 8584 Apr, [facility] [place] [facility] [address] [id number] [place] [address]- 6405 Apr, [facility] [place] [facility] [address] [id number] [place] [address]- 5279 Apr, [facility] [place] [facility] [address] [id number] [place] [address]- 7391 Apr, [facility] [place] [facility] [address] [id number] [place] [address]- 1215 Apr, [facility] [place] [facility] [address] [id number] [place] [address]- 1747 Apr, [facility] [place] [facility] [address] [id number] [place] [address]- 5106 Apr, [facility] [place] [facility] [address] [id number] [place] [address]- 2619 Apr, [facility] [place] [facility] [address] [id number] [place] [address]- 6469 Mar, [facility] [place] [facility] [address] [id number] [place] [address]- 7690 Mar, [facility] [place] [facility] [address] [id number] [place] [address]- 6362 Mar, [facility] [place] [facility] [address] [id number] [place] [address]- 9065 Mar, [facility] [place] [facility] [address] [id number] [place] [address]- 0355 Mar, [facility] [place] [facility] [address] [id number] [place] [address]- 8995 Mar, [facility] [place] [facility] [address] [id number] [place] [address]- 3910 Mar, [facility] [place] [facility] [address] [id number] [place] [address]- 7684 Mar, [facility] [place] [facility] [address] [id number] [place] [address]- 9576 Feb, [facility] [place] [facility] [address] [id number] [place] [address]- 8737 Feb, [facility] [place] [facility] [address] [id number] [place] [address]- 9092 Feb, [facility] [place] [facility] [address] [id number] [place] [address]- 3664 Feb, [facility] [place] [facility] [address] [id number] [place] [address]- 3958 Feb, [facility] [place] [facility] [address] [id number] [place] [address]- 7705 Feb, [facility] [place] [facility] [address] [id number] [place] [address]- 6881 January, [facility] [place] [facility] [address] [id number] [place] [address]- 7315 January, [facility] [place] [facility] [address] [id number] [place] [address]- 9982 30 Dec, 2011 [facility] [place] [facility] [address] [id number] [place] [address]- 0629 24 Dec, 2011 [facility] [place] [facility] [address] [id number] [place] [address]- 9541 20 Dec, 2011 [facility] [place] [facility] [address] [id number] [place] [address]- 1756 19 Dec, 2011 [facility] [place] [facility] [address] [id number] [place] [address]- 1580 17 Dec, 2011 [facility] [place] [facility] [address] [id number] [place] [address]- 9325 13 Dec, 2011 [facility] [place] [facility] [address] [id number] [place] [address]- 1682 12 Dec, 2011 [facility] [place] [facility] [address] [id number] [place] [address]- 6888 12 Dec, 2011 [facility] [place] [facility] [address] [id number] [place] [address]- 2763 28 Nov, 2011 [facility] [place] [facility] [address] [id number] [place] [address]- 1686 15 Nov, 2011 [facility] [place] [facility] [address] [id number] [place]- 6193 07 Nov, 2011 [facility] [place] [facility] [address] [id number] [place] [address]- 5921 06 Nov, 2011 [facility] [address] [id number] [place] [address]- 3646 Nov, [facility] [place] [facility] [address] [id number] [place] [address]- 0616 Nov, [facility] [address] [id number] [place] [address]- 3616 Oct, [facility] [place] [facility] [address] [id number] [place] [address]- 9239 Oct, [facility] [address] [id number] [place] [address]- 9496 Oct, [facility] [place] [facility] [address] [id number] [place] [address]- 3636 Oct, [facility] [address] [id number] [place] [address]- 7136 Oct, [facility] [address] [id number] [place] [address]- 5057 Oct, [facility] [address] [id number] [place] [address]- 0101 Sep, [facility] [address] [facility] [id number] [place] [address]- 6116 Aug, [facility] [place] [facility] [address] [id number] [place] [address] 2546 Aug, [facility] [place] [facility] [address] [id number] [place] [address] 2546 Aug, [facility] [place] [facility] [address] [id number] [place] [address] 2546 19 Aug, 2011 [facility] [place] [facility] [address] [id number] [place] [address] 2546 15 Aug, 2011 [facility] [place] [facility] [address] [facility] [id number] [place] [address]- 4834 13 Aug, 2011 [facility] [place] [facility] [address] [id number] [place] [address]- 2353 13 Aug, 2011 [facility] [place] [facility] [address] [id number] [place] [address]- 2996 Jul, [facility] [place] [facility] [address] [id number] [place] [address]- 5715 Jun, [facility] [place] [facility] [address] [id number] [place] [address]- 5266 Jun, [facility] [place] [facility] [address] [id number] [place] [address]- 6987 Jun, [facility] [place] [facility] [address] [id number] [place] [address]- 4822 Mar, [facility] [place] [facility] [address] [id number] [place] [address]- 7644 Feb, [facility] [place] [facility] [address] [id number], [place] [address]- 4627 Aug, [facility] [place] [facility] [address] [id number] [place] [address]- 1430 Aug, [facility] [place] [facility] [address] [facility] [id number], [place] [address]- 7468 Jul, [facility] [place] [facility] [address] [facility] [id number], [place] [address]- 0293 Aug, [facility] [place] [facility] [address] [id number], [place] [address]- 9360 Jul, [facility] [place] [facility] [address] [id number] [place] [address]- 0971 Jul, [facility] [place] [facility] [address] [id number], [place] [address]- 2376 Jul, [facility] [place] [facility] [address] [id number], [place] [address]- 5465 Jun, [facility] [place] [facility] [address] [id number], [place] [address]- 8406 Jun, [facility] [place] [address] [facility] [id number] [place] [address]- 8612 Feb, [facility] [place] [address] [facility] [id number], [place] [address]- 9221 January, IMMUNIZATIONS No Known Immunizations SOCIAL HISTORY Never Assessed [place] [place] VITAL SIGNS MEDICATIONS [...]
--- OUTSIDE RECORDS SUMMARY | 2019-01-25 20:07 | XMS REPORT ---
Author Author Migration, Doctor Organization [facility] Address Unknown Phone Unavailable Care Team Providers Care Warp Clamper Name Role Phone Migration, Doctor Unavailable Unavailable PROBLEMS Type Condition ICD9-CM Code [id number] Code Onset Dates Condition Status SNOMED Code Problem Bipolar I disorder, most recent episode (or current) mixed, unspecified 296.60 Active 25787451 Problem History of bipolar disorder Z86.59 Active 394441301 Problem Genital warts A63.0 Active 676424736 Problem Mild intermittent allergic asthma without complication J45.20 Active 874710927 Problem Gastroesophageal reflux disease without esophagitis K21.9 Active 786483080 Problem Bipolar disorder, current episode depressed, severe, without psychotic features F31.4 Active 377315522 Problem Panic disorder F41.0 Active 891045502 Problem Fibromyalgia M79.7 Active 655176901 ALLERGIES No Information ENCOUNTERS Encounter Location Date Diagnosis [facility] [id number] [place] [address] 60498- 7908 January, [facility] [id number] [place] [address] 28796- 5066 January, [facility] [id number] [place] [address] [id number] January, [facility] [id number] [place] [address] 02306- 2825 Dec, [facility] [id number] [place] [address] 52729- 4676 Dec, [facility] [address] 7[address]88- 9835 Dec, [facility] [id number] [place] [address] 32162- 7861 Dec, Panic disorder F41.0 [facility] [address] [id number] Nov, Dental examination Z01.20 and Caries K02.9 [facility] [id number] [place] [address] 80155- 3336 Nov, [facility] [id number] [place] [address] 97327- 7332 Nov, Panic disorder F41.0 [facility] [id number] [place] [address] 81101- 7464 Oct, [facility] [id number] [place] [address] 78225- 7401 Oct, [facility] [id number] [place] [address] 62332- 5242 Oct, Panic disorder F41.0 [facility] [id number] [place] [address] 24776- 6571 Sep, Panic disorder F41.0 [facility] [id number] [place] [address] 53812- 1613 Aug, Panic disorder F41.0 and Bipolar disorder, current episode depressed, severe, without psychotic features F31.4 [facility] [address] [place] [address] 31501- 2873 Jul, Fibromyalgia M79.7 [facility] [address] [place] [address] 83119- 6239 Jun, Panic disorder F41.0 and Bipolar disorder, current episode depressed, severe, without psychotic features F31.4 [facility] [address] [place] [address] 79731- 9396 Jun, Fibromyalgia M79.7 [facility] [id number] [place] [address] 10129- 3150 Jun, [facility] [id number] [place] [address] 52637- 6257 May, Mild intermittent allergic asthma without complication J45.20 [facility] [address] [place] [address] 55306- 9696 14 May, 2018 Fibromyalgia M79.7 [facility] [id number] [place] [address] 39032- 4162 05 May, 2018 [facility] [id number] [place] [address] 30348- 4983 Apr, Panic disorder F41.0 ; Gastroesophageal reflux disease without esophagitis K21.9 ; Genital warts A63.0 and Fibromyalgia M79.7 [address] [place] [address] 86573- 8167 Apr, Panic disorder F41.0 and Bipolar disorder, current episode depressed, severe, without psychotic features F31.4 [facility] [id number] [place] [address] 99698- 0914 Mar, History of bipolar disorder Z86.59 and History of fibromyalgia Z87.39 [facility] [id number] [place] [address] 56391- 6107 Mar, History of bipolar disorder Z86.59 and History of fibromyalgia Z87.39 [facility] [id number] [place] [address] 10529- 6617 Mar, Panic disorder F41.0 and Bipolar disorder, current episode depressed, severe, without psychotic features F31.4 [address] [place] [address] [place] [address] 46261- 8394 Mar, History of bipolar disorder Z86.59 ; History of fibromyalgia Z87.39 ; Gastroesophageal reflux disease without esophagitis K21.9 and Long-term use of high-risk medication Z79.899 [address] [place] [address] [place] [address] 07636- 4971 Dec, [facility] [id number] [place] [address] 34723- 0824 Dec, [facility] [facility] [address] [place] [address] 26640- 9647 Nov, [facility] [address] [id number] [place] [address]- 2588 Oct, [facility] [place] [facility] [address] [id number] [place] [address]- 7692 Sep, [facility] [place] [facility] [address] [id number] [place] [address]- 0762 Aug, [facility] [place] [facility] [address] [id number] [place] [address]- 8308 Aug, [facility] [place] [facility] [address] [id number] [place] [address]- 0985 Aug, [facility] [place] [facility] [address] [id number] [place] [address]- 6662 Jul, [facility] [place] [facility] [address] [id number] [place] [address]- 9687 Jul, [facility] [place] [facility] [address] [id number] [place] [address]- 2342 Jul, [facility] [place] [facility] [address] [id number] [place] [address]- 7359 Jul, [facility] [place] [facility] [address] [id number] [place] [address]- 6420 Jun, [facility] [place] [facility] [address] [id number] [place] [address]- 5194 Jun, [facility] [place] [facility] [address] [id number] [address]- 0026 Jun, [facility] [place] [facility] [address] [id number] [place]33 Jun, [facility] [place] [facility] [address] [id number] [place] [address]- 6900 Jun, [facility] [place] [facility] [address] [id number] [place] [address]- 8147 Jun, [facility] [place] [facility] [address] [id number] [address]- 4931 08 Jun, 2012 [facility] [place] [facility] [address] [id number] [place] [address]- 1287 05 Jun, 2012 [facility] [place] [facility] [address] [id number] [place] [address]- 7166 26 May, 2011 [facility] [place] [facility] [address] [id number] [place] [address]- 0646 25 May, 2011 [facility] [place] [facility] [address] [id number] [place] [address]- 3824 24 Sep, 2011 [facility] [place] [facility] [address] [id number] [place] [address]- 6266 11 May, 2011 [facility] [place] [facility] [address] [id number] [place] [address]- 3683 08 May, 2011 [facility] [place] [facility] [address] [id number] [place] [address]- 3457 07 May, 2011 [facility] [place] [facility] [address] [id number] [place] [address]- 0536 05 May, 2011 [facility] [place] [facility] [address] [id number] [place] [address]- 0099 05 May, 2011 [facility] [place] [facility] [address] [id number] [place] [address]- 6936 04 May, 2011 [facility] [place] [facility] [address] [id number] [place] [address]- 9514 Apr, [facility] [place] [facility] [address] [id number] [place] [address]- 8252 Apr, [facility] [place] [facility] [address] [id number] [place] [address]- 7294 Apr, [facility] [place] [facility] [address] [id number] [place] [address]- 9337 Apr, [facility] [place] [facility] [address] [id number] [place] [address]- 6839 Apr, [facility] [place] [facility] [address] [id number] [place] [address]- 0885 Apr, [facility] [place] [facility] [address] [id number] [place] [address]- 9809 Apr, [facility] [place] [facility] [address] [id number] [place] [address]- 0736 Apr, [facility] [place] [facility] [address] [id number] [place] [address]- 6468 Apr, [facility] [place] [facility] [address] [id number] [place] [address]- 1791 Mar, [facility] [place] [facility] [address] [id number] [place] [address]- 0121 Mar, [facility] [place] [facility] [address] [id number] [place] [address]- 9312 Mar, [facility] [place] [facility] [address] [id number] [place] [address]- 1252 Mar, [facility] [place] [facility] [address] [id number] [place] [address]- 3196 Mar, [facility] [place] [facility] [address] [id number] [place] [address]- 0842 Mar, [facility] [place] [facility] [address] [id number] [place] [address]- 6636 Mar, [facility] [place] [facility] [address] [id number] [place] [address]- 6953 Mar, [facility] [place] [facility] [address] [id number] [place] [address]- 3102 Feb, [facility] [place] [facility] [address] [id number] [place] [address]- 1942 Feb, [facility] [place] [facility] [address] [id number] [place] [address]- 5441 Feb, [facility] [place] [facility] [address] [id number] [place] [address]- 5819 Feb, [facility] [place] [facility] [address] [id number] [place] [address]- 5550 Feb, [facility] [place] [facility] [address] [id number] [place] [address]- 9372 Feb, [facility] [place] [facility] [address] [id number] [place] [address]- 5603 January, [facility] [place] [facility] [address] [id number] [place] [address]- 8005 January, [facility] [place] [facility] [address] [id number] [place] [address]- 7746 30 Dec, 2011 [facility] [place] [facility] [address] [id number] [place] [address]- 6482 24 Dec, 2011 [facility] [place] [facility] [address] [id number] [place] [address]- 8875 20 Dec, 2011 [facility] [place] [facility] [address] [id number] [place] [address]- 8501 19 Dec, 2011 [facility] [place] [facility] [address] [id number] [place] [address]- 9946 17 Dec, 2011 [facility] [place] [facility] [address] [id number] [place] [address]- 8783 13 Dec, 2011 [facility] [place] [facility] [address] [id number] [place] [address]- 3132 12 Dec, 2011 [facility] [place] [facility] [address] [id number] [place] [address]- 6366 12 Dec, 2011 [facility] [place] [facility] [address] [id number] [place] [address]- 1364 28 Nov, 2011 [facility] [place] [facility] [address] [id number] [place] [address]- 5793 15 Nov, 2011 [facility] [place] [facility] [address] [id number] [place] 9656 07 Nov, 2011 [facility] [place] [facility] [address] [id number] [place] [address]- 5633 06 Nov, 2011 [facility] [address] [id number] [place] [address]- 6006 Nov, [facility] [place] [facility] [address] [id number] [place] [address]- 7436 Nov, [facility] [address] [id number] [place] [address]- 4736 Oct, [facility] [place] [facility] [address] [id number] [place] [address]- 8207 Oct, [facility] [address] [id number] [place] [address]- 5186 Oct, [facility] [place] [facility] [address] [id number] [place] [address]- 6476 Oct, [facility] [address] [id number] [place] [address]- 6846 Oct, [facility] [address] [id number] [place] [address]- 7241 Oct, [facility] [address] [id number] [place] [address]- 4076 Sep, [facility] [address] [facility] [id number] [place] [address]- 5959 Aug, [facility] [place] [facility] [address] [id number] [place] [address] 2546 Aug, [facility] [place] [facility] [address] [id number] [place] [address] 2546 Aug, [facility] [place] [facility] [address] [id number] [place] [address] 2546 19 Aug, 2011 [facility] [place] [facility] [address] [id number] [place] [address] 2546 15 Aug, 2011 [facility] [place] [facility] [address] [facility] [id number] [place] [address]- 8002 13 Aug, 2011 [facility] [place] [facility] [address] [id number] [place] [address]- 0039 13 Aug, 2011 [facility] [place] [facility] [address] [id number] [place] [address]- 1052 Jul, [facility] [place] [facility] [address] [id number] [place] [address]- 7141 Jun, [facility] [place] [facility] [address] [id number] [place] [address]- 5666 Jun, [facility] [place] [facility] [address] [id number] [place] [address]- 9965 Jun, [facility] [place] [facility] [address] [id number] [place] [address]- 5622 Mar, [facility] [place] [facility] [address] [id number] [place] [address]- 5039 Feb, [facility] [place] [facility] [address] [id number] [address]- 9775 Aug, [facility] [place] [facility] [address] [id number] [place] [address]- 2291 Aug, [facility] [place] [facility] [address] [facility] [id number] [address]- 7757 Jul, [facility] [place] [facility] [address] [facility] [id number] [place] [address]- 5970 Aug, [facility] [place] [facility] [address] [id number] [place] [address]- 1713 Jul, [facility] [place] [facility] [address] [id number] [place] [address]- 3219 Jul, [facility] [place] [facility] [address] [id number] [address]- 4666 Jul, [facility] [place] [facility] [address] [id number] [address]- 8926 Jun, [facility] [place] [facility] [address] [id number] [address]- 4176 Jun, [facility] [address] [facility] [id number] [place] [address]- 2705 Feb, [facility] [address] [facility] [id number] [place] [address]- 4713 January, IMMUNIZATIONS No Known Immunizations SOCIAL HISTORY Never Assessed REASON FOR VISIT EMR[place] PLAN OF CARE VITAL [...]
--- OUTSIDE RECORDS SUMMARY | 2019-01-25 20:07 | XMS REPORT ---
Author Author Migration, Doctor Organization [facility] Address Unknown Phone Unavailable Care Team Providers Care Industrial Maintenance Technician Name Role Phone Migration, Doctor Unavailable Unavailable PROBLEMS Type Condition ICD9-CM Code [id number] Code Onset Dates Condition Status SNOMED Code Problem Bipolar I disorder, most recent episode (or current) mixed, unspecified 296.60 Active 49115200 Problem History of bipolar disorder Z86.59 Active 287293045 Problem Genital warts A63.0 Active 836530021 Problem Mild intermittent allergic asthma without complication J45.20 Active 719191586 Problem Gastroesophageal reflux disease without esophagitis K21.9 Active 056399655 Problem Bipolar disorder, current episode depressed, severe, without psychotic features F31.4 Active 350954850 Problem Panic disorder F41.0 Active 869767967 Problem Fibromyalgia M79.7 Active [id number] ALLERGIES No Information ENCOUNTERS Encounter Location Date Diagnosis [facility] [id number] [place] [address] 81065- 7486 January, [facility] [id number] [place] [address] 35543- 3532 January, [facility] [id number] [place] [address] [id number] January, [facility] [id number] [place] [address] 77360- 4567 Dec, [facility] [id number] [place] [address] 95039- 0644 Dec, [facility] [address] [address]77- 5532 Dec, [facility] [id number] [place] [address] 45068- 3795 Dec, Panic disorder F41.0 [facility] [address] [id number] Nov, Dental examination Z01.20 and Caries K02.9 [facility] [id number] [place] [address] 24541- 7915 Nov, [facility] [id number] [place] [address] 15937- 8433 Nov, Panic disorder F41.0 [facility] [id number] [place] [address] 54693- 8795 Oct, [facility] [id number] [place] [address] 38048- 3949 Oct, [facility] [id number] [place] [address] 61238- 9452 Oct, Panic disorder F41.0 [facility] [id number] [place] [address] 29041- 9898 Sep, Panic disorder F41.0 [facility] [id number] [place] [address] 24873- 8036 Aug, Panic disorder F41.0 and Bipolar disorder, current episode depressed, severe, without psychotic features F31.4 [facility] [id number] [place] [address] 79511- 6566 Jul, Fibromyalgia M79.7 [facility] [id number] [place] [address] 88205- 6732 Jun, Panic disorder F41.0 and Bipolar disorder, current episode depressed, severe, without psychotic features F31.4 [facility] [id number] [place] [address] 74103- 6214 Jun, Fibromyalgia M79.7 [facility] [id number] [place] [address] 86324- 1278 Jun, [facility] [id number] [place] [address] 41253- 4675 May, Mild intermittent allergic asthma without complication J45.20 [facility] [id number] [place] [address] 42022- 6685 14 May, 2018 Fibromyalgia M79.7 [facility] [id number] [place] [address] 99837- 0533 05 May, 2018 [facility] [id number] [place] [address] 70313- 6738 Apr, Panic disorder F41.0 ; Gastroesophageal reflux disease without esophagitis K21.9 ; Genital warts A63.0 and Fibromyalgia M79.7 [facility] [id number] [place] [address] 62354- 2442 Apr, Panic disorder F41.0 and Bipolar disorder, current episode depressed, severe, without psychotic features F31.4 [facility] [id number] [place] [address] 62164- 7827 Mar, History of bipolar disorder Z86.59 and History of fibromyalgia Z87.39 [facility] [id number] [place] [address] 29038- 8806 Mar, History of bipolar disorder Z86.59 and History of fibromyalgia Z87.39 [facility] [id number] [place] [address] 72025- 1221 Mar, Panic disorder F41.0 and Bipolar disorder, current episode depressed, severe, without psychotic features F31.4 [facility] [id number] [place] [address] 48127- 3413 Mar, History of bipolar disorder Z86.59 ; History of fibromyalgia Z87.39 ; Gastroesophageal reflux disease without esophagitis K21.9 and Long-term use of high-risk medication Z79.899 [facility] [id number] [place] [address] 19953- 2947 Dec, [facility] [id number] [place] [address] 25402- 4856 Dec, [facility] [id number] [place] [address] 89879- 8982 Nov, [facility] [address] [id number] [place] [address]- 6791 Oct, [facility] [place] [facility] [address] [id number] [place] [address]- 6754 Sep, [facility] [place] [facility] [address] [id number] [place] [address]- 6464 Aug, [facility] [place] [facility] [address] [id number] [place] [address]- 4227 Aug, [facility] [place] [facility] [address] [id number] [place] [address]- 5569 Aug, [facility] [place] [facility] [address] [id number] [place] [address]- 6110 Jul, [facility] [place] [facility] [address] [id number] [place] [address]- 5367 Jul, [facility] [place] [facility] [address] [id number] [place] [address]- 3758 Jul, [facility] [place] [facility] [address] [id number] [place] [address]- 5856 Jul, [facility] [place] [facility] [address] [id number] [place] [address]- 6211 Jun, [facility] [place] [facility] [address] [id number] [place] [address]- 8086 Jun, [facility] [place] [facility] [address] [id number], [place] [address]- 9660 Jun, [facility] [place] [facility] [address] [id number] [place]23 Jun, [facility] [place] [facility] [address] [id number] [place] [address]- 3971 Jun, [facility] [place] [facility] [address] [id number] [place] [address]- 8560 Jun, [facility] [place] [facility] [address] [id number], [place] [address]- 1704 08 Jun, 2012 [facility] [place] [facility] [address] [id number] [place] [address]- 3672 05 Jun, 2012 [facility] [place] [facility] [address] [id number] [place] [address]- 2636 26 May, 2011 [facility] [place] [facility] [address] [id number] [place] [address]- 1926 25 May, 2011 [facility] [place] [facility] [address] [id number] [place] [address]- 8767 24 Sep, 2011 [facility] [place] [facility] [address] [id number] [place] [address]- 9971 11 May, 2011 [facility] [place] [facility] [address] [id number] [place] [address]- 3042 08 May, 2011 [facility] [place] [facility] [address] [id number] [place] [address]- 0695 07 May, 2011 [facility] [place] [facility] [address] [id number] [place] [address]- 3729 05 May, 2011 [facility] [place] [facility] [address] [id number] [place] [address]- 5269 05 May, 2011 [facility] [place] [facility] [address] [id number] [place] [address]- 8626 04 May, 2011 [facility] [place] [facility] [address] [id number] [place] [address]- 0631 Apr, [facility] [place] [facility] [address] [id number] [place] [address]- 1762 Apr, [facility] [place] [facility] [address] [id number] [place] [address]- 0084 Apr, [facility] [place] [facility] [address] [id number] [place] [address]- 1895 Apr, [facility] [place] [facility] [address] [id number] [place] [address]- 1141 Apr, [facility] [place] [facility] [address] [id number] [place] [address]- 2771 Apr, [facility] [place] [facility] [address] [id number] [place] [address]- 9721 Apr, [facility] [place] [facility] [address] [id number] [place] [address]- 2536 Apr, [facility] [place] [facility] [address] [id number] [place] [address]- 3499 Apr, [facility] [place] [facility] [address] [id number] [place] [address]- 0050 Mar, [facility] [place] [facility] [address] [id number] [place] [address]- 4313 Mar, [facility] [place] [facility] [address] [id number] [place] [address]- 3800 Mar, [facility] [place] [facility] [address] [id number] [place] [address]- 0686 Mar, [facility] [place] [facility] [address] [id number] [place] [address]- 4880 Mar, [facility] [place] [facility] [address] [id number] [place] [address]- 3566 Mar, [facility] [place] [facility] [address] [id number] [place] [address]- 1092 Mar, [facility] [place] [facility] [address] [id number] [place] [address]- 1373 Mar, [facility] [place] [facility] [address] [id number] [place] [address]- 0368 Feb, [facility] [place] [facility] [address] [id number] [place] [address]- 3923 Feb, [facility] [place] [facility] [address] [id number] [place] [address]- 2667 Feb, [facility] [place] [facility] [address] [id number] [place] [address]- 8445 Feb, [facility] [place] [facility] [address] [id number] [place] [address]- 8089 Feb, [facility] [place] [facility] [address] [id number] [place] [address]- 6182 Feb, [facility] [place] [facility] [address] [id number] [place] [address]- 7499 January, [facility] [place] [facility] [address] [id number] [place] [address]- 4908 January, [facility] [place] [facility] [address] [id number] [place] [address]- 5848 30 Dec, 2011 [facility] [place] [facility] [address] [id number] [place] [address]- 2272 24 Dec, 2011 [facility] [place] [facility] [address] [id number] [place] [address]- 2320 20 Dec, 2011 [facility] [place] [facility] [address] [id number] [place] [address]- 3590 19 Dec, 2011 [facility] [place] [facility] [address] [id number] [place] [address]- 1626 17 Dec, 2011 [facility] [place] [facility] [address] [id number] [place] [address]- 2583 13 Dec, 2011 [facility] [place] [facility] [address] [id number] [place] [address]- 4189 12 Dec, 2011 [facility] [place] [facility] [address] [id number] [place] [address]- 4127 12 Dec, 2011 [facility] [place] [facility] [address] [id number] [place] [address]- 0855 28 Nov, 2011 [facility] [place] [facility] [address] [id number] [place] [address]- 6687 15 Nov, 2011 [facility] [place] [facility] [address] [id number] [place] 5929 07 Nov, 2011 [facility] [place] [facility] [address] [id number] [place] [address]- 3362 06 Nov, 2011 [facility] [address] [id number] [place] [address]- 2956 Nov, [facility] [place] [facility] [address] [id number] [place] [address]- 4016 Nov, [facility] [address] [id number] [place] [address]- 9816 Oct, [facility] [place] [facility] [address] [id number] [place] [address]- 2282 Oct, [facility] [address] [id number] [place] [address]- 8906 Oct, [facility] [place] [facility] [address] [id number] [place] [address]- 6966 Oct, [facility] [address] [id number] [place] [address]- 0896 Oct, [facility] [address] [id number] [place] [address]- 3656 Oct, [facility] [address] [id number] [place] [address]- 0354 Sep, [facility] [address] [facility] [id number] [place] [address]- 7284 Aug, [facility] [place] [facility] [address] [id number] [place] [address] 2546 Aug, [facility] [place] [facility] [address] [id number] [place] [address] 2546 Aug, [facility] [place] [facility] [address] [id number] [place] [address] 2546 19 Aug, 2011 [facility] [place] [facility] [address] [id number] [place] [address] 2546 15 Aug, 2011 [facility] [place] [facility] [address] [facility] [id number] [place] [address]- 8954 13 Aug, 2011 [facility] [place] [facility] [address] [id number] [place] [address]- 1552 13 Aug, 2011 [facility] [place] [facility] [address] [id number] [place] [address]- 3940 Jul, [facility] [place] [facility] [address] [id number] [place] [address]- 1481 Jun, [facility] [place] [facility] [address] [id number] [place] [address]- 6656 Jun, [facility] [place] [facility] [address] [id number] [place] [address]- 5513 Jun, [facility] [place] [facility] [address] [id number] [place] [address]- 5609 Mar, [facility] [place] [facility] [address] [id number] [place] [address]- 9331 Feb, [facility] [place] [facility] [address] [id number], [place] [address]- 9232 Aug, [facility] [place] [facility] [address] [id number] [place] [address]- 8010 Aug, [facility] [place] [facility] [address] [facility] [id number], [place] [address]- 0016 Jul, [facility] [place] [facility] [address] [facility] [id number], [place] [address]- 2018 Aug, [facility] [place] [facility] [address] [id number], [place] [address]- 0455 Jul, [facility] [place] [facility] [address] [id number] [place] [address]- 4284 Jul, [facility] [place] [facility] [address] [id number], [place] [address]- 4686 Jul, [facility] [place] [facility] [address] [id number], [place] [address]- 3710 Jun, [facility] [place] [facility] [address] [id number], [place] [address]- 8816 Jun, [facility] [address] [facility] [id number] [place] [address]- 8453 Feb, [facility] [address] [facility] [id number], [place] [address]- 6508 January, IMMUNIZATIONS No Known Immunizations SOCIAL HISTORY Never Assessed REASON FOR VISIT [place] [place] VITAL SIGNS MEDICATIONS Unknown [...]
--- OUTSIDE RECORDS SUMMARY | 2019-01-25 20:07 | XMS REPORT ---
Author Author Migration, Doctor Organization [facility] Address Unknown Phone Unavailable Care Team Providers Care Hvac Operations Technician Name Role Phone Migration, Doctor Unavailable Unavailable PROBLEMS Type Condition ICD9-CM Code [id number] Code Onset Dates Condition Status SNOMED Code Problem Bipolar I disorder, most recent episode (or current) mixed, unspecified 296.60 Active 64309616 Problem History of bipolar disorder Z86.59 Active 793264492 Problem Genital warts A63.0 Active 780242913 Problem Mild intermittent allergic asthma without complication J45.20 Active 128726757 Problem Gastroesophageal reflux disease without esophagitis K21.9 Active 493186373 Problem Bipolar disorder, current episode depressed, severe, without psychotic features F31.4 Active 255429354 Problem Panic disorder F41.0 Active 531184115 Problem Fibromyalgia M79.7 Active 831038385 ALLERGIES No Information ENCOUNTERS Encounter Location Date Diagnosis [facility] [id number] [place] [address] 42198- 8064 January, [facility] [id number] [place] [address] 53356- 0540 January, [facility] [id number] [place] [address] [id number] January, [facility] [id number] [place] [address] 62733- 1920 Dec, [facility] [id number] [place] [address] 65628- 9686 Dec, [facility] [address] [address]- [address] Dec, [facility] [id number] [place] [address] 50806- 4626 Dec, Panic disorder F41.0 [facility] [address] [id number] Nov, Dental examination Z01.20 and Caries K02.9 [facility] [id number] [place] [address] 94438- 8964 Nov, [facility] [id number] [place] [address] 75213- 9412 Nov, Panic disorder F41.0 [facility] [id number] [place] [address] 15977- 5809 Oct, [facility] [id number] [place] [address] 37695- 5004 Oct, [facility] [id number] [place] [address] 03633- 4056 Oct, Panic disorder F41.0 [facility] [id number] [place] [address] 38492- 1464 Sep, Panic disorder F41.0 [facility] [id number] [place] [address] 87401- 0642 Aug, Panic disorder F41.0 and Bipolar disorder, current episode depressed, severe, without psychotic features F31.4 [facility] [id number] [place] [address] 36847- 4671 Jul, Fibromyalgia M79.7 [facility] [id number] [place] [address] 47141- 0222 Jun, Panic disorder F41.0 and Bipolar disorder, current episode depressed, severe, without psychotic features F31.4 [facility] [id number] [place] [address] 21893- 7062 Jun, Fibromyalgia M79.7 [facility] [id number] [place] [address] 82997- 0052 Jun, [facility] [id number] [place] [address] 75231- 5656 May, Mild intermittent allergic asthma without complication J45.20 [facility] [id number] [place] [address] 36617- 9915 14 May, 2018 Fibromyalgia M79.7 [facility] [id number] [place] [address] 43635- 7360 05 May, 2018 [facility] [id number] [place] [address] 50836- 8633 Apr, Panic disorder F41.0 ; Gastroesophageal reflux disease without esophagitis K21.9 ; Genital warts A63.0 and Fibromyalgia M79.7 [facility] [id number] [place] [address] 67604- 1895 Apr, Panic disorder F41.0 and Bipolar disorder, current episode depressed, severe, without psychotic features F31.4 [facility] [id number] [place] [address] 40553- 5546 Mar, History of bipolar disorder Z86.59 and History of fibromyalgia Z87.39 [facility] [id number] [place] [address] 78198- 7043 Mar, History of bipolar disorder Z86.59 and History of fibromyalgia Z87.39 [facility] [id number] [place] [address] 92675- 2240 Mar, Panic disorder F41.0 and Bipolar disorder, current episode depressed, severe, without psychotic features F31.4 [facility] [facility] [id number] [place] [address] 49407- 7447 Mar, History of bipolar disorder Z86.59 ; History of fibromyalgia Z87.39 ; Gastroesophageal reflux disease without esophagitis K21.9 and Long-term use of high-risk medication Z79.899 [facility] [id number] [place] [address] 09123- 3083 Dec, [facility] [id number] [place] [address] 77057- 4636 Dec, [facility] [id number] [place] [address] 02603- 4867 Nov, [facility] [address] [id number] [place] [address]- 7864 Oct, [facility] [place] [facility] [address] [id number] [place] [address]- 2351 Sep, [facility] [place] [facility] [address] [id number] [place] [address]- 3240 Aug, [facility] [place] [facility] [address] [id number] [place] [address]- 1747 Aug, [facility] [place] [facility] [address] [id number] [place] [address]- 5276 Aug, [facility] [place] [facility] [address] [id number] [place] [address]- 1060 Jul, [facility] [place] [facility] [address] [id number] [place] [address]- 5788 Jul, [facility] [place] [facility] [address] [id number] [place] [address]- 5262 Jul, [facility] [place] [facility] [address] [id number] [place] [address]- 1357 Jul, [facility] [place] [facility] [address] [id number] [place] [address]- 0189 Jun, [facility] [place] [facility] [address] [id number] [place] [address]- 9784 Jun, [facility] [place] [facility] [address] [id number] [address]- 3331 Jun, [facility] [place] [facility] [address] [id number] [place] 0341 Jun, [facility] [place] [facility] [address] [id number] [place] [address]- 7873 Jun, [facility] [place] [facility] [address] [id number] [place] [address]- 8782 Jun, [facility] [place] [facility] [address] [id number] [address]- 5617 08 Jun, 2012 [facility] [place] [facility] [address] [id number] [place] [address]- 0827 05 Jun, 2012 [facility] [place] [facility] [address] [id number] [place] [address]- 1506 26 May, 2011 [facility] [place] [facility] [address] [id number] [place] [address]- 1686 25 May, 2011 [facility] [place] [facility] [address] [id number] [place] [address]- 6227 24 Sep, 2011 [facility] [place] [facility] [address] [id number] [place] [address]- 2779 11 May, 2011 [facility] [place] [facility] [address] [id number] [place] [address]- 0460 08 May, 2011 [facility] [place] [facility] [address] [id number] [place] [address]- 0422 07 May, 2011 [facility] [place] [facility] [address] [id number] [place] [address]- 2715 05 May, 2011 [facility] [place] [facility] [address] [id number] [place] [address]- 2268 05 May, 2011 [facility] [place] [facility] [address] [id number] [place] [address]- 6117 04 May, 2011 [facility] [place] [facility] [address] [id number] [place] [address]- 8964 Apr, [facility] [place] [facility] [address] [id number] [place] [address]- 8094 Apr, [facility] [place] [facility] [address] [id number] [place] [address]- 2514 Apr, [facility] [place] [facility] [address] [id number] [place] [address]- 1428 Apr, [facility] [place] [facility] [address] [id number] [place] [address]- 6747 Apr, [facility] [place] [facility] [address] [id number] [place] [address]- 6233 Apr, [facility] [place] [facility] [address] [id number] [place] [address]- 2299 Apr, [facility] [place] [facility] [address] [id number] [place] [address]- 2036 Apr, [facility] [place] [facility] [address] [id number] [place] [address]- 2621 Apr, [facility] [place] [facility] [address] [id number] [place] [address]- 6463 Mar, [facility] [place] [facility] [address] [id number] [place] [address]- 3200 Mar, [facility] [place] [facility] [address] [id number] [place] [address]- 3824 Mar, [facility] [place] [facility] [address] [id number] [place] [address]- 5734 Mar, [facility] [place] [facility] [address] [id number] [place] [address]- 9256 Mar, [facility] [place] [facility] [address] [id number] [place] [address]- 3849 Mar, [facility] [place] [facility] [address] [id number] [place] [address]- 1385 Mar, [facility] [place] [facility] [address] [id number] [place] [address]- 1558 Mar, [facility] [place] [facility] [address] [id number] [place] [address]- 9745 Feb, [facility] [place] [facility] [address] [id number] [place] [address]- 6719 Feb, [facility] [place] [facility] [address] [id number] [place] [address]- 9402 Feb, [facility] [place] [facility] [address] [id number] [place] [address]- 6429 Feb, [facility] [place] [facility] [address] [id number] [place] [address]- 7714 Feb, [facility] [place] [facility] [address] [id number] [place] [address]- 3213 Feb, [facility] [place] [facility] [address] [id number] [place] [address]- 4345 January, [facility] [place] [facility] [address] [id number] [place] [address]- 2957 January, [facility] [place] [facility] [address] [id number] [place] [address]- 1610 30 Dec, 2011 [facility] [place] [facility] [address] [id number] [place] [address]- 4160 24 Dec, 2011 [facility] [place] [facility] [address] [id number] [place] [address]- 4824 20 Dec, 2011 [facility] [place] [facility] [address] [id number] [place] [address]- 1068 19 Dec, 2011 [facility] [place] [facility] [address] [id number] [place] [address]- 5006 17 Dec, 2011 [facility] [place] [facility] [address] [id number] [place] [address]- 3835 13 Dec, 2011 [facility] [place] [facility] [address] [id number] [place] [address]- 4234 12 Dec, 2011 [facility] [place] [facility] [address] [id number] [place] [address]- 3335 12 Dec, 2011 [facility] [place] [facility] [address] [id number] [place] [address]- 5001 28 Nov, 2011 [facility] [place] [facility] [address] [id number] [place] [address]- 2020 15 Nov, 2011 [facility] [place] [facility] [address] [id number] [place] 8862 07 Nov, 2011 [facility] [place] [facility] [address] [id number] [place] [address]- 2469 06 Nov, 2011 [facility] [address] [id number] [place] [address]- 9276 Nov, [facility] [place] [facility] [address] [id number] [place] [address]- 0196 Nov, [facility] [address] [id number] [place] [address]- 6726 Oct, [facility] [place] [facility] [address] [id number] [place] [address]- 1384 Oct, [facility] [address] [id number] [place] [address]- 3886 Oct, [facility] [place] [facility] [address] [id number] [place] [address]- 4556 Oct, [facility] [address] [id number] [place] [address]- 5396 Oct, [facility] [address] [id number] [place] [address]- 1952 Oct, [facility] [address] [id number] [place] [address]- 1475 Sep, [facility] [address] [facility] [id number] [place] [address]- 2123 Aug, [facility] [place] [facility] [address] [id number] [place] [address] 2546 Aug, [facility] [place] [facility] [address] [id number] [place] [address] 2546 Aug, [facility] [place] [facility] [address] [id number] [place] [address] 2546 19 Aug, 2011 [facility] [place] [facility] [address] [id number] [place] [address] 2546 15 Aug, 2011 [facility] [place] [facility] [address] [facility] [id number] [place] [address]- 9500 13 Aug, 2011 [facility] [place] [facility] [address] [id number] [place] [address]- 0098 13 Aug, 2011 [facility] [place] [facility] [address] [id number] [place] [address]- 3085 Jul, [facility] [place] [facility] [address] [id number] [place] [address]- 7740 Jun, [facility] [place] [facility] [address] [id number] [place] [address]- 0196 Jun, [facility] [place] [facility] [address] [id number] [place] [address]- 3880 Jun, [facility] [place] [facility] [address] [id number] [place] [address]- 9034 Mar, [facility] [place] [facility] [address] [id number] [place] [address]- 7451 Feb, [facility] [place] [facility] [address] [id number], [place] [address]- 0264 Aug, [facility] [place] [facility] [address] [id number] [place] [address]- 5413 Aug, [facility] [place] [facility] [address] [facility] [id number], [place] [address]- 1442 Jul, [facility] [place] [facility] [address] [facility] [id number], [place] [address]- 7601 Aug, [facility] [place] [facility] [address] [id number], [place] [address]- 6689 Jul, [facility] [place] [facility] [address] [id number] [place] [address]- 2176 Jul, [facility] [place] [facility] [address] [id number], [place] [address]- 2656 Jul, [facility] [place] [facility] [address] [id number], [place] [address]- 2636 Jun, [facility] [place] [facility] [address] [id number], [place] [address]- 7626 Jun, [facility] [address] [facility] [id number] [place] [address]- 1534 Feb, [facility] [address] [facility] [id number], [place] [address]- 0623 January, IMMUNIZATIONS No Known Immunizations SOCIAL HISTORY Never Assessed REASON FOR VISIT [place] VITAL SIGNS MEDICATIONS Unknown [...]
--- OUTSIDE RECORDS SUMMARY | 2019-01-25 20:07 | XMS REPORT ---
Author Author Migration, Doctor Organization [facility] Address Unknown Phone Unavailable Care Team Providers Care Plugger Name Role Phone Migration, Doctor Unavailable Unavailable PROBLEMS Type Condition ICD9-CM Code BGL70-RG Code Onset Dates Condition Status SNOMED Code Problem Bipolar I disorder, most recent episode (or current) mixed, unspecified 296.60 Active 49260738 Problem History of bipolar disorder Z86.59 Active 761582302 Problem Genital warts A63.0 Active 370906118 Problem Mild intermittent allergic asthma without complication J45.20 Active 055227329 Problem Gastroesophageal reflux disease without esophagitis K21.9 Active 148092840 Problem Bipolar disorder, current episode depressed, severe, without psychotic features F31.4 Active 933663414 Problem Panic disorder F41.0 Active 709702736 Problem Fibromyalgia M79.7 Active [id number] ALLERGIES No Information ENCOUNTERS Encounter Location Date Diagnosis [facility] [place] [id number] [place] [address] 43901- 2382 January, [facility] [place] [id number] [place] [address] 68831- 3841 January, [facility] [id number] [place] [address] [id number] January, [facility] [place] [id number] [place] [address] 93163- 2626 Dec, [facility] [place] [id number] [place] [address] 87964- 9024 Dec, [facility] [place] [address] [address]- 1596 Dec, [facility] [place] [id number] [place] [address] 36159- 4381 Dec, Panic disorder F41.0 [facility] [address] [id number] Nov, Dental examination Z01.20 and Caries K02.9 [facility] [place] [id number] [place] [address] 08975- 9492 Nov, [facility] [place] [id number] [place] [address] 68413- 3719 Nov, Panic disorder F41.0 [facility] [place] [id number] [place] [address] 24206- 8288 Oct, [facility] [place] [id number] [place] [address] 62924- 3036 Oct, [facility] [place] [id number] [place] [address] 24786- 0724 Oct, Panic disorder F41.0 [facility] [place] [id number] [place] [address] 72228- 6385 Sep, Panic disorder F41.0 [facility] [place] [id number] [place] [address] 91922- 3108 Aug, Panic disorder F41.0 and Bipolar disorder, current episode depressed, severe, without psychotic features F31.4 [facility] [place] [id number] [place] [address] 31660- 1154 Jul, Fibromyalgia M79.7 [facility] [place] [id number] [place] [address] 22728- 7353 Jun, Panic disorder F41.0 and Bipolar disorder, current episode depressed, severe, without psychotic features F31.4 [facility] [place] [id number] [place] [address] 96498- 3749 Jun, Fibromyalgia M79.7 [facility] [place] [id number] [place] [address] 91912- 8269 Jun, [facility] [place] [id number] [place] [address] 82276- 0619 May, Mild intermittent allergic asthma without complication J45.20 [facility] [place] [id number] [place] [address] 23410- 5703 14 May, 2018 Fibromyalgia M79.7 [place] [facility] [id number] [place] [address] 46907- 2479 05 May, 2018 [place] [facility] [id number] [place] [address] 82291- 2049 Apr, Panic disorder F41.0 ; Gastroesophageal reflux disease without esophagitis K21.9 ; Genital warts A63.0 and Fibromyalgia M79.7 [place] [address] [id number] [place] [address] 45741- 0052 Apr, Panic disorder F41.0 and Bipolar disorder, current episode depressed, severe, without psychotic features F31.4 [facility] [facility] [id number] [place] [address] 21297- 0453 Mar, History of bipolar disorder Z86.59 and History of fibromyalgia Z87.39 [place] [facility] [id number] [place] [address] 40181- 3235 Mar, History of bipolar disorder Z86.59 and History of fibromyalgia Z87.39 [place] [facility] [id number] [place] [address] 27646- 7266 Mar, Panic disorder F41.0 and Bipolar disorder, current episode depressed, severe, without psychotic features F31.4 [place] [id number] [place] [address] 98930- 7225 Mar, History of bipolar disorder Z86.59 ; History of fibromyalgia Z87.39 ; Gastroesophageal reflux disease without esophagitis K21.9 and Long-term use of high-risk medication Z79.899 [address] [id number] [place] [address] 43538- 6583 Dec, [place] [facility] [id number] [place] [address] 69778- 6602 Dec, [address] [id number] [place] [address] 44508- 3522 Nov, [facility] [address] [id number] [place] [address]- 6789 Oct, [facility] [place] [facility] [address] [id number] [place] [address]- 1720 Sep, [facility] [place] [facility] [address] [id number] [place] [address]- 2976 Aug, [facility] [place] [facility] [address] [id number] [place] [address]- 7613 Aug, [facility] [place] [facility] [address] [id number] [place] [address]- 8073 Aug, [facility] [place] [facility] [address] [id number] [place] [address]- 4232 Jul, [facility] [place] [facility] [address] [id number] [place] [address]- 1737 Jul, [facility] [place] [facility] [address] [id number] [place] [address]- 7757 Jul, [facility] [place] [facility] [address] [id number] [place] [address]- 0635 Jul, [facility] [place] [facility] [address] [id number] [place] [address]- 6196 Jun, [facility] [place] [facility] [address] [id number] [place] [address]- 2139 Jun, [facility] [place] [facility] [address] [id number] [address]- 3390 Jun, [facility] [place] [facility] [address] [id number] [place] [address]894 Jun, [facility] [place] [facility] [address] [id number] [place] [address]- 5599 Jun, [facility] [place] [facility] [address] [id number] [place] [address]- 7589 Jun, [facility] [place] [facility] [address] [id number], [place] [address]- 1324 08 Jun, 2012 [facility] [place] [facility] [address] [id number] [place] [address]- 4432 05 Jun, 2012 [facility] [place] [facility] [address] [id number] [place] [address]- 2656 26 May, 2011 [facility] [place] [facility] [address] [id number] [place] [address]- 5966 25 May, 2011 [facility] [place] [facility] [address] [id number] [place] [address]- 4281 24 Sep, 2011 [facility] [place] [facility] [address] [id number] [place] [address]- 3020 11 May, 2011 [facility] [place] [facility] [address] [id number] [place] [address]- 6599 08 May, 2011 [facility] [place] [facility] [address] [id number] [place] [address]- 6274 07 May, 2011 [facility] [place] [facility] [address] [id number] [place] [address]- 4436 05 May, 2011 [facility] [place] [facility] [address] [id number] [place] [address]- 7596 05 May, 2011 [facility] [place] [facility] [address] [id number] [place] [address]- 2236 04 May, 2011 [facility] [place] [facility] [address] [id number] [place] [address]- 7613 Apr, [facility] [place] [facility] [address] [id number] [place] [address]- 5256 Apr, [facility] [place] [facility] [address] [id number] [place] [address]- 9675 Apr, [facility] [place] [facility] [address] [id number] [place] [address]- 2626 Apr, [facility] [place] [facility] [address] [id number] [place] [address]- 7662 Apr, [facility] [place] [facility] [address] [id number] [place] [address]- 5141 Apr, [facility] [place] [facility] [address] [id number] [place] [address]- 6046 Apr, [facility] [place] [facility] [address] [id number] [place] [address]- 4146 Apr, [facility] [place] [facility] [address] [id number] [place] [address]- 4902 Apr, [facility] [place] [facility] [address] [id number] [place] [address]- 8225 Mar, [facility] [place] [facility] [address] [id number] [place] [address]- 9967 Mar, [facility] [place] [facility] [address] [id number] [place] [address]- 8565 Mar, [facility] [place] [facility] [address] [id number] [place] [address]- 9739 Mar, [facility] [place] [facility] [address] [id number] [place] [address]- 7455 Mar, [facility] [place] [facility] [address] [id number] [place] [address]- 9223 Mar, [facility] [place] [facility] [address] [id number] [place] [address]- 7203 Mar, [facility] [place] [facility] [address] [id number] [place] [address]- 9104 Mar, [facility] [place] [facility] [address] [id number] [place] [address]- 8813 Feb, [facility] [place] [facility] [address] [id number] [place] [address]- 2431 Feb, [facility] [place] [facility] [address] [id number] [place] [address]- 4377 Feb, [facility] [place] [facility] [address] [id number] [place] [address]- 7189 Feb, [facility] [place] [facility] [address] [id number] [place] [address]- 4286 Feb, [facility] [place] [facility] [address] [id number] [place] [address]- 2863 Feb, [facility] [place] [facility] [address] [id number] [place] [address]- 2201 January, [facility] [place] [facility] [address] [id number] [place] [address]- 6165 January, [facility] [place] [facility] [address] [id number] [place] [address]- 5607 30 Dec, 2011 [facility] [place] [facility] [address] [id number] [place] [address]- 4432 24 Dec, 2011 [facility] [place] [facility] [address] [id number] [place] [address]- 5285 20 Dec, 2011 [facility] [place] [facility] [address] [id number] [place] [address]- 6427 19 Dec, 2011 [facility] [place] [facility] [address] [id number] [place] [address]- 4832 17 Dec, 2011 [facility] [place] [facility] [address] [id number] [place] [address]- 1843 13 Dec, 2011 [facility] [place] [facility] [address] [id number] [place] [address]- 6468 12 Dec, 2011 [facility] [place] [facility] [address] [id number] [place] [address]- 7899 12 Dec, 2011 [facility] [place] [facility] [address] [id number] [place] [address]- 0075 28 Nov, 2011 [facility] [place] [facility] [address] [id number] [place] [address]- 8214 15 Nov, 2011 [facility] [place] [facility] [address] [id number] [place] 6491 07 Nov, 2011 [facility] [place] [facility] [address] [id number] [place] [address]- 3264 06 Nov, 2011 [facility] [address] [id number] [place] [address]- 1976 Nov, [facility] [place] [facility] [address] [id number] [place] [address]- 8166 Nov, [facility] [address] [id number] [place] [address]- 6446 Oct, [facility] [place] [facility] [address] [id number] [place] [address]- 3554 Oct, [facility] [address] [id number] [place] [address]- 3036 Oct, [facility] [place] [facility] [address] [id number] [place] [address]- 5426 Oct, [facility] [address] [id number] [place] [address]- 5916 Oct, [facility] [address] [id number] [place] [address]- 9762 Oct, [facility] [address] [id number] [place] [address]- 0725 Sep, [facility] [address] [facility] [id number] [place] [address]- 2075 Aug, [facility] [place] [facility] [address] [id number] [place] [address] 2546 Aug, [facility] [place] [facility] [address] [id number] [place] [address] 2546 Aug, [facility] [place] [facility] [address] [id number] [place] [address] 2546 19 Aug, 2011 [facility] [place] [facility] [address] [id number] [place] [address] 2546 15 Aug, 2011 [facility] [place] [facility] [address] [facility] [id number] [place] [address]- 0509 13 Aug, 2011 [facility] [place] [facility] [address] [id number] [place] [address]- 5978 13 Aug, 2011 [facility] [place] [facility] [address] [id number] [place] [address]- 9769 Jul, [facility] [place] [facility] [address] [id number] [place] [address]- 0453 Jun, [facility] [place] [facility] [address] [id number] [place] [address]- 9716 Jun, [facility] [place] [facility] [address] [id number] [place] [address]- 6468 Jun, [facility] [place] [facility] [address] [id number] [place] [address]- 0302 Mar, [facility] [place] [facility] [address] [id number] [place] [address]- 2602 Feb, [facility] [place] [facility] [address] [id number], [place] [address]- 8109 Aug, [facility] [place] [facility] [address] [id number] [place] [address]- 5932 Aug, [facility] [place] [facility] [address] [facility] [id number], [place] [address]- 2626 Jul, [facility] [place] [facility] [address] [facility] [id number], [place] [address]- 2732 Aug, [facility] [place] [facility] [address] [id number], [place] [address]- 6677 Jul, [facility] [place] [facility] [address] [id number] [place] [address]- 7059 Jul, [facility] [place] [facility] [address] [id number], [place] [address]- 3286 Jul, [facility] [place] [facility] [address] [id number], [place] [address]- 4848 Jun, [facility] [place] [facility] [address] [id number], [place] [address]- 2576 Jun, [facility] [place] [address] [facility] [id number] [place] [address]- 5436 Feb, [facility] [place] [address] [facility] [id number], [place] [address]- 7963 January, IMMUNIZATIONS No Known Immunizations SOCIAL HISTORY Never Assessed REASON FOR VISIT EMR-[facility] [place] PLAN OF CARE VITAL SIGNS MEDICATIONS Unknown [...]
--- OUTSIDE RECORDS SUMMARY | 2019-01-25 20:08 | XMS REPORT ---
Author Author Migration, Doctor Organization [facility] Address Unknown Phone Unavailable Care Team Providers Care Chief Media Officer Name Role Phone Migration, Doctor Unavailable Unavailable PROBLEMS Type Condition ICD9-CM Code QVS19-XU Code Onset Dates Condition Status SNOMED Code Problem Bipolar I disorder, most recent episode (or current) mixed, unspecified 296.60 Active 63442957 Problem History of bipolar disorder Z86.59 Active 222674323 Problem Genital warts A63.0 Active 734332746 Problem Mild intermittent allergic asthma without complication J45.20 Active 567362934 Problem Gastroesophageal reflux disease without esophagitis K21.9 Active 152883469 Problem Bipolar disorder, current episode depressed, severe, without psychotic features F31.4 Active 702222163 Problem Panic disorder F41.0 Active 075908952 Problem Fibromyalgia M79.7 Active 378669023 ALLERGIES No Information ENCOUNTERS Encounter Location Date Diagnosis [facility] [id number] [place] [address] 38960- 6750 January, [facility] [id number] [place] [address] 20489- 3760 January, [facility] [id number] [place] [address] [id number] January, [facility] [id number] [place] [address] 50621- 1521 Dec, [facility] [id number] [place] [address] 85808- 5099 Dec, [facility] [id number] [place] [address] 25310- 8927 Dec, Panic disorder F41.0 [facility] [id number] [place] [address] [id number] Nov, Dental examination Z01.20 and Caries K02.9 [facility] [address] [place] [address] 9165 Nov, [facility] [id number] [place] [address] 30410- 7780 Nov, Panic disorder F41.0 [facility] [id number] [place] [address] 17218- 0182 Oct, [facility] [id number] [place] [address] 40472- 9427 Oct, [facility] [id number] [place] [address] 83909- 9087 Oct, Panic disorder F41.0 [facility] [id number] [place] [address] 16993- 7471 Sep, Panic disorder F41.0 [facility] [id number] [place] [address] 24989- 3480 Aug, Panic disorder F41.0 and Bipolar disorder, current episode depressed, severe, without psychotic features F31.4 [facility] [id number] [place] [address] 36174- 7705 Jul, Fibromyalgia M79.7 [facility] [id number] [place] [address] 30937- 3503 Jun, Panic disorder F41.0 and Bipolar disorder, current episode depressed, severe, without psychotic features F31.4 [facility] [id number] [place] [address] 35582- 6441 Jun, Fibromyalgia M79.7 [facility] [id number] [place] [address] 63702- 8994 Jun, [facility] [id number] [place] [address] 60848- 9023 May, Mild intermittent allergic asthma without complication J45.20 [facility] [id number] [place] [address] 96950- 7734 14 May, 2018 Fibromyalgia M79.7 [address] [address] 2843 May, [address] [id number] [place] [address] 21667- 6294 Apr, Panic disorder F41.0 ; Gastroesophageal reflux disease without esophagitis K21.9 ; Genital warts A63.0 and Fibromyalgia M79.7 [address] [id number] [place] [address] 61758- 5380 Apr, Panic disorder F41.0 and Bipolar disorder, current episode depressed, severe, without psychotic features F31.4 [facility] [id number] [place] [address] 30331- 9951 Mar, History of bipolar disorder Z86.59 and History of fibromyalgia Z87.39 [address] [facility] [id number] [place] [address] 99748- 1952 Mar, History of bipolar disorder Z86.59 and History of fibromyalgia Z87.39 [address] [facility] [id number] [place] [address] 62001- 2603 Mar, Panic disorder F41.0 and Bipolar disorder, current episode depressed, severe, without psychotic features F31.4 [address] [place] [id number] [place] [address] 33875- 9777 Mar, History of bipolar disorder Z86.59 ; History of fibromyalgia Z87.39 ; Gastroesophageal reflux disease without esophagitis K21.9 and Long-term use of high-risk medication Z79.899 [id number] [place] [address] 25037- 3786 Dec, [id number] [place] [address] 37636- 1965 Dec, [address] [facility] [id number] [place] [address] 78739- 4871 Nov, [address] [id number] [place] [address] 44519- 7636 Oct, [facility] [place] [facility] [address] [id number] [place] [address]- 6125 Sep, [facility] [place] [facility] [address] [id number] [place] [address]- 9446 Aug, [facility] [place] [facility] [address] [id number] [place] [address]- 4765 Aug, [facility] [place] [facility] [address] [id number] [place] [address]- 5800 Aug, [facility] [place] [facility] [address] [id number] [place] [address]- 5113 Jul, [facility] [place] [facility] [address] [id number] [place] [address]- 3121 Jul, [facility] [place] [facility] [address] [id number] [place] [address]- 3571 Jul, [facility] [place] [facility] [address] [id number] [place] [address]- 5093 Jul, [facility] [place] [facility] [address] [id number] [place] [address]- 0822 Jun, [facility] [place] [facility] [address] [id number] [place] [address]- 0774 Jun, [facility] [place] [facility] [address] [id number] [place] [address]- 0187 Jun, [facility] [place] [facility] [address] [id number] [address]- 8137 Jun, [facility] [place] [facility] [address] [id number] [place] [address]- 8840 Jun, [facility] [place] [facility] [address] [id number] [place] [address]- 0510 Jun, [facility] [place] [facility] [address] [id number] [place] [address]- 3894 Jun, [facility] [place] [facility] [address] [id number] [address]- 9549 05 Jun, 2012 [facility] [place] [facility] [address] [id number] [place] [address]- 6496 26 Sep, 2011 [facility] [place] [facility] [address] [id number] [place] [address] 2546 25 May, 2011 [facility] [place] [facility] [address] [id number] [place] [address]- 1046 24 Sep, 2011 [facility] [place] [facility] [address] [id number] [place] [address] 254 11 Sep, 2011 [facility] [place] [facility] [address] [id number] [place] [address]- 9617 08 May, 2011 [facility] [place] [facility] [address] [id number] [place] [address]- 0747 07 May, 2011 [facility] [place] [facility] [address] [id number] [place] [address]- 7315 05 May, 2011 [facility] [place] [facility] [address] [id number] [place] [address]- 5112 05 May, 2011 [facility] [place] [facility] [address] [id number] [place] [address]- 3280 04 May, 2011 [facility] [place] [facility] [address] [id number] [place] [address]- 3228 29 Apr, 2012 [facility] [place] [facility] [address] [id number] [place] [address]- 1108 28 Apr, 2012 [facility] [place] [facility] [address] [id number] [place] [address]- 8727 27 Apr, 2012 [facility] [place] [facility] [address] [id number] [place] [address]- 4656 22 Apr, 2012 [facility] [place] [facility] [address] [id number] [place] [address]- 3581 Apr, [facility] [place] [facility] [address] [id number] [place] [address]- 7989 08 Apr, 2012 [facility] [place] [facility] [address] [id number] [place] [address]- 8609 Apr, [facility] [place] [facility] [address] [id number] [place] [address]- 2012 Apr, [facility] [place] [facility] [address] [id number] [place] [address]- 5476 Apr, [facility] [place] [facility] [address] [id number] [place] [address]- 3663 Mar, [facility] [place] [facility] [address] [id number] [place] [address]- 1042 Mar, [facility] [place] [facility] [address] [id number] [place] [address]- 6344 Mar, [facility] [place] [facility] [address] [id number] [place] [address]- 1266 Mar, [facility] [place] [facility] [address] [id number] [place] [address]- 7006 Mar, [facility] [place] [facility] [address] [id number] [place] [address]- 6937 Mar, [facility] [place] [facility] [address] [id number] [place] [address]- 1701 Mar, [facility] [place] [facility] [address] [id number] [place] [address]- 3353 Mar, [facility] [place] [facility] [address] [id number] [place] [address]- 1928 Feb, [facility] [place] [facility] [address] [id number] [place] [address]- 5037 Feb, [facility] [place] [facility] [address] [id number] [place] [address]- 0358 Feb, [facility] [place] [facility] [address] [id number] [place] [address]- 1411 Feb, [facility] [place] [facility] [address] [id number] [place] [address]- 4711 Feb, [facility] [place] [facility] [address] [id number] [place] [address]- 3201 18 Feb, 2012 [facility] [place] [facility] [address] [id number] [place] [address]- 6676 January, [facility] [place] [facility] [address] [id number] [place] [address]- 1698 January, [facility] [place] [facility] [address] [id number] [place] [address]- 1879 30 Dec, 2011 [facility] [place] [facility] [address] [id number] [place] [address]- 7308 24 Dec, 2011 [facility] [place] [facility] [address] [id number] [place] [address]- 7460 20 Dec, 2011 [facility] [place] [facility] [address] [id number] [place] [address]- 8265 19 Dec, 2011 [facility] [place] [facility] [address] [id number] [place] [address]- 0759 17 Dec, 2011 [facility] [place] [facility] [address] [id number] [place] [address]- 5542 13 Dec, 2011 [facility] [place] [facility] [address] [id number] [place] [address]- 6357 12 Dec, 2011 [facility] [place] [facility] [address] [id number] [place] [address]- 8915 Dec, [facility] [place] [facility] [address] [id number] [place] [address]- 3199 28 Nov, 2011 [facility] [place] [facility] [address] [id number] [place] [address]- 3568 15 Nov, 2011 [facility] [place] [facility] [address] [id number] [place] [address]- 7477 07 Nov, 2011 [facility] [place] [facility] [address] [id number] [place] [address]- 3844 06 Nov, 2011 [facility] [place] [facility] [address] [id number] [place] [address]- 0292 05 Nov, 2011 [facility] [address] [id number] [place] [address]- 7926 Nov, [facility] [place] [facility] [address] [id number] [place] [address]- 3426 Oct, [facility] [address] [id number] [place] [address]- 8546 Oct, [facility] [place] [facility] [address] [id number] [place] [address] 2546 Oct, [facility] [address] [id number] [place] [address]- 3876 Oct, [facility] [place] [facility] [address] [id number] [place] [address] 2546 Oct, [facility] [address] [id number] [place] [address]- 1012 Oct, [facility] [address] [id number] [place] [address]- 8513 Sep, [facility] [address] [id number] [place] [address]- 3831 Aug, [facility] [address] [id number] [place] [address]- 3444 Aug, [facility] [place] [facility] [address] [id number] [place] [address] 2546 23 Aug, 2011 [facility] [place] [facility] [address] [id number] [place] [address] 2546 19 Aug, 2011 [facility] [place] [facility] [address] [id number] [place] [address] 2546 15 Aug, 2011 [facility] [place] [facility] [address] [id number] [place] [address]- 2546 13 Aug, 2011 [facility] [place] [facility] [address] [facility] [id number] [place] [address] 6566 13 Aug, 2011 [facility] [place] [facility] [address] [id number] [place] [address]- 7003 Jul, [facility] [place] [facility] [address] [id number] [place] [address]- 6686 Jun, [facility] [place] [facility] [address] [id number] [place] [address]- 4012 Jun, [facility] [place] [facility] [address] [id number] [place] [address]- 5386 Jun, [facility] [place] [facility] [address] [id number] [place] [address]- 7291 Mar, [facility] [place] [facility] [address] [id number] [place] [address]- 0377 Feb, [facility] [place] [facility] [address] [id number] [place] [address]- 4679 Aug, [facility] [place] [facility] [address] [id number] [address]- 3336 Aug, [facility] [place] [facility] [address] [id number] [place] [address]- 2386 Jul, [facility] [place] [facility] [address] [facility] [id number] [address]- 2396 Aug, [facility] [place] [facility] [address] [id number] [place] [address]- 0008 24 Jul, 2009 [facility] [place] [facility] [address] [id number] [address]- 8178 09 Jul, 2009 [facility] [place] [facility] [address] [id number] [address]- 3824 02 Jul, 2009 [facility] [place] [facility] [address] [id number] [address]- 9242 20 Jun, 2009 [facility] [place] [facility] [address] [id number] [place] [address]- 2187 16 Jun, 2009 [facility] [place] [facility] [address] [id number] [address]- 2321 Feb, [facility] [address] [facility] [id number] [place] [address]- 6332 January, IMMUNIZATIONS No Known Immunizations SOCIAL HISTORY Never Assessed REASON FOR VISIT EMR-[facility] [place] PLAN OF CARE VITAL SIGNS MEDICATIONS Unknown [...]
--- OUTSIDE RECORDS SUMMARY | 2019-01-25 20:08 | XMS REPORT ---
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 Name Role Phone Migration, Doctor Unavailable Unavailable PROBLEMS Type Condition ICD9-CM Code AWY74-GB Code Onset Dates Condition Status SNOMED Code Problem Bipolar I disorder, most recent episode (or current) mixed, unspecified 296.60 Active 75837002 Problem History of bipolar disorder Z86.59 Active 659030289 Problem Genital warts A63.0 Active 558912154 Problem Mild intermittent allergic asthma without complication J45.20 Active 786778629 Problem Gastroesophageal reflux disease without esophagitis K21.9 Active 155666221 Problem Bipolar disorder, current episode depressed, severe, without psychotic features F31.4 Active 970967331 Problem Panic disorder F41.0 Active 626051812 Problem Fibromyalgia M79.7 Active 147712793 ALLERGIES No Information ENCOUNTERS Encounter Location Date Diagnosis [facility] [id number] [place] [address] 78630- 4024 January, [facility] [id number] [place] [address] 47437- 6328 January, [facility] [id number] [place] [address] [id number] January, [facility] [id number] [place] [address] 07624- 4645 Dec, [facility] [id number] [place] [address] 80487- 4786 Dec, [facility] [address] [address]- 6277 Dec, [facility] [id number] [place] [address] 96126- 6771 Dec, Panic disorder F41.0 [facility] [address] [id number] Nov, Dental examination Z01.20 and Caries K02.9 [facility] [id number] [place] [address] 73768- 6780 Nov, [facility] [id number] [place] [address] 67103- 1303 Nov, Panic disorder F41.0 [facility] [id number] [place] [address] 48874- 5099 Oct, [facility] [id number] [place] [address] 92359- 7895 Oct, [facility] [id number] [place] [address] 11065- 5205 Oct, Panic disorder F41.0 [facility] [id number] [place] [address] 33556- 1552 Sep, Panic disorder F41.0 [facility] [id number] [place] [address] 38741- 9178 Aug, Panic disorder F41.0 and Bipolar disorder, current episode depressed, severe, without psychotic features F31.4 [facility] [id number] [place] [address] 41334- 9573 Jul, Fibromyalgia M79.7 [facility] [id number] [place] [address] 79302- 5216 Jun, Panic disorder F41.0 and Bipolar disorder, current episode depressed, severe, without psychotic features F31.4 [facility] [id number] [place] [address] 64314- 5428 Jun, Fibromyalgia M79.7 [facility] [id number] [place] [address] 80903- 3967 Jun, [facility] [id number] [place] [address] 67508- 7859 May, Mild intermittent allergic asthma without complication J45.20 [facility] [id number] [place] [address] 02936- 4795 14 May, 2018 Fibromyalgia M79.7 [place] [id number] [place] [address] 89827- 1529 05 May, 2018 [place] [id number] [place] [address] 92295- 3821 Apr, Panic disorder F41.0 ; Gastroesophageal reflux disease without esophagitis K21.9 ; Genital warts A63.0 and Fibromyalgia M79.7 [address] [id number] [place] [address] 45906- 4152 Apr, Panic disorder F41.0 and Bipolar disorder, current episode depressed, severe, without psychotic features F31.4 [place] [id number] [place] [address] 01120- 7949 Mar, History of bipolar disorder Z86.59 and History of fibromyalgia Z87.39 [place] [id number] [place] [address] 65451- 4459 Mar, History of bipolar disorder Z86.59 and History of fibromyalgia Z87.39 [place] [id number] [place] [address] 18355- 6471 Mar, Panic disorder F41.0 and Bipolar disorder, current episode depressed, severe, without psychotic features F31.4 [place] [id number] [place] [address] 87727- 9802 Mar, History of bipolar disorder Z86.59 ; History of fibromyalgia Z87.39 ; Gastroesophageal reflux disease without esophagitis K21.9 and Long-term use of high-risk medication Z79.899 [address] [id number] [place] [address] 50419- 3873 Dec, [place] [id number] [place] [address] 62869- 6584 Dec, [address] [id number] [place] [address] 21321- 2065 Nov, [facility] [address] [id number] [place] [address]- 3236 Oct, [facility] [place] [facility] [address] [id number] [place] [address]- 8212 Sep, [facility] [place] [facility] [address] [id number] [place] [address]- 6808 Aug, [facility] [place] [facility] [address] [id number] [place] [address]- 6363 Aug, [facility] [place] [facility] [address] [id number] [place] [address]- 3991 Aug, [facility] [place] [facility] [address] [id number] [place] [address]- 4413 Jul, [facility] [place] [facility] [address] [id number] [place] [address]- 5122 Jul, [facility] [place] [facility] [address] [id number] [place] [address]- 0261 Jul, [facility] [place] [facility] [address] [id number] [place] [address]- 7798 Jul, [facility] [place] [facility] [address] [id number] [place] [address]- 1431 Jun, [facility] [place] [facility] [address] [id number] [place] [address]- 1762 Jun, [facility] [place] [facility] [address] [id number], [place] [address]- 2787 Jun, [facility] [place] [facility] [address] [id number] [place] 3932 Jun, [facility] [place] [facility] [address] [id number] [place] [address]- 4656 Jun, [facility] [place] [facility] [address] [id number] [place] [address]- 1277 Jun, [facility] [place] [facility] [address] [id number], [place] [address]- 3207 08 Jun, 2012 [facility] [place] [facility] [address] [id number] [place] [address]- 3757 05 Jun, 2012 [facility] [place] [facility] [address] [id number] [place] [address]- 9826 26 May, 2011 [facility] [place] [facility] [address] [id number] [place] [address]- 7576 25 May, 2011 [facility] [place] [facility] [address] [id number] [place] [address]- 5386 24 Sep, 2011 [facility] [place] [facility] [address] [id number] [place] [address]- 1236 11 May, 2011 [facility] [place] [facility] [address] [id number] [place] [address]- 0502 08 May, 2011 [facility] [place] [facility] [address] [id number] [place] [address]- 4241 07 May, 2011 [facility] [place] [facility] [address] [id number] [place] [address]- 2923 05 May, 2011 [facility] [place] [facility] [address] [id number] [place] [address]- 6138 05 May, 2011 [facility] [place] [facility] [address] [id number] [place] [address]- 0695 04 May, 2011 [facility] [place] [facility] [address] [id number] [place] [address]- 3080 Apr, [facility] [place] [facility] [address] [id number] [place] [address]- 2510 Apr, [facility] [place] [facility] [address] [id number] [place] [address]- 7739 Apr, [facility] [place] [facility] [address] [id number] [place] [address]- 1798 Apr, [facility] [place] [facility] [address] [id number] [place] [address]- 3334 Apr, [facility] [place] [facility] [address] [id number] [place] [address]- 6009 Apr, [facility] [place] [facility] [address] [id number] [place] [address]- 9912 Apr, [facility] [place] [facility] [address] [id number] [place] [address]- 7666 Apr, [facility] [place] [facility] [address] [id number] [place] [address]- 3640 Apr, [facility] [place] [facility] [address] [id number] [place] [address]- 5347 Mar, [facility] [place] [facility] [address] [id number] [place] [address]- 6979 Mar, [facility] [place] [facility] [address] [id number] [place] [address]- 4938 Mar, [facility] [place] [facility] [address] [id number] [place] [address]- 7193 Mar, [facility] [place] [facility] [address] [id number] [place] [address]- 0912 Mar, [facility] [place] [facility] [address] [id number] [place] [address]- 3594 Mar, [facility] [place] [facility] [address] [id number] [place] [address]- 7818 Mar, [facility] [place] [facility] [address] [id number] [place] [address]- 0173 Mar, [facility] [place] [facility] [address] [id number] [place] [address]- 5062 Feb, [facility] [place] [facility] [address] [id number] [place] [address]- 6213 Feb, [facility] [place] [facility] [address] [id number] [place] [address]- 9270 Feb, [facility] [place] [facility] [address] [id number] [place] [address]- 8468 Feb, [facility] [place] [facility] [address] [id number] [place] [address]- 4943 Feb, [facility] [place] [facility] [address] [id number] [place] [address]- 6298 Feb, [facility] [place] [facility] [address] [id number] [place] [address]- 9998 January, [facility] [place] [facility] [address] [id number] [place] [address]- 2314 January, [facility] [place] [facility] [address] [id number] [place] [address]- 3368 30 Dec, 2011 [facility] [place] [facility] [address] [id number] [place] [address]- 1157 24 Dec, 2011 [facility] [place] [facility] [address] [id number] [place] [address]- 0352 20 Dec, 2011 [facility] [place] [facility] [address] [id number] [place] [address]- 8493 19 Dec, 2011 [facility] [place] [facility] [address] [id number] [place] [address]- 6722 17 Dec, 2011 [facility] [place] [facility] [address] [id number] [place] [address]- 6789 13 Dec, 2011 [facility] [place] [facility] [address] [id number] [place] [address]- 6100 12 Dec, 2011 [facility] [place] [facility] [address] [id number] [place] [address]- 9212 12 Dec, 2011 [facility] [place] [facility] [address] [id number] [place] [address]- 6827 28 Nov, 2011 [facility] [place] [facility] [address] [id number] [place] [address]- 3292 15 Nov, 2011 [facility] [place] [facility] [address] [id number] [place] 3687 07 Nov, 2011 [facility] [place] [facility] [address] [id number] [place] [address]- 7350 06 Nov, 2011 [facility] [address] [id number] [place] [address]- 5416 Nov, [facility] [place] [facility] [address] [id number] [place] [address]- 3926 Nov, [facility] [address] [id number] [place] [address]- 8966 Oct, [facility] [place] [facility] [address] [id number] [place] [address]- 3445 Oct, [facility] [address] [id number] [place] [address]- 3576 Oct, [facility] [place] [facility] [address] [id number] [place] [address]- 6116 Oct, [facility] [address] [id number] [place] [address]- 3866 Oct, [facility] [address] [id number] [place] [address]- 7051 Oct, [facility] [address] [id number] [place] [address]- 1715 Sep, [facility] [address] [facility] [id number] [place] [address]- 9813 Aug, [facility] [place] [facility] [address] [id number] [place] [address] 2546 Aug, [facility] [place] [facility] [address] [id number] [place] [address] 2546 Aug, [facility] [place] [facility] [address] [id number] [place] [address] 2546 19 Aug, 2011 [facility] [place] [facility] [address] [id number] [place] [address] 2546 15 Aug, 2011 [facility] [place] [facility] [address] [facility] [id number] [place] [address]- 0703 13 Aug, 2011 [facility] [place] [facility] [address] [id number] [place] [address]- 4955 13 Aug, 2011 [facility] [place] [facility] [address] [id number] [place] [address]- 6307 Jul, [facility] [place] [facility] [address] [id number] [place] [address]- 6530 Jun, [facility] [place] [facility] [address] [id number] [place] [address]- 8486 Jun, [facility] [place] [facility] [address] [id number] [place] [address]- 4958 Jun, [facility] [place] [facility] [address] [id number] [place] [address]- 4008 Mar, [facility] [place] [facility] [address] [id number] [place] [address]- 5554 Feb, [facility] [place] [facility] [address] [id number], [place] [address]- 0166 Aug, [facility] [place] [facility] [address] [id number] [place] [address]- 5328 Aug, [facility] [place] [facility] [address] [facility] [id number], [place] [address]- 5754 Jul, [facility] [place] [facility] [address] [facility] [id number], [place] [address]- 3954 Aug, [facility] [place] [facility] [address] [id number], [place] [address]- 6025 Jul, [facility] [place] [facility] [address] [id number] [place] [address]- 8046 Jul, [facility] [place] [facility] [address] [id number], [place] [address]- 9576 Jul, [facility] [place] [facility] [address] [id number], [place] [address]- 5936 Jun, [facility] [place] [facility] [address] [id number], [place] [address]- 1196 Jun, [facility] [address] [facility] [id number] [place] [address]- 7243 Feb, [facility] [address] [facility] [id number], [place] [address]- 8058 January, IMMUNIZATIONS No Known Immunizations SOCIAL HISTORY Never Assessed REASON FOR VISIT EMR-[facility] PLAN OF CARE VITAL SIGNS MEDICATIONS Unknown [...]
--- OUTSIDE RECORDS SUMMARY | 2019-01-25 20:08 | XMS REPORT ---
Author Author Migration, Doctor Organization [facility] Address Unknown Phone Unavailable Care Team Providers Care Hoop Riveter Name Role Phone Migration, Doctor Unavailable Unavailable PROBLEMS Type Condition ICD9-CM Code ZDM23-FE Code Onset Dates Condition Status SNOMED Code Problem Bipolar I disorder, most recent episode (or current) mixed, unspecified 296.60 Active 88832804 Problem History of bipolar disorder Z86.59 Active 549759341 Problem Genital warts A63.0 Active 255213453 Problem Mild intermittent allergic asthma without complication J45.20 Active 831717036 Problem Gastroesophageal reflux disease without esophagitis K21.9 Active 084396039 Problem Bipolar disorder, current episode depressed, severe, without psychotic features F31.4 Active 567624020 Problem Panic disorder F41.0 Active 575330926 Problem Fibromyalgia M79.7 Active 611740921 ALLERGIES No Information ENCOUNTERS Encounter Location Date Diagnosis [facility] [id number] [place] [address] 23921- 0957 January, [facility] [id number] [place] [address] 78352- 2379 January, [facility] [id number] [place] [id number] January, [facility] [id number] [place] [address] 90699- 8595 Dec, [facility] [id number] [place] [address] 81078- 7031 Dec, [facility] [address] [address]- [address]284 Dec, [facility] [id number] [place] [address] 52233- 3371 Dec, Panic disorder F41.0 [facility] [address] [id number] Nov, Dental examination Z01.[address] [facility] [id number] [place] [address] 71125- 4228 Nov, [facility] [id number] [place] [address] 16265- 0405 Nov, Panic disorder F41.0 [facility] [id number] [place] [address] 45472- 4781 Oct, [facility] [id number] [place] [address] 95088- 1562 Oct, [facility] [id number] [place] [address] 22063- 6957 Oct, Panic disorder F41.0 [facility] [id number] [place] [address] 63738- 0038 Sep, Panic disorder F41.0 [facility] [id number] [place] [address] 55635- 8555 Aug, Panic disorder F41.0 and Bipolar disorder, current episode depressed, severe, without psychotic features F31.4 [facility] [id number] [place] [address] 98090- 8858 Jul, Fibromyalgia M79.7 [facility] [id number] [place] [address] 75003- 5650 Jun, Panic disorder F41.0 and Bipolar disorder, current episode depressed, severe, without psychotic features F31.4 [facility] [id number] [place] [address] 07077- 7346 Jun, Fibromyalgia M79.7 [facility] [id number] [place] [address] 42905- 5464 Jun, [facility] [id number] [place] [address] 71509- 5939 May, Mild intermittent allergic asthma without complication J45.20 [facility] [id number] [place] [address] 46010- 1415 14 May, 2018 Fibromyalgia M79.7 [place] [id number] [place] [address] 21424- 6958 05 May, 2018 [place] [id number] [place] [address] 02945- 2883 Apr, Panic disorder F41.0 ; Gastroesophageal reflux disease without esophagitis K21.9 ; Genital warts A63.0 and Fibromyalgia M79.7 [place] [id number] [place] [address] 71572- 8363 Apr, Panic disorder F41.0 and Bipolar disorder, current episode depressed, severe, without psychotic features F31.4 [place] [id number] [place] [address] 28643- 5018 Mar, History of bipolar disorder Z86.59 and History of fibromyalgia Z87.39 [place] [id number] [place] [address] 44288- 2743 Mar, History of bipolar disorder Z86.59 and History of fibromyalgia Z87.39 [place] [id number] [place] [address] 10526- 7003 Mar, Panic disorder F41.0 and Bipolar disorder, current episode depressed, severe, without psychotic features F31.4 [place] [id number] [place] [address] 11406- 1130 Mar, History of bipolar disorder Z86.59 ; History of fibromyalgia Z87.39 ; Gastroesophageal reflux disease without esophagitis K21.9 and Long-term use of high-risk medication Z79.899 [address] [place] [id number] [place] [address] 21421- 5269 Dec, [place] [id number] [place] [address] 18951- 4903 Dec, [place] [id number] [place] [address] 12212- 7824 Nov, [facility] [address] [id number] [place] [address]- 2950 Oct, [facility] [place] [facility] [address] [id number] [place] [address]- 9216 Sep, [facility] [place] [facility] [address] [id number] [place] [address]- 0420 Aug, [facility] [place] [facility] [address] [id number] [place] [address]- 7290 Aug, [facility] [place] [facility] [address] [id number] [place] [address]- 4097 Aug, [facility] [place] [facility] [address] [id number] [place] [address]- 9619 Jul, [facility] [place] [facility] [address] [id number] [place] [address]- 0147 Jul, [facility] [place] [facility] [address] [id number] [place] [address]- 2540 Jul, [facility] [place] [facility] [address] [id number] [place] [address]- 5167 Jul, [facility] [place] [facility] [address] [id number] [place] [address]- 4506 Jun, [facility] [place] [facility] [address] [id number] [place] [address]- 5254 Jun, [facility] [place] [facility] [address] [id number], [place] [address]- 0981 Jun, [facility] [place] [facility] [address] [id number] [place] 0499 Jun, [facility] [place] [facility] [address] [id number] [place] [address]- 5239 Jun, [facility] [place] [facility] [address] [id number] [place] [address]- 4652 Jun, [facility] [place] [facility] [address] [id number], [place] [address]- 3761 08 Jun, 2012 [facility] [place] [facility] [address] [id number] [place] [address]- 7723 05 Jun, 2012 [facility] [place] [facility] [address] [id number] [place] [address]- 5056 26 May, 2011 [facility] [place] [facility] [address] [id number] [place] [address]- 9336 25 May, 2011 [facility] [place] [facility] [address] [id number] [place] [address]- 8799 24 Sep, 2011 [facility] [place] [facility] [address] [id number] [place] [address]- 1555 11 May, 2011 [facility] [place] [facility] [address] [id number] [place] [address]- 9571 08 May, 2011 [facility] [place] [facility] [address] [id number] [place] [address]- 5071 07 May, 2011 [facility] [place] [facility] [address] [id number] [place] [address]- 7183 05 May, 2011 [facility] [place] [facility] [address] [id number] [place] [address]- 0927 05 May, 2011 [facility] [place] [facility] [address] [id number] [place] [address]- 1193 04 May, 2011 [facility] [place] [facility] [address] [id number] [place] [address]- 4661 Apr, [facility] [place] [facility] [address] [id number] [place] [address]- 0466 Apr, [facility] [place] [facility] [address] [id number] [place] [address]- 7268 Apr, [facility] [place] [facility] [address] [id number] [place] [address]- 7295 Apr, [facility] [place] [facility] [address] [id number] [place] [address]- 2716 Apr, [facility] [place] [facility] [address] [id number] [place] [address]- 3763 Apr, [facility] [place] [facility] [address] [id number] [place] [address]- 2323 Apr, [facility] [place] [facility] [address] [id number] [place] [address]- 3216 Apr, [facility] [place] [facility] [address] [id number] [place] [address]- 9567 Apr, [facility] [place] [facility] [address] [id number] [place] [address]- 1475 Mar, [facility] [place] [facility] [address] [id number] [place] [address]- 4440 Mar, [facility] [place] [facility] [address] [id number] [place] [address]- 4520 Mar, [facility] [place] [facility] [address] [id number] [place] [address]- 4199 Mar, [facility] [place] [facility] [address] [id number] [place] [address]- 4351 Mar, [facility] [place] [facility] [address] [id number] [place] [address]- 7609 Mar, [facility] [place] [facility] [address] [id number] [place] [address]- 3794 Mar, [facility] [place] [facility] [address] [id number] [place] [address]- 6267 Mar, [facility] [place] [facility] [address] [id number] [place] [address]- 6261 Feb, [facility] [place] [facility] [address] [id number] [place] [address]- 9429 Feb, [facility] [place] [facility] [address] [id number] [place] [address]- 8678 Feb, [facility] [place] [facility] [address] [id number] [place] [address]- 6929 Feb, [facility] [place] [facility] [address] [id number] [place] [address]- 9346 Feb, [facility] [place] [facility] [address] [id number] [place] [address]- 9311 Feb, [facility] [place] [facility] [address] [id number] [place] [address]- 1160 January, [facility] [place] [facility] [address] [id number] [place] [address]- 3294 January, [facility] [place] [facility] [address] [id number] [place] [address]- 4958 30 Dec, 2011 [facility] [place] [facility] [address] [id number] [place] [address]- 8980 24 Dec, 2011 [facility] [place] [facility] [address] [id number] [place] [address]- 5492 20 Dec, 2011 [facility] [place] [facility] [address] [id number] [place] [address]- 2418 19 Dec, 2011 [facility] [place] [facility] [address] [id number] [place] [address]- 0974 17 Dec, 2011 [facility] [place] [facility] [address] [id number] [place] [address]- 0989 13 Dec, 2011 [facility] [place] [facility] [address] [id number] [place] [address]- 6743 12 Dec, 2011 [facility] [place] [facility] [address] [id number] [place] [address]- 2016 12 Dec, 2011 [facility] [place] [facility] [address] [id number] [place] [address]- 9405 28 Nov, 2011 [facility] [place] [facility] [address] [id number] [place] [address]- 3517 15 Nov, 2011 [facility] [place] [facility] [address] [id number] [place] 7383 07 Nov, 2011 [facility] [place] [facility] [address] [id number] [place] [address]- 3612 06 Nov, 2011 [facility] [address] [id number] [place] [address]- 4056 Nov, [facility] [place] [facility] [address] [id number] [place] [address]- 0206 Nov, [facility] [address] [id number] [place] [address]- 4176 Oct, [facility] [place] [facility] [address] [id number] [place] [address]- 0401 Oct, [facility] [address] [id number] [place] [address]- 4176 Oct, [facility] [place] [facility] [address] [id number] [place] [address]- 6076 Oct, [facility] [address] [id number] [place] [address]- 8156 Oct, [facility] [address] [id number] [place] [address]- 4988 Oct, [facility] [address] [id number] [place] [address]- 6294 Sep, [facility] [address] [facility] [id number] [place] [address]- 3607 Aug, [facility] [place] [facility] [address] [id number] [place] [address] 2546 Aug, [facility] [place] [facility] [address] [id number] [place] [address] 2546 Aug, [facility] [place] [facility] [address] [id number] [place] [address] 2546 19 Aug, 2011 [facility] [place] [facility] [address] [id number] [place] [address] 2546 15 Aug, 2011 [facility] [place] [facility] [address] [facility] [id number] [place] [address]- 2593 13 Aug, 2011 [facility] [place] [facility] [address] [id number] [place] [address]- 3915 13 Aug, 2011 [facility] [place] [facility] [address] [id number] [place] [address]- 5746 Jul, [facility] [place] [facility] [address] [id number] [place] [address]- 1411 Jun, [facility] [place] [facility] [address] [id number] [place] [address]- 3766 Jun, [facility] [place] [facility] [address] [id number] [place] [address]- 7125 Jun, [facility] [place] [facility] [address] [id number] [place] [address]- 4447 Mar, [facility] [place] [facility] [address] [id number] [place] [address]- 2530 Feb, [facility] [place] [facility] [address] [id number], [place] [address]- 9418 Aug, [facility] [place] [facility] [address] [id number] [place] [address]- 1834 Aug, [facility] [place] [facility] [address] [facility] [id number], [place] [address]- 9876 Jul, [facility] [place] [facility] [address] [facility] [id number], [place] [address]- 5877 Aug, [facility] [place] [facility] [address] [id number], [place] [address]- 8577 Jul, [facility] [place] [facility] [address] [id number] [place] [address]- 5375 Jul, [facility] [place] [facility] [address] [id number], [place] [address]- 1336 Jul, [facility] [place] [facility] [address] [id number], [place] [address]- 7287 Jun, [facility] [place] [facility] [address] [id number], [place] [address]- 6546 Jun, [facility] [address] [facility] [id number] [place] [address]- 2[address] Feb, [facility] [address] [facility] [id number], [place] [address]- 9342 January, IMMUNIZATIONS No Known Immunizations SOCIAL HISTORY Never Assessed REASON FOR VISIT EMR-[facility] PLAN OF CARE VITAL SIGNS MEDICATIONS Unknown [...]
--- OUTSIDE RECORDS SUMMARY | 2019-01-25 20:09 | XMS REPORT ---
Author Author Migration, Doctor Organization [facility] Address Unknown Phone Unavailable Care Team Providers Care Wallet Assembler Name Role Phone Migration, Doctor Unavailable Unavailable PROBLEMS Type Condition ICD9-CM Code JNS50-NA Code Onset Dates Condition Status SNOMED Code Problem Bipolar I disorder, most recent episode (or current) mixed, unspecified 296.60 Active 08891809 Problem History of bipolar disorder Z86.59 Active 069975411 Problem Genital warts A63.0 Active 109229969 Problem Mild intermittent allergic asthma without complication J45.20 Active 135169672 Problem Gastroesophageal reflux disease without esophagitis K21.9 Active 231861151 Problem Bipolar disorder, current episode depressed, severe, without psychotic features F31.4 Active 039428250 Problem Panic disorder F41.0 Active 851260939 Problem Fibromyalgia M79.7 Active 249468083 ALLERGIES No Information ENCOUNTERS Encounter Location Date Diagnosis [facility] [id number] [place] [address] [phone]- 8009 Dec, [facility] [id number] [place] [id number] Nov, Dental examination Z01.20 and Caries K02.9 [facility] [address] [id number] [address] Nov, [facility] [id number] [place] [address] 75830- 4788 Nov, Panic disorder F41.0 [facility] [id number] [place] [address] 50139- 8488 Oct, [facility] [id number] [place] [address] 75436- 9710 Oct, [facility] [id number] [place] [address] 35543- 1844 Oct, Panic disorder F41.0 [facility] [id number] [place] [address] 74132- 9870 Sep, Panic disorder F41.0 [facility] [id number] [place] [address] 19856- 5727 Aug, Panic disorder F41.0 and Bipolar disorder, current episode depressed, severe, without psychotic features F31.4 [facility] [address] [address]- [address]26 Jul, Fibromyalgia M79.7 [address] [address] [address]- 1609 Jun, Panic disorder F41.0 and Bipolar disorder, current episode depressed, severe, without psychotic features F31.4 [place] [id number] [place] [address] 88506- 1655 Jun, Fibromyalgia M79.7 [place] [address] 91169- 4490 Jun, [place] [address] 60988- 3717 27 May, 2018 Mild intermittent allergic asthma without complication J45.20 [place] [id number] [place] [address] 84933- 8056 14 May, 2018 Fibromyalgia M79.7 [place] [id number] [place] [address] 09694- 7268 May, [facility] [id number] [place] [address] 63806- 7771 Apr, Panic disorder F41.0 ; Gastroesophageal reflux disease without esophagitis K21.9 ; Genital warts A63.0 and Fibromyalgia M79.7 [facility] [id number] [place] [address] 61163- 9573 Apr, Panic disorder F41.0 and Bipolar disorder, current episode depressed, severe, without psychotic features F31.4 [place] [id number] [place] [address] 19855- 0590 19 Mar, 2018 History of bipolar disorder Z86.59 and History of fibromyalgia Z87.39 [facility] [id number] [place] [address] 66027- 7435 13 Mar, 2018 History of bipolar disorder Z86.59 and History of fibromyalgia Z87.39 [facility] [id number] [place] [address] 16198- 8816 12 Mar, 2018 Panic disorder F41.0 and Bipolar disorder, current episode depressed, severe, without psychotic features F31.4 [facility] [id number] [place] [address] 80281- 3219 11 Mar, 2018 History of bipolar disorder Z86.59 ; History of fibromyalgia Z87.39 ; Gastroesophageal reflux disease without esophagitis K21.9 and Long-term use of high-risk medication Z79.899 [facility] [id number] [place] [address] 36476- 9191 14 Dec, 2014 [facility] [id number] [place] [address] 29347- 9816 Dec, [facility] [id number] [place] [address] 77483- 0506 Nov, [facility] [id number] [place] [address] 59191- 1509 08 Oct, 2012 [facility] [id number] [place] [address] 06746- 0960 Sep, [facility] [id number] [place] [address] [id number] [id number] Aug, [facility] [id number] [place] [address] 107224- 5102 Aug, [facility] [id number] [place] [address] 315205- 5676 Aug, [facility] [id number] [place] [address] 899549- 4627 Jul, [facility] [place] [facility] [address] [id number] [place] [address]- 6527 Jul, [facility] [place] [facility] [address] [id number] [place] [address]77 Jul, [facility] [place] [facility] [address] [id number] [place] [address]- 6410 Jul, [facility] [place] [facility] [address] [id number] [place] [address]- 8705 Jun, [facility] [place] [facility] [address] [id number] [place] [address]- 1660 Jun, [facility] [place] [facility] [address] [id number] [place] [address]- 0613 Jun, [facility] [place] [facility] [address] [id number] [place] [address]- 4656 Jun, [facility] [place] [facility] [address] [id number] [place] [address]- 7683 Jun, [facility] [place] [facility] [address] [id number] [place] [address]- 9603 Jun, [facility] [place] [facility] [address] [id number] [place] [address]- 7760 Jun, [facility] [place] [facility] [address] [id number] [place] [address]- 9135 Jun, [facility] [place] [facility] [address] [id number] [place] [address]- 0765 26 May, 2012 [facility] [place] [facility] [address] [id number] [place] [address]- 7001 25 Sep2011 [facility] [place] [facility] [address] [id number] [place]- 9716 24 Sep2011 [facility] [place] [facility] [address] [id number] [place] [address]- 1256 11 Sep2011 [facility] [place] [facility] [address] [id number] [place] [address]- 7338 08 May, 2011 [facility] [place] [facility] [address] [id number] [place] [address]- 3962 May, 2011 [facility] [place] [facility] [address] [id number] [place] [address]- 1276 May, 2011 [facility] [place] [facility] [address] [id number] [place] [address]- 9396 May, 2011 [facility] [place] [facility] [address] [id number] [place] [address]- 7310 May, [facility] [place] [facility] [address] [id number] [place] [address]- 0506 Apr, [facility] [place] [facility] [address] [id number] [place] [address]- 9784 Apr, [facility] [place] [facility] [address] [id number] [place] [address]- 6647 Apr, [facility] [place] [facility] [address] [id number] [place] [address]- 5629 Apr, [facility] [place] [facility] [address] [id number] [place] [address]- 6348 Apr, [facility] [place] [facility] [address] [id number] [place] [address]- 1395 Apr, [facility] [place] [facility] [address] [id number] [place] [address]- 4841 Apr, [facility] [place] [facility] [address] [id number] [address]- 9310 Apr, [facility] [place] [facility] [address] [id number] [place] [address]- 7904 Apr, [facility] [place] [facility] [address] [id number] [place] [address]- 6167 Mar, [facility] [place] [facility] [address] [id number] [place] [address]- 6269 Mar, [facility] [place] [facility] [address] [id number] [place] [address]- 2680 Mar, [facility] [place] [facility] [address] [id number] [place] [address]- 0976 Mar, [facility] [place] [facility] [address] [id number] [place] [address]- 3116 Mar, [facility] [place] [facility] [address] [id number] [place] [address]- 0612 Mar, [facility] [place] [facility] [address] [id number] [place] [address] 2540 Mar, [facility] [place] [facility] [address] [id number] [place] [address]- 6935 Mar, [facility] [place] [facility] [address] [id number] [place] [address]- 5604 Feb, [facility] [place] [facility] [address] [id number] [place] [address]- 6081 Feb, [facility] [place] [facility] [address] [id number] [place] [address]- 2815 Feb, [facility] [place] [facility] [address] [id number] [place] [address]- 9980 Feb, [facility] [place] [facility] [address] [id number] [place] [address]- 4017 Feb, [facility] [place] [facility] [address] [id number] [place] [address]- 8090 Feb, [facility] [place] [facility] [address] [id number] [place] [address]- 2994 January, [facility] [place] [facility] [address] [id number] [place] [address]- 8909 January, [facility] [place] [facility] [address] [id number] [place] [address]- 1891 Dec, [facility] [place] [facility] [address] [id number] [place] [address]- 3400 Dec, [facility] [place] [facility] [address] [id number] [place] [address]- 8243 20 Dec, 2011 [facility] [place] [facility] [address] [id number] [place] [address]- 4728 19 Dec, 2011 [facility] [place] [facility] [address] [id number] [place] [address]- 3996 17 Dec, 2011 [facility] [place] [facility] [address] [id number] [place] [address]- 4265 13 Dec, 2011 [facility] [place] [facility] [address] [id number] [place] [address]- 1171 12 Dec, 2011 [facility] [place] [facility] [address] [id number] [place] [address]- 9461 Dec, [facility] [place] [facility] [address] [id number] [place] [address]- 5265 28 Nov, 2011 [facility] [place] [facility] [address] [id number] [place] [address]- 4599 15 Nov, 2011 [facility] [place] [facility] [address] [id number] [place] [address]- 1332 07 Nov, 2011 [facility] [place] [facility] [address] [id number] [place] [address]- 8917 Nov, [facility] [place] [facility] [address] [id number] [place] [address]- 3976 05 Nov, 2011 [facility] [place] [facility] [address] [id number] [place] [address]- 9433 Nov, [facility] [place] [facility] [address] [id number] [place] [address]- 9786 28 Oct, 2011 [facility] [place] [facility] [address] [id number] [place] [address]- 3326 27 Oct, 2011 [facility] [place] [facility] [address] [id number] [place] [address]- 1356 06 Oct, 2011 [facility] [place] [facility] [address] [id number], [place] [address]- 0831 Oct, [facility] [address] [id number] [place] [address]- 1746 Oct, [facility] [place] [facility] [address] [id number] [place] [address]- 9396 Oct, [facility] [address] [id number] [place] [address]- 7429 Sep, [facility] [place] [facility] [address] [id number] [place] [address]- 6832 Aug, [facility] [address] [id number] [place] [address]- 0879 Aug, [facility] [place] [facility] [address] [id number] [place] [address]- 7723 Aug, [facility] [address] [id number] [place] [address]- 8096 Aug, [facility] [place] [facility] [address] [id number] [place] [address]- 7343 Aug, [facility] [place] [facility] [address] [id number] [place] [address]- 8280 Aug, [facility] [place] [facility] [address] [facility] [id number] [place] [address]- 7323 Aug, [facility] [place] [facility] [address] [id number] [place] [address]- 3686 Jul, [facility] [place] [facility] [address] [id number], [place] [address]- 4244 Jun, [facility] [place] [facility] [address] [id number] [place] [address]- 8157 Jun, [facility] [place] [facility] [address] [facility] [id number] [place] [address]- 4304 Jun, [facility] [place] [facility] [address] [id number], [place] [address]- 1275 Mar, [facility] [address] [facility] [id number], [place] [address]- 6458 Feb, [facility] [address] [facility] [id number], [place] [address]- 7024 Aug, [facility] [address] [facility] [id number], [place] [address]- 1146 Aug, [facility] [address] [facility] [id number], [place] [address]- 1597 Jul, [facility] [address] [facility] [id number], [place] [address]- 2235 Aug, [facility] [address] [address]- 9117 Jul, [facility] [address] [address]- 8762 Jul, [facility] [address] [address]- 1512 Jul, [facility] [address] [address]- 1969 Jun, [facility] [address] [address]- 2864 Jun, [facility] [address] [address]- 2533 Feb, [facility] [address] [address]- 6648 January, IMMUNIZATIONS No Known Immunizations SOCIAL HISTORY Never Assessed REASON FOR VISIT EMR-[facility] [place] CARE VITAL SIGNS MEDICATIONS Medication Instructions Dosage Frequency Start Date End Date Duration Status Depakote 500 mg 2 tablet by Oral route 1 time per dayat bedtime Aug Active Valtrex 500 mg 1 Tablet by Oral route 1 time per day for 5 days Mar Active Aciphex 20 mg 1 tablet by Oral route 1 time per day January, Active RESULTS No Results PROCEDURES No Known [...]
--- OUTSIDE RECORDS SUMMARY | 2019-01-25 20:09 | XMS REPORT ---
Author Author Migration, Doctor Organization [facility] Address Unknown Phone Unavailable Care Team Providers Care Property Field Adjuster Name Role Phone Migration, Doctor Unavailable Unavailable PROBLEMS Type Condition ICD9-CM Code TWF42-KB Code Onset Dates Condition Status SNOMED Code Problem Bipolar I disorder, most recent episode (or current) mixed, unspecified 296.60 Active 65867425 Problem History of bipolar disorder Z86.59 Active 841681472 Problem Genital warts A63.0 Active 657690084 Problem Mild intermittent allergic asthma without complication J45.20 Active 839785323 Problem Gastroesophageal reflux disease without esophagitis K21.9 Active 897864935 Problem Bipolar disorder, current episode depressed, severe, without psychotic features F31.4 Active 771011159 Problem Panic disorder F41.0 Active 094412796 Problem Fibromyalgia M79.7 Active [id number] ALLERGIES No Information ENCOUNTERS Encounter Location Date Diagnosis [facility] [id number] [place] [address] 54283- 1238 Dec, [facility] [id number] [place] [address] 39444- 5059 Nov, [facility] [address] [id number] 15 Nov, 2018 Dental examination Z01.20 and Caries K02.9 [facility] [id number] [place] [address] 05047- 6968 Nov, [facility] [id number] [place] [address] 83952- 8079 Nov, Panic disorder F41.0 [facility] [id number] [place] [address] 32065- 3612 Oct, [facility] [id number] [place] [address] 99548- 1063 Oct, [facility] [id number] [place] [address] 43653- 5142 Oct, Panic disorder F41.0 [facility] [id number] [place] [address] 04075- 3531 Sep, Panic disorder F41.0 [facility] [id number] [place] [address] 94948- 7547 Aug, Panic disorder F41.0 and Bipolar disorder, current episode depressed, severe, without psychotic features F31.4 [facility] [id number] [place] [address] 59952- 5512 Jul, Fibromyalgia M79.7 [facility] [id number] [place] [address] 63371- 0103 Jun, Panic disorder F41.0 and Bipolar disorder, current episode depressed, severe, without psychotic features F31.4 [facility] [id number] [place] [address] 14723- 0408 Jun, Fibromyalgia M79.7 [facility] [id number] [place] [address] 67502- 5817 Jun, [facility] [id number] [place] [address] 58304- 1336 May, Mild intermittent allergic asthma without complication J45.20 [facility] [id number] [place] [address] 49483- 0678 14 May, 2018 Fibromyalgia M79.7 [facility] [id number] [place] [address] 35057- 8955 May, [facility] [id number] [place] [address] 22445- 8458 Apr, Panic disorder F41.0 ; Gastroesophageal reflux disease without esophagitis K21.9 ; Genital warts A63.0 and Fibromyalgia M79.7 [facility] [address] [place] [address] 63202- 6145 Apr, Panic disorder F41.0 and Bipolar disorder, current episode depressed, severe, without psychotic features F31.4 [facility] [address] [address] 7297 19 Mar, 2018 History of bipolar disorder Z86.59 and History of fibromyalgia Z87.39 [facility] [id number] [place] [address] 22173- 5945 13 Mar, 2018 History of bipolar disorder Z86.59 and History of fibromyalgia Z87.39 [facility] [id number] [place] [address] 37700- 1303 12 Mar, 2018 Panic disorder F41.0 and Bipolar disorder, current episode depressed, severe, without psychotic features F31.4 [facility] [id number] [place] [address] 19770- 6018 11 Mar, 2018 History of bipolar disorder Z86.59 ; History of fibromyalgia Z87.39 ; Gastroesophageal reflux disease without esophagitis K21.9 and Long-term use of high-risk medication Z79.899 [facility] [id number] [place] [address] 51759- 4579 14 Dec, 2014 [facility] [id number] [place] [address] 24554- 6538 Dec, [facility] [id number] [place] [address] 22971- 0674 Nov, [facility] [id number] [place] [address] 51907- 0703 Oct, [facility] [id number] [address]- 7270 Sep, [facility] [id number] [place] [address] 057755- 8004 Aug, [facility] [id number] [place] [address] 750322- 8098 Aug, [facility] [id number] [place] [address] 09657- 1102 Aug, [facility] [place] [facility] [address] [id number] [place] [address]- 5471 Jul, [facility] [place] [facility] [address] [id number] [place] [address]- 7960 Jul, [facility] [place] [facility] [address] [id number] [place] [address]- 0846 Jul, [facility] [place] [facility] [address] [id number] [place] [address]- 1103 Jul, [facility] [place] [facility] [address] [id number] [place] [address]- 1095 Jun, [facility] [place] [facility] [address] [id number] [place] [address]- 1695 Jun, [facility] [place] [facility] [address] [id number] [place] [address]- 9326 Jun, [facility] [place] [facility] [address] [id number] [place] [address]- 4209 Jun, [facility] [place] [facility] [address] [id number] [place] [address]- 9804 Jun, [facility] [place] [facility] [address] [id number] [place] [address]- 5374 Jun, [facility] [place] [facility] [address] [id number] [place] [address]- 0699 Jun, [facility] [place] [facility] [address] [id number] [place] [address]- 7123 05 Jun, 2012 [facility] [place] [facility] [address] [id number] [place] [address]- 0145 26 May, 2012 [facility] [place] [facility] [address] [id number] [place] 4026 25 May, 2012 [facility] [place] [facility] [address] [id number] [place] 9573 24 Sep2011 [facility] [place] [facility] [address] [id number] [place] [address]- 8167 11 May, 2011 [facility] [place] [facility] [address] [id number] [place] [address]- 5405 08 May, 2011 [facility] [place] [facility] [address] [id number] [place] [address]- 6526 07 May, 2011 [facility] [place] [facility] [address] [id number] [place] [address]- 9446 05 May, 2011 [facility] [place] [facility] [address] [id number] [place] [address]- 6250 05 May, 2011 [facility] [place] [facility] [address] [id number] [place] [address]- 2644 May, [facility] [place] [facility] [address] [id number] [place] [address]- 6424 Apr, [facility] [place] [facility] [address] [id number] [place] [address]- 7408 Apr, [facility] [place] [facility] [address] [id number] [place] [address]- 8219 Apr, [facility] [place] [facility] [address] [id number] [place] [address]- 8893 Apr, [facility] [place] [facility] [address] [id number] [place] [address]- 7925 Apr, [facility] [place] [facility] [address] [id number] [place] [address]- 2493 Apr, [facility] [place] [facility] [address] [id number] [address]- 3553 Apr, [facility] [place] [facility] [address] [id number] [place] [address]- 4740 Apr, [facility] [place] [facility] [address] [id number] [place] [address]- 8408 Apr, [facility] [place] [facility] [address] [id number] [place] [address]- 0745 Mar, [facility] [place] [facility] [address] [id number] [place] [address]- 8826 Mar, [facility] [place] [facility] [address] [id number] [place] [address]- 8314 Mar, [facility] [place] [facility] [address] [id number] [place] [address]- 7426 Mar, [facility] [place] [facility] [address] [id number] [place] [address]- 8905 Mar, [facility] [place] [facility] [address] [id number] [place] [address]- 0024 Mar, [facility] [place] [facility] [address] [id number] [place] [address]- 5660 Mar, [facility] [place] [facility] [address] [id number] [place] [address]- 4589 Mar, [facility] [place] [facility] [address] [id number] [place] [address]- 6856 Feb, [facility] [place] [facility] [address] [id number] [place] [address]- 9248 Feb, [facility] [place] [facility] [address] [id number] [place] [address]- 0823 Feb, [facility] [place] [facility] [address] [id number] [place] [address]- 5359 Feb, [facility] [place] [facility] [address] [id number] [place] [address]- 9776 Feb, [facility] [place] [facility] [address] [id number] [place] [address]- 0125 Feb, [facility] [place] [facility] [address] [id number] [place] [address]- 2560 January, [facility] [place] [facility] [address] [id number] [place] [address]- 1571 January, [facility] [place] [facility] [address] [id number] [place] [address]- 0320 Dec, [facility] [place] [facility] [address] [id number] [place] [address]- 3103 24 Dec, 2011 [facility] [place] [facility] [address] [id number] [place] [address]- 4111 20 Dec, 2011 [facility] [place] [facility] [address] [id number] [place] [address]- 7397 19 Dec, 2011 [facility] [place] [facility] [address] [id number] [place] [address]- 2364 17 Dec, 2011 [facility] [address] [id number] [place] [address]- 5544 13 Dec, 2011 [facility] [place] [facility] [address] [id number] [place] [address]- 0152 12 Dec, 2011 [facility] [address] [id number] [place] [address]- 3295 Dec, [facility] [address] [id number] [place] [address]- 0251 28 Nov, 2011 [facility] [place] [facility] [address] [id number] [place] [address]- 9034 15 Nov, 2011 [facility] [place] [facility] [address] [id number] [place] [address]- 5673 07 Nov, 2011 [facility] [place] [facility] [address] [id number] [place] [address]- 1209 06 Nov, 2011 [facility] [place] [facility] [address] [id number] [place] [address]- 5859 05 Nov, 2011 [facility] [place] [facility] [address] [id number] [place] [address]- 2207 02 Nov, 2011 [facility] [place] [facility] [address] [id number] [place] [address]- 2020 28 Oct, 2011 [facility] [place] [facility] [address] [id number] [place] [address]- 6814 27 Oct, 2011 [facility] [place] [facility] [address] [id number] [place] [address]- 8078 Oct, [facility] [address] [id number] [place] [address]- 8066 Oct, [facility] [place] [facility] [address] [id number] [place] [address]- 5696 Oct, [facility] [address] [id number] [place] [address]- 0676 Oct, [facility] [place] [facility] [address] [id number] [place] [address]- 4612 Sep, [facility] [address] [id number] [place] [address]- 0526 Aug, [facility] [place] [facility] [address] [id number] [place] [address]- 1443 Aug, [facility] [address] [id number] [place] [address]- 2642 Aug, [facility] [place] [facility] [address] [id number] [place] [address]- 7215 Aug, [facility] [place] [facility] [address] [facility] [id number] [place] [address]- 2338 Aug, [facility] [place] [facility] [address] [facility] [id number] [place] [address]- 9176 Aug, [facility] [place] [facility] [address] [facility] [id number] [place] [address]- 6508 Aug, [facility] [place] [facility] [address] [id number] [place] [address]- 4168 Jul, [facility] [place] [facility] [address] [id number] [place] [address]- 8686 Jun, [facility] [place] [facility] [address] [id number] [place] [address]- 2128 Jun, [facility] [place] [facility] [address] [id number] [place] 1474 Jun, [facility] [address] [facility] [id number] [place] [address]- 8122 Mar, [facility] [address] [address]- 7941 Feb, [facility] [address] [facility] [id number] [place] [address]- 4550 Aug, [facility] [address] [facility] [id number] [place] [address]- 4736 Aug, [facility] [address] [facility] [id number] [place] [address]- 9988 Jul, [facility] [address] [address]- 3828 Aug, [facility] [address] [address]- 0692 Jul, [facility] [address] [address]- 0493 Jul, [facility] [address] [address]- 6062 Jul, [facility] [address] [address]- 8799 Jun, [facility] [address] [address]- 1590 Jun, [facility] [address] [address]- 4364 Feb, [facility] [id number] [address]- 9968 January, IMMUNIZATIONS No Known Immunizations SOCIAL HISTORY Never Assessed REASON FOR VISIT [facility] PLAN OF CARE VITAL SIGNS [...]
--- OUTSIDE RECORDS SUMMARY | 2019-01-25 20:09 | XMS REPORT ---
Author Author Migration, Doctor Organization [facility] Address Unknown Phone Unavailable Care Team Providers Care Media Buyer Name Role Phone Migration, Doctor Unavailable Unavailable PROBLEMS Type Condition ICD9-CM Code ICC08-QB Code Onset Dates Condition Status SNOMED Code Problem Bipolar I disorder, most recent episode (or current) mixed, unspecified 296.60 Active 49378129 Problem History of bipolar disorder Z86.59 Active 747678528 Problem Genital warts A63.0 Active 216614701 Problem Mild intermittent allergic asthma without complication J45.20 Active 250419724 Problem Gastroesophageal reflux disease without esophagitis K21.9 Active 389372210 Problem Bipolar disorder, current episode depressed, severe, without psychotic features F31.4 Active 986036165 Problem Panic disorder F41.0 Active 216275960 Problem Fibromyalgia M79.7 Active 856369050 ALLERGIES No Information ENCOUNTERS Encounter Location Date Diagnosis [facility] [id number] [place] [address] 97277- 5832 Dec, [facility] [id number] [place] [address] 43838- 6203 Nov, [facility] [id number] [id number] 15 Nov, 2018 Dental examination Z01.20 and Caries K02.9 [facility] [id number] [place] [address] 01767- 7700 Nov, [facility] [id number] [place] [address] 65817- 9066 Nov, Panic disorder F41.0 [facility] [id number] [place] [address] 50077- 0815 Oct, [facility] [id number] [place] [address] 13966- 1152 Oct, [facility] [id number] [place] [address] 19935- 7894 Oct, Panic disorder F41.0 [facility] [id number] [place] [address] 14434- 8537 Sep, Panic disorder F41.0 [facility] [id number] [place] [address] 78600- 3695 Aug, Panic disorder F41.0 and Bipolar disorder, current episode depressed, severe, without psychotic features F31.4 [facility] [id number] [place] [address] 15749- 3196 Jul, Fibromyalgia M79.7 [facility] [id number] [place] [address] 12657- 8135 Jun, Panic disorder F41.0 and Bipolar disorder, current episode depressed, severe, without psychotic features F31.4 [facility] [id number] [place] [address] 93693- 2369 Jun, Fibromyalgia M79.7 [facility] [id number] [place] [address] 34847- 1150 Jun, [facility] [id number] [place] [address] 27603- 0013 May, Mild intermittent allergic asthma without complication J45.20 [facility] [id number] [place] [address] 05960- 2953 14 May, 2018 Fibromyalgia M79.7 [facility] [id number] [place] [address] 70297- 9790 May, [facility] [id number] [place] [address] 06440- 1417 Apr, Panic disorder F41.0 ; Gastroesophageal reflux disease without esophagitis K21.9 ; Genital warts A63.0 and Fibromyalgia M79.7 [facility] [address] [place] [address] 07341- 4485 Apr, Panic disorder F41.0 and Bipolar disorder, current episode depressed, severe, without psychotic features F31.4 [facility] [address] [address] 0321 19 Mar, 2018 History of bipolar disorder Z86.59 and History of fibromyalgia Z87.39 [facility] [id number] [place] [address] 99757- 2581 13 Mar, 2018 History of bipolar disorder Z86.59 and History of fibromyalgia Z87.39 [facility] [id number] [place] [address] 74663- 1285 12 Mar, 2018 Panic disorder F41.0 and Bipolar disorder, current episode depressed, severe, without psychotic features F31.4 [facility] [id number] [place] [address] 00501- 2100 11 Mar, 2018 History of bipolar disorder Z86.59 ; History of fibromyalgia Z87.39 ; Gastroesophageal reflux disease without esophagitis K21.9 and Long-term use of high-risk medication Z79.899 [facility] [id number] [place] [address] 56016- 6642 14 Dec, 2014 [facility] [id number] [place] [address] 88398- 0915 Dec, [facility] [id number] [place] [address] 67223- 4978 Nov, [facility] [id number] [place] [address] 94439- 1271 Oct, [facility] [id number] [address] 6654 Sep, [facility] [id number] [place] [address] 570459- 6876 Aug, [facility] [id number] [place] [address] 975718- 2176 Aug, [facility] [id number] [place] [address] 25496- 0252 Aug, [facility] [place] [facility] [address] [id number] [place] [address]- 4706 Jul, [facility] [place] [facility] [address] [id number] [place] [address]- 6691 Jul, [facility] [place] [facility] [address] [id number] [place] [address]- 3931 Jul, [facility] [place] [facility] [address] [id number] [place] [address]- 7658 Jul, [facility] [place] [facility] [address] [id number] [place] [address]- 4779 Jun, [facility] [place] [facility] [address] [id number] [place] [address]- 5694 Jun, [facility] [place] [facility] [address] [id number] [place] [address]- 1113 Jun, [facility] [place] [facility] [address] [id number] [place] [address]- 2295 Jun, [facility] [place] [facility] [address] [id number] [place] [address]- 3656 Jun, [facility] [place] [facility] [address] [id number] [place] [address]- 6823 Jun, [facility] [place] [facility] [address] [id number] [place] [address]- 1327 Jun, [facility] [place] [facility] [address] [id number] [place] [address]- 6690 05 Jun, 2012 [facility] [place] [facility] [address] [id number] [place] [address]- 5937 26 May, 2012 [facility] [place] [facility] [address] [id number] [place] 0416 25 May, 2012 [facility] [place] [facility] [address] [id number] [place] [address]33 24 Sep2011 [facility] [place] [facility] [address] [id number] [place] [address]- 8331 11 May, 2011 [facility] [place] [facility] [address] [id number] [place] [address]- 5957 08 May, 2011 [facility] [place] [facility] [address] [id number] [place] [address]- 0296 07 May, 2011 [facility] [place] [facility] [address] [id number] [place] [address]- 5546 05 May, 2011 [facility] [place] [facility] [address] [id number] [place] [address]- 7536 05 May, 2011 [facility] [place] [facility] [address] [id number] [place] [address]- 2031 May, [facility] [place] [facility] [address] [id number] [place] [address]- 8718 Apr, [facility] [place] [facility] [address] [id number] [place] [address]- 1994 Apr, [facility] [place] [facility] [address] [id number] [place] [address]- 6516 Apr, [facility] [place] [facility] [address] [id number] [place] [address]- 8260 Apr, [facility] [place] [facility] [address] [id number] [place] [address]- 9673 Apr, [facility] [place] [facility] [address] [id number] [place] [address]- 3127 Apr, [facility] [place] [facility] [address] [id number] [address]- 8441 Apr, [facility] [place] [facility] [address] [id number] [place] [address]- 0374 Apr, [facility] [place] [facility] [address] [id number] [place] [address]- 4087 Apr, [facility] [place] [facility] [address] [id number] [place] [address]- 8180 Mar, [facility] [place] [facility] [address] [id number] [place] [address]- 4384 Mar, [facility] [place] [facility] [address] [id number] [place] [address]- 0237 Mar, [facility] [place] [facility] [address] [id number] [place] [address]- 1956 Mar, [facility] [place] [facility] [address] [id number] [place] [address]- 4662 Mar, [facility] [place] [facility] [address] [id number] [place] [address]- 0178 Mar, [facility] [place] [facility] [address] [id number] [place] [address]- 6770 Mar, [facility] [place] [facility] [address] [id number] [place] [address]- 5804 Mar, [facility] [place] [facility] [address] [id number] [place] [address]- 7846 Feb, [facility] [place] [facility] [address] [id number] [place] [address]- 5979 Feb, [facility] [place] [facility] [address] [id number] [place] [address]- 8982 Feb, [facility] [place] [facility] [address] [id number] [place] [address]- 8554 Feb, [facility] [place] [facility] [address] [id number] [place] [address]- 9323 Feb, [facility] [place] [facility] [address] [id number] [place] [address]- 6305 Feb, [facility] [place] [facility] [address] [id number] [place] [address]- 9806 January, [facility] [place] [facility] [address] [id number] [place] [address]- 3977 January, [facility] [place] [facility] [address] [id number] [place] [address]- 2962 Dec, [facility] [place] [facility] [address] [id number] [place] [address]- 4392 24 Dec, 2011 [facility] [place] [facility] [address] [id number] [place] [address]- 4555 20 Dec, 2011 [facility] [place] [facility] [address] [id number] [place] [address]- 1781 19 Dec, 2011 [facility] [place] [facility] [address] [id number] [place] [address]- 3447 17 Dec, 2011 [facility] [address] [id number] [place] [address]- 7601 13 Dec, 2011 [facility] [place] [facility] [address] [id number] [place] [address]- 5473 12 Dec, 2011 [facility] [address] [id number] [place] [address]- 6943 Dec, [facility] [address] [id number] [place] [address]- 7033 28 Nov, 2011 [facility] [place] [facility] [address] [id number] [place] [address]- 5764 15 Nov, 2011 [facility] [place] [facility] [address] [id number] [place] [address]- 4718 07 Nov, 2011 [facility] [place] [facility] [address] [id number] [place] [address]- 3621 06 Nov, 2011 [facility] [place] [facility] [address] [id number] [place] [address]- 2935 05 Nov, 2011 [facility] [place] [facility] [address] [id number] [place] [address]- 8728 02 Nov, 2011 [facility] [place] [facility] [address] [id number] [place] [address]- 8737 28 Oct, 2011 [facility] [place] [facility] [address] [id number] [place] [address]- 0083 27 Oct, 2011 [facility] [place] [facility] [address] [id number] [place] [address]- 4725 Oct, [facility] [address] [id number] [place] [address]- 3516 Oct, [facility] [place] [facility] [address] [id number] [place] [address]- 1236 Oct, [facility] [address] [id number] [place] [address]- 0486 Oct, [facility] [place] [facility] [address] [id number] [place] [address]- 1385 Sep, [facility] [address] [id number] [place] [address]- 3245 Aug, [facility] [place] [facility] [address] [id number] [place] [address]- 5393 Aug, [facility] [address] [id number] [place] [address]- 2361 Aug, [facility] [place] [facility] [address] [id number] [place] [address]- 5843 Aug, [facility] [place] [facility] [address] [facility] [id number] [place] [address]- 5885 Aug, [facility] [place] [facility] [address] [facility] [id number] [place] [address]- 7004 Aug, [facility] [place] [facility] [address] [facility] [id number] [place] [address]- 2586 Aug, [facility] [place] [facility] [address] [id number] [address]- 9954 Jul, [facility] [place] [facility] [address] [id number] [place] [address]- 6267 Jun, [facility] [place] [facility] [address] [id number] [place] [address]- 4584 Jun, [facility] [place] [facility] [address] [id number] 2791 Jun, [facility] [address] [facility] [id number] [place] [address]- 3648 Mar, [facility] [address] [address]- 2732 Feb, [facility] [address] [facility] [id number] [place] [address]- 4358 Aug, [facility] [address] [facility] [id number] [place] [address]- 0048 Aug, [facility] [address] [facility] [id number] [address]- 2007 Jul, [facility] [address] [address]- 2895 Aug, [facility] [address] [address]- 4654 Jul, [facility] [address] [address]- 6145 Jul, [facility] [address] [address]- 9547 Jul, [facility] [address] [address]- 1281 Jun, [facility] [address] [address]- 3598 Jun, [facility] [address] [address]- 1587 Feb, [facility] [id number] [address]- 1497 January, IMMUNIZATIONS No Known Immunizations SOCIAL HISTORY Never Assessed REASON FOR VISIT [facility] [place] PLAN OF CARE VITAL SIGNS MEDICATIONS Unknown [...]
--- OUTSIDE RECORDS SUMMARY | 2019-01-25 20:09 | XMS REPORT ---
Author Author Migration, Doctor Organization [facility] Address Unknown Phone Unavailable Care Team Providers Care Field Service Specialist Name Role Phone Migration, Doctor Unavailable Unavailable PROBLEMS Type Condition ICD9-CM Code [id number] Code Onset Dates Condition Status SNOMED Code Problem Bipolar I disorder, most recent episode (or current) mixed, unspecified 296.60 Active 74907220 Problem History of bipolar disorder Z86.59 Active 805315166 Problem Genital warts A63.0 Active 817630037 Problem Mild intermittent allergic asthma without complication J45.20 Active 875526795 Problem Gastroesophageal reflux disease without esophagitis K21.9 Active 791439975 Problem Bipolar disorder, current episode depressed, severe, without psychotic features F31.4 Active 549778826 Problem Panic disorder F41.0 Active 767316931 Problem Fibromyalgia M79.7 Active [id number] ALLERGIES No Information ENCOUNTERS Encounter Location Date Diagnosis [facility] [id number] [place] [address] 44647- 2694 January, [facility] [id number] [place] [address] [id number] January, [facility] [id number] [place] [address] 46481- 2292 Dec, [facility] [id number] [place] [address] 50155- 3024 Dec, [facility] [id number] [place] [address] 19682- 8865 Dec, [facility] [id number] [place] [address] 14417- 4414 Dec, Panic disorder F41.0 [facility] [id number] [place] [address] [phone] Nov, Dental examination Z01.20 and Caries K02.9 [facility] [address] [place] [address] Nov, [facility] [id number] [place] [address] 08238- 7974 Nov, Panic disorder F41.0 [facility] [id number] [place] [address] 84673- 5187 Oct, [facility] [id number] [place] [address] 85842- 5673 Oct, [facility] [id number] [place] [address] 96112- 5192 Oct, Panic disorder F41.0 [facility] [id number] [place] [address] 15151- 4611 Sep, Panic disorder F41.0 [facility] [id number] [place] [address] 80520- 8686 Aug, Panic disorder F41.0 and Bipolar disorder, current episode depressed, severe, without psychotic features F31.4 [facility] [id number] [place] [address] 13539- 0631 Jul, Fibromyalgia M79.7 [facility] [id number] [place] [address] 10387- 8919 Jun, Panic disorder F41.0 and Bipolar disorder, current episode depressed, severe, without psychotic features F31.4 [facility] [id number] [place] [address] 04426- 3618 Jun, Fibromyalgia M79.7 [facility] [id number] [place] [address] 65855- 9125 Jun, [facility] [id number] [place] [address] 06439- 7718 May, Mild intermittent allergic asthma without complication J45.20 [facility] [id number] [place] [address] 01520- 3332 14 May, 2018 Fibromyalgia M79.7 [place] [address] [address] 1040 May, [place] [facility] [id number] [place] [address] 34941- 6096 Apr, Panic disorder F41.0 ; Gastroesophageal reflux disease without esophagitis K21.9 ; Genital warts A63.0 and Fibromyalgia M79.7 [facility] [facility] [id number] [place] [address] 79203- 6542 Apr, Panic disorder F41.0 and Bipolar disorder, current episode depressed, severe, without psychotic features F31.4 [facility] [facility] [id number] [place] [address] 67707- 6940 Mar, History of bipolar disorder Z86.59 and History of fibromyalgia Z87.39 [facility] [facility] [id number] [place] [address] 78788- 8979 Mar, History of bipolar disorder Z86.59 and History of fibromyalgia Z87.39 [place] [facility] [id number] [place] [address] 09106- 3008 Mar, Panic disorder F41.0 and Bipolar disorder, current episode depressed, severe, without psychotic features F31.4 [place] [address] [place] [address] 03492- 7385 Mar, History of bipolar disorder Z86.59 ; History of fibromyalgia Z87.39 ; Gastroesophageal reflux disease without esophagitis K21.9 and Long-term use of high-risk medication Z79.899 [place] [id number] [place] [address] 80808- 4448 Dec, [place] [facility] [id number] [place] [address] 00535- 5824 Dec, [place] [facility] [id number] [place] [address] 49395- 9431 Nov, [place] [facility] [id number] [place] [address] 44887- 0268 Oct, [facility] [place] [facility] [address] [id number] [place] [address]- 1514 Sep, [facility] [place] [facility] [address] [id number] [place] [address]- 0057 Aug, [facility] [place] [facility] [address] [id number] [place] [address]- 5158 Aug, [facility] [place] [facility] [address] [id number] [place] [address]- 7799 Aug, [facility] [place] [facility] [address] [id number] [place] [address]- 2839 Jul, [facility] [place] [facility] [address] [id number] [place] [address]- 1020 Jul, [facility] [place] [facility] [address] [id number] [place] [address]- 6621 Jul, [facility] [place] [facility] [address] [id number] [place] [address]- 1279 Jul, [facility] [place] [facility] [address] [id number] [place] [address]- 3110 Jun, [facility] [place] [facility] [address] [id number] [place] [address]- 8498 Jun, [facility] [place] [facility] [address] [id number] [place] [address]- 6300 Jun, [facility] [place] [facility] [address] [id number] [address] 2311 Jun, [facility] [place] [facility] [address] [id number] [place] [address]- 9164 Jun, [facility] [place] [facility] [address] [id number] [place] [address]- 8674 Jun, [facility] [place] [facility] [address] [id number] [place] [address]- 0617 Jun, [facility] [place] [facility] [address] [id number], [place] [address]- 3249 05 Jun, 2012 [facility] [place] [facility] [address] [id number] [place] [address]- 6156 26 Sep, 2011 [facility] [place] [facility] [address] [id number] [place] [address] 2546 25 May, 2011 [facility] [place] [facility] [address] [id number] [place] [address]- 0696 24 Sep, 2011 [facility] [place] [facility] [address] [id number] [place] [address] 2549 11 Sep, 2011 [facility] [place] [facility] [address] [id number] [place] [address]- 6052 08 May, 2011 [facility] [place] [facility] [address] [id number] [place] [address]- 3788 07 May, 2011 [facility] [place] [facility] [address] [id number] [place] [address]- 8669 05 May, 2011 [facility] [place] [facility] [address] [id number] [place] [address]- 4697 05 May, 2011 [facility] [place] [facility] [address] [id number] [place] [address]- 7901 04 May, 2011 [facility] [place] [facility] [address] [id number] [place] [address]- 2606 29 Apr, 2012 [facility] [place] [facility] [address] [id number] [place] [address]- 8706 28 Apr, 2012 [facility] [place] [facility] [address] [id number] [place] [address]- 0937 27 Apr, 2012 [facility] [place] [facility] [address] [id number] [place] [address]- 4913 22 Apr, 2012 [facility] [place] [facility] [address] [id number] [place] [address]- 4347 Apr, [facility] [place] [facility] [address] [id number] [place] [address]- 2904 08 Apr, 2012 [facility] [place] [facility] [address] [id number] [place] [address]- 2227 Apr, [facility] [place] [facility] [address] [id number] [place] [address]- 4020 Apr, [facility] [place] [facility] [address] [id number] [place] [address]- 5256 Apr, [facility] [place] [facility] [address] [id number] [place] [address]- 0772 Mar, [facility] [place] [facility] [address] [id number] [place] [address]- 0378 Mar, [facility] [place] [facility] [address] [id number] [place] [address]- 5103 Mar, [facility] [place] [facility] [address] [id number] [place] [address]- 2100 Mar, [facility] [place] [facility] [address] [id number] [place] [address]- 3939 Mar, [facility] [place] [facility] [address] [id number] [place] [address]- 8796 Mar, [facility] [place] [facility] [address] [id number] [place] [address]- 4307 Mar, [facility] [place] [facility] [address] [id number] [place] [address]- 2586 Mar, [facility] [place] [facility] [address] [id number] [place] [address]- 3248 Feb, [facility] [place] [facility] [address] [id number] [place] [address]- 4175 Feb, [facility] [place] [facility] [address] [id number] [place] [address]- 6245 Feb, [facility] [place] [facility] [address] [id number] [place] [address]- 6978 Feb, [facility] [place] [facility] [address] [id number] [place] [address]- 3824 Feb, [facility] [place] [facility] [address] [id number] [place] [address]- 3894 18 Feb, 2012 [facility] [place] [facility] [address] [id number] [place] [address]- 5669 January, [facility] [place] [facility] [address] [id number] [place] [address]- 8618 January, [facility] [place] [facility] [address] [id number] [place] [address]- 1108 30 Dec, 2011 [facility] [place] [facility] [address] [id number] [place] [address]- 3153 24 Dec, 2011 [facility] [place] [facility] [address] [id number] [place] [address]- 2892 20 Dec, 2011 [facility] [place] [facility] [address] [id number] [place] [address]- 1769 19 Dec, 2011 [facility] [place] [facility] [address] [id number] [place] [address]- 5515 17 Dec, 2011 [facility] [place] [facility] [address] [id number] [place] [address]- 4292 13 Dec, 2011 [facility] [place] [facility] [address] [id number] [place] [address]- 2697 12 Dec, 2011 [facility] [place] [facility] [address] [id number] [place] [address]- 9269 Dec, [facility] [place] [facility] [address] [id number] [place] [address]- 6928 28 Nov, 2011 [facility] [place] [facility] [address] [id number] [place] [address]- 5073 15 Nov, 2011 [facility] [place] [facility] [address] [id number] [place] [address]- 7342 07 Nov, 2011 [facility] [place] [facility] [address] [id number] [place] [address]- 7303 06 Nov, 2011 [facility] [place] [facility] [address] [id number] [place] [address]- 8354 05 Nov, 2011 [facility] [address] [id number] [place] [address]- 7616 Nov, [facility] [place] [facility] [address] [id number] [place] [address]- 1376 Oct, [facility] [address] [id number] [place] [address]- 7996 Oct, [facility] [place] [facility] [address] [id number] [place] [address] 2546 Oct, [facility] [address] [id number] [place] [address]- 3546 Oct, [facility] [place] [facility] [address] [id number] [place] [address] 2546 Oct, [facility] [address] [id number] [place] [address]- 6702 Oct, [facility] [address] [id number] [place] [address]- 2145 Sep, [facility] [address] [id number] [place] [address]- 1009 Aug, [facility] [address] [id number] [place] [address]- 5288 Aug, [facility] [place] [facility] [address] [id number] [place] [address] 2546 23 Aug, 2011 [facility] [place] [facility] [address] [id number] [place] [address] 2546 19 Aug, 2011 [facility] [place] [facility] [address] [id number] [place] [address] 2546 15 Aug, 2011 [facility] [place] [facility] [address] [id number] [place] [address]- 2546 13 Aug, 2011 [facility] [place] [facility] [address] [facility] [id number] [place] [address] 5776 13 Aug, 2011 [facility] [place] [facility] [address] [id number] [place] [address]- 4083 Jul, [facility] [place] [facility] [address] [id number] [place] [address]- 2386 Jun, [facility] [place] [facility] [address] [id number] [place] [address]- 6627 Jun, [facility] [place] [facility] [address] [id number] [place] [address]- 5106 Jun, [facility] [place] [facility] [address] [id number] [place] [address]- 1658 Mar, [facility] [place] [facility] [address] [id number] [place] [address]- 3075 Feb, [facility] [place] [facility] [address] [id number] [place] [address]- 6380 Aug, [facility] [place] [facility] [address] [id number], [place] [address]- 3872 Aug, [facility] [place] [facility] [address] [id number] [place] [address]- 5099 Jul, [facility] [place] [facility] [address] [facility] [id number], [place] [address]- 9878 Aug, [facility] [place] [facility] [address] [id number], [place] [address]- 9146 24 Jul, 2009 [facility] [place] [facility] [address] [id number], [place] [address]- 7541 09 Jul, 2009 [facility] [place] [facility] [address] [id number], [place] [address]- 5057 02 Jul, 2009 [facility] [place] [facility] [address] [id number], [place] [address]- 3610 20 Jun, 2009 [facility] [place] [facility] [address] [id number], [place] [address]- 7326 16 Jun, 2009 [facility] [place] [facility] [address] [id number], [place] [address]- 0548 Feb, [facility] [address] [facility] [id number] [place] [address]- 5206 January, IMMUNIZATIONS No Known Immunizations SOCIAL HISTORY Never Assessed REASON FOR VISIT EMR-[facility] PLAN OF CARE VITAL SIGNS MEDICATIONS Unknown [...]
--- OUTSIDE RECORDS SUMMARY | 2019-01-25 20:16 | XMS REPORT | Continuity of Care Document ---
Author Organization Unknown Address Unknown Allergies Active Description Code Type Severity Reaction Onset Reported/Identified Relationship to Patient Clinical Status Yes BUSPIRONE [id number] Drug Allergy Unknown N/A Yes DOXEPIN [id number] Drug Allergy Unknown N/A Yes GABAPENTIN [id number] Drug Allergy Unknown N/A Yes MINIPRESS [id number] Drug Allergy Unknown N/A Yes PRAZOSIN 12062646 Drug Allergy Unknown N/A Yes TRAMADOL [id number] Drug Allergy Unknown N/A Yes BuSpar [id number] N/A N/A Yes Doxepin [id number] N/A N/A Yes Minipress [id number] N/A N/A Yes Prazosin [id number] N/A N/A Yes Tramadol [id number] N/A N/A Yes NKANo Known Allergies NKA Miscellaneous Allergy Unknown N/A 02/21/2006 Yes BuSpar Drug Allergy 10/14/2008 Yes codeine Drug Allergy 02/25/2009 Yes hyoscyamine Drug Allergy 12/14/2009 Yes traMADOL [...] ZZ Drug Allergy Moderate N/A 07/24/2016 Yes hydralazine [id number] Drug Allergy Severe ANAPHYLAXIS 10/27/2018 Yes tramadol [id number] Drug Allergy Mild N/A 10/27/2018 Yes buspirone [id number] Drug Allergy Unknown N/A 10/27/2018 Yes doxepin [id number] Drug Allergy Unknown N/A 10/27/2018 Yes gabapentin [id number] Drug Allergy Unknown N/A 10/27/2018 Yes hydroxyzine [id number] Drug Allergy Unknown N/A 10/27/2018 Yes prazosin [id number] Drug Allergy Unknown N/A 10/27/2018 Medications Medication Packaging Start Date Stop Date [...] DIS W/O AGORA 10/05/2008 KESHIA HAHN DO F 300.01 AN PANIC DIS W/O AGORA [...] FOREARM 06/12/2011 KESHIA HAHN DO 723.1 CERVICALGIA 06/12/2011 KESHIA HAHN DO 368.9 UNSPECIFIED VISUAL DISTURBANCE 06/12/2011 KESHIA HAHN DO 719.43 PAIN IN JOINT INVOLVING FOREARM 06/12/2011 KESHIA HAHN DO 723.1 CERVICALGIA 06/13/2011 KESHIA HAHN DO 268.9 VITAMIN D DEFICIENCY 06/13/2011 KESHIA HAHN DO 268.9 VITAMIN D DEFICIENCY 08/28/2011 KESHIA HAHN DO 788.1 DYSURIA 08/28/2011 KESHIA AHHN DO 788.1 DYSURIA 10/17/2011 KESHIA HAHN DO 611.72 BREAST LUMP OR MASS 10/17/2011 KESHIA HAHN DO 625.0 DYSPAREUNIA 10/17/2011 KESHIA HAHN DO V72.31 SAND HAULER EXAM, ROUTINE 10/17/2011 KESHIA HAHN DO 611.72 BREAST LUMP OR MASS 10/17/2011 KESHIA HAHN DO 625.0 DYSPAREUNIA 10/17/2011 KESHIA HAHN DO V72.31 SAND HAULER EXAM, ROUTINE 11/20/2011 KESHIA HAHN DO 995.3 [...] DO 296.40 MO BIPOLAR MANIC UNSPECIFIED 03/18/2012 SELMA BENNETT KESHIA F 305.00 ALCOHOL ABUSE UNSPEC 03/18/2012 KESHIA HAHN DO F 305.20 CANNABIS ABUSE 03/18/2012 SELMA BENNETT KESHIA F 296.40 MO BIPOLAR MANIC UNSPECIFIED [...] Lev Zee Working K86.1 Chronic pancreatitis 08/09/2013 ZeeBetitobeba Working M13.0 Polyarthritis 08/09/2013 ZeeLev Working R52 Generalized pain 08/09/2013 ZeeBetitobeba Working F41.9 Anxiety 08/09/2013 ZeeBetitobeba Working K86.1 Chronic pancreatitis 08/09/2013 ZeeBetitobeba Working M13.0 Polyarthritis 08/09/2013 ZeeBetitobeba Working R52 Generalized pain 08/09/2013 ZeeBetitobeba Working F41.9 Anxiety 08/09/2013 ZeeBetitobeba Working K86.1 Chronic pancreatitis 08/09/2013 ZeeBetitobeba Working M13.0 Polyarthritis 08/09/2013 ZeeBetitobeba Working R52 Generalized pain 08/09/2013 Zee, Babeba Working F41.9 Anxiety 08/09/2013 Zee, Babeba Working K86.1 Chronic pancreatitis 08/09/2013 Zee, Babeba Working M13.0 Polyarthritis 08/09/2013 ZeeBetitobeba Working R52 Generalized pain 08/09/2013 ZeeBetitobeba Working F41.9 Anxiety 08/09/2013 ZeeBetitobeba Working K86.1 Chronic pancreatitis 08/09/2013 ZeeBetitobeba Working M13.0 Polyarthritis 08/09/2013 Zee, Babeba Working R52 Generalized pain 08/09/2013 ZeeBetitobeba Working F41.9 Anxiety 08/09/2013 ZeeBetitobeba Working K86.1 Chronic pancreatitis 08/09/2013 ZeeBetitobeba Working M13.0 Polyarthritis 08/09/2013 ZeeLev Working R52 [...] Working M79.672 Pain of left foot 04/02/2014 ZeeLev Working M79.672 Pain of left foot Zee, [facility] 04/02/2014 ZeeBetitobeba Working M79.672 Pain of left foot Zee, [facility] 04/02/2014 ZeeBetitobeba Working M79.672 Pain of left foot Zee, [facility] 04/02/2014 ZeeBetitobeba Working M79.672 Pain of left foot Zee, [facility] 04/02/2014 ZeeBetitobeba Working M79.672 Pain of left foot Zee, [facility] 04/02/2014 ZeeBetitobeba Working M79.672 Pain of left foot Zee, [facility] 05/28/2014 ZeeBetitobeba Working J30.2 Seasonal allergies 05/28/2014 Zee, [facility] Working J30.2 Seasonal allergies Zee, [facility] 05/28/2014 Zee, [facility] Working J30.2 Seasonal allergies Zee, [facility] 05/28/2014 Zee, [facility] Working J30.2 Seasonal allergies Zee, [facility] 05/28/2014 Zee, [facility] Working J30.2 Seasonal allergies Zee, [facility] 05/28/2014 Zee, [facility] Working J30.2 Seasonal allergies Zee, [facility] 05/28/2014 [facility], [facility].2 Seasonal allergies Zee, uan 09/23/2014 Zee, [facility] Working J06.9 URI, acute 09/23/2014 Zee, [facility] Working J06.9 URI, acute Zee, [place] 09/23/2014 Zee, [facility] J06.9 URI, acute [facility], [facility] 09/23/2014 Zee, [facility] Working J06.9 URI, acute [facility], [facility] 06/14/2015 LUCRECIA TAPIA APRN W 296.51 Bipolar I Disorder, Most Recent Episode Depressed, Mild 06/14/2015 LUCRECIA TAPIA APRN W 309.81 Posttraumatic Stress Disorder 07/05/2015 Zee, [facility] Working Z79.899 High risk medication use Zee, [facility] 07/05/2015 Zee, [facility] Working Z79.899 High risk medication use Zee, [facility] 07/05/2015 Zee, [facility] Working Z79.899 High risk medication use Zee, [facility] 07/05/2015 Zee, [facility] Working Z79.899 High risk medication use Zee, [facility] 07/05/2015 Zee, [facility] Working Z79.899 High risk medication use Zee, [facility] 07/05/2015 Zee, [facility] Working Z79.899 High risk medication use Zee, [facility] 08/02/2015 Zee, [facility] Working M50.20 Cervical herniated disc 08/02/2015 Zee, [facility] Working M51.26 Lumbar herniated disc 08/02/2015 Zee, [facility] Working M75.102 Left rotator cuff tear 09/30/2015 Zee, [facility] Working M50.20 Cervical herniated disc Zee, [facility] 09/30/2015 Zee, [facility] Working M51.26 Lumbar herniated disc Zee, [facility] 09/30/2015 Zee, [facility] Working M75.102 Left rotator cuff tear Zee, [facility] 11/17/2015 Zee, [facility] Working M50.20 Cervical herniated disc Zee, [facility] 11/17/2015 Zee, [facility] Working M51.26 Lumbar herniated disc Zee, [facility] 11/17/2015 Zee, [facility] Working M75.102 Left rotator cuff tear Zee, [facility] 01/17/2016 Zee, [facility] Working M50.20 Cervical herniated disc Zee, [facility] 01/17/2016 Zee, [facility] Working M51.26 Lumbar herniated disc Zee, [facility] 01/17/2016 Zee, [facility] Working M75.102 Left rotator cuff tear Zee, [facility] 01/17/2016 Zee, [facility] Working Z72.0 Tobacco abuse Zee, [facility] 03/26/2016 Zee, [facility] Working M50.20 Cervical herniated disc Zee, [facility] 03/26/2016 Zee, [facility] Working M51.26 Lumbar herniated disc Zee, [facility] 03/26/2016 Zee, [facility] Working M75.102 Left rotator cuff tear Zee, [facility] 03/26/2016 Zee, [facility] Working Z72.0 Tobacco abuse Zee, [facility] 05/17/2016 Zee, [facility] Working M50.20 Cervical herniated disc Zee, [facility] 05/17/2016 Zee, [facility] Working M51.26 Lumbar herniated disc Zee, [facility] 05/17/2016 Zee, [facility] Working M75.102 Left rotator cuff tear Zee, [facility] 05/17/2016 Zee, [facility] Working R52 Pain management Zee, [facility] 05/17/2016 Zee, [facility] Working Z72.0 Tobacco abuse Zee, [facility] 05/17/2016 Zee, [facility] Working M75.102 Left rotator cuff tear Zee, [facility] 05/17/2016 Zee, [facility] Working R52 Pain management Zee, [facility] 07/10/2016 FRAZIER, JOSEFA S E78.00 Pure hypercholesterolemia, unspecified 07/10/2016 FRAZIER, JOSEFA S F17.210 Nicotine dependence, cigarettes, uncomplicated 07/10/2016 FREDDIE JOSEFA S F31.9 Bipolar disorder, unspecified 07/10/2016 FRAZIER JOSEFA S F41.9 Anxiety disorder, unspecified 07/10/2016 FRAZIER, JOSEFA S F43.10 Post-traumatic stress disorder, unspecified 07/10/2016 FRAZIER, JOSEFA S G25.81 Restless legs syndrome 07/10/2016 FRAZIER, JOSEFA S G47.00 Insomnia, unspecified 07/10/2016 FRAZIER, JOSEFA S H91.90 Unspecified hearing loss, unspecified ear 07/10/2016 FRAZIER JOSEFA S I10 Essential (primary) hypertension 07/10/2016 FRAZIER JOSEFA S J43.9 Emphysema, unspecified 07/10/2016 FRAZIER, JOSEFA S K21.9 Gastro-esophageal reflux disease without esophagitis 07/10/2016 FRAZIER, JOSEFA S K66.0 Peritoneal adhesions (postprocedural) (postinfection) 07/10/2016 FRAZIER, JOSEFA S M79.7 Fibromyalgia 07/10/2016 FRAZIER, JOSEFA S N39.46 Mixed incontinence 07/10/2016 FRAZIERKAROL KATZIS E P N83.201 Unspecified ovarian cyst, right side 07/10/2016 FRAZIER, JOSEFA S N83.202 Unspecified ovarian cyst, left side 07/10/2016 FRAZIER, JOSEFA S Z53.31 Laparoscopic surgical procedure converted to open procedure 07/10/2016 FRAZIER, JOSEFA S 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 07/10/2016 FRAZIER, JOSEFA S Z86.010 Personal history of colonic polyps 07/10/2016 FRAZIER, JOSEFA S Z86.19 Personal history of other infectious and parasitic diseases 07/10/2016 FRAZIERKAROL KATZIS E S Z88.5 Allergy status to narcotic [...] M51.26 Lumbar herniated disc Lev Zee 07/19/2016 Betito Zeeshivanibeba Working Z72.0 Tobacco abuse Lev Zee 01/31/2017 [...] CARRERA DO B Ot K92.0 HEMATEMESIS 05/12/2018 ROSEMARY CARRERA DO B Ot Z79.899 OTHER AUTOMOTIVE PAINTER HELPER (CURRENT) DRUG THERAPY 05/13/2018 ROSEMARY CARRERA DO B Ot R10.9 UNSPECIFIED ABDOMINAL PAIN 05/13/2018 ROSEMARY CARRERA DO B Ot R16.0 HEPATOMEGALY, NOT ELSEWHERE CLASSIFIED 05/20/2018 ROSEMARY CARRERA DO B Ot F17.210 NICOTINE DEPENDENCE, CIGARETTES, UNCOMPL 05/20/2018 ROSEMARY CARRERA DO B Ot F32.9 MAJOR DEPRESSIVE DISORDER, SINGLE EPISOD 05/20/2018 ROSEMARY CARRERA DO Ot F41.9 ANXIETY DISORDER, UNSPECIFIED 05/20/2018 DELMAN DO, ROSEMARY B Ot J44.9 CHRONIC OBSTRUCTIVE PULMONARY DISEASE, U 05/20/2018 DEBI DARION BENNETTIC B Ot K21.9 GASTRO-ESOPHAGEAL REFLUX DISEASE WITHOUT 05/20/2018 DARION CARRERA DOIC B Ot K29.50 UNSPECIFIED CHRONIC GASTRITIS WITHOUT BL 05/20/2018 DEBI DARION BENNETTIC B Ot K31.9 DISEASE OF STOMACH AND DUODENUM, UNSPECI 05/20/2018 DARION CARRERA DOIC B Ot K44.9 DIAPHRAGMATIC HERNIA WITHOUT OBSTRUCTION 05/20/2018 DARION CARRERA DOIC B Ot K92.0 HEMATEMESIS 05/20/2018 GARYMARIO DO ROSEMARY B Ot Z79.899 OTHER AUTOMOTIVE PAINTER HELPER (CURRENT) DRUG THERAPY 05/26/2018 DARION CARRERA DOIC B Ot R10.9 UNSPECIFIED ABDOMINAL PAIN 05/26/2018 DEBI BENNETT ROSEMARY B Ot R16.0 HEPATOMEGALY, NOT ELSEWHERE CLASSIFIED 05/26/2018 DARION CARRERA DOIC B Ot R10.9 UNSPECIFIED ABDOMINAL PAIN 06/06/2018 DARION CARRERA DOIC B Ot R10.9 UNSPECIFIED ABDOMINAL PAIN 06/09/2018 DEBI BENNETT ROSEMARY B Ot Z01.818 ENCOUNTER FOR OTHER PREPROCEDURAL EXAMIN 06/10/2018 DEBI BENNETT ROSEMARY B Ot Z01.818 ENCOUNTER FOR OTHER PREPROCEDURAL EXAMIN 06/12/2018 DARION CARRERA DOIC B Ot R10.9 UNSPECIFIED ABDOMINAL PAIN 06/12/2018 GARYMARIO DARION BENNETTIC B Ot R16.0 HEPATOMEGALY, NOT ELSEWHERE CLASSIFIED 06/12/2018 DARION CARRERA DOIC B Ot Z01.818 ENCOUNTER FOR OTHER PREPROCEDURAL EXAMIN 06/12/2018 DARION CARRERA DOIC B Ot R10.9 UNSPECIFIED ABDOMINAL PAIN 06/12/2018 DARION CARRERA DOIC B Ot D64.9 ANEMIA, UNSPECIFIED 06/12/2018 DARION CARRERA DOIC B Ot F17.210 NICOTINE DEPENDENCE, CIGARETTES, UNCOMPL 06/12/2018 DARION CARRERA DOIC B Ot J44.9 CHRONIC OBSTRUCTIVE PULMONARY DISEASE, U 06/12/2018 DARION CARRERA DOIC B Ot K21.9 GASTRO-ESOPHAGEAL REFLUX DISEASE WITHOUT 06/12/2018 DARION CARRERA DOIC B Ot K81.1 CHRONIC CHOLECYSTITIS 06/12/2018 ROSEMARY CARRERA DO Ot K83.8 OTHER SPECIFIED DISEASES OF BILIARY TRAC 06/12/2018 GARYMARIO ROSEMARY BENNETT Ot R82.99 OTHER ABNORMAL FINDINGS IN URINE 06/12/2018 ROSEMARY CARRERA DO Ot Z79.899 OTHER AUTOMOTIVE PAINTER HELPER (CURRENT) DRUG THERAPY 06/15/2018 SAVANNAH NOBLE MD [...] Z90.89 ACQUIRED ABSENCE OF OTHER ORGANS 06/16/2018 ROSEMARY CARRERA DO Ot D64.9 ANEMIA, UNSPECIFIED 06/16/2018 DARION CARRERA DOIC B Ot F17.210 NICOTINE DEPENDENCE, CIGARETTES, UNCOMPL 06/16/2018 ROSEMARY CARRERA DO Ot J44.9 CHRONIC OBSTRUCTIVE PULMONARY DISEASE, U 06/16/2018 ROSEMARY CARRERA DO Ot K21.9 GASTRO-ESOPHAGEAL REFLUX DISEASE WITHOUT 06/16/2018 ROSEMARY CARRERA DO Ot K81.1 CHRONIC CHOLECYSTITIS 06/16/2018 DARION CARRERA DOIC Joi Ot K83.8 OTHER SPECIFIED DISEASES OF BILIARY TRAC 06/16/2018 DARION CARRERA DOIC Joi Ot R82.99 OTHER ABNORMAL FINDINGS IN URINE 06/16/2018 DARION CARRERA DOIC Joi Ot Z79.899 OTHER ASSISTED (CURRENT) DRUG THERAPY 06/18/2018 SAVANNAH NOBLE MD [...] ALLERGY STATUS TO OTH DRUG/MEDS/BIOL SUB 06/18/2018 AIDE BHAT, SAVANNAH Cespedes Ot Z90.49 ACQUIRED ABSENCE OF OTHER SPECIFIED PART 06/18/2018 AIDE BHAT, SAVANNAH Cespedes Ot Z90.710 ACQUIRED ABSENCE OF BOTH CERVIX AND UTER 06/18/2018 AIDE BHAT, SAVANNAH Cespedes Ot Z90.89 ACQUIRED ABSENCE OF OTHER ORGANS 06/27/2018 DEBI BENNETT, ROSEMARY B Ot D64.9 ANEMIA, UNSPECIFIED 06/27/2018 DEBI DO, ROSEMARY B Ot F17.210 NICOTINE DEPENDENCE, CIGARETTES, UNCOMPL 06/27/2018 DEBI DO, ROSEMARY B Ot J44.9 CHRONIC OBSTRUCTIVE PULMONARY DISEASE, U 06/27/2018 DELMARIO DO, ROSEMARY B Ot K21.9 GASTRO-ESOPHAGEAL REFLUX DISEASE WITHOUT 06/27/2018 DELMARIO DO, ROSEMARY B Ot K81.1 CHRONIC CHOLECYSTITIS 06/27/2018 DEBI BENNETT ROSEMARY B Ot K83.8 OTHER SPECIFIED DISEASES OF BILIARY TRAC 06/27/2018 DEBI BENNETT ROSEMARY B Ot R82.99 OTHER ABNORMAL FINDINGS IN URINE 06/27/2018 DEBI BENNETT, ROSEMARY B Ot Z79.899 OTHER AUTOMOTIVE PAINTER HELPER (CURRENT) DRUG THERAPY 07/03/2018 DEBI BENNETT, ROSEMARY B Ot R10.9 UNSPECIFIED ABDOMINAL PAIN 08/04/2018 DEBI BENNETT, ROSEMARY B Ot R10.9 UNSPECIFIED [...] Z87.19 PERSONAL HISTORY OF OTHER DISEASES OF 09/02/2018 SEBASTIÁN REYES APRN Ot Z88.6 ALLERGY [...] Ot F41.9 ANXIETY DISORDER, UNSPECIFIED 09/04/2018 SEBASTIÁN ERYES APRN Ot J43.9 EMPHYSEMA, UNSPECIFIED 09/04/2018 SEBASTIÁN [...] TO OTH DRUG/MEDS/BIOL SUB 09/04/2018 SEBASTIÁN REYES APRN Ot Z90.710 ACQUIRED ABSENCE OF BOTH CERVIX AND UTER 09/04/2018 SEBASTIÁN REYES APRN Ot Z90.89 ACQUIRED ABSENCE [...] HISTORY OF OTHER DISEASES OF TH 09/08/2018 SEBASTIÁN REYES APRN Ot Z88.6 ALLERGY STATUS [...] Ot R16.0 HEPATOMEGALY, NOT ELSEWHERE CLASSIFIED 09/24/2018 DELMAN DO, ROSEMARY B Ot R10.9 UNSPECIFIED ABDOMINAL PAIN 09/24/2018 DELMARIO DO, ROSEMARY B Ot R16.0 HEPATOMEGALY, NOT ELSEWHERE CLASSIFIED 10/27/2018 SEBASTIÁN REYES APRN Ot F17.210 NICOTINE DEPENDENCE, CIGARETTES, UNCOMPL 10/27/2018 SEBASTIÁN REYES APRN Ot F31.9 BIPOLAR DISORDER, UNSPECIFIED 10/27/2018 SEBASTIÁN REYES APRN Ot F41.9 ANXIETY DISORDER, UNSPECIFIED 10/27/2018 SEBASTIÁN REYES APRN Ot J43.9 EMPHYSEMA, UNSPECIFIED 10/27/2018 SEBASTIÁN REYES APRN Ot K21.9 GASTRO-ESOPHAGEAL REFLUX DISEASE WITHOUT 10/27/2018 SEBASTIÁN REYES APRN Ot K58.9 IRRITABLE BOWEL SYNDROME WITHOUT DIARRHE 10/27/2018 SEBASTIÁN REYES APRN Ot L08.9 LOCAL INFECTION OF THE SKIN AND SUBCUTAN 10/27/2018 SEBASTIÁN REYES APRN Ot Z82.49 FAMILY HX OF ISCHEM HEART DIS AND OTH DI 10/27/2018 SEBASTIÁN REYES APRN Ot Z85.43 PERSONAL HISTORY OF MALIGNANT NEOPLASM O 10/27/2018 SEBASTIÁN REYES APRN Ot Z86.19 PERSONAL HISTORY OF OTHER INFECTIOUS AND 10/27/2018 SEBASTIÁN REYES APRN Ot Z87.19 PERSONAL HISTORY OF OTHER DISEASES OF TH 10/27/2018 SEBASTIÁN REYES APRN Ot Z87.448 PERSONAL HISTORY OF OTHER DISEASES OF UR 10/27/2018 SEBASTIÁN REYES APRN Ot Z88.6 ALLERGY STATUS TO ANALGESIC AGENT STATUS 10/27/2018 SEBASTIÁN REYES APRN Ot Z88.8 ALLERGY STATUS TO OT DRUG/MEDS/BIOL SUB 10/27/2018 SEBASTIÁN REYES APRN Ot Z90.710 ACQUIRED ABSENCE OF BOTH CERVIX AND UTER 10/27/2018 SEBASTIÁN REYES APRN Ot Z90.89 ACQUIRED ABSENCE OF OTHER ORGANS 10/27/2018 SEBASTIÁN REYES APRN Ot Z98.890 OTHER SPECIFIED POSTPROCEDURAL STATES 10/27/2018 DELMAN DO, ROSEMARY B Ot R10.9 UNSPECIFIED ABDOMINAL PAIN 10/27/2018 DELMAN DO, ROSEMARY B Ot R16.0 HEPATOMEGALY, NOT ELSEWHERE CLASSIFIED 10/27/2018 DELMAN DO, ROSEMARY B Ot Z01.818 ENCOUNTER FOR OTHER PREPROCEDURAL EXAMIN 10/27/2018 DELMARIO DO, ROSEMARY B Ot R10.9 UNSPECIFIED ABDOMINAL PAIN 10/29/2018 SEBASTIÁN REYES APRN Ot F17.210 NICOTINE DEPENDENCE, CIGARETTES, UNCOMPL 10/29/2018 SEBASTIÁN REYES APRN Ot F31.9 BIPOLAR DISORDER, UNSPECIFIED 10/29/2018 SEBASTIÁN REYES APRN Ot F41.9 ANXIETY DISORDER, UNSPECIFIED 10/29/2018 SEBASTIÁN REYES APRN Ot J43.9 EMPHYSEMA, UNSPECIFIED 10/29/2018 SEBASTIÁN REYES APRN Ot K21.9 GASTRO-ESOPHAGEAL REFLUX DISEASE WITHOUT 10/29/2018 SEBASTIÁN REYES APRN Ot K58.9 IRRITABLE BOWEL SYNDROME WITHOUT DIARRHE 10/29/2018 SEBASTIÁN REYES APRN Ot L08.9 LOCAL INFECTION OF THE SKIN AND SUBCUTAN 10/29/2018 SEBASTIÁN REYES APRN Ot Z82.49 FAMILY HX OF ISCHEM HEART DIS AND OTH DI 10/29/2018 SEBASTIÁN REYES APRN Ot Z85.43 PERSONAL HISTORY OF MALIGNANT NEOPLASM O 10/29/2018 SEBASTIÁN REYES APRN Ot Z86.19 PERSONAL HISTORY OF OTHER INFECTIOUS AND 10/29/2018 SEBASTIÁN REYES APRN Ot Z87.19 PERSONAL HISTORY OF OTHER DISEASES OF TH 10/29/2018 SEBASTIÁN REYES APRN Ot Z87.448 PERSONAL HISTORY OF OTHER DISEASES OF UR 10/29/2018 SEBASTIÁN REYES APRN Ot Z88.6 ALLERGY STATUS TO ANALGESIC AGENT STATUS 10/29/2018 SEBASTIÁN REYES APRN Ot Z88.8 ALLERGY STATUS TO OT DRUG/MEDS/BIOL SUB 10/29/2018 SEBASTIÁN REYES APRN Ot Z90.710 ACQUIRED ABSENCE OF BOTH CERVIX AND UTER 10/29/2018 SEBASTIÁN REYES APRN Ot Z90.89 ACQUIRED ABSENCE OF OTHER ORGANS 10/29/2018 SEBASTIÁN REYES APRN Ot Z98.890 OTHER SPECIFIED POSTPROCEDURAL STATES 11/20/2018 DELMARIO DO, ROSEMARY B Ot R10.9 UNSPECIFIED ABDOMINAL PAIN 11/20/2018 DELMAN DO, ROSEMARY B Ot R16.0 HEPATOMEGALY, NOT ELSEWHERE CLASSIFIED 11/20/2018 DELMARIO DO, ROSEMARY B Ot R10.9 UNSPECIFIED ABDOMINAL PAIN 11/20/2018 DEBI DO, ROSEMARY B Ot R16.0 HEPATOMEGALY, NOT ELSEWHERE CLASSIFIED 11/20/2018 DEBI DO, ROSEMARY B Ot R10.9 UNSPECIFIED ABDOMINAL PAIN 11/20/2018 DEBI DO, ROSEMARY B Ot R16.0 HEPATOMEGALY, NOT ELSEWHERE CLASSIFIED 12/01/2018 DEBI DO, ROSEMARY B Ot R10.9 UNSPECIFIED ABDOMINAL PAIN 12/01/2018 DEBI DO, ROSEMARY B Ot R16.0 HEPATOMEGALY, NOT ELSEWHERE CLASSIFIED Procedures Code Description Performed By Performed On 45.13 OTHER ENDOSCOPY OF SM INTEST Eren BHAT, Kenny Parsons 10/27/2012 45.16 ESOPHAGOGASTRODUODENOSCOPY [ EGD] W/CLOSED BIOPSY Eren BHAT, Kenny Parsons 2012 88.74 DX ULTRASOUND-DIGESTIVE Kenny Jason MD 10/27/2012 [id number] LESION REMOVAL COLONOSCOPY Eren BHAT, Kenny Parsons 05/07/2013 [id number] Release Peritoneum, Open Approach 07/09/2016 [id number] Resection of Bilateral Ovaries, Open Approach 07/09/2016 [id number] Resection of Bilateral Fallopian Tubes, Open Approach [...] culture - 06/12/18 09:50 Bacterial urine culture [id number] NRG COLONY COUNT >100,000/ML NRG FTX;REPORTABLE FINAL [...] - 09/02/18 17:20 Lipase 29 U/L 8-78 Radiology Report from [id number] on 04/15/2013 16:35:00 Final ReportADMITTING DIAGNOSIS: abd pain Abd Pain, Constipation, N/ VGASTRIC EMPTYING STUDY(G.E.T.) - 04/15/2013 HOSP ON [facility] RESULT: INDICATION: Abdominal pain with nausea and vomiting.Patient was administered 1.9 mCi technetium 99m sulfur colloidtagged to the test meal. Imaging over the abdomen was performed.Time of the half emptying is calculated to be 141 minutes.Normal values are 30-90 minutes. A total of 22% of the test mealwas emptied at 90 minutes.IMPRESSION: Delayed gastric emptying.Dictated on workstation # [id number] BY: ROSENDO DIAS M.D., RADIOLOGISTELECTRONICALLY SIGNED BY: ROSENDO DIAS M.D., RADIOLOGISTD Apr 15 2013 12:02PT GINA: Apr 15 2013 4:32PS Apr 15 2013 4:32P Encounters ACCT No. Visit Date/Time Discharge Status Pt. Type Provider Facility Loc./Unit Complaint [id number] 08/11/2012 00:00:00 08/11/2012 23:59:59 [place] [id number] 06/20/2012 10:24:00 06/20/2012 23:59:59 CLS Outpatient KESHIA HAHN DO [id number] 09/18/2012 00:00:00 09/18/2012 23:59:59 CLS Outpatient LUCRECIA TAPIA APRN [id number] 11/28/2018 16:00:00 11/28/2018 23:59:59 CLS Outpatient CORTEZ DIAZ [facility] [id number] 03/26/2018 08:40:00 Document Registration [id number] 01/31/2017 09:53:00 01/31/2017 23:59:59 CLS Outpatient JYOTI FRAZIER [id number] 07/09/2016 14:57:00 07/10/2016 15:00:00 DIS Inpatient JYOTI FRAZIER [facility] [id number] 02/06/2016 11:53:11 Document Registration [id number] 06/27/2016 00:00:00 06/27/2016 23:59:59 CLS Outpatient DanishRusty Gianfranco [facility] O [id number] 10/27/2012 09:13:00 10/27/2012 11:29:00 DIS Outpatient Kenny Jason MD [facility] [id number] 05/07/2013 07:02:00 05/07/2013 23:59:59 CLS Outpatient Kenny Jason MD [facility] [id number] 04/15/2013 08:57:00 04/15/2013 23:59:59 CLS Outpatient Kenny Jason MD [facility] [id number] 05/22/2013 10:30:00 Document Registration [id number] 01/31/2017 09:53:00 Document Registration [id number] 07/09/2016 14:57:00 Document Registration [id number] 08/05/2015 15:55:52 08/05/2015 23:59:59 CLS Outpatient [facility] 1 [id number] 09/11/2016 12:53:57 ACT Outpatient [facility] 1 [id number] 05/19/2016 00:01:21 ACT Outpatient [facility] 1 [id number] 05/18/2016 15:02:05 Document Registration [id number] 03/27/2016 18:41:20 [facility] Clin[facility] 1 [id number] 01/18/2016 21:28:19 ACT [facility]patient [facility] 1 [id number] 11/21/2015 07:53:33 ACT [facility]patient [facility] 1 [id number] 10/02/2015 06:58:51 ACT [facility]patient [facility] 1 [id number] 10/27/2018 12:57:00 10/27/2018 13:15:00 DIS Emergency SEBASTIÁN REYES APRN [facility] ER STAPH INFECTION [id number] 09/02/2018 16:27:00 09/02/2018 17:30:00 DIS Emergency SEBASTIÁN REYES 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 [facility] ER ABD PAIN [id number] 06/15/2018 10:15:00 06/15/2018 10:51:00 DIS Emergency SAVANNAH NOBLE MD [facility] ER POST OP/REDNESS AT INCISION SITE [id number] 06/12/2018 09:22:00 06/12/2018 14:20:00 DIS Outpatient ROSEMARY CARRERA DO [facility] SDC BILIARY DYSKINESIA [id number] 06/09/2018 09:11:00 06/09/2018 12:04:00 DIS Outpatient ROSEMARY CARRERA DO [facility] PREOP LAPAROSCOPIC CHOLANGIOGRAM [id number] 05/23/2018 09:56:00 05/23/2018 23:59:59 CLS Outpatient ROSEMARY CARRERA DO [facility] CARD ABD PAIN [id number] 05/12/2018 07:05:00 05/12/2018 23:59:59 CLS Outpatient ROSEMARY CARRERA DO [facility] RAD ABDOMINAL PAIN [id number] 05/12/2018 12:22:00 05/12/2018 15:15:00 DIS Outpatient ROSEMARY CARRERA DO [facility] ENDO HEMATEMESIS [id number] 05/08/2018 09:49:00 05/08/2018 23:59:59 CLS Outpatient ROSEMARY CARRERA DO [facility] PREOP EGD [id number] 09/06/2013 06:30:00 09/07/2013 12:13:00 DIS Inpatient KINGSLEY BHAT, BOZENA Mar [facility] 4TH ACUTE BRONCHITIS WITH HYPOXIA
[2019-01-25] MEDS ORDERED: ACHD5005 PO (20:22)
--- NOTE | 2019-01-25 20:23 | ED EENT ---
History of Present Illness General Chief Complaint: Dental Problems/Pain Stated Complaint: SEVERE PAIN, HAD TEETH PULLED Nursing Triage Note: Pt arrived by private vehicle with a chief complaint of dental pain. Pt had all 26 teeth removed two fridays ago. Pt stated she feels like she has bone spur or you can see the bone in mouth. Pt complaints that left side hurts worse, but both bilateral pain. Pt is alert, oriented and ambulatory at arrival. Source: patient Exam Limitations: no limitations History of Present Illness Date Seen by Provider: January 25, 2019 Time Seen by Provider: 20:19 Initial Comments 43-year-old female who presents to the emergency room with complaints of generalized dental pain. She reports that 2 weeks ago she had 26 teeth removed at the [facility]. She reports that she has not followed up with her dentist since she had the teeth removed. She reports that Tylenol and ibuprofen are no longer working. Allergies and Home Medications Allergies Coded Allergies: hydralazine (Verified Allergy, Severe, ANAPHYLAXIS, 10/27/18) tramadol (Unverified Allergy, Mild, 10/27/18) buspirone (Unverified Allergy, Unknown, 10/27/18) doxepin (Verified Allergy, Unknown, 10/27/18) gabapentin (Verified Allergy, Unknown, 10/27/18) hydroxyzine (Unverified Allergy, Unknown, 10/27/18) THIS ALLERGY ADDED PER ANESTHESIA. prazosin (Verified Allergy, Unknown, 10/27/18) Home Medications Aripiprazole 20 Mg Tablet, 20 MG PO DAILY, (Reported) Cetirizine HCl 10 Mg Tablet, 10 MG PO DAILY PRN for ITCHING Prescribed by: SAVANNAH NOBLE on 06/15/18 1057 Escitalopram Oxalate 20 Mg Tablet, 20 MG PO HS, (Reported) take with 10mg tab Escitalopram Oxalate 10 Mg Tablet, 10 MG PO HS, (Reported) take with 20mg tab Estradiol 1 Each Patch.tdsw, 1 EACH TD Twice Weekly, (Reported) Hydrocodone Bit/Acetaminophen 1 Tab Tab, 1 TAB PO Q6H PRN for PAIN-MODERATE Prescribed by: ROSEMARY CARRERA on 06/12/18 1146 Ondansetron 4 Mg Tab.rapdis, 4 MG PO Q6H PRN for NAUSEA/VOMITING Prescribed by: SAVANNAH NOBLE on 06/15/18 1043 Pantoprazole Sodium 40 Mg Tablet.dr, 40 MG PO DAILY, (Reported) Pregabalin 100 Mg Capsule, 100 MG PO TID, (Reported) Sulfamethoxazole/Trimethoprim 1 Each Tablet, 1 EACH PO BID Prescribed by: SEBASTIÁN REYES on 10/27/18 1314 Triamcinolone Acet 15 Gm Cr, 1 GM TP BID PRN PRN for ITCHING Prescribed by: SAVANNAH NOBLE on 06/15/18 1043 Valacyclovir HCl 500 Mg Tablet, 500 MG PO DAILY, (Reported) Past Yqnezkg-Abjnac-Tqwtue Hx Patient Social History Alcohol Use: Denies Use Recreational Drug Use: No Type Used: Cigarettes Recent Foreign Travel: No Contact w/Someone Who Travel: No Recent Infectious Disease Expo: No Recent Hopitalizations: No Physical Abuse: No Sexual Abuse: No Mistreated: No Fear: No Immunizations Up To Date Tetanus Booster (TDap): Less than 5yrs PED Vaccines UTD: No Date of Pneumonia Vaccine: Aug 18, 2012 Seasonal Allergies Seasonal Allergies: No Past Medical History Surgeries: Yes (c/s x2, R hand reconstruction sx, ) Hysterectomy, Oophorectomy, Tonsillectomy Respiratory: Yes Chronic Bronchitis, Emphysema Cardiac: No Neurological: No Reproductive Disorders: No Female Reproductive Disorders: Endometriosis Sexually Transmitted Disease: Yes (GENITAL HERPES) Genitourinary: No Gastrointestinal: Yes Gastroesophageal Reflux, Pancreatitis, Gall Bladder Disease, Irritable Bowel Musculoskeletal: Yes (hernatied disc and bulging disk in back) Degenerate Disk Disease, Chronic Back Pain Endocrine: No Hearing Impairment: Denies Cancer: Yes (hpv) Ovarian What Type of Treatment Did You: Surgical Intervention Psychosocial: Yes Sleep Difficulties, Anxiety, Bipolar, Violent Behavior, Depression Integumentary: No (multiple tatoos, states gets hives when nervous) Blood Disorders: Yes (anemia) Family Medical History Alcoholism 03 FATHER 03 MOTHER 09 BROTHER 09 BROTHER 09 BROTHER 09 SISTER Cancer 03 MOTHER Chest pain 03 MOTHER Congenital heart disease 03 MOTHER Congestive heart failure 03 MOTHER Family history: Allergy 03 FATHER 03 MOTHER 09 BROTHER Family history: Alzheimer's disease 03 FATHER Family history: Arthritis 03 FATHER 03 MOTHER Family history: Asthma 03 MOTHER 09 SISTER Family history: Cardiovascular disease 03 MOTHER Family history: Coronary thrombosis 03 MOTHER Family history: Gastrointestinal disease 03 MOTHER Family history: Osteoporosis 03 MOTHER Headache 03 FATHER 03 MOTHER Heart disease 03 MOTHER History of - anemia 03 MOTHER History of - respiratory disease 09 SISTER Hypercholesterolemia 03 FATHER Myocardial infarction 03 MOTHER Parkinson's disease 03 MOTHER Psychotic disorder 03 FATHER 03 MOTHER Seizure disorder 09 SISTER Stroke 03 MOTHER No Family History of: Aphasia Cancer of colon Cataract Cystic fibrosis Dementia Dysphagia Family history: Diabetes mellitus Hearing loss History of drug abuse Infertile Kidney disease Malignant neoplasm of lung No Pertinent Family Hx Physical Exam Vital Signs Vital Signs - First Documented 01/25/19 20:08 Temp 98.1 Pulse 82 Resp 22 B/P (MAP) 142/78 (99) Pulse Ox 96 O2 Delivery Room Air Height, Weight, BMI Height: 5'3.00" Weight: 150lbs. 0oz. [id number]; 32.6 BMI Method:Stated Progress/Results/Core Measures Results/Orders Vital Signs/I&O 01/25/19 20:08 Temp 98.1 Pulse 82 Resp 22 B/P (MAP) 142/78 (99) Pulse Ox 96 O2 Delivery Room Air Blood Pressure Mean: 99 Departure Impression Primary Impression: pain after dental extractions Disposition: 01 HOME, SELF-CARE Condition: Stable/Unchanged Departure-Patient Inst. Decision time for Depature: 20:20 Referrals: [facility] (PCP) Primary Care Physician CORTEZ DIAZ APRN (Family) Primary Care Physician Patient Instructions: Dental Pain (DC) Add. Discharge Instructions: Call first thing tomorrow morning to schedule an appointment with [facility] for follow-up on your dental extractions. Take medications as directed. Continue to use ibuprofen and Tylenol as directed by the bottle for pain relief. You may use the hydrocodone in addition to Tylenol and ibuprofen. Be sure you do not exceed your daily limit of Tylenol 4000 mg. Return back to the emergency room for worsening symptoms or concerns as needed. All discharge instructions reviewed with patient and/or family. Voiced understanding. Scripts Hydrocodone Bit/Acetaminophen (Hydrocodone/Acetaminophen 5/325mg Tablet) 1 Tab Tab 1 EACH PO Q4-6HR PRN for PAIN-MODERATE MDD 10 for 3 Days, #10 TAB Prov: VILMA PIERRE 01/25/19 VILMA PIERRE January 25, 2019 20:23
[2019-01-25 20:44] VITALS: BP 117/76
[2019-01-25] MEDS ORDERED: HYDROcodone/APAP 5 MG/325 MG (LORTAB) TAB PO ONE (20:45)
== END 2019-01-25 20:44 | disposition home or self-care (01) ==
LOC: EDUNIT# 19:59 → ER 20:01
DX: G89.18 Other acute postprocedural pain (principal); K08.9 Disorder of teeth and supporting structures, unspecified; J43.9 Emphysema, unspecified; K21.9 Gastro-esophageal reflux disease without esophagitis; K58.9 Irritable bowel syndrome, unspecified; F41.9 Anxiety disorder, unspecified; F31.9 Bipolar disorder, unspecified; D64.9 Anemia, unspecified; Z85.43 Personal history of malignant neoplasm of ovary; Z87.19 Personal history of other diseases of the digestive system; Z82.49 Family history of ischemic heart disease and other diseases of the circulatory system; Z87.448 Personal history of other diseases of urinary system; Z86.19 Personal history of other infectious and parasitic diseases; Z98.890 Other specified postprocedural states; Z88.8 Allergy status to other drugs, medicaments and biological substances; Z88.6 Allergy status to analgesic agent; Z90.89 Acquired absence of other organs; Z90.710 Acquired absence of both cervix and uterus
CPT/HCPCS: 99283

== ENCOUNTER → 2019-07-02 | Outpatient (CLI) | payer MEDICARE, MEDICAID | LOC: RAD 14:52 | PROVIDERS: ATTEND Nurse Practitioner Family | DX: Z12.31 Encounter for screening mammogram for malignant neoplasm of breast (principal) | CPT/HCPCS: 77067 ==

== ENCOUNTER 2023-02-06 19:37 | Emergency (ER) | payer MEDICARE, MEDICAID ==
[~2023-02-06] VITALS: Ht 157 cm; Wt 81.0 kg
[~2023-02-06 19:37] MED LIST changes: +ACYC-108 PO; -ACYC200C PO; +ARIP20TA20 PO; -ARIP20TA9 PO; +ESCI-2 PO; -ESCI10TA55 PO; +ESCI20TA39 PO; -ESCI20TA45 PO; -PANT40TA3 PO; +PANT40TA52 PO; -SULF1TAB35 PO; +SULF1TAB38 PO
[2023-02-06] MEDS ORDERED: LACTATED RINGERS 1,000 ML IV ONE ×2 (20:45→22:15)
[2023-02-06] MEDS ORDERED: ONDANSETRON 4 MG/2 ML (SDV) Z0FRAN IVP ONE (20:45)
[2023-02-06 20:55] LABS: BILIRUBIN,URINE NEGATIVE (NEGATIVE); CLARITY,URINE CLEAR; COLOR,URINE YELLOW; GLUCOSE, URINE (UA) NEGATIVE (NEGATIVE); KETONES,URINE NEGATIVE (NEGATIVE); LEUKOCYTE ESTERASE ,URINE NEGATIVE (NEGATIVE); NITRITE,URINE NEGATIVE (NEGATIVE); PROTEIN,URINE NEGATIVE (NEGATIVE)
[2023-02-06 21:02] LABS: BASOPHILS # (AUTO) 0.1 10^3/uL (0.0-0.1); BASOPHILS % (AUTO) 1 % (0-10); EOSINOPHILS # (AUTO) 0.2 10^3/uL (0.0-0.3); EOSINOPHILS % (AUTO) 2 % (0-10); HEMATOCRIT 40 % (35-52); HEMOGLOBIN 13.5 g/dL (11.5-16.0); LYMPHOCYTES # (AUTO) 4.7 10^3/uL (1.0-4.0); LYMPHOCYTES % (AUTO) 48 % (12-44); MEAN CORPUSCULAR HEMOGLOBIN 30 pg (25-34); MEAN CORPUSCULAR HGB CONC 34 g/dL (32-36); MEAN CORPUSCULAR VOLUME 90 fL (80-99); MEAN PLATELET VOLUME 10.4 fL (9.0-12.2); MONOCYTES # (AUTO) 0.6 10^3/uL (0.0-1.0); MONOCYTES % (AUTO) 6 % (0-12); NEUTROPHILS # (AUTO) 4.2 10^3/uL (1.8-7.8); NEUTROPHILS % (AUTO) 43 % (42-75); PLATELET COUNT 394 10^3/uL (130-400); WHITE BLOOD COUNT 9.8 10^3/uL (4.3-11.0)
--- NOTE | 2023-02-06 21:03 | Diagnostic Imaging Report ---
EXAMINATION: Chest radiograph, portable AP view. DATE: 02/06/2023 9:00 PM INDICATION: 47-year-old female, dyspnea. COMPARISON: Chest radiograph September 06, 2013. FINDINGS: Heart size and mediastinal contours are unchanged. There is no identified pneumothorax. There is no large pleural effusion. There is no identified focal airspace consolidation. IMPRESSION: No identified acute cardiopulmonary abnormality. Dictated by: Dictated on workstation # [id number]
[2023-02-06 21:06] LABS: INR 0.9 (0.8-1.4); PROTHROMBIN TIME PATIENT 12.3 SEC (12.2-14.7)
[2023-02-06 21:10] LABS: AMORPHOUS SEDIMENT,UR FEW AMOR URATES /LPF; BACTERIA,URINE MODERATE /HPF; WBC,URINE RARE /HPF
[2023-02-06 21:10] LABS: CHLORIDE 106 MMOL/L (98-107); POTASSIUM 3.6 MMOL/L (3.6-5.0); SODIUM 140 MMOL/L (135-145)
[2023-02-06 21:11] LABS: ALBUMIN 3.8 GM/DL (3.2-4.5)
--- NOTE | 2023-02-06 21:11 | Diagnostic Imaging Report ---
PROCEDURE: CT head and CT cervical spine without contrast. TECHNIQUE: Multiple contiguous axial images were obtained through the brain and cervical spine without the use of intravenous contrast. Sagittal and coronal reformations through the cervical spine were then performed. Auto Exposure Controls were utilized during the CT exam to meet ALARA standards for radiation dose reduction. INDICATION: Trauma, pain. COMPARISON: None available. FINDINGS: No intracranial hemorrhage. No intracranial mass, mass effect, midline shift, herniation, hydrocephalus or extra-axial fluid collection. No definite CT evidence of an acute ischemic infarction. The orbits are unremarkable. Mucous retention cyst within the right maxillary sinus. The paranasal sinuses are otherwise clear. The calvarium and extracalvarial soft tissues are unremarkable. 4 mm of retrolisthesis of C5 on C6. No additional significant anterolisthesis or retrolisthesis. Alignment of the atlantooccipital joint is well maintained. Mild scattered endplate degenerative changes. No evidence of a recent vertebral body compression deformity. Calcifications of posterior longitudinal ligament versus disc osteophyte complex is noted at C4/C5 and C5/C6 with resulting central canal stenosis, including moderate to severe central canal stenosis at these levels with additional bilateral neural foraminal stenosis. No acute fracture or dislocation. No destructive osseous process. Scattered facet joint degenerative changes and uncovertebral joint hypertrophy. No apical pneumothorax within the [id number]. Potential 1.2 cm hypodense nodule within the right thyroid lobe. The paraspinal soft tissues are otherwise unremarkable. IMPRESSION: No acute intracranial abnormality. No acute osseous abnormality of the cervical spine with focal degenerative changes and calcifications of the posterior longitudinal ligament at C4/C5 and C5/C6 resulting in significant central canal and neural foraminal stenosis at these levels. These could be further evaluated with nonemergent MRI of the cervical spine, as clinically indicated. Minimal retrolisthesis of C5 on C6, felt to be degenerative in nature. Dictated by: Dictated on workstation # [id number]
[2023-02-06 21:12] LABS: AMYLASE 52 U/L (25-125); CALCIUM 8.9 MG/DL (8.5-10.1)
[2023-02-06 21:13] VITALS: BP_SYST 101; BP_SYST 98; BP_DIAS 47; BP_DIAS 51; BP_DIAS 53
[2023-02-06 21:13] LABS: GLUCOSE 161 MG/DL (70-105); TOTAL PROTEIN 6.5 GM/DL (6.4-8.2)
[2023-02-06 21:13] LABS: AMPHETAMINE SCREEN, URINE NEGATIVE (NEGATIVE); BARBITURATE SCREEN URINE NEGATIVE (NEGATIVE); BENZODIAZEPINES SCREEN URINE NEGATIVE (NEGATIVE); CANNABINOID SCREEN, URINE NEGATIVE (NEGATIVE); COCAINE SCREEN URINE NEGATIVE (NEGATIVE); METHADONE STAT NEGATIVE (NEGATIVE); OPIATE SCREEN URINE NEGATIVE (NEGATIVE); TRICYCLIC ANTIDEPRESSANTS SCRE POSITIVE (NEGATIVE)
[2023-02-06 21:14] LABS: OXYCODONE STAT NEGATIVE (NEGATIVE); PROPOXYPHENE STAT NEGATIVE (NEGATIVE)
[2023-02-06 21:14] LABS: CARBON DIOXIDE 23 MMOL/L (21-32)
[2023-02-06 21:15] LABS: BILIRUBIN,TOTAL 0.2 MG/DL (0.1-1.0)
[2023-02-06 21:17] LABS: ALKALINE PHOSPHATASE 93 U/L (40-136); CREATININE SERUM 0.81 MG/DL (0.60-1.30); GFR ESTIMATED 91
[2023-02-06 21:18] LABS: BUN/CREATININE RATIO 9
[2023-02-06 21:19] LABS: ACETAMINOPHEN < 10 UG/ML (10-30)
[2023-02-06 21:20] LABS: ALANINE AMINOTRANSFERASE 26 U/L (0-55); MAGNESIUM 1.7 MG/DL (1.6-2.4)
[2023-02-06 21:21] LABS: AMMONIA 41 UMOL/L (11-32); CREATINE KINASE 88 U/L (29-168); LIPASE 66 U/L (8-78)
[2023-02-06 21:22] LABS: ERYTHROCYTE SEDIMENTATION RATE 7 MM/HR (0-20)
[2023-02-06 21:42] LABS: TSH (THYROID ANALYZER) 0.92 UIU/ML (0.35-4.94)
--- NOTE | 2023-02-06 22:22 | ED General ---
General Chief Complaint: Neurological Problems Stated Complaint: NUMBNESS IN ARM|HAND|LEGS Nursing Triage Note: PT PRESENTS TO ED WITH MULTIPLE COMPLAINTS: NUMBNESS IN BILATERAL ARMS, HANDS, AND LEGS, IRREGULAR HEARTBEAT, VISION DISTURBANCES, BLOOD IN STOOL, DRY MOUTH, AND FATIGUE. PT AMB TO ROOM 7 WITHOUT APPARENT DIFFICULTY. Source of Information: Patient History of Present Illness Date Seen by Provider: February 06, 2023 Allergies and Home Medications Allergies Coded Allergies: hydralazine (Verified Allergy, Severe, ANAPHYLAXIS, 10/27/18) tramadol (Unverified Allergy, Mild, 10/27/18) buspirone (Unverified Allergy, Unknown, 10/27/18) doxepin (Verified Allergy, Unknown, 10/27/18) gabapentin (Verified Allergy, Unknown, 10/27/18) hydroxyzine (Unverified Allergy, Unknown, 10/27/18) THIS ALLERGY ADDED PER ANESTHESIA. prazosin (Verified Allergy, Unknown, 10/27/18) Patient Home Medication List Aripiprazole (Aripiprazole) 20 Mg Tablet, 20 MG PO DAILY, (Reported) Entered as Reported by: ESTEVAN ABREU on 06/09/18 1033 Cetirizine HCl (Cetirizine HCl) 10 Mg Tablet, 10 MG PO DAILY PRN for ITCHING Prescribed by: SAVANNAH NOBLE on 06/15/18 1057 Escitalopram Oxalate (Escitalopram Oxalate) 20 Mg Tablet, 20 MG PO HS, (Reported) Entered as Reported by: ESTEVAN ABREU on 06/09/18 1033 Escitalopram Oxalate (Escitalopram Oxalate) 10 Mg Tablet, 10 MG PO HS, (Reported) Entered as Reported by: ESTEVAN ABREU on 06/09/18 1033 Estradiol (Estradiol Patch Twice Weekly 0.1mg/hr) 1 Each Patch.tdsw, 1 EACH TD Twice Weekly, (Reported) Entered as Reported by: ESTEVAN ABREU on 06/09/18 1033 Hydrocodone Bit/Acetaminophen (Lortab 5 Mg Tablet) 1 Tab Tab, 1 TAB PO Q6H PRN for PAIN-MODERATE Prescribed by: ROSEMARY CARRERA on 06/12/18 1146 Hydrocodone Bit/Acetaminophen (Lortab 5 Mg Tablet) 1 Tab Tab, 1 EACH PO Q4-6HR PRN for PAIN-MODERATE Prescribed by: VILMA PIERRE on 01/25/192021 Ondansetron (Ondansetron Odt) 4 Mg Tab.rapdis, 4 MG PO Q6H PRN for NAUSEA/VOMITING Prescribed by: SAVANNAH NOBLE on 06/15/18 1043 Pantoprazole Sodium (Pantoprazole Sodium) 40 Mg Tablet.dr, 40 MG PO DAILY, (Reported) Entered as Reported by: QUOC CHAIREZ on 05/12/18 1308 Pregabalin (Lyrica) 100 Mg Capsule, 100 MG PO TID, (Reported) Entered as Reported by: QUOC CHAIREZ on 05/12/18 1308 Sulfamethoxazole/Trimethoprim (Bactrim Ds Tablet) 1 Each Tablet, 1 EACH PO BID Prescribed by: SEBASTIÁN REYES on 10/27/18 1314 Triamcinolone Acet (Triamcinolone Acetonide 0.025%) 15 Gm Cr, 1 GM TP BID PRN PRN for ITCHING Prescribed by: SAVANNAH NOBLE on 06/15/18 1043 Valacyclovir HCl (Valtrex) 500 Mg Tablet, 500 MG PO DAILY, (Reported) Entered as Reported by: ESTEVAN ABREU on 06/09/18 1033 Past Iwbozbv-Wkvjml-Bipbcz Hx Patient Social History Tobacco Use?: Yes Tobacco type used: Cigarettes Smoking Status: Current Everyday Smoker Use of E-Cig and/or Vaping dev: No Substance use?: No Alcohol Use?: No Pt feels they are or have been: No Immunizations Up To Date Tetanus Booster (TDap): Less than 5yrs PED Vaccines UTD: No Influenza Vaccine Up-to-Date: No; Not Current Seasonal Allergies Seasonal Allergies: No Past Medical History Surgeries: Yes (c/s x2, R hand reconstruction sx, ) Hysterectomy, Oophorectomy, Tonsillectomy Respiratory: Yes Chronic Bronchitis, Emphysema Cardiac: No Neurological: No Reproductive Disorders: No Female Reproductive Disorders: Endometriosis Sexually Transmitted Disease: Yes (GENITAL HERPES) Genitourinary: No Gastrointestinal: Yes Gastroesophageal Reflux, Pancreatitis, Gall Bladder Disease, Irritable Bowel Musculoskeletal: Yes (hernatied disc and bulging disk in back) Degenerate Disk Disease, Chronic Back Pain Endocrine: No Hearing Impairment: Denies Cancer: Yes (hpv) Ovarian What Type of Treatment Did You: Surgical Intervention Psychosocial: Yes Sleep Difficulties, Anxiety, Bipolar, Violent Behavior, Depression Integumentary: No (multiple tatoos, states gets hives when nervous) Blood Disorders: Yes (anemia) Family Medical History Alcoholism 03 FATHER 03 MOTHER 09 BROTHER 09 BROTHER 09 BROTHER 09 SISTER Cancer 03 MOTHER Chest pain 03 MOTHER Congenital heart disease 03 MOTHER Congestive heart failure 03 MOTHER Family history: Allergy 03 FATHER 03 MOTHER 09 BROTHER Family history: Alzheimer's disease 03 FATHER Family history: Arthritis 03 FATHER 03 MOTHER Family history: Asthma 03 MOTHER 09 SISTER Family history: Cardiovascular disease 03 MOTHER Family history: Coronary thrombosis 03 MOTHER Family history: Gastrointestinal disease 03 MOTHER Family history: Osteoporosis 03 MOTHER Headache 03 FATHER 03 MOTHER Heart disease 03 MOTHER History of - anemia 03 MOTHER History of - respiratory disease 09 SISTER Hypercholesterolemia 03 FATHER Myocardial infarction 03 MOTHER Parkinson's disease 03 MOTHER Psychotic disorder 03 FATHER 03 MOTHER Seizure disorder 09 SISTER Stroke 03 MOTHER No Family History of: Aphasia Cancer of colon Cataract Cystic fibrosis Dementia Dysphagia Family history: Diabetes mellitus Hearing loss History of drug abuse Infertile Kidney disease Malignant neoplasm of lung No Pertinent Family Hx Physical Exam Vital Signs Vital Signs - First Documented 02/06/23 19:45 Pulse 72 Resp 24 B/P (MAP) 119/66 (83) Pulse Ox 95 O2 Delivery Room Air Capillary Refill : Less Than 3 Seconds Height, Weight, BMI Height: 5'3.00" Weight: 150lbs. 0oz. 68.776915ne; 32.00 BMI Method:Stated Progress/Results/Core Measures Suspected Sepsis SIRS Temperature: Pulse: 81 Respiratory Rate: 24 Laboratory Tests 02/06/23 19:50: White Blood Count 9.8 Blood Pressure 101 /53 Mean: 69 Laboratory Tests 02/06/23 19:50: Creatinine 0.81, INR Comment 0.9, Platelet Count 394, Total Bilirubin 0.2 Results/Orders Lab Results Laboratory Tests Test 02/06/23 19:50 02/06/23 20:50 Range/Units White Blood Count 9.8 4.3-11.0 10^3/uL Red Blood Count 4.46 3.80-5.11 10^6/uL Hemoglobin 13.5 11.5-16.0 g/dL Hematocrit 40 35-52 % Mean Corpuscular Volume 90 80-99 fL Mean Corpuscular Hemoglobin 30 25-34 pg Mean Corpuscular Hemoglobin Concent 34 32-36 g/dL Red Cell Distribution Width 12.6 10.0-14.5 % Platelet Count 394 130-400 10^3/uL Mean Platelet Volume 10.4 9.0-12.2 fL Immature Granulocyte % (Auto) 0 % Neutrophils (%) (Auto) 43 42-75 % Lymphocytes (%) (Auto) 48 H 12-44 % Monocytes (%) (Auto) 6 0-12 % Eosinophils (%) (Auto) 2 0-10 % Basophils (%) (Auto) 1 0-10 % Neutrophils # (Auto) 4.2 1.8-7.8 10^3/uL Lymphocytes # (Auto) 4.7 H 1.0-4.0 10^3/uL Monocytes # (Auto) 0.6 0.0-1.0 10^3/uL Eosinophils # (Auto) 0.2 0.0-0.3 10^3/uL Basophils # (Auto) 0.1 0.0-0.1 10^3/uL Immature Granulocyte # (Auto) 0.0 0.0-0.1 10^3/uL Erythrocyte Sedimentation Rate 7 0-20 MM/HR Prothrombin Time 12.3 12.2-14.7 SEC INR Comment 0.9 0.8-1.4 Activated Partial Thromboplast Time 29 24-35 SEC Sodium Level 140 135-145 MMOL/L Potassium Level 3.6 3.6-5.0 MMOL/L Chloride Level 106 98-107 MMOL/L Carbon Dioxide Level 23 21-32 MMOL/L Anion Gap 11 5-14 MMOL/L Blood Urea Nitrogen 7 7-18 MG/DL Creatinine 0.81 0.60-1.30 MG/DL Estimat Glomerular Filtration Rate 91 BUN/Creatinine Ratio 9 Glucose Level 161 H 70-105 MG/DL Calcium Level 8.9 8.5-10.1 MG/DL Corrected Calcium 9.1 8.5-10.1 MG/DL Magnesium Level 1.7 1.6-2.4 MG/DL Total Bilirubin 0.2 0.1-1.0 MG/DL Aspartate Amino Transf (AST/SGOT) 27 5-34 U/L Alanine Aminotransferase (ALT/SGPT) 26 0-55 U/L Alkaline Phosphatase 93 40-136 U/L Ammonia 41 H 11-32 UMOL/L Total Creatine Kinase 88 29-168 U/L Creatine Kinase MB 1.0 <6.6 NG/ML Myoglobin 19.1 10.0-92.0 NG/ML Troponin I < 0.028 <0.028 NG/ML C-Reactive Protein High Sensitivity 0.88 H 0.00-0.50 MG/DL B-Type Natriuretic Peptide < 10.0 <100.0 PG/ML Total Protein 6.5 6.4-8.2 GM/DL Albumin 3.8 3.2-4.5 GM/DL Amylase Level 52 25-125 U/L Lipase 66 8-78 U/L TSH [place] Testing 0.92 0.35-4.94 UIU/ML Acetaminophen Level < 10 L 10-30 UG/ML Serum Alcohol < 10 <10 MG/DL Urine Color YELLOW Urine Clarity CLEAR Urine pH 6.0 5-9 Urine Specific [place] >=1.030 1.016-1.022 Urine Protein NEGATIVE NEGATIVE Urine Glucose (UA) NEGATIVE NEGATIVE Urine Ketones NEGATIVE NEGATIVE Urine Nitrite NEGATIVE NEGATIVE Urine Bilirubin NEGATIVE NEGATIVE Urine Urobilinogen 0.2 < = 1.0 MG/DL Urine Leukocyte Esterase NEGATIVE NEGATIVE Urine RBC (Auto) NEGATIVE NEGATIVE Urine RBC NONE /HPF Urine WBC RARE /HPF Urine Squamous Epithelial Cells 10-25 H /HPF Urine Crystals PRESENT H /LPF Urine Amorphous Sediment FEW BHAKTI URATES H /LPF Urine Bacteria MODERATE H /HPF Urine Casts NONE /LPF Urine Mucus SMALL H /LPF Urine Culture Indicated NO Urine Opiates Screen NEGATIVE NEGATIVE Urine Oxycodone Screen NEGATIVE NEGATIVE Urine Methadone Screen NEGATIVE NEGATIVE Urine Propoxyphene Screen NEGATIVE NEGATIVE Urine Barbiturates Screen NEGATIVE NEGATIVE Ur Tricyclic Antidepressants Screen POSITIVE H NEGATIVE Urine Phencyclidine Screen NEGATIVE NEGATIVE Urine Amphetamines Screen NEGATIVE NEGATIVE Urine Methamphetamines Screen NEGATIVE NEGATIVE Urine Benzodiazepines Screen NEGATIVE NEGATIVE Urine Cocaine Screen NEGATIVE NEGATIVE Urine Cannabinoids Screen NEGATIVE NEGATIVE My Orders Orders - STU ALMARAZ DO Ed Iv/Invasive Line Start (02/06/23 20:38) Ekg Tracing (02/06/23 20:38) Monitor-Rhythm Ecg Trace Only (02/06/23 20:38) Orthostatic Vital Signs (Adult (02/06/23 20:38) Ct Head/Cervical Spine Wo (02/06/23 20:38) Chest 1 View, Ap/Pa Only (02/06/23 20:38) Acetaminophen (02/06/23 20:38) Alcohol (02/06/23 20:38) Ammonia (02/06/23 20:38) Amylase (02/06/23 20:38) Bnp Leslie (02/06/23 20:38) Cbc With Automated Diff (02/06/23 20:38) Comprehensive Metabolic Panel (02/06/23 20:38) Creatine Kinase (02/06/23 20:38) Creatine Kinase Mb (02/06/23 20:38) Hs C Reactive Protein (02/06/23 20:38) Drug Screen Stat (Urine) (02/06/23 20:38) Lipase (02/06/23 20:38) Magnesium (02/06/23 20:38) Protime With Inr (02/06/23 20:38) Partial Thromboplastin Time (02/06/23 20:38) Thyroid Analyzer (02/06/23 20:38) Tick Panel With Lyme Eia (02/06/23 20:38) Ua Culture If Indicated (02/06/23 20:38) Erythrocyte Sedimentation Rate (02/06/23 20:38) Myoglobin Serum (02/06/23 20:38) Troponin I Vijaya (02/06/23 20:38) Ed Iv/Invasive Line Start (02/06/23 20:38) Lactated Ringers (Lr 1000 Ml Iv Solution (02/06/23 20:45) Ondansetron Injection (Zofran Injectio (02/06/23 20:45) Ed Iv/Invasive Line Start (02/06/23 22:07) Lactated Ringers (Lr 1000 Ml Iv Solution (02/06/23 22:15) Medications Given in ED Current Medications Medications Dose Ordered Sig/Jona Route Start Time Stop Time Status Last Admin Dose Admin Lactated Ringer's 1,000 ml @ 0 mls/hr Q0M ONCE IV 02/06/23 20:45 02/06/23 20:46 DC 02/06/23 20:49 1,000 MLS/HR Ondansetron HCl 4 mg ONCE ONCE IVP 02/06/23 20:45 02/06/23 20:46 DC 02/06/23 20:49 4 MG Vital Signs/I&O 02/06/23 02/06/23 02/06/23 19:45 20:53 21:13 Pulse 72 76 74 76 81 Resp 24 20 B/P (MAP) 119/66 (83) 100/50 (67) 98/47 (64) 101/51 (68) 101/53 (69) Pulse Ox 95 94 O2 Delivery Room Air Room Air Capillary Refill : Less Than 3 Seconds Blood Pressure Mean: 69 Departure Impression Primary Impression: Anxiety Additional Impression: Hypotension Disposition: 01 HOME, SELF-CARE Condition: Improved Departure-Patient Inst. Decision time for Depature: 22:20 Referrals: [facility] (PCP/Family) Primary Care Physician Patient Instructions: Anxiety, Adult ED, Low Blood Pressure (DC) Add. Discharge Instructions: INCREASE YOUR FLUID INTAKE-ESPECIALLY WATER AND GATORADE DRINK ENOUGH SO YOU ARE URINATING EVERY 2-3 HOURS WHILE AWAKE FOLLOW UP WITH [facility] IF SYMPTOMS PERSIST, RETURN TO ER IF SYMPTOMS WORSEN All discharge instructions reviewed with patient and/or family. Voiced u nderstanding. STU ALMARAZ DO February 06, 2023 22:22
[2023-02-06 22:44] VITALS: BP 110/52
== END 2023-02-06 22:44 | disposition home or self-care (01) ==
LOC: EDUNIT# 19:37 → ER 19:40
DX: F41.9 Anxiety disorder, unspecified (principal); I95.9 Hypotension, unspecified; F17.210 Nicotine dependence, cigarettes, uncomplicated
CPT/HCPCS: 70450; 71045; 72125; 80053; 80306; 81000; 82140; 82150; 82550; 82553; 83690; 83735; 83874; 83880; 84443; 84484; 85025; 85610; 85652; 85730; 86141; 86618; 86666 ×2; 86668; 86757 ×2; 93005; 93041; 99284; G0480 ×2; 36415; 80320; 80329

== ENCOUNTER 2023-03-04 01:01 | Emergency (ER) | payer MEDICARE, MEDICAID ==
[2023-03-04] MEDS ORDERED: FAMO40TA72 PO (02:06)
[2023-03-04] MEDS ORDERED: MOME45CR3 TP (02:06)
--- NOTE | 2023-03-04 02:06 | ED Integumentary General ---
General Chief Complaint: Skin/Wound Problems Stated Complaint: ITCHY,ALLERIC RXN Nursing Triage Note: TO ED VIA POV AND AMBULATORY TO FT3 WITH C/O ITCHING GENERALIZED OVER ENTIRE BODY, CONCERNED FOR SCABIES. Allergies and Home Medications Allergies Coded Allergies: hydralazine (Verified Allergy, Severe, ANAPHYLAXIS, 10/27/18) tramadol (Unverified Allergy, Mild, 10/27/18) buspirone (Unverified Allergy, Unknown, 10/27/18) doxepin (Verified Allergy, Unknown, 10/27/18) gabapentin (Verified Allergy, Unknown, 10/27/18) hydroxyzine (Unverified Allergy, Unknown, 10/27/18) THIS ALLERGY ADDED PER ANESTHESIA. prazosin (Verified Allergy, Unknown, 10/27/18) Patient Home Medication List Aripiprazole (Aripiprazole) 20 Mg Tablet, 20 MG PO DAILY, (Reported) Entered as Reported by: ESTEVAN ABREU on 06/09/18 1033 Cetirizine HCl (Cetirizine HCl) 10 Mg Tablet, 10 MG PO DAILY PRN for ITCHING Prescribed by: SAVANNAH NOBLE on 06/15/18 1057 Escitalopram Oxalate (Escitalopram Oxalate) 20 Mg Tablet, 20 MG PO HS, (Reported) Entered as Reported by: ESTEVAN ABREU on 06/09/18 1033 Escitalopram Oxalate (Escitalopram Oxalate) 10 Mg Tablet, 10 MG PO HS, (Reported) Entered as Reported by: ESTEVAN ABREU on 06/09/18 1033 Estradiol (Estradiol Patch Twice Weekly 0.1mg/hr) 1 Each Patch.tdsw, 1 EACH TD Twice Weekly, (Reported) Entered as Reported by: ESTEVAN ABREU on 06/09/18 1033 Hydrocodone Bit/Acetaminophen (Lortab 5 Mg Tablet) 1 Tab Tab, 1 TAB PO Q6H PRN for PAIN-MODERATE Prescribed by: ROSEMARY CARRERA on 06/12/18 1146 Hydrocodone Bit/Acetaminophen (Lortab 5 Mg Tablet) 1 Tab Tab, 1 EACH PO Q4-6HR PRN for PAIN-MODERATE Prescribed by: VILMA PIERRE on 01/25/192021 Ondansetron (Ondansetron Odt) 4 Mg Tab.rapdis, 4 MG PO Q6H PRN for NAUSEA/VOMITING Prescribed by: SAVANNAH NOBLE on 06/15/18 1043 Pantoprazole Sodium (Pantoprazole Sodium) 40 Mg Tablet.dr, 40 MG PO DAILY, (Reported) Entered as Reported by: QUOC CHAIREZ on 05/12/18 1308 Pregabalin (Lyrica) 100 Mg Capsule, 100 MG PO TID, (Reported) Entered as Reported by: QUOC CHAIREZ on 05/12/18 1308 Sulfamethoxazole/Trimethoprim (Bactrim Ds Tablet) 1 Each Tablet, 1 EACH PO BID Prescribed by: SEBASTIÁN REYES on 10/27/18 1314 Triamcinolone Acet (Triamcinolone Acetonide 0.025%) 15 Gm Cr, 1 GM TP BID PRN PRN for ITCHING Prescribed by: SAVANNAH NOBLE on 06/15/18 1043 Valacyclovir HCl (Valtrex) 500 Mg Tablet, 500 MG PO DAILY, (Reported) Entered as Reported by: ESTEVAN ABREU on 06/09/18 1033 Past Xdhcnuc-Yskcaw-Jmhvoe Hx Patient Social History Tobacco Use?: Yes Tobacco type used: Cigarettes Smoking Status: Current Everyday Smoker Additional substance use comme: PAST HX Alcohol Use?: No Immunizations Up To Date Tetanus Booster (TDap): Less than 5yrs PED Vaccines UTD: No Influenza Vaccine Up-to-Date: No; Not Current COVID19 Vaccine Food Processor: X2 Seasonal Allergies Seasonal Allergies: No Past Medical History Surgeries: Yes (c/s x2, R hand reconstruction sx, ) Hysterectomy, Oophorectomy, Tonsillectomy Respiratory: Yes Chronic Bronchitis, Emphysema Cardiac: No Neurological: No Reproductive Disorders: No Female Reproductive Disorders: Endometriosis Sexually Transmitted Disease: Yes (GENITAL HERPES) Genitourinary: No Gastrointestinal: Yes Gastroesophageal Reflux, Pancreatitis, Gall Bladder Disease, Irritable Bowel Musculoskeletal: Yes (hernatied disc and bulging disk in back) Degenerate Disk Disease, Chronic Back Pain Endocrine: No Hearing Impairment: Denies Cancer: Yes (hpv) Ovarian What Type of Treatment Did You: Surgical Intervention Psychosocial: Yes Sleep Difficulties, Anxiety, Bipolar, Violent Behavior, Depression Integumentary: No (multiple tatoos, states gets hives when nervous) Blood Disorders: Yes (anemia) Family Medical History Alcoholism 03 FATHER 03 MOTHER 09 BROTHER 09 BROTHER 09 BROTHER 09 SISTER Cancer 03 MOTHER Chest pain 03 MOTHER Congenital heart disease 03 MOTHER Congestive heart failure 03 MOTHER Family history: Allergy 03 FATHER 03 MOTHER 09 BROTHER Family history: Alzheimer's disease 03 FATHER Family history: Arthritis 03 FATHER 03 MOTHER Family history: Asthma 03 MOTHER 09 SISTER Family history: Cardiovascular disease 03 MOTHER Family history: Coronary thrombosis 03 MOTHER Family history: Gastrointestinal disease 03 MOTHER Family history: Osteoporosis 03 MOTHER Headache 03 FATHER 03 MOTHER Heart disease 03 MOTHER History of - anemia 03 MOTHER History of - respiratory disease 09 SISTER Hypercholesterolemia 03 FATHER Myocardial infarction 03 MOTHER Parkinson's disease 03 MOTHER Psychotic disorder 03 FATHER 03 MOTHER Seizure disorder 09 SISTER Stroke 03 MOTHER No Family History of: Aphasia Cancer of colon Cataract Cystic fibrosis Dementia Dysphagia Family history: Diabetes mellitus Hearing loss History of drug abuse Infertile Kidney disease Malignant neoplasm of lung No Pertinent Family Hx Physical Exam Vital Signs Vital Signs - First Documented 03/04/23 01:29 Temp 36.8 Pulse 69 Resp 16 B/P (MAP) 112/66 (81) Pulse Ox 95 O2 Delivery Room Air Capillary Refill : Less Than 3 Seconds Progress/Results/Core Measures Results/Orders My Orders Orders - STU ALMARAZ DO Prednisone Tablet (Deltasone Tablet) (03/04/23 02:15) Diphenhydramine Tablet (Benadryl Tablet) (03/04/23 02:15) Famotidine Tablet (Pepcid Tablet) (03/04/23 02:15) Vital Signs/I&O 03/04/23 01:29 Temp 36.8 Pulse 69 Resp 16 B/P (MAP) 112/66 (81) Pulse Ox 95 O2 Delivery Room Air Blood Pressure Mean: 81 Departure Impression Primary Impression: Itchy skin Additional Impression: Dermatitis Disposition: 01 HOME, SELF-CARE Condition: Stable Departure-Patient Inst. Decision time for Depature: 02:04 Referrals: SISI HOPPER APRN (PCP) Primary Care Physician Patient Instructions: Itchy Skin Add. Discharge Instructions: TAKE YOUR ZYRTEC EVERY MORNING YOU MAY TAKE BENADRYL 50 MG AT NIGHT CONTINUE YOUR REGULAR MEDICATIONS PRESCRIBED FOLLOW UP WITH [facility] IN 2-3 DAYS FOR FURTHER CARE--CALL IN THE MORNING TO SCHEDULE AN APPOINTMENT All discharge instructions reviewed with patient and/or family. Voiced understanding. Scripts Mometasone Furoate (Mometasone Furoate) 0.1 % Cream..g. 45 GM TP TID, #1 TUBE Prov: STU ALMARAZ DO 03/04/23 Famotidine (Pepcid) 40 Mg Tablet 40 MG PO DAILY, #10 TAB Prov: STU ALMARAZ DO 03/04/23 STU ALMARAZ DO Mar 04, 2023 02:06
[2023-03-04] MEDS ORDERED: predniSONE 20 MG TAB PO ONE (02:15)
[2023-03-04] MEDS ORDERED: TETANUS,DIPTH,PERTUSS P/F (BOOSTRIX) 0.5 ML VIAL IM ONE (02:15)
[2023-03-04] MEDS ORDERED: FAMOTIDINE 20 MG (PEPCID) TABLET PO ONE (02:15)
[2023-03-04] MEDS ORDERED: diphenhydrAMINE 25 MG TAB (BENADRYL) PO ONE (02:15)
[2023-03-04 02:39] VITALS: BP 112/66
== END 2023-03-04 02:39 | disposition home or self-care (01) ==
LOC: EDUNIT# 01:01 → ER 01:08
DX: L30.9 Dermatitis, unspecified (principal); F17.210 Nicotine dependence, cigarettes, uncomplicated
CPT/HCPCS: 90715; 99284

== ENCOUNTER 2023-03-15 00:13 | Emergency (ER) | payer MEDICARE, MEDICAID ==
[~2023-03-15] VITALS: Ht 160 cm; Wt 81.6 kg
[~2023-03-15 00:13] MED LIST changes: +FAMO40TA72 PO; +MOME45CR3 TP
--- NOTE | 2023-03-15 01:13 | ED Cough/URI ---
General Chief Complaint: Cough/Cold/Flu Symptoms Stated Complaint: VOMITING,DIARRHEA,SORE THROAT,KIDD, Nursing Triage Note: PT AMB TO RM 5 W C/O KIDD, N/V/D, AND CHILLS SX SATURDAY AM. PT A&OX4. Source: patient History of Present Illness Date Seen by Provider: Mar 15, 2023 Allergies and Home Medications Allergies Coded Allergies: hydralazine (Verified Allergy, Severe, ANAPHYLAXIS, 10/27/18) tramadol (Unverified Allergy, Mild, 10/27/18) buspirone (Unverified Allergy, Unknown, 10/27/18) doxepin (Verified Allergy, Unknown, 10/27/18) gabapentin (Verified Allergy, Unknown, 10/27/18) hydroxyzine (Unverified Allergy, Unknown, 10/27/18) THIS ALLERGY ADDED PER ANESTHESIA. prazosin (Verified Allergy, Unknown, 10/27/18) Patient Home Medication List Aripiprazole (Aripiprazole) 20 Mg Tablet, 20 MG PO DAILY, (Reported) Entered as Reported by: ESTEVAN ABREU on 06/09/18 1033 Cetirizine HCl (Cetirizine HCl) 10 Mg Tablet, 10 MG PO DAILY PRN for ITCHING Prescribed by: SAVANNAH NOBLE on 06/15/18 1057 Escitalopram Oxalate (Escitalopram Oxalate) 20 Mg Tablet, 20 MG PO HS, (Reported) Entered as Reported by: ESTEVAN ABREU on 06/09/18 1033 Escitalopram Oxalate (Escitalopram Oxalate) 10 Mg Tablet, 10 MG PO HS, (Reported) Entered as Reported by: ESTEVAN ABREU on 06/09/18 1033 Estradiol (Estradiol Patch Twice Weekly 0.1mg/hr) 1 Each Patch.tdsw, 1 EACH TD Twice Weekly, (Reported) Entered as Reported by: ESTEVAN ABREU on 06/09/18 1033 Famotidine (Pepcid) 40 Mg Tablet, 40 MG PO DAILY Prescribed by: STU ALMARAZ on 03/04/23 0206 Hydrocodone Bit/Acetaminophen (Lortab 5 Mg Tablet) 1 Tab Tab, 1 TAB PO Q6H PRN for PAIN-MODERATE Prescribed by: ROSEMARY CARRERA on 06/12/18 1146 Hydrocodone Bit/Acetaminophen (Lortab 5 Mg Tablet) 1 Tab Tab, 1 EACH PO Q4-6HR PRN for PAIN-MODERATE Prescribed by: VILMA PIERRE on 01/25/192021 Mometasone Furoate (Mometasone Furoate) 0.1 % Cream..g., 45 GM TP TID Prescribed by: STU ALMARAZ on 03/04/23 0206 Ondansetron (Ondansetron Odt) 4 Mg Tab.rapdis, 4 MG PO Q6H PRN for NAUSEA/VOMITING Prescribed by: SAVANNAH NOBLE on 06/15/18 1043 Pantoprazole Sodium (Pantoprazole Sodium) 40 Mg Tablet.dr, 40 MG PO DAILY, (Reported) Entered as Reported by: QUOC CHAIREZ on 05/12/18 1308 Pregabalin (Lyrica) 100 Mg Capsule, 100 MG PO TID, (Reported) Entered as Reported by: QUOC CHAIREZ on 05/12/18 1308 Sulfamethoxazole/Trimethoprim (Bactrim Ds Tablet) 1 Each Tablet, 1 EACH PO BID Prescribed by: SEBASTIÁN REYES on 10/27/18 1314 Triamcinolone Acet (Triamcinolone Acetonide 0.025%) 15 Gm Cr, 1 GM TP BID PRN PRN for ITCHING Prescribed by: SAVANNAH NOBLE on 06/15/18 1043 Valacyclovir HCl (Valtrex) 500 Mg Tablet, 500 MG PO DAILY, (Reported) Entered as Reported by: ESTEVAN ABREU on 06/09/18 1033 Past Ixkqjhc-Jqsmkl-Esawdp Hx Patient Social History Tobacco Use?: Yes Tobacco type used: Cigarettes Smoking Status: Current Everyday Smoker Use of E-Cig and/or Vaping dev: No Substance use?: No Alcohol Use?: No Immunizations Up To Date Tetanus Booster (TDap): Less than 5yrs PED Vaccines UTD: No Seasonal Allergies Seasonal Allergies: No Past Medical History Surgeries: Yes (c/s x2, R hand reconstruction sx, ) Hysterectomy, Oophorectomy, Tonsillectomy Respiratory: Yes Chronic Bronchitis, Emphysema Cardiac: No Neurological: No Reproductive Disorders: No Female Reproductive Disorders: Endometriosis Sexually Transmitted Disease: Yes (GENITAL HERPES) Genitourinary: No Gastrointestinal: Yes Gastroesophageal Reflux, Pancreatitis, Gall Bladder Disease, Irritable Bowel Musculoskeletal: Yes (hernatied disc and bulging disk in back) Degenerate Disk Disease, Chronic Back Pain Endocrine: No Hearing Impairment: Denies Cancer: Yes (hpv) Ovarian What Type of Treatment Did You: Surgical Intervention Psychosocial: Yes Sleep Difficulties, Anxiety, Bipolar, Violent Behavior, Depression Integumentary: No (multiple tatoos, states gets hives when nervous) Blood Disorders: Yes (anemia) Family Medical History Alcoholism 03 FATHER 03 MOTHER 09 BROTHER 09 BROTHER 09 BROTHER 09 SISTER Cancer 03 MOTHER Chest pain 03 MOTHER Congenital heart disease 03 MOTHER Congestive heart failure 03 MOTHER Family history: Allergy 03 FATHER 03 MOTHER 09 BROTHER Family history: Alzheimer's disease 03 FATHER Family history: Arthritis 03 FATHER 03 MOTHER Family history: Asthma 03 MOTHER 09 SISTER Family history: Cardiovascular disease 03 MOTHER Family history: Coronary thrombosis 03 MOTHER Family history: Gastrointestinal disease 03 MOTHER Family history: Osteoporosis 03 MOTHER Headache 03 FATHER 03 MOTHER Heart disease 03 MOTHER History of - anemia 03 MOTHER History of - respiratory disease 09 SISTER Hypercholesterolemia 03 FATHER Myocardial infarction 03 MOTHER Parkinson's disease 03 MOTHER Psychotic disorder 03 FATHER 03 MOTHER Seizure disorder 09 SISTER Stroke 03 MOTHER No Family History of: Aphasia Cancer of colon Cataract Cystic fibrosis Dementia Dysphagia Family history: Diabetes mellitus Hearing loss History of drug abuse Infertile Kidney disease Malignant neoplasm of lung No Pertinent Family Hx Physical Exam Vital Signs - First Documented 03/15/23 00:23 Temp 36.4 Pulse 89 Resp 20 B/P (MAP) 116/71 (86) Pulse Ox 95 O2 Delivery Room Air Capillary Refill : Less Than 3 Seconds Height: 5'3.00" Weight: 150lbs. 0oz. [id number]; 31.00 BMI Method:Stated Progress/Results/Core Measures Suspected Sepsis SIRS Temperature: Pulse: 89 Respiratory Rate: 20 Blood Pressure 116 /71 Mean: 86 Results/Orders Lab Results Laboratory Tests Test 03/15/23 00:33 03/15/23 01:00 Range/Units Influenza Type A (RT-PCR) Not Detected Not Detecte Influenza Type B (RT-PCR) Not Detected Not Detecte SARS-CoV-2 RNA (RT-PCR) Not Detected Not Detecte Group A Streptococcus Screen NEGATIVE NEGATIVE My Orders Orders - STU ALMARAZ DO Covid 19 Inhouse Test (03/15/23 00:39) Influenza A And B By Pcr (03/15/23 00:39) Rapid Strep A Screen (03/15/23 00:39) Throat Culture Strep A Confirm (03/15/23 01:00) Rx-Doxycycline Tablet (Rx-Vibramycin Tab (03/15/23 01:40) Vital Signs/I&O 03/15/23 00:23 Temp 36.4 Pulse 89 Resp 20 B/P (MAP) 116/71 (86) Pulse Ox 95 O2 Delivery Room Air Capillary Refill : Less Than 3 Seconds Blood Pressure Mean: 86 Departure Impression Primary Impression: Upper respiratory infection Disposition: HOME, SELF-CARE Condition: Stable Departure-Patient Inst. Decision time for Depature: 01:40 Referrals: SISI HOPPER APRN (PCP) Primary Care Physician Patient Instructions: Upper Respiratory Infection ED Add. Discharge Instructions: LOTS OF CLEAR LIQUIDS--WATER, BROTH, JELLO, GATORADE TYLENOL AND MOTRIN NEEDED FOR PAIN FOLLOW UP WITH [facility] IN 3-4 DAYS IF NO BETTER All discharge instructions reviewed with patient and/or family. Voiced understanding. Scripts Guaifenesin/Dextromethorphan (Mucinex Dm ER 1,200-60 mg Tab) 1,200 Mg-60 Mg Tbmp.12hr 1 EACH PO BID, #20 EA Prov: STU ALMARAZ DO 03/15/23 Doxycycline Hyclate (Doxycycline Hyclate) 100 Mg Tablet 100 MG PO BID, #20 TAB 0 Refills Prov: STU ALMARAZ DO 03/15/23 STU ALMARAZ DO Mar 15, 2023 01:13
[2023-03-15] MEDS ORDERED: RX-DOXYCYCLINE 100 MG (VIBRAMYCIN) TAB PPK#2 PO STA (01:40)
[2023-03-15] MEDS ORDERED: DOXY100T2 PO (01:42)
[2023-03-15] MEDS ORDERED: GUAI1TBM19 PO (01:42)
[2023-03-15 01:47] VITALS: BP 117/77
== END 2023-03-15 01:47 | disposition home or self-care (01) ==
LOC: EDUNIT# 00:13 → ER 00:17
DX: J06.9 Acute upper respiratory infection, unspecified (principal); F17.210 Nicotine dependence, cigarettes, uncomplicated; Z20.822 Contact with and (suspected) exposure to COVID-19
CPT/HCPCS: 87430; 87636; 99283

== ENCOUNTER → 2023-04-16 | Outpatient (CLI) | payer MEDICARE, MEDICAID ==
[~2023-04-16] MED LIST changes: +DOXY100T2 PO; +GUAI1TBM19 PO
--- NOTE | 2023-04-16 11:55 | Diagnostic Imaging Report ---
PROCEDURE: MR imaging cervical spine without contrast. TECHNIQUE: Multiplanar, multisequence MR imaging of the cervical spine was performed without contrast. DATE: April 16, 2023. COMPARISON: CT head and cervical spine February 06, 2023. INDICATION: 47-year-old female, neck pain. FINDINGS: The alignment of the cervical spine is grossly unremarkable. There is no evidence of a diffuse marrow infiltrating or replacing process. There is no identified acute fracture of the cervical spine. There is no focal concerning bone lesion. There are endplate degenerative related Modic changes adjacent to the C4-C5 and C5-C6 disc spaces. There is no identified abnormal signal in the cervical spinal cord. There is mild disc height loss at C4-C5 and C5-C6. C2-C3: There is no disc bulge. The uncovertebral and facet joints are unremarkable. There is no foraminal narrowing. There is no spinal canal stenosis. C3-C4: There is no disc bulge. The uncovertebral and facet joints are unremarkable. There is no foraminal narrowing. There is no spinal canal stenosis. C4-C5: There is a large posterior disc osteophyte complex. The uncovertebral and facet joints are unremarkable. There is no high-grade foraminal narrowing. There is severe spinal stenosis with cord compression. There is no current abnormal cord signal. C5-C6: There is a large posterior disc osteophyte complex. There are bilateral uncovertebral degenerative changes. There is severe bilateral foraminal narrowing. There is severe spinal stenosis with cord compression. There is no current abnormal cord signal. C6-C7: There is a small posterior disc osteophyte complex. There are mild bilateral uncovertebral degenerative changes. There is moderate to severe right and moderate left foraminal narrowing. There is no spinal canal stenosis. C7-T1: There is no disc bulge. The uncovertebral and facet joints are unremarkable. There is no foraminal narrowing. There is no spinal canal stenosis. IMPRESSION: 1. Disc and uncovertebral degenerative changes most notable at C4-C5 and C5-C6 including severe spinal stenosis and cord compression at both levels without current abnormal cord signal. There is also severe bilateral foraminal stenosis at C5-C6. 2. Additional disc and uncovertebral degenerative changes at C6-C7. Dictated by: Dictated on workstation # [id number]
== END ==
LOC: RAD 09:56
PROVIDERS: ATTEND Nurse Practitioner
DX: M50.121 Cervical disc disorder at C4-C5 level with radiculopathy (principal); M47.812 Spondylosis without myelopathy or radiculopathy, cervical region; M48.02 Spinal stenosis, cervical region; M47.816 Spondylosis without myelopathy or radiculopathy, lumbar region
CPT/HCPCS: 72141